=== PATIENT | female | born 1955 | race Caucasian/White ===

== ENCOUNTER 2017-09-21 09:44 | Day surgery (SDC) | payer MEDICAID ==
[~2017-09-21 09:44] MED LIST: KETOROLAC TROMETHAMINE 0.45% 4 DROP/0.4 ML DROPERETTE OD PRN
[2017-09-21] MEDS: CYCLOPENTOLATE 0.2%/PHENYLEPHRINE 1% OPH SOLN 2 ML OD PRN ×3 (10:05→10:38)
[2017-09-21] MEDS: TROPICAMIDE 1% OPH SOLN 3 ML OD PRN ×3 (10:05→10:38)
[2017-09-21] MEDS: BESIFLOXACIN HCL 0.6% OPH SUSP 5 ML BOTTLE OD PRN ×4 (10:06→11:12)
[2017-09-21] MEDS: TETRACAINE HCL 0.5% OPH SOLN 0.6 ML DROPERETTE OD PRN ×4 (10:07→10:53)
[2017-09-21] MEDS ORDERED: CHONDR SU A NA/HYALUR INTRAOC KIT (SURGICARE) ONE (10:09)
[2017-09-21] MEDS ORDERED: EPINEPHRINE INJ/PF 1 MG/1 ML AMPULE ONE (10:09)
[2017-09-21] MEDS ORDERED: LIDOCAINE 1% INJ-PF (10 MG/ML) 30 ML SDV ONE (10:09)
[2017-09-21] MEDS ORDERED: MIDAZOLAM 2 MG/2 ML INJ ONE (10:32)
[2017-09-21] MEDS ORDERED: FENTANYL CITRATE INJ/PF 100 MCG/2 ML AMPUL ONE (10:32)
[2017-09-21] MEDS: TOBRAMYCIN SULFATE/DEXAMETH OPH OINTMENT 3.5 GM ONE ×2 (11:12)
== END 2017-09-21 11:50 | disposition home or self-care (01) ==
LOC: SC 09:44
PROVIDERS: ATTEND Ophthalmology
PROC: 08RJ3JZ Replacement of Right Lens with Synthetic Substitute, Percutaneous Approach (ICD-10-PCS; principal; 2017-09-21 10:30)
DX: H25.11 Age-related nuclear cataract, right eye (principal); F17.200 Nicotine dependence, unspecified, uncomplicated; J45.909 Unspecified asthma, uncomplicated; I10 Essential (primary) hypertension
CPT/HCPCS: 66984; V2630; J2250; J3490 ×5; J0171; J3010; 142

== ENCOUNTER 2017-10-05 10:24 | Day surgery (SDC) | payer MEDICAID ==
[~2017-10-05 10:24] MED LIST changes: -KETOROLAC TROMETHAMINE 0.45% 4 DROP/0.4 ML DROPERETTE OD PRN; +KETOROLAC TROMETHAMINE 0.45% 4 DROP/0.4 ML DROPERETTE OS PRN
[2017-10-05] MEDS: TETRACAINE HCL 0.5% OPH SOLN 0.6 ML DROPERETTE OS PRN ×4 (11:02→11:37)
[2017-10-05] MEDS: CYCLOPENTOLATE 0.2%/PHENYLEPHRINE 1% OPH SOLN 2 ML OS PRN ×3 (11:03→11:25)
[2017-10-05] MEDS: TROPICAMIDE 1% OPH SOLN 3 ML OS PRN ×3 (11:03→11:25)
[2017-10-05] MEDS: BESIFLOXACIN HCL 0.6% OPH SUSP 5 ML BOTTLE OS PRN ×4 (11:04→11:59)
[2017-10-05] MEDS ORDERED: MIDAZOLAM 2 MG/2 ML INJ ONE (11:20)
[2017-10-05] MEDS ORDERED: FENTANYL CITRATE INJ/PF 100 MCG/2 ML AMPUL ONE (11:20)
[2017-10-05] MEDS: EPINEPHRINE INJ/PF 1 MG/1 ML AMPULE ONE ×2 (11:47)
[2017-10-05] MEDS: CHONDR SU A NA/HYALUR INTRAOC KIT (SURGICARE) ONE ×2 (11:47)
[2017-10-05] MEDS: LIDOCAINE 1% INJ-PF (10 MG/ML) 30 ML SDV ONE ×2 (11:47)
[2017-10-05] MEDS: TOBRAMYCIN SULFATE/DEXAMETH OPH OINTMENT 3.5 GM ONE ×2 (11:59)
== END 2017-10-05 12:40 | disposition home or self-care (01) ==
LOC: SC 10:24
PROVIDERS: ATTEND Ophthalmology
DX: H25.12 Age-related nuclear cataract, left eye (principal); J45.909 Unspecified asthma, uncomplicated; I10 Essential (primary) hypertension; K21.9 Gastro-esophageal reflux disease without esophagitis; E78.00 Pure hypercholesterolemia, unspecified; F17.210 Nicotine dependence, cigarettes, uncomplicated; Z88.2 Allergy status to sulfonamides; Z79.899 Other long term (current) drug therapy; Z79.82 Long term (current) use of aspirin
CPT/HCPCS: 66984; V2630; J2250; J3490 ×5; J0171; J3010; 142

== ENCOUNTER 2018-08-28 09:00 | Day surgery (SDC) | payer MEDICAID ==
[~2018-08-28 09:00] MED LIST changes: -KETOROLAC TROMETHAMINE 0.45% 4 DROP/0.4 ML DROPERETTE OS PRN; +PROPOFOL INJ 200 MG/20 ML VIAL IV ONE
[2018-08-28] MEDS ORDERED: ALBUTEROL SULFATE 0.083% NEB 2.5 MG/3 ML AMPUL NEB ONE (10:00)
[2018-08-28] MEDS ORDERED: IPRATROPIUM/ALBUTEROL 0.5-2.5 MG/3 ML AMPUL NEB ONE (10:02)
[2018-08-28] MEDS ORDERED: GLYCOPYRROLATE INJ 0.4 MG/2 ML VIAL ONE (11:24)
[2018-08-28] MEDS ORDERED: PROPOFOL INJ 200 MG/20 ML VIAL IV ONE (11:27)
--- NOTE | 2018-08-28 11:28 | EKG REPORT ---
SEVERITY:- OTHERWISE NORMAL ECG - SINUS RHYTHM LEFT AXIS DEVIATION LOW VOLTAGE IN FRONTAL LEADS : Confirmed by: Ambika Qureshi MD 28-Aug-2018 11:27:31
[2018-08-28 12:16] VITALS: BP 126/74
--- NOTE | 2018-08-28 15:23 | Operative Report ---
Operative Report DATE OF SURGERY: 08/28/18 Operative Report: The risks, benefits and alternatives of the procedure including the risk of bleeding, perforation requiring surgery have been explained to the patient in detail and informed consent has been obtained. The patient is placed in a left, lateral decubital position. Timeout was called. Propofol medication is administered. Rectal examination is done which did not reveal any masses, tears or fissures. An Olympus videoscope was introduced into the patient's rectum. The scope was then carefully advanced all the way to the cecum. The cecum was identified by the usual anatomical landmarks including the ileocecal valve as well as the appendiceal office. Photodocumentation is obtained. The scope was then sequentially pulled back via the various segments of the colon including the ascending colon, hepatic flexure, transverse colon, splenic flexure, acacia cending colon and brought into the rectosigmoid portions of the colon. Retroflexion maneuvers performed. PREOPERATIVE DIAGNOSIS: Rectal bleeding POSTOPERATIVE DIAGNOSIS: Colon mass noted at 15 cm. It is noted just distal to the first valve of Sanchez. Marcia ink was used to tattoo the area. Sigmoid colon polyp removed via snare polypectomy and retrieved. Diverticulosis without any evidence of diverticulitis. Internal hemorrhoids. Hepatic flexure polyp removed via snare polypectomy and retrieved OPERATION: Colonoscopy with snare polypectomy. Colonoscopy with submucosal injection of Marcia ink SURGEON: ROSEY MENDES ANESTHESIA: LMAC TISSUE REMOVED OR ALTERED: As noted above. COMPLICATIONS: None. ESTIMATED BLOOD LOSS: None INTRAOPERATIVE FINDINGS: As noted above. PROCEDURE: Patient tolerated the procedure well. No immediate postprocedure complications are noted. Patient is discharged in good condition. Discharge date 08/28/2018. Discharge diet: Regular. Discharge activity: Regular. Will need surgical referral for segmental resection pending work-up of metastases Wait on the pathology Patient is instructed to call the office or proceed to the emergency room should there be any further problems or questions. Following surgery she needs a six-month to one year surveillance colonoscopy
== END 2018-08-28 12:18 | disposition home or self-care (01) ==
LOC: END 09:00
PROVIDERS: ATTEND Internal Medicine Gastroenterology
DX: D12.5 Benign neoplasm of sigmoid colon (principal); D12.6 Benign neoplasm of colon, unspecified; K64.8 Other hemorrhoids; K62.5 Hemorrhage of anus and rectum; I11.9 Hypertensive heart disease without heart failure; J44.9 Chronic obstructive pulmonary disease, unspecified; E07.9 Disorder of thyroid, unspecified; F17.210 Nicotine dependence, cigarettes, uncomplicated; Z88.2 Allergy status to sulfonamides
CPT/HCPCS: 45385; 45381; 88305 ×2; 93005; 93010; 94640; J3490; J2704; J7620; 811

== ENCOUNTER 2018-11-07 09:11 | Day surgery (SDC) | payer MEDICAID, MEDICARE ==
--- NOTE | 2018-11-07 10:04 | RADIOLOGY REPORT (SQ) ---
EXAM DESCRIPTION: CHEST SINGLE VIEW COMPLETED DATE/TIME: 11/07/2018 9:51 am REASON FOR STUDY: PREOP COMPARISON: 09/22/2018 EXAM PARAMETERS: NUMBER OF VIEWS: One view. TECHNIQUE: Single frontal radiographic view of the chest acquired. RADIATION DOSE: NA LIMITATIONS: None. FINDINGS: LUNGS AND PLEURA: No opacities, masses or pneumothorax. No pleural effusion. MEDIASTINUM AND HILAR STRUCTURES: No masses. Contour normal. HEART AND VASCULAR STRUCTURES: Heart normal in size. Normal vasculature. BONES: No acute findings. HARDWARE: None in the chest. OTHER: No other significant finding. IMPRESSION: No evidence of acute cardiopulmonary process. TECHNICAL DOCUMENTATION: JOB ID: [id number] [employer]- All Rights Reserved Reading location - IP/workstation name: [email or web address]
[2018-11-07 10:08] LABS: HEMATOCRIT 27.5 % (36.0-47.0); HEMOGLOBIN 8.7 g/dL (12.0-15.5); MEAN CORPUSCULAR HEMOGLOBIN 22.8 pg (27.0-33.4); MEAN CORPUSCULAR HGB CONC 31.6 g/dL (32.0-36.0); MEAN CORPUSCULAR VOLUME 72 fl (80-97); PLATELET COUNT 380 10^3/uL (150-450); RED BLOOD COUNT 3.82 10^6/uL (3.72-5.28); RED CELL DISTRIBUTION WIDTH 17.6 % (11.5-14.0); WHITE BLOOD COUNT 6.3 10^3/uL (4.0-10.5)
[2018-11-07] MEDS ORDERED: PROPOFOL INJ 200 MG/20 ML VIAL IV ONE (10:35)
[2018-11-07] MEDS ORDERED: LIDOCAINE 2% INJ-PF (20 MG/ML) 10 ML AMPUL ONE (10:35)
[2018-11-07 10:39] LABS: ANION GAP 5 (5-19); BLOOD UREA NITROGEN 11 mg/dL (7-20); CALCIUM 9.6 mg/dL (8.4-10.2); CARBON DIOXIDE 29 mmol/L (22-30); CHLORIDE 106 mmol/L (98-107); GLUCOSE 97 mg/dL (75-110); POTASSIUM 4.4 mmol/L (3.6-5.0)
[2018-11-07] MEDS ORDERED: ALBUTEROL SULFATE 0.083% NEB 2.5 MG/3 ML AMPUL NEB ONE (10:49)
[2018-11-07 11:09] LABS: CARCINOEMBRYONIC ANTIGEN 5.9 ng/mL (<3.0)
--- NOTE | 2018-11-07 12:13 | Discharge Summary ---
Discharge Summary (SDC) - Discharge Final Diagnosis: rectal cancer Date of Surgery: 11/07/18 Discharge Date: 11/07/18 Condition: Stable Treatment or Instructions: Discharge home. Diet as tolerated. Activity: As tolerated. Follow-up with me in 1 to 2 weeks. My office will schedule a rectal MRI for the patient. They will call her with the date and time. Referrals: KEVIN SYKES FNP-C [Primary Care Provider] - Discharge Diet: As Tolerated Respiratory Treatments at Home: Deep Breathing/Coughing, Incentive Spirometer Discharge Activity: Activity As Tolerated Home Care Assistance: None Needed Report the Following to Your Physician Immediately: Shortness of Breath, Nausea, Vomiting, Increase in Pain
--- NOTE | 2018-11-07 12:18 | Operative Report ---
Nonrecallable Operative Report DATE OF SURGERY: 11/07/18 PREOPERATIVE DIAGNOSIS: rectal mass/rectal cancer POSTOPERATIVE DIAGNOSIS: Same as above OPERATION: Flexible sigmoidoscopy SURGEON: BOY BLOOM ANESTHESIA: LMAC TISSUE REMOVED OR ALTERED: None COMPLICATIONS: None apparent ESTIMATED BLOOD LOSS: None PROCEDURE: Procedure in detail: After informed consent was obtained, the patient was brought into the operating room and laid in the left lateral decubitus position. After adequate anesthesia had been attained, the flexible sigmoidoscope was inserted into the rectum. At approximately 8.5 cm from the dentate line, in the rectum a mass like lesion was identified with a depressed center. This is highly suspicious for rectal cancer. A previous tattoo was identified distal to the lesion. The lesion was located at approximately 8:00 on the lateral left side of the rectal wall. Once this was confirmed, the procedure was concluded. All sponge, instrument, needle counts were correct. Condition: Stable.
[2018-11-07 15:11] VITALS: BP 152/92
--- NOTE | 2018-11-07 18:58 | EKG REPORT ---
SEVERITY:- ABNORMAL ECG - SINUS RHYTHM SUPRAVENTRICULAR BIGEMINY LEFT AXIS DEVIATION LOW VOLTAGE IN FRONTAL LEADS : Confirmed by: Ryan Noguera MD 07-Nov-2018 18:58:25
== END 2018-11-07 13:30 | disposition home or self-care (01) ==
LOC: OROUT 09:11
PROVIDERS: ATTEND Surgery
DX: C20 Malignant neoplasm of rectum (principal); K63.89 Other specified diseases of intestine; J44.9 Chronic obstructive pulmonary disease, unspecified; D64.9 Anemia, unspecified; E78.00 Pure hypercholesterolemia, unspecified; F17.210 Nicotine dependence, cigarettes, uncomplicated; Z79.51 Long term (current) use of inhaled steroids; Z79.899 Other long term (current) drug therapy; Z79.82 Long term (current) use of aspirin
CPT/HCPCS: 36415; 82378; 85027; 80048; 71045; 93005; 93010; 45330; J2704; J3490

== ENCOUNTER → 2018-11-14 | Outpatient (CLI) | payer MEDICAID ==
--- NOTE | 2018-11-14 13:26 | RADIOLOGY REPORT (SQ) ---
EXAM DESCRIPTION: MRI PELVIS COMBO COMPLETED DATE/TIME: 11/14/2018 REASON FOR STUDY: K63.9 DISEASE OF INTESTINE, UNSPECIFIED K63.9 DISEASE OF INTESTINE, UNSPECIFIED COMPARISON: CT abdomen pelvis 09/22/2018 TECHNIQUE: Sagittal, axial oblique, and coronal oblique T2-weighted images of the pelvis without con trast centered on the rectum. Axial images of the pelvis. FINDINGS: BRIEF DESCRIPTION OF MASS: A nearly circumferential apple core lesion of the distal sigmoi d colon is present, 3.5 cm in greatest length LOCATION OF TUMOR: Distal sigmoid colon DISTANCE FROM ANORECTAL JUNCTION TO LOWER POLE OF TUMOR: 5 cm. CIRCUMFERENTIAL LOCATION OF TUMOR: Distal sigmoid colon LENGTH OF TUMOR: 3.5 cm. INVOLVEMENT OF MUSCULARIS PROPIA: Yes EXTENSION BEYOND MUSCULARIS PROPIA: Yes, contrast-enhancement and stranding of pericolic fat worrisom e for tumor extension beyond the muscularis propria on axial image 53 DISTANCE BETWEEN TUMOR AND MESORECTAL FASCIA: At the level of the fascia PATHOLOGIC LYMPH NODES: 9 mm lymph node in the presacral fat axial image 5/32 6 mm left internal iliac lymph node axial image 6/32 7 mm lymph node in the perirectal fat axial image 8/32 5 mm lymph node perirectal fat axial image 10/32 6 mm perirectal fat lymph node axial image 11/32 EXTRAMURAL/VASCULAR INVASION: No DESCRIPTION: Not applicable. INVASION OF PELVIC STRUCTURES: No DESCRIPTION: Not applicable. Remainder of the study demonstrates normal size female pelvic organs with mild artifact post tubal li gation clips. Sigmoid diverticuli are present. No free pelvic fluid. No bony abnormalities. Next IMPRESSION: T STAGE: T3 Tumor invades subserosea through muscularis propria N STAGE: N1 1-3 pathologic lymph nodes TECHNICAL DOCUMENTATION: JOB ID: [id number] [employer]- All Rights Reserved Reading location - IP/workstation name: [email or web address]
== END ==
LOC: RAD 08:53
PROVIDERS: ATTEND Surgery
DX: D49.0 Neoplasm of unspecified behavior of digestive system (principal); K57.30 Diverticulosis of large intestine without perforation or abscess without bleeding
CPT/HCPCS: 72197; A9576

== ENCOUNTER → 2018-11-27 | Outpatient (CLI) | payer MEDICAID ==
[2018-11-27 11:40] LABS: HEMATOCRIT 27.9 % (36.0-47.0); HEMOGLOBIN 8.7 g/dL (12.0-15.5); MEAN CORPUSCULAR HEMOGLOBIN 22.1 pg (27.0-33.4); MEAN CORPUSCULAR HGB CONC 31.2 g/dL (32.0-36.0); MEAN CORPUSCULAR VOLUME 71 fl (80-97); PLATELET COUNT 429 10^3/uL (150-450); RED BLOOD COUNT 3.94 10^6/uL (3.72-5.28); RED CELL DISTRIBUTION WIDTH 18.4 % (11.5-14.0); WHITE BLOOD COUNT 7.8 10^3/uL (4.0-10.5)
--- NOTE | 2018-11-27 11:44 | RADIOLOGY REPORT (SQ) ---
EXAM DESCRIPTION: CHEST PA/LATERAL COMPLETED DATE/TIME: 11/27/2018 11:04 am REASON FOR STUDY: PRE-OP COMPARISON: 11/07/2018. EXAM PARAMETERS: NUMBER OF VIEWS: two views TECHNIQUE: Digital Frontal and Lateral radiographic views of the chest acquired. RADIATION DOSE: NA LIMITATIONS: none FINDINGS: LUNGS AND PLEURA: No opacities, masses or pneumothorax. No pleural effusion. MEDIASTINUM AND HILAR STRUCTURES: No masses or contour abnormalities. HEART AND VASCULAR STRUCTURES: Heart normal size. No evidence for failure. BONES: No acute findings. HARDWARE: None in the chest. OTHER: Hiatal hernia. No other significant finding. IMPRESSION: NO ACUTE RADIOGRAPHIC FINDING IN THE CHEST. TECHNICAL DOCUMENTATION: JOB ID: [id number] [employer]- All Rights Reserved Reading location - IP/workstation name: [email or web address]
[2018-11-27 11:59] LABS: ANION GAP 9 (5-19); BLOOD UREA NITROGEN 17 mg/dL (7-20); CARBON DIOXIDE 27 mmol/L (22-30); CHLORIDE 106 mmol/L (98-107); GLUCOSE 87 mg/dL (75-110); POTASSIUM 4.6 mmol/L (3.6-5.0)
--- NOTE | 2018-11-27 13:32 | EKG REPORT ---
SEVERITY:- BORDERLINE ECG - SINUS RHYTHM ATRIAL PREMATURE COMPLEX BORDERLINE LEFT AXIS DEVIATION LOW VOLTAGE IN FRONTAL LEADS : Confirmed by: Ryan Noguera MD 27-Nov-2018 13:31:25
== END ==
LOC: OD 10:30
PROVIDERS: ATTEND Surgery
DX: Z01.818 Encounter for other preprocedural examination (principal); I11.9 Hypertensive heart disease without heart failure; C20 Malignant neoplasm of rectum; K63.89 Other specified diseases of intestine; E03.9 Hypothyroidism, unspecified; F41.8 Other specified anxiety disorders; E78.00 Pure hypercholesterolemia, unspecified; M19.90 Unspecified osteoarthritis, unspecified site; Z79.82 Long term (current) use of aspirin
CPT/HCPCS: 36415; 71046; 80048; 85027; 93005; 93010

== ENCOUNTER 2018-12-04 11:33 | Day surgery (SDC) | payer MEDICAID ==
[2018-12-01 10:18] LABS: HEMATOCRIT 28.7 % (36.0-47.0); HEMOGLOBIN 8.7 g/dL (12.0-15.5); MEAN CORPUSCULAR HEMOGLOBIN 21.3 pg (27.0-33.4); MEAN CORPUSCULAR HGB CONC 30.3 g/dL (32.0-36.0); MEAN CORPUSCULAR VOLUME 70 fl (80-97); PLATELET COUNT 404 10^3/uL (150-450); RED BLOOD COUNT 4.09 10^6/uL (3.72-5.28); RED CELL DISTRIBUTION WIDTH 18.4 % (11.5-14.0); WHITE BLOOD COUNT 8.9 10^3/uL (4.0-10.5)
[2018-12-01 10:57] LABS: ANION GAP 13 (5-19); BLOOD UREA NITROGEN 25 mg/dL (7-20); CALCIUM 9.8 mg/dL (8.4-10.2); CARBON DIOXIDE 25 mmol/L (22-30); CHLORIDE 103 mmol/L (98-107); GLUCOSE 100 mg/dL (75-110); POTASSIUM 4.5 mmol/L (3.6-5.0)
--- NOTE | 2018-12-01 15:07 | EKG REPORT ---
SEVERITY:- ABNORMAL ECG - SINUS RHYTHM PROBABLE INFERIOR INFARCT, OLD : Confirmed by: Ryan Noguera MD 01-Dec-2018 15:06:45
[~2018-12-04 11:33] MED LIST changes: +CEFAZOLIN 2 GM/D5W RTU 2 GM/50 ML RTUPB IV PRN; +FENTANYL CITRATE INJ/PF 100 MCG/2 ML AMPUL ONE; +IBUPROFEN 800 MG in NORMAL SALINE 250 ML IV PRN; +LACTATED RINGERS 1000 ML IV PRN; +LIDOCAINE 0.5% INJ-PF (5 MG/ML) 50 ML SDV SUBCUT PRN; -PROPOFOL INJ 200 MG/20 ML VIAL IV ONE
[2018-12-04] MEDS ORDERED: CEFAZOLIN SODIUM 2 GM in DEXTROSE 5%-WATER 100 ML IV PRN (11:45)
[2018-12-04] MEDS ORDERED: BUPIVACAINE HCL 0.25 % INJ/PF (2.5 MG/1 ML) 30 ML VIAL ONE (12:19)
[2018-12-04] MEDS ORDERED: LIDOCAINE 1% INJ-PF (10 MG/ML) 30 ML SDV ONE (12:19)
[2018-12-04] MEDS ORDERED: PROPOFOL INJ 200 MG/20 ML VIAL IV ONE (15:54)
[2018-12-04] MEDS ORDERED: ONDANSETRON HCL INJ/PF 4 MG/2 ML SDV ONE (15:54)
[2018-12-04] MEDS ORDERED: MIDAZOLAM 2 MG/2 ML INJ ONE (15:54)
[2018-12-04] MEDS ORDERED: PROMETHAZINE HCL INJ 25 MG/1 ML VIAL IV PRN (16:43)
[2018-12-04] MEDS ORDERED: MEPERIDINE HCL/PF INJ 25 MG/1 ML DISP.SYRIN IV PRN (16:43)
[2018-12-04] MEDS ORDERED: DIPHENHYDRAMINE HCL 50 MG/ML VIAL IV PRN (16:43)
[2018-12-04] MEDS ORDERED: FENTANYL CITRATE INJ/PF 100 MCG/2 ML AMPUL IV PRN ×2 (16:43)
[2018-12-04] MEDS ORDERED: BUPIVACAINE HCL 0.25 % INJ/PF (2.5 MG/1 ML) 30 ML VIAL INJ ONE (17:04)
[2018-12-04] MEDS ORDERED: LIDOCAINE 1% INJ (10 MG/ML) 10 ML MDV INJ ONE (17:04)
[2018-12-04] MEDS ORDERED: FENTANYL CITRATE INJ/PF 100 MCG/2 ML AMPUL ONE (17:27)
--- NOTE | 2018-12-04 17:46 | RADIOLOGY REPORT (SQ) ---
EXAM DESCRIPTION: CHEST SINGLE VIEW COMPLETED DATE/TIME: 12/04/2018 5:32 pm REASON FOR STUDY: post op pacu COMPARISON: 11/27/2018 EXAM PARAMETERS: NUMBER OF VIEWS: One view. TECHNIQUE: Single frontal radiographic view of the chest acquired. RADIATION DOSE: NA LIMITATIONS: None. FINDINGS: LUNGS AND PLEURA: No opacities, masses or pneumothorax. No pleural effusion. MEDIASTINUM AND HILAR STRUCTURES: Large retrocardiac hiatal hernia. HEART AND VASCULAR STRUCTURES: Heart normal in size. Normal vasculature. BONES: No acute findings. HARDWARE: New venous access catheter tip at the cavoatrial junction. OTHER: No other significant finding. IMPRESSION: New venous access catheter tip cavoatrial junction. No pneumothorax. TECHNICAL DOCUMENTATION: JOB ID: [id number] [employer]- All Rights Reserved Reading location - IP/workstation name: [email or web address]
[2018-12-04 18:56] VITALS: BP 119/73
--- NOTE | 2018-12-04 19:32 | RADIOLOGY REPORT (SQ) ---
EXAM DESCRIPTION: CHEST SINGLE VIEW; FLUORO/CV PLACEMENT COMPLETED DATE/TIME: 12/04/2018 5:10 pm REASON FOR STUDY: PORT A CATH RT SIDE C20 MALIGNANT NEOPLASM OF RECTUM K63.89 OTHER SPECIFIED DISE ASES OF INTESTINE COMPARISON: Chest radiograph FLUOROSCOPY TIME: 0.8 minutes 2 images saved to PACS. TECHNIQUE: Intra-operative images acquired during surgical procedure to evaluate progress. NUMBER OF IMAGES: 2 LIMITATIONS: None. FINDINGS: Placement of venous access catheter. Tip at the cavoatrial junction. IMPRESSION: IMAGE(S) OBTAINED DURING PROCEDURE. COMMENT: Quality ID [id number]: Final reports for procedures using fluoroscopy that document radiation exp osure indices, or exposure time and number of fluorographic images (if radiation exposure indices are not available) Please consult full operative report of the attending physician for description of the procedure. TECHNICAL DOCUMENTATION: JOB ID: [id number] [employer]- All Rights Reserved Reading location - IP/workstation name: [email or web address]
--- NOTE | 2018-12-04 19:32 | RADIOLOGY REPORT (SQ) ---
EXAM DESCRIPTION: CHEST SINGLE VIEW; FLUORO/CV PLACEMENT COMPLETED DATE/TIME: 12/04/2018 5:10 pm REASON FOR STUDY: PORT A CATH RT SIDE C20 MALIGNANT NEOPLASM OF RECTUM K63.89 OTHER SPECIFIED DISE ASES OF INTESTINE COMPARISON: Chest radiograph FLUOROSCOPY TIME: 0.8 minutes 2 images saved to PACS. TECHNIQUE: Intra-operative images acquired during surgical procedure to evaluate progress. NUMBER OF IMAGES: 2 LIMITATIONS: None. FINDINGS: Placement of venous access catheter. Tip at the cavoatrial junction. IMPRESSION: IMAGE(S) OBTAINED DURING PROCEDURE. COMMENT: Quality ID 145: Final reports for procedures using fluoroscopy that document radiation exp osure indices, or exposure time and number of fluorographic images (if radiation exposure indices are not available) Please consult full operative report of the attending physician for description of the procedure. TECHNICAL DOCUMENTATION: JOB ID: [id number] [employer]- All Rights Reserved Reading location - IP/workstation name: [email or web address]
--- NOTE | 2018-12-05 16:18 | Discharge Summary ---
Discharge Summary (SDC) - Discharge Final Diagnosis: Rectal cancer Date of Surgery: 12/04/18 Discharge Date: 12/04/18 Condition: Stable Forms: ASU Anesthesia D/C Instruction, Discharge POC-Surgical Service Treatment or Instructions: Discharge home. Diet as tolerated. Activity: Nonstrenuous. Follow-up with me will be arranged by my office. Referrals: DAT JONES FNP-C [Primary Care Provider] - BOY CORBETT MD [ACTIVE STAFF] - (Dr Corbett's office will call to schedule follow up) Discharge Diet: As Tolerated Respiratory Treatments at Home: Deep Breathing/Coughing, Incentive Spirometer Discharge Activity: Balance Activity w/Rest Home Care Assistance: None Needed Report the Following to Your Physician Immediately: Shortness of Breath, Nausea, Increase in Pain, Fever over 101 Degrees, Unusual Bleeding, Redness, Swelling, Warmth, Increased Soreness, Drainage-Yellow, IV Site Infection Signs
--- NOTE | 2018-12-05 16:24 | Operative Report ---
Nonrecallable Operative Report DATE OF SURGERY: 12/04/18 PREOPERATIVE DIAGNOSIS: Rectal cancer POSTOPERATIVE DIAGNOSIS: Same as above OPERATION: 1. Ultrasound-guided central venous puncture. 2. Right internal jugular vein Mediport placement. 3. Flexible sigmoidoscopy with biopsy of rectal cancer SURGEON: BOY BLOOM ANESTHESIA: LMAC TISSUE REMOVED OR ALTERED: Rectal biopsy COMPLICATIONS: None apparent ESTIMATED BLOOD LOSS: Minimal PROCEDURE: Indication for the procedure: This is a 63-year-old female with a known rectal mass. It has previously been imaged and tattooed. Patient has advanced rectal cancer, however no biopsy has to-date been obtained. Oncology is requesting biopsy so they may examine the histology of the tumor, prior to neoadjuvant chemoradiation. Drains/implants: Mediport in the right chest wall. Procedure in detail: After informed consent was obtained, the patient was brought to the operating room and laid in the Trendelenburg position. The area of the neck and chest were prepped and draped in a normal sterile fashion. An ultrasound was used to identify the right internal jugular vein. It was compressible with normal flow. Under direct ultrasonic guidance, the right internal jugular vein was cannulated with the supplied access needle. Dark venous, nonpulsatile blood was returned in the syringe. The wire was inserted easily into the lumen of the vein. The wire was confirmed to be within the vein using both fluoroscopy as well as ultrasonography. Next, the catheter was tunneled from a separate stab incision in the right chest up to the needle insertion site. Next the dilator and breakaway sheath were inserted over the wire. The dilator and wire were removed as one continuous piece. The catheter was inserted into the breakaway sheath. The sheath was cracked and pulled away, leaving the catheter within the superior vena cava. The catheter was pulled back to an appropriate level, trimmed to length, and then the Mediport hub was attached. The hub was buried within the pocket. It was sutured to the chest wall using 3-0 Vicryl suture. The hub was accessed and flushed easily with heparinized saline. The subcutaneous tissues were closed using 3-0 Vicryl suture. The overlying skin was closed using 4-0 Vicryl Rapide suture. A dressing was placed, and this portion of the procedure was concluded. Next, the patient was placed into frog-leg position. The flexible sigmoidoscope was inserted into the rectum. Inside the rectum, at approximately 8 cm, the large rectal tumor was identified. Multiple biopsies were taken circumferentially around the mass. After adequate tissue had been obtained, the scope was removed, and the procedure was concluded. All sponge, instrument, and needle counts were correct x2. Condition: Stable.
== END 2018-12-04 18:45 | disposition home or self-care (01) ==
LOC: OROUT 11:33
PROVIDERS: ATTEND Surgery
DX: C20 Malignant neoplasm of rectum (principal); K63.89 Other specified diseases of intestine; J44.9 Chronic obstructive pulmonary disease, unspecified; I11.9 Hypertensive heart disease without heart failure; E03.9 Hypothyroidism, unspecified; E78.00 Pure hypercholesterolemia, unspecified; F17.210 Nicotine dependence, cigarettes, uncomplicated; Z79.899 Other long term (current) drug therapy; Z79.82 Long term (current) use of aspirin; Z79.51 Long term (current) use of inhaled steroids; D64.9 Anemia, unspecified
CPT/HCPCS: 36561; 45331; 93005; 36415; 85027; 80048; 88305 ×2; 71045; 77001; 93010; 00532; C1788; J2250; J0690; J3010; J3490 ×2; J2405; S0020; J7060; J7050; J2704; J1642; J1741; 532

== ENCOUNTER → 2018-12-05 | Outpatient (CLI) | payer MEDICAID ==
--- NOTE | 2018-12-06 10:02 | RADIOLOGY REPORT (SQ) ---
EXAM DESCRIPTION: PET CT SKULL/THIGH COMPLETED DATE/TIME: 12/05/2018 9:39 pm REASON FOR STUDY: (C21.8)MALIG NEOPLASM OF OVRLP SITES OF RECTUM, ANUS AND ANAL CANAL C21.8 MALIG N EOPLASM OF OVRLP SITES OF RECTUM, ANUS AND ANAL COMPARISON: No prior pets, MR 11/14/2018 RADIONUCLIDE AND DOSE: 11.41 mCi F18 FDG The route of agent administration: Intravenous FASTING BLOOD SUGAR: 96 mg/dl CONTRAST TYPE AND DOSE: No CT contrast given. TECHNIQUE: Blood glucose level was verified. Above dose of FDG was injected intravenously. 2-D seg mented attenuation correction images were obtained from the base of the skull to the midthighs. Nonc ontrast CT images were obtained for attenuation correction and fusion with emission images. CT image s were performed without oral or intravenous contrast and are not sensitive for parenchymal lesions. A series of overlapping emission PET images were obtained. Images reviewed and manipulated at [facility] by the radiologist. Images stored on PACS. LIMITATIONS: None. FINDINGS: HEAD AND NECK: Partially evaluated hypoattenuation along the anterior left frontal lobe w ithout metabolic activity possibly related to prior infarct or arachnoid cyst. Asymmetric activity w ithin the right lateral pterygoid muscle without definite CT correlate (max SUV 14.7). No other area s of focal increased FDG uptake within the head or neck. CHEST: No areas of abnormal metabolic activity in the chest. ABDOMEN AND PELVIS: Background liver activity max SUV 3.3. Known distal sigmoid mass demonstrates av id increased FDG activity (max SUV 29). Presacral node measuring 7 mm in short axis (series 3, image 181) with mild uptake (max SUV 2.2). No other definitive areas of focally abnormal FDG uptake withi n the abdomen or pelvis. Diffuse uptake within the gluteal musculature likely physiologic. Addition al expected physiologic activity within the gastrointestinal and genitourinary system. PROXIMAL LOWER EXTREMITIES: No areas of abnormal metabolic activity in the soft tissues of the lower extremities. BONES: No abnormal metabolic activity in the visualized skeleton. ADDITIONAL CT FINDINGS: Right internal jugular based chest port with catheter tip at cavoatrial junct ion. No evidence of acute intrathoracic process. Unchanged large hiatal hernia. Cholelithiasis. U nchanged large right renal stones and chronic hydronephrosis. Punctate left renal stones. Colonic d iverticulosis. Known distal sigmoid mass better evaluated on prior MRI. No evidence of acute bony a bnormality. IMPRESSION: 1. Avid uptake within the known distal sigmoid mass compatible with neoplasm (max SUV 2 9). 2. Mild uptake within a 7 mm short axis presacral lymph node (max SUV 2.2), nonspecific and moderate ly suspicious for metastatic disease. Additional previous described perirectal lymph nodes without s ignificant uptake 3. Asymmetric uptake within the right lateral pterygoid muscle without definitive CT correlate. Pos sibly physiologic. Recommend correlation with symptoms. Contrasted MR or CT could be considered if clinical concern for underlying lesion. 4. Partially evaluated hypoattenuation along the anterior left frontal lobe without metabolic activi ty possibly related to prior infarct or arachnoid cyst. Correlation with available priors or head CT /MR could be considered for further characterization. 5. No other abnormal foci of increased uptake to suggest additional distant disease. TECHNICAL DOCUMENTATION: JOB ID: [id number] [employer]- All Rights Reserved Reading location - IP/workstation name: [email or web address]
== END ==
LOC: RAD 15:47
PROVIDERS: ATTEND Internal Medicine Hematology & Oncology
DX: C20 Malignant neoplasm of rectum (principal)
CPT/HCPCS: 78815; A9552

== ENCOUNTER 2019-03-23 08:26 | Inpatient (IN) | payer MEDICAID ==
[2019-03-16 09:58] LABS: HEMOGLOBIN 12.3 g/dL (12.0-15.5); MEAN CORPUSCULAR HGB CONC 34.1 g/dL (32.0-36.0); MEAN CORPUSCULAR VOLUME 91 fl (80-97); PLATELET COUNT 329 10^3/uL (150-450); RED BLOOD COUNT 3.96 10^6/uL (3.72-5.28); RED CELL DISTRIBUTION WIDTH 28.8 % (11.5-14.0); WHITE BLOOD COUNT 7.2 10^3/uL (4.0-10.5)
[2019-03-16 10:18] LABS: ANION GAP 13 (5-19); BLOOD UREA NITROGEN 20 mg/dL (7-20); CALCIUM 9.6 mg/dL (8.4-10.2); CARBON DIOXIDE 24 mmol/L (22-30); CHLORIDE 107 mmol/L (98-107); GLUCOSE 68 mg/dL (75-110); POTASSIUM 4.5 mmol/L (3.6-5.0)
--- NOTE | 2019-03-16 10:31 | EKG REPORT ---
SEVERITY:- ABNORMAL ECG - SINUS RHYTHM INFERIOR INFARCT, OLD : Confirmed by: Ryan Noguera MD 16-Mar-2019 10:28:15
--- NOTE | 2019-03-16 11:00 | RADIOLOGY REPORT (SQ) ---
EXAM DESCRIPTION: CHEST PA/LATERAL COMPLETED DATE/TIME: 03/16/2019 10:47 am REASON FOR STUDY: PRE-OP COMPARISON: 12/04/2018 EXAM PARAMETERS: NUMBER OF VIEWS: two views TECHNIQUE: Digital Frontal and Lateral radiographic views of the chest acquired. RADIATION DOSE: NA LIMITATIONS: none FINDINGS: LUNGS AND PLEURA: Patchy left basilar opacity, new from prior. No significant effusion. No pneumothorax. MEDIASTINUM AND HILAR STRUCTURES: No masses or contour abnormalities. HEART AND VASCULAR STRUCTURES: Heart normal size. No evidence for failure. BONES: No acute findings. HARDWARE: Right internal jugular chest port catheter tip overlies SVC. OTHER: Hiatal hernia. IMPRESSION: 1. New patchy left basilar opacities, possibly atelectasis or infection. 2. Hiatal hernia. TECHNICAL DOCUMENTATION: JOB ID: [id number] [employer]- All Rights Reserved Reading location - IP/workstation name: [email or web address]
[~2019-03-23 08:26] MED LIST changes: +ACETAMINOPHEN 325 MG TABLET PO PRN; -CEFAZOLIN 2 GM/D5W RTU 2 GM/50 ML RTUPB IV PRN; +CEFOXITIN SODIUM 2 GM in DEXTROSE 5%-WATER 100 ML IV PRN; -FENTANYL CITRATE INJ/PF 100 MCG/2 ML AMPUL ONE; -LACTATED RINGERS 1000 ML IV PRN; +PREGABALIN 50 MG CAPSULE PO PRN
[2019-03-23] MEDS ORDERED: FENTANYL CITRATE INJ/PF 250 MCG/5 ML AMPULE ONE (08:41)
[2019-03-23] MEDS ORDERED: MIDAZOLAM 2 MG/2 ML INJ ONE ×2 (08:41→10:12)
[2019-03-23] MEDS ORDERED: PROPOFOL INJ 200 MG/20 ML VIAL IV ONE ×2 (08:42)
[2019-03-23] MEDS ORDERED: DIAZEPAM 5 MG TABLET ONE (09:17)
[2019-03-23] MEDS ORDERED: PREGABALIN 50 MG CAPSULE ONE (09:18)
[2019-03-23] MEDS ORDERED: ACETAMINOPHEN 325 MG TABLET ONE (09:18)
[2019-03-23] MEDS ORDERED: RINGERS SOLUTION,LACTATED 500 ML IV ONE (09:30)
[2019-03-23] MEDS ORDERED: FAMOTIDINE INJ/PF 20 MG/2 ML SDV IV ONE (09:57)
[2019-03-23] MEDS ORDERED: ALBUTEROL SULFATE 0.083% NEB 2.5 MG/3 ML AMPUL NEB ONE (09:57)
[2019-03-23] MEDS ORDERED: METOCLOPRAMIDE HCL INJ/PF 10 MG/2 ML SDV ONE (09:57)
[2019-03-23] MEDS ORDERED: DIAZEPAM 5 MG TABLET PO ONE (10:00)
[2019-03-23] MEDS: LACTATED RINGERS 1000 ML IV PRN ×2 (10:00→19:08)
[2019-03-23] MEDS ORDERED: BUPIVACAINE HCL 0.25 % INJ/PF (2.5 MG/1 ML) 30 ML VIAL ONE (10:16)
[2019-03-23] MEDS ORDERED: HYDROMORPHONE HCL INJ/PF 2 MG/ML AMPULE ONE (10:17)
--- NOTE | 2019-03-23 10:48 | RADIOLOGY REPORT (SQ) ---
EXAM DESCRIPTION: CHEST SINGLE VIEW COMPLETED DATE/TIME: 03/23/2019 10:38 am REASON FOR STUDY: RE OP COMPARISON: 03/16/2019 EXAM PARAMETERS: NUMBER OF VIEWS: One view. TECHNIQUE: Single frontal radiographic view of the chest acquired. RADIATION DOSE: NA LIMITATIONS: None. FINDINGS: LUNGS AND PLEURA: No opacities, masses or pneumothorax. No pleural effusion. MEDIASTINUM AND HILAR STRUCTURES: Hiatal hernia. There appear to be chronic interstitial changes in the left base. HEART AND VASCULAR STRUCTURES: Heart normal in size. Normal vasculature. BONES: No acute findings. HARDWARE: None in the chest. OTHER: No other significant finding. IMPRESSION: No acute cardiopulmonary findings. Hiatal hernia. TECHNICAL DOCUMENTATION: JOB ID: [id number] [employer]- All Rights Reserved Reading location - IP/workstation name: [email or web address]
[2019-03-23] MEDS ORDERED: LIDOCAINE 2% INJ-PF (20 MG/ML) 2 ML AMPUL ONE (12:00)
[2019-03-23] MEDS ORDERED: SUCCINYLCHOLINE CHLORIDE INJ 200 MG/10 ML VIAL ONE (12:00)
[2019-03-23] MEDS ORDERED: GLYCOPYRROLATE 1 MG/5 ML VIAL ONE (12:00)
[2019-03-23] MEDS ORDERED: ONDANSETRON HCL INJ/PF 4 MG/2 ML SDV ONE (12:00)
[2019-03-23] MEDS ORDERED: ROCURONIUM BROMIDE INJ 50 MG/5 ML VIAL IV ONE (12:00)
[2019-03-23] MEDS ORDERED: NEOSTIGMINE METHYLSULFATE 10 MG/10 ML VIAL ONE (12:00)
[2019-03-23] MEDS ORDERED: KETAMINE HCL INJ 500 MG/10 ML VIAL ONE (13:12)
[2019-03-23] MEDS ORDERED: FUROSEMIDE INJ/PF 40 MG/4 ML SDV ONE (13:12)
[2019-03-23 13:40] LABS: ARTERIAL BLOOD BASE EXCESS -2.2 mmol/L; ARTERIAL BLOOD FIO2 100%; ARTERIAL BLOOD H2CO3 1.48 mmol/L (1.05-1.35); ARTERIAL BLOOD HCO3 24.3 mmol/L (20-24); ARTERIAL BLOOD O2 SATURATION 87.2 % (94-98); ARTERIAL BLOOD PCO2 49.1 mmHg (35-45); ARTERIAL BLOOD PH 7.31 (7.35-7.45); ARTERIAL BLOOD PO2 57.5 mmHg (80-100); ARTERIAL BLOOD TOTAL CO2 25.8 mmol/L (21-25)
[2019-03-23] MEDS ORDERED: ALBUTEROL SULFATE HFA (90 MCG/PUFF) 200 PUFF/8.5 GM MDI IH ONE (14:17)
[2019-03-23] MEDS ORDERED: FENTANYL CITRATE INJ/PF 100 MCG/2 ML AMPUL ONE ×2 (14:23→16:48)
[2019-03-23] MEDS ORDERED: SUGAMMADEX SODIUM 200 MG/2 ML SDV IV ONE (14:24)
[2019-03-23] MEDS ORDERED: EPHEDRINE SULFATE INJ 50 MG/1 ML AMPULE ONE (14:29)
[2019-03-23] MEDS ORDERED: FENTANYL CITRATE INJ/PF 100 MCG/2 ML AMPUL IV PRN ×2 (15:13)
[2019-03-23] MEDS ORDERED: ONDANSETRON HCL INJ/PF 4 MG/2 ML SDV IV PRN (15:13)
[2019-03-23] MEDS ORDERED: MEPERIDINE HCL/PF INJ 25 MG/1 ML DISP.SYRIN IV PRN (15:13)
[2019-03-23] MEDS ORDERED: DIPHENHYDRAMINE HCL 50 MG/ML VIAL IV PRN (15:13)
[2019-03-23] MEDS ORDERED: MORPHINE SULFATE 10 MG/ML INJ IV PRN (15:13)
[2019-03-23] MEDS ORDERED: PROMETHAZINE HCL INJ 25 MG/1 ML VIAL IV PRN ×2 (15:13)
[2019-03-23] MEDS ORDERED: ALBUTEROL SULFATE 0.042% NEB (1.25 MG/3 ML) AMPUL NEB PRN (16:31)
[2019-03-23] MEDS: FENTANYL CITRATE INJ/PF 100 MCG/2 ML AMPUL IV PRN ×2 (16:48→17:10)
[2019-03-23] MEDS ORDERED: ACETAMINOPHEN 1,000 MG/100 ML RTUPB IV ONE (16:48)
--- NOTE | 2019-03-23 17:03 | RADIOLOGY REPORT (SQ) ---
EXAM DESCRIPTION: CHEST SINGLE VIEW COMPLETED DATE/TIME: 03/23/2019 4:46 pm REASON FOR STUDY: shortness of breath COMPARISON: None. EXAM PARAMETERS: NUMBER OF VIEWS: One view. TECHNIQUE: Single frontal radiographic view of the chest acquired. RADIATION DOSE: NA LIMITATIONS: None. FINDINGS: LUNGS AND PLEURA: No opacities, masses or pneumothorax. No pleural effusion. MEDIASTINUM AND HILAR STRUCTURES: Hiatal hernia. HEART AND VASCULAR STRUCTURES: Heart normal in size. Normal vasculature. BONES: No acute findings. HARDWARE: Injection port on the right. OTHER: No other significant finding. IMPRESSION: Hiatal hernia. No acute cardiopulmonary finding. TECHNICAL DOCUMENTATION: JOB ID: [id number] [employer]- All Rights Reserved Reading location - IP/workstation name: [email or web address]
[2019-03-23] MEDS ORDERED: (PENDING PHARMACY ID) (Sertraline Hcl [Zoloft] 50 MG) PO SCH (18:00)
[2019-03-23] MEDS: MORPHINE SULFATE 10 MG/ML INJ IV PRN ×2 (18:10→22:41)
[2019-03-23] MEDS ORDERED: INFLUENZA QUAD (6MOS+) 2019-20 VAC 0.5 ML SYR IM ONE (18:35)
[2019-03-23] MEDS: CEFOXITIN SODIUM 2 GM in DEXTROSE 5%-WATER 100 ML IV SCH (20:26)
[2019-03-23] MEDS: ACETAMINOPHEN 1,000 MG/100 ML RTUPB IV SCH (21:15)
[2019-03-23] MEDS: KETOROLAC TROMETHAMINE INJ/PF 30 MG/1 ML SDV IV SCH (21:15)
[2019-03-23] MEDS: FAMOTIDINE INJ/PF 20 MG/2 ML SDV IV SCH (21:16)
[2019-03-23] MEDS: ONDANSETRON HCL INJ/PF 4 MG/2 ML SDV IV PRN (21:48)
[2019-03-24] MEDS: DEXTROSE 5%-LACTATED RINGERS 1,000 ML IV PRN ×2 (01:56→13:21)
[2019-03-24] MEDS: MORPHINE SULFATE 10 MG/ML INJ IV PRN ×2 (03:21→09:19)
[2019-03-24] MEDS: CEFOXITIN SODIUM 2 GM in DEXTROSE 5%-WATER 100 ML IV SCH (03:21)
[2019-03-24 04:57] LABS: ANION GAP 9 (5-19); BLOOD UREA NITROGEN 16 mg/dL (7-20); CALCIUM 8.3 mg/dL (8.4-10.2); CARBON DIOXIDE 26 mmol/L (22-30); CHLORIDE 104 mmol/L (98-107); GLUCOSE 153 mg/dL (75-110); POTASSIUM 3.8 mmol/L (3.6-5.0)
[2019-03-24 05:03] LABS: HEMATOCRIT 34.1 % (36.0-47.0); HEMOGLOBIN 11.1 g/dL (12.0-15.5); MEAN CORPUSCULAR HEMOGLOBIN 30.4 pg (27.0-33.4); MEAN CORPUSCULAR HGB CONC 32.7 g/dL (32.0-36.0); MEAN CORPUSCULAR VOLUME 93 fl (80-97); PLATELET COUNT 263 10^3/uL (150-450); RED BLOOD COUNT 3.66 10^6/uL (3.72-5.28); RED CELL DISTRIBUTION WIDTH 25.6 % (11.5-14.0); WHITE BLOOD COUNT 13.6 10^3/uL (4.0-10.5)
[2019-03-24] MEDS: KETOROLAC TROMETHAMINE INJ/PF 30 MG/1 ML SDV IV SCH ×3 (05:05→21:13)
[2019-03-24] MEDS: ACETAMINOPHEN 1,000 MG/100 ML RTUPB IV SCH ×3 (05:05→21:14)
[2019-03-24 05:08] LABS: ABSOLUTE LYMPHOCYTES# (MANUAL) 0.1 10^3/uL (0.5-4.7); ABSOLUTE MONOCYTES # (MANUAL) 0.4 10^3/uL (0.1-1.4); BAND NEUTROPHILS % (MANUAL) 1 % (3-5); BASOPHILS % (MANUAL) 0 % (0-2); EOSINOPHILS % (MANUAL) 0 % (0-6); LYMPHOCYTES % (MANUAL) 1 % (13-45); MONOCYTES % (MANUAL) 3 % (3-13); SEGMENTED NEUTROPHILS % (MAN) 95 % (42-78); TOTAL CELLS COUNTED 100
[2019-03-24 05:10] LABS: ANISOCYTOSIS 3+; OVALOCYTES SLIGHT; PLATELET COMMENT ADEQUATE; POIKILOCYTOSIS SLIGHT; SCHISTOCYTES SLIGHT; TEAR DROP CELLS SLIGHT; TOXIC GRANULATION 1+; TOXIC VACUOLATION PRESENT
--- NOTE | 2019-03-24 08:02 | RADIOLOGY REPORT (SQ) ---
EXAM DESCRIPTION: CHEST SINGLE VIEW COMPLETED DATE/TIME: 03/24/2019 6:13 am REASON FOR STUDY: shortness of breath COMPARISON: 03/23/2019 FINDINGS: Single-view chest AP portable upright Right port remains in place. Compared to yesterday's film, diminished lung volumes with subsegmental atelectasis right mid lung zo ne. Stable cardiomediastinal silhouette, probable hiatal hernia. No pneumothorax. TECHNICAL DOCUMENTATION: JOB ID: [id number] Reading location - IP/workstation name: [email or web address]
[2019-03-24] MEDS: LEVOTHYROXINE SODIUM 0.1 MG TABLET PO SCH (09:19)
[2019-03-24] MEDS: FAMOTIDINE INJ/PF 20 MG/2 ML SDV IV SCH ×2 (09:24→21:13)
[2019-03-24] MEDS: ENOXAPARIN SODIUM INJ 40 MG/0.4 ML DISP.SYRIN SUBCUT SCH (09:27)
[2019-03-24] MEDS ORDERED: (PENDING PHARMACY ID) (Atenolol [Tenormin] 25 MG) PO SCH (10:00)
[2019-03-24] MEDS ORDERED: (PENDING PHARMACY ID) (Alprazolam [Alprazolam] 1 MG) PO PRN (11:11)
--- NOTE | 2019-03-24 11:56 | PDOC PROGRESS REPORT ---
Subjective Progress Note for:: 03/24/19 Reason For Visit: MALIGNANT NEOPLASM OF RECTUM Physical Exam Vital Signs: Temp Pulse Resp BP Pulse Ox 97.9 F 76 16 107/64 96 03/24/19 07:53 03/24/19 07:53 03/24/19 09:00 03/24/19 07:53 03/24/19 09:00 Intake & Output 03/23/19 03/24/19 03/25/19 06:59 06:59 06:59 Intake Total 3250 Output Total 2720 60 Balance 530 -60 Weight 87.092 kg 90.9 kg Results Laboratory Results: 03/24/19 04:23 03/24/19 04:23 03/23/19 03/24/19 03/24/19 13:16 04:23 04:23 WBC 13.6 H RBC 3.66 L Hgb 11.1 L Hct 34.1 L MCV 93 MCH 30.4 MCHC 32.7 RDW 25.6 H Plt Count 263 Seg Neutrophils % Not Reportable Carbonic Acid 1.48 H HCO3/H2CO3 Ratio 16:1 ABG pH 7.31 L ABG pCO2 49.1 H ABG pO2 57.5 L ABG HCO3 24.3 H ABG O2 Saturation 87.2 L ABG Base Excess -2.2 FiO2 100% Sodium 138.8 Potassium 3.8 Chloride 104 Carbon Dioxide 26 Anion Gap 9 BUN 16 Creatinine 0.85 Est GFR ( Amer) > 60 Glucose 153 H Calcium 8.3 L Assessment & Plan - Diagnosis (1) Rectal cancer Is this a current diagnosis for this admission?: Yes (2) Obesity (BMI 30-39.9) Is this a current diagnosis for this admission?: Yes (3) COPD (chronic obstructive pulmonary disease) Qualifiers: COPD type: unspecified COPD Qualified Code(s): J44.9 - Chronic obstructive pulmonary disease, unspecified Is this a current diagnosis for this admission?: Yes - Time Time Spent with patient: Less than 15 minutes - Plan Summary Plan Summary: This is a 63-year-old female status post robot-assisted laparoscopic low anterior resection for rectal cancer. The patient is doing well. She is satting well on a nasal cannula. She complains of pain, however her pain medication regimen is effective. She has had serosanguineous output from her LAYNE drain. Her right lower quadrant ileostomy is dusky, but appears viable. Out of bed today. Maintain Mejia due to low pelvic surgery and high risk for urinary retention. Transfer to the floor today. Physical therapy consult. Maintain full liquid diet and IV fluids today. Repeat labs tomorrow.
[2019-03-24] MEDS: ONDANSETRON HCL INJ/PF 4 MG/2 ML SDV IV PRN (13:10)
[2019-03-24] MEDS: BUSPIRONE HCL 10 MG TABLET PO SCH ×2 (13:10→21:14)
[2019-03-24] MEDS: OXYCODONE HCL IR 5 MG TABLET PO PRN (13:10)
[2019-03-24] MEDS: ATENOLOL 50 MG TABLET PO SCH (13:21)
[2019-03-24] MEDS: PANTOPRAZOLE SODIUM 20 MG TABLET.DR PO SCH (13:22)
[2019-03-24] MEDS: SERTRALINE HCL 50 MG TABLET PO SCH (13:25)
[2019-03-24] MEDS ORDERED: (PENDING PHARMACY ID) (Buspirone Hcl [Buspar 15 Mg Tablet] 1 TAB) PO SCH (14:00)
[2019-03-24] MEDS: (PENDING PHARMACY ID) (Alprazolam [Xanax Xr 1 Mg Tablet Extended Release] 1 TAB) PO SCH (15:08)
[2019-03-25] MEDS: OXYCODONE HCL IR 5 MG TABLET PO PRN ×4 (02:46→19:33)
[2019-03-25] MEDS: ACETAMINOPHEN 1,000 MG/100 ML RTUPB IV SCH ×3 (05:49→21:45)
[2019-03-25 05:50] LABS: ABSOLUTE EOSINOPHILS # (AUTO) 0.1 10^3/uL (0.0-0.6); ABSOLUTE LYMPHOCYTES (AUTO) 0.5 10^3/uL (0.5-4.7); ABSOLUTE MONOCYTES (AUTO) 0.8 10^3/uL (0.1-1.4); BASOPHILS % (AUTO) 0.3 % (0-2); EOSINOPHILS % (AUTO) 0.7 % (0-6); HEMATOCRIT 29.9 % (36.0-47.0); LYMPHOCYTES % (AUTO) 5.4 % (13-45); MEAN CORPUSCULAR HEMOGLOBIN 31.3 pg (27.0-33.4); MEAN CORPUSCULAR HGB CONC 33.4 g/dL (32.0-36.0); MEAN CORPUSCULAR VOLUME 94 fl (80-97); MONOCYTES % (AUTO) 8.3 % (3-13); PLATELET COUNT 215 10^3/uL (150-450); RED BLOOD COUNT 3.19 10^6/uL (3.72-5.28); RED CELL DISTRIBUTION WIDTH 24.9 % (11.5-14.0); SEGMENTED NEUTROPHILS % (AUTO) 85.3 % (42-78); TOTAL CELLS COUNTED % (AUTO) 100 %; WHITE BLOOD COUNT 9.4 10^3/uL (4.0-10.5)
[2019-03-25] MEDS: BUSPIRONE HCL 10 MG TABLET PO SCH ×3 (05:50→21:46)
[2019-03-25] MEDS: KETOROLAC TROMETHAMINE INJ/PF 30 MG/1 ML SDV IV SCH ×3 (05:50→21:45)
[2019-03-25 06:11] LABS: ANION GAP 11 (5-19); BLOOD UREA NITROGEN 15 mg/dL (7-20); CALCIUM 8.6 mg/dL (8.4-10.2); CARBON DIOXIDE 25 mmol/L (22-30); CHLORIDE 102 mmol/L (98-107); GLUCOSE 124 mg/dL (75-110); POTASSIUM 3.6 mmol/L (3.6-5.0)
[2019-03-25 06:17] LABS: ANISOCYTOSIS 3+; POIKILOCYTOSIS SLIGHT
[2019-03-25 06:18] LABS: OVALOCYTES SLIGHT; PLATELET COMMENT ADEQUATE; SCHISTOCYTES SLIGHT; TEAR DROP CELLS SLIGHT
[2019-03-25] MEDS: LEVOTHYROXINE SODIUM 0.1 MG TABLET PO SCH (08:10)
[2019-03-25] MEDS: SERTRALINE HCL 50 MG TABLET PO SCH (09:31)
[2019-03-25] MEDS: ATENOLOL 50 MG TABLET PO SCH (09:32)
[2019-03-25] MEDS: PANTOPRAZOLE SODIUM 20 MG TABLET.DR PO SCH (09:32)
[2019-03-25] MEDS: FAMOTIDINE INJ/PF 20 MG/2 ML SDV IV SCH ×2 (09:35→21:46)
[2019-03-25] MEDS: ENOXAPARIN SODIUM INJ 40 MG/0.4 ML DISP.SYRIN SUBCUT SCH (09:35)
--- NOTE | 2019-03-25 11:35 | PDOC PROGRESS REPORT ---
Subjective Reason For Visit: MALIGNANT NEOPLASM OF RECTUM Physical Exam Vital Signs: Temp Pulse Resp BP Pulse Ox 98.1 F 74 20 105/87 H 95 03/25/19 07:28 03/25/19 07:28 03/25/19 07:28 03/25/19 07:28 03/25/19 07:28 Intake & Output 03/24/19 03/25/19 03/26/19 06:59 06:59 06:59 Intake Total 3250 2166 Output Total 2720 1075 10 Balance 530 1091 -10 Weight 90.9 kg 88.6 kg Results Laboratory Results: 03/25/19 05:02 03/25/19 05:02 03/25/19 03/25/19 05:02 05:02 WBC 9.4 RBC 3.19 L Hgb 10.0 L Hct 29.9 L MCV 94 MCH 31.3 MCHC 33.4 RDW 24.9 H Plt Count 215 Seg Neutrophils % 85.3 H Sodium 137.5 Potassium 3.6 Chloride 102 Carbon Dioxide 25 Anion Gap 11 BUN 15 Creatinine 0.85 Est GFR ( Amer) > 60 Glucose 124 H Calcium 8.6 Assessment & Plan - Diagnosis (1) Rectal cancer Is this a current diagnosis for this admission?: Yes (2) Obesity (BMI 30-39.9) Is this a current diagnosis for this admission?: Yes (3) COPD (chronic obstructive pulmonary disease) Qualifiers: COPD type: unspecified COPD Qualified Code(s): J44.9 - Chronic obstructive pulmonary disease, unspecified Is this a current diagnosis for this admission?: Yes - Time Time Spent with patient: Less than 15 minutes - Plan Summary Plan Summary: This is a 63-year-old female status post robot-assisted laparoscopic low anterior resection for rectal cancer. The patient is doing well. She is satting well on a nasal cannula. She complains of pain, however her pain medication regimen is effective. She has had serosanguineous output from her LAYNE drain. Her right lower quadrant ileostomy is pink today and productive. She is refusing to get out of bed. It is essential that she get out of bed today, and ambulate in the hallways. The patient's Mejia catheter was removed yesterday, without an order from a physician. Patients with low pelvic surgery are high risk for urinary retention. I will have the nursing staff perform bladder scans every 6 hours to ensure that the patient is not experiencing urinary retention. Continue with physical therapy. Advance diet as patient tolerates.
[2019-03-25] MEDS: ONDANSETRON HCL INJ/PF 4 MG/2 ML SDV IV PRN (18:50)
[2019-03-25] MEDS: DEXTROSE 5%-LACTATED RINGERS 1,000 ML IV PRN (19:35)
[2019-03-26] MEDS: ACETAMINOPHEN 1,000 MG/100 ML RTUPB IV SCH ×2 (06:23→13:29)
[2019-03-26] MEDS: BUSPIRONE HCL 10 MG TABLET PO SCH ×3 (06:23→21:40)
[2019-03-26] MEDS: KETOROLAC TROMETHAMINE INJ/PF 30 MG/1 ML SDV IV SCH ×3 (06:23→21:39)
[2019-03-26] MEDS: FAMOTIDINE INJ/PF 20 MG/2 ML SDV IV SCH ×2 (09:46→21:38)
[2019-03-26] MEDS: SERTRALINE HCL 50 MG TABLET PO SCH (09:46)
[2019-03-26] MEDS: LEVOTHYROXINE SODIUM 0.1 MG TABLET PO SCH (09:47)
[2019-03-26] MEDS: ATENOLOL 50 MG TABLET PO SCH (09:47)
[2019-03-26] MEDS: ASPIRIN 81 MG TABLET, ENT COATED PO SCH (09:47)
[2019-03-26] MEDS: PANTOPRAZOLE SODIUM 20 MG TABLET.DR PO SCH (09:47)
[2019-03-26] MEDS: ENOXAPARIN SODIUM INJ 40 MG/0.4 ML DISP.SYRIN SUBCUT SCH (09:48)
[2019-03-26] MEDS: OXYCODONE HCL IR 5 MG TABLET PO PRN ×2 (12:37→21:40)
[2019-03-26] MEDS: DEXTROSE 5%-LACTATED RINGERS 1,000 ML IV PRN (12:38)
--- NOTE | 2019-03-26 17:07 | PDOC PROGRESS REPORT ---
Subjective Progress Note for:: 03/26/19 Reason For Visit: MALIGNANT NEOPLASM OF RECTUM Physical Exam Vital Signs: Temp Pulse Resp BP Pulse Ox 97.8 F 61 19 129/73 H 92 03/26/19 14:59 03/26/19 14:59 03/26/19 14:59 03/26/19 14:59 03/26/19 14:59 Intake & Output 03/25/19 03/26/19 03/27/19 06:59 06:59 06:59 Intake Total 3266 2280 318 Output Total 1075 2205 300 Balance 2191 75 18 Weight 88.6 kg 91.4 kg Results Laboratory Results: 03/25/19 05:02 03/25/19 05:02 Assessment & Plan - Diagnosis (1) Rectal cancer Is this a current diagnosis for this admission?: Yes (2) Obesity (BMI 30-39.9) Is this a current diagnosis for this admission?: Yes (3) COPD (chronic obstructive pulmonary disease) Qualifiers: COPD type: unspecified COPD Qualified Code(s): J44.9 - Chronic obstructive pulmonary disease, unspecified Is this a current diagnosis for this admission?: Yes - Time Time Spent with patient: Less than 15 minutes - Plan Summary Plan Summary: This is a 63-year-old female status post robot-assisted laparoscopic low anterior resection for rectal cancer. The patient is doing well. She is satting well on a nasal cannula. She complains of pain, however her pain medication regimen is effective. She has had serosanguineous output from her LAYNE drain. Her right lower quadrant ileostomy is pink centrally and productive. It is still difficult to get her out of bed. It is essential that she get out of bed and ambulate in the hallways. Aggressive pulmonary toilet. The patient is voiding without difficulty. Continue with physical therapy. Advance diet as patient tolerates.
[2019-03-26] MEDS: ATORVASTATIN CALCIUM 10 MG TABLET PO SCH (21:39)
[2019-03-27] MEDS: OXYCODONE HCL IR 5 MG TABLET PO PRN ×2 (04:30→09:46)
[2019-03-27] MEDS: MORPHINE SULFATE 10 MG/ML INJ IV PRN (05:04)
[2019-03-27] MEDS: BUSPIRONE HCL 10 MG TABLET PO SCH ×3 (06:02→21:37)
[2019-03-27] MEDS: KETOROLAC TROMETHAMINE INJ/PF 30 MG/1 ML SDV IV SCH ×3 (06:02→21:38)
[2019-03-27] MEDS: LEVOTHYROXINE SODIUM 0.1 MG TABLET PO SCH (07:55)
[2019-03-27] MEDS: ASPIRIN 81 MG TABLET, ENT COATED PO SCH (09:45)
[2019-03-27] MEDS: ATENOLOL 50 MG TABLET PO SCH (09:46)
[2019-03-27] MEDS: PANTOPRAZOLE SODIUM 20 MG TABLET.DR PO SCH (09:46)
[2019-03-27] MEDS: SERTRALINE HCL 50 MG TABLET PO SCH (09:46)
[2019-03-27] MEDS: ENOXAPARIN SODIUM INJ 40 MG/0.4 ML DISP.SYRIN SUBCUT SCH (09:49)
[2019-03-27] MEDS ORDERED: FAMOTIDINE 20 MG TABLET PO SCH (10:00)
[2019-03-27] MEDS: ALPRAZOLAM 0.5 MG TABLET PO PRN ×2 (11:08→21:38)
--- NOTE | 2019-03-27 12:26 | PDOC PROGRESS REPORT ---
Subjective Progress Note for:: 03/27/19 Reason For Visit: MALIGNANT NEOPLASM OF RECTUM Physical Exam Vital Signs: Temp Pulse Resp BP Pulse Ox 98.0 F 60 18 143/81 H 93 03/27/19 11:02 03/27/19 11:02 03/27/19 11:02 03/27/19 11:02 03/27/19 11:02 Intake & Output 03/26/19 03/27/19 03/28/19 06:59 06:59 06:59 Intake Total 2280 1238 Output Total 2205 1790 Balance 75 -552 Weight 91.4 kg 92.5 kg Results Laboratory Results: 03/25/19 05:02 03/25/19 05:02 Assessment & Plan - Diagnosis (1) Rectal cancer Is this a current diagnosis for this admission?: Yes (2) Obesity (BMI 30-39.9) Is this a current diagnosis for this admission?: Yes (3) COPD (chronic obstructive pulmonary disease) Qualifiers: COPD type: unspecified COPD Qualified Code(s): J44.9 - Chronic obstructive pulmonary disease, unspecified Is this a current diagnosis for this admission?: Yes - Time Time Spent with patient: Less than 15 minutes - Plan Summary Plan Summary: This is a 63-year-old female status post robot-assisted laparoscopic low anterior resection for rectal cancer. The patient is doing well. She denies shortness of breath. She complains of pain, however her pain medication regimen is effective. She has had serosanguineous output from her LAYNE drain. Her right lower quadrant ileostomy is pink centrally and productive. It is still difficult to get her out of bed. She is resisting the nurses attempts to make her ambulate. Aggressive pulmonary toilet. The patient is voiding without difficulty. Continue with physical therapy. Advance diet as patient tolerates. Her resting and ambulatory O2 sat was checked by the nursing staff, and she does not qualify for home O2 at this time.
[2019-03-27] MEDS: ATORVASTATIN CALCIUM 10 MG TABLET PO SCH (21:37)
[2019-03-28] MEDS: KETOROLAC TROMETHAMINE INJ/PF 30 MG/1 ML SDV IV SCH ×2 (05:09→13:25)
[2019-03-28] MEDS: OXYCODONE HCL IR 5 MG TABLET PO PRN ×2 (05:10→18:56)
[2019-03-28] MEDS: BUSPIRONE HCL 10 MG TABLET PO SCH ×3 (05:10→21:34)
[2019-03-28 05:14] LABS: ABSOLUTE EOSINOPHILS # (AUTO) 0.1 10^3/uL (0.0-0.6); ABSOLUTE LYMPHOCYTES (AUTO) 0.5 10^3/uL (0.5-4.7); ABSOLUTE MONOCYTES (AUTO) 0.9 10^3/uL (0.1-1.4); ABSOLUTE NEUT (AUTO) 4.9 10^3/uL (1.7-8.2); BASOPHILS % (AUTO) 0.3 % (0-2); EOSINOPHILS % (AUTO) 1.6 % (0-6); HEMATOCRIT 30.1 % (36.0-47.0); HEMOGLOBIN 10.2 g/dL (12.0-15.5); LYMPHOCYTES % (AUTO) 8.3 % (13-45); MEAN CORPUSCULAR HEMOGLOBIN 31.6 pg (27.0-33.4); MEAN CORPUSCULAR HGB CONC 33.9 g/dL (32.0-36.0); MEAN CORPUSCULAR VOLUME 93 fl (80-97); MONOCYTES % (AUTO) 13.6 % (3-13); PLATELET COUNT 237 10^3/uL (150-450); RED BLOOD COUNT 3.22 10^6/uL (3.72-5.28); RED CELL DISTRIBUTION WIDTH 22.4 % (11.5-14.0); SEGMENTED NEUTROPHILS % (AUTO) 76.2 % (42-78); TOTAL CELLS COUNTED % (AUTO) 100 %; WHITE BLOOD COUNT 6.4 10^3/uL (4.0-10.5)
[2019-03-28 05:23] LABS: ANION GAP 7 (5-19); BLOOD UREA NITROGEN 11 mg/dL (7-20); CALCIUM 9.5 mg/dL (8.4-10.2); CARBON DIOXIDE 29 mmol/L (22-30); CHLORIDE 104 mmol/L (98-107); GLUCOSE 106 mg/dL (75-110)
[2019-03-28 05:44] LABS: ANISOCYTOSIS 3+; OVALOCYTES SLIGHT; POIKILOCYTOSIS SLIGHT; TEAR DROP CELLS SLIGHT; TOXIC GRANULATION SLIGHT
[2019-03-28 05:45] LABS: PLATELET COMMENT ADEQUATE; POLYCHROMASIA SLIGHT
[2019-03-28] MEDS: ALPRAZOLAM 0.5 MG TABLET PO PRN ×3 (06:38→21:34)
[2019-03-28] MEDS: ENOXAPARIN SODIUM INJ 40 MG/0.4 ML DISP.SYRIN SUBCUT SCH (10:31)
[2019-03-28] MEDS: ASPIRIN 81 MG TABLET, ENT COATED PO SCH (10:35)
[2019-03-28] MEDS: LEVOTHYROXINE SODIUM 0.1 MG TABLET PO SCH (10:37)
[2019-03-28] MEDS: ATENOLOL 50 MG TABLET PO SCH (10:39)
[2019-03-28] MEDS: SERTRALINE HCL 50 MG TABLET PO SCH (10:41)
[2019-03-28] MEDS: PANTOPRAZOLE SODIUM 20 MG TABLET.DR PO SCH (10:41)
--- NOTE | 2019-03-28 12:31 | PDOC PROGRESS REPORT ---
Subjective Progress Note for:: 03/28/19 Reason For Visit: MALIGNANT NEOPLASM OF RECTUM Physical Exam Vital Signs: Temp Pulse Resp BP Pulse Ox 98.1 F 82 18 105/69 92 03/28/19 11:37 03/28/19 11:37 03/28/19 11:37 03/28/19 11:37 03/28/19 11:37 Intake & Output 03/27/19 03/28/19 03/29/19 06:59 06:59 06:59 Intake Total 1238 1102 Output Total 1792019 Balance -552 -918 Weight 92.5 kg 92.6 kg Results Laboratory Results: 03/28/19 04:46 03/28/19 04:46 03/28/19 03/28/19 04:46 04:46 WBC 6.4 RBC 3.22 L Hgb 10.2 L Hct 30.1 L MCV 93 MCH 31.6 MCHC 33.9 RDW 22.4 H Plt Count 237 Seg Neutrophils % 76.2 Sodium 140.4 Potassium 4.0 Chloride 104 Carbon Dioxide 29 Anion Gap 7 BUN 11 Creatinine 0.79 Est GFR ( Amer) > 60 Glucose 106 Calcium 9.5 Assessment & Plan - Diagnosis (1) Rectal cancer Is this a current diagnosis for this admission?: Yes (2) Obesity (BMI 30-39.9) Is this a current diagnosis for this admission?: Yes (3) COPD (chronic obstructive pulmonary disease) Qualifiers: COPD type: unspecified COPD Qualified Code(s): J44.9 - Chronic obstructive pulmonary disease, unspecified Is this a current diagnosis for this admission?: Yes - Time Time Spent with patient: Less than 15 minutes - Plan Summary Plan Summary: This is a 63-year-old female status post robot-assisted laparoscopic low anterior resection for rectal cancer. The patient is doing well, she is resting comfortably. She denies shortness of breath. She complains of pain, however her pain medication regimen is effective. She has had serosanguineous output from her LAYNE drain. Her right lower quadrant ileostomy is pink centrally and productive. It is still difficult to get her out of bed. She is more amenable to working with the nurses to ambulate. Aggressive pulmonary toilet. The patient is voiding without difficulty. Continue with ambulation. Her resting and ambulatory O2 sat was checked by the nursing staff, and she does not qualify for home O2 at this time.
[2019-03-28] MEDS: ATORVASTATIN CALCIUM 10 MG TABLET PO SCH (21:35)
[2019-03-29] MEDS: OXYCODONE HCL IR 5 MG TABLET PO PRN ×3 (02:01→23:58)
[2019-03-29] MEDS: BUSPIRONE HCL 10 MG TABLET PO SCH ×3 (05:49→21:08)
[2019-03-29] MEDS: ALPRAZOLAM 0.5 MG TABLET PO PRN ×2 (05:50→19:02)
[2019-03-29] MEDS: LEVOTHYROXINE SODIUM 0.1 MG TABLET PO SCH (09:26)
[2019-03-29] MEDS: PANTOPRAZOLE SODIUM 20 MG TABLET.DR PO SCH (09:31)
[2019-03-29] MEDS: ASPIRIN 81 MG TABLET, ENT COATED PO SCH (09:31)
[2019-03-29] MEDS: SERTRALINE HCL 50 MG TABLET PO SCH (09:31)
[2019-03-29] MEDS: ATENOLOL 50 MG TABLET PO SCH (09:32)
[2019-03-29] MEDS: ONDANSETRON HCL INJ/PF 4 MG/2 ML SDV IV PRN ×2 (09:35→18:56)
[2019-03-29] MEDS: ENOXAPARIN SODIUM INJ 40 MG/0.4 ML DISP.SYRIN SUBCUT SCH (09:35)
--- NOTE | 2019-03-29 11:12 | PDOC PROGRESS REPORT ---
Subjective Progress Note for:: 03/29/19 Reason For Visit: MALIGNANT NEOPLASM OF RECTUM Physical Exam Vital Signs: Temp Pulse Resp BP Pulse Ox 98.1 F 74 17 144/89 H 97 03/29/19 10:56 03/29/19 10:56 03/29/19 10:56 03/29/19 10:56 03/29/19 10:56 Intake & Output 03/28/19 03/29/19 03/30/19 06:59 06:59 06:59 Intake Total 1102 1100 Output Total 2019 1300 Balance -918 -200 Weight 92.6 kg 92.5 kg Results Laboratory Results: 03/28/19 04:46 03/28/19 04:46 Assessment & Plan - Diagnosis (1) Rectal cancer Is this a current diagnosis for this admission?: Yes (2) Obesity (BMI 30-39.9) Is this a current diagnosis for this admission?: Yes (3) COPD (chronic obstructive pulmonary disease) Qualifiers: COPD type: unspecified COPD Qualified Code(s): J44.9 - Chronic obstructive pulmonary disease, unspecified Is this a current diagnosis for this admission?: Yes - Time Time Spent with patient: Less than 15 minutes - Plan Summary Plan Summary: This is a 63-year-old female status post robot-assisted laparoscopic low anterior resection for rectal cancer. The patient is doing well, she is resting comfortably. She denies shortness of breath. She complains of pain, however her pain medication regimen is effective. She has had serosanguineous output from her LAYNE drain. Her right lower quadrant ileostomy is pink centrally and productive. She is more amenable to working with the nurses to ambulate. Aggr essive pulmonary toilet. The patient is voiding without difficulty. Continue with ambulation. Her resting and ambulatory O2 sat was checked by the nursing staff, and she does not qualify for home O2 at this time. The nursing staff has expressed concerns about the patient's ability to care for herself at home. I will ask clinical social work aide to perform an evaluation regarding SNF placement. Okay for discharge once discharge planning has been completed.
[2019-03-29] MEDS: ATORVASTATIN CALCIUM 10 MG TABLET PO SCH (21:08)
[2019-03-29] MEDS ORDERED: ONDANSETRON HCL INJ/PF 4 MG/2 ML SDV IV ONE (21:15)
[2019-03-30] MEDS: ALPRAZOLAM 0.5 MG TABLET PO PRN ×2 (06:43→19:31)
[2019-03-30] MEDS: BUSPIRONE HCL 10 MG TABLET PO SCH ×3 (06:43→21:46)
[2019-03-30] MEDS: LEVOTHYROXINE SODIUM 0.1 MG TABLET PO SCH (08:34)
[2019-03-30 08:47] LABS: ALBUMIN 3.5 g/dL (3.5-5.0); ALKALINE PHOSPHATASE 179 U/L (38-126); ANION GAP 12 (5-19); ASPARTATE AMINO TRANSFERASE 46 U/L (14-36); BILIRUBIN,DIRECT 0.4 mg/dL (0.0-0.4); BILIRUBIN,TOTAL 0.4 mg/dL (0.2-1.3); BLOOD UREA NITROGEN 14 mg/dL (7-20); CALCIUM 9.9 mg/dL (8.4-10.2); CARBON DIOXIDE 28 mmol/L (22-30); CHLORIDE 100 mmol/L (98-107); GLUCOSE 112 mg/dL (75-110); POTASSIUM 4.2 mmol/L (3.6-5.0); TOTAL PROTEIN 6.7 g/dL (6.3-8.2)
[2019-03-30] MEDS: ASPIRIN 81 MG TABLET, ENT COATED PO SCH (09:24)
[2019-03-30] MEDS: ONDANSETRON HCL INJ/PF 4 MG/2 ML SDV IV PRN (09:24)
[2019-03-30] MEDS: SERTRALINE HCL 50 MG TABLET PO SCH (09:25)
[2019-03-30] MEDS: PANTOPRAZOLE SODIUM 20 MG TABLET.DR PO SCH (09:25)
[2019-03-30] MEDS: ATENOLOL 50 MG TABLET PO SCH (09:26)
[2019-03-30] MEDS: ENOXAPARIN SODIUM INJ 40 MG/0.4 ML DISP.SYRIN SUBCUT SCH (09:31)
[2019-03-30] MEDS: OXYCODONE HCL IR 5 MG TABLET PO PRN ×2 (09:34→16:07)
--- NOTE | 2019-03-30 10:01 | RADIOLOGY REPORT (SQ) ---
EXAM DESCRIPTION: KUB/ABDOMEN (SINGLE VIEW) COMPLETED DATE/TIME: 03/30/2019 8:57 am REASON FOR STUDY: abdominal pain, nausea, vomiting C20 MALIGNANT NEOPLASM OF RECTUM COMPARISON: None. NUMBER OF VIEWS: One view. TECHNIQUE: Supine radiographic image of the abdomen acquired. LIMITATIONS: None. FINDINGS: BOWEL GAS PATTERN: There is an air-filled dilated loop of small bowel in the left hemiabdo men that measures 4.9 cm in transverse diameter. Evaluation for differential air-fluid levels is arnold ited due to the absence of intravenous contrast. CALCIFICATIONS: Staghorn calculus projecting within the right renal fossa. SOFT TISSUES: There is no pneumatosis. HARDWARE: Percutaneous drain in the pelvis and surgical brody that project over the L5 vertebral debbie dy, over the mid pelvis, and over the pubic symphysis. BONES: No acute fracture. OTHER: No other finding. IMPRESSION: 1. Air-filled dilated loop of small bowel in the left hemiabdomen that measures 4.9 cm i n transverse diameter. Evaluation for differential air-fluid levels is limited due to the absence of intravenous contrast. 2. Staghorn calculus in the right kidney. 3. Postoperative findings as detailed above. TECHNICAL DOCUMENTATION: JOB ID: [id number] [employer]- All Rights Reserved Reading location - IP/workstation name: [email or web address]
--- NOTE | 2019-03-30 11:00 | PDOC PROGRESS REPORT ---
Subjective Progress Note for:: 03/30/19 Reason For Visit: MALIGNANT NEOPLASM OF RECTUM Physical Exam Vital Signs: Temp Pulse Resp BP Pulse Ox 98.1 F 77 19 119/89 H 92 03/30/19 07:35 03/30/19 07:35 03/30/19 07:35 03/30/19 07:35 03/30/19 07:35 Intake & Output 03/29/19 03/30/19 03/31/19 06:59 06:59 06:59 Intake Total 1100 576 Output Total 1300 1105 40 Balance -200 -529 -40 Weight 92.5 kg 92.4 kg Results Laboratory Results: 03/28/19 04:46 03/30/19 07:55 03/30/19 07:55 Sodium 139.5 Potassium 4.2 Chloride 100 Carbon Dioxide 28 Anion Gap 12 BUN 14 Creatinine 0.69 Est GFR ( Amer) > 60 Glucose 112 H Calcium 9.9 Total Bilirubin 0.4 AST 46 H Alkaline Phosphatase 179 H Total Protein 6.7 Albumin 3.5 Impressions: KUB X-Ray 03/30/19 07:00 IMPRESSION: 1. Air-filled dilated loop of small bowel in the left hemiabdomen that measures 4.9 cm in transverse diameter. Evaluation for differential air- fluid levels is limited due to the absence of intravenous contrast. 2. Staghorn calculus in the right kidney. 3. Postoperative findings as detailed above. Assessment & Plan - Diagnosis (1) Rectal cancer Is this a current diagnosis for this admission?: Yes (2) Obesity (BMI 30-39.9) Is this a current diagnosis for this admission?: Yes (3) COPD (chronic obstructive pulmonary disease) Qualifiers: COPD type: unspecified COPD Qualified Code(s): J44.9 - Chronic obstructive pulmonary disease, unspecified Is this a current diagnosis for this admission?: Yes - Time Time Spent with patient: Less than 15 minutes - Plan Summary Plan Summary: This is a 63-year-old female status post robot-assisted laparoscopic low anterior resection for rectal cancer. The patient is doing well, she is resting comfortably. She denies shortness of breath. She complains of pain, however her pain medication regimen is effective. She has had serosanguineous output from her LAYNE drain. Her right lower quadrant ileostomy is pink centrally and productive. She is sitting up in a chair today, and appears more comfortable. The patient is voiding without difficulty. Continue with ambulation. The patient complained of nausea and vomiting last night, however she has had no nausea or vomiting today. Her ileostomy continues to be productive. In discussion with the nursing staff, they believe her nausea and vomiting was associated with an anxiety attack. I will continue to monitor this closely. Aggressive pulmonary toilet. Her resting and ambulatory O2 sat was checked by the nursing staff, and she does not qualify for home O2 at this time. The nursing staff has expressed concerns about the patient's ability to care for herself at home. I will ask social work coordinator to perform an evaluation regarding SNF placement. Currently, the patient is refusing to go to rehab or SNF. I will continue to encourage her to reconsider. If she continues to refuse rehab/SNF, will send her home with home health.
[2019-03-30] MEDS: ATORVASTATIN CALCIUM 10 MG TABLET PO SCH (21:46)
[2019-03-31] MEDS: BUSPIRONE HCL 10 MG TABLET PO SCH ×3 (05:08→21:16)
[2019-03-31] MEDS: ALPRAZOLAM 0.5 MG TABLET PO PRN ×2 (05:08→21:16)
[2019-03-31] MEDS: LEVOTHYROXINE SODIUM 0.1 MG TABLET PO SCH (07:28)
[2019-03-31] MEDS: ONDANSETRON HCL INJ/PF 4 MG/2 ML SDV IV PRN (07:53)
--- NOTE | 2019-03-31 08:12 | PDOC PROGRESS REPORT ---
Subjective Progress Note for:: 03/31/19 Subjective:: feels well jakob diet sitting up in chair Reason For Visit: MALIGNANT NEOPLASM OF RECTUM Physical Exam Vital Signs: Temp Pulse Resp BP Pulse Ox 98.2 F 70 16 117/70 91 L 03/30/19 23:17 03/30/19 23:17 03/30/19 23:17 03/30/19 23:17 03/30/19 23:17 Intake & Output 03/30/19 03/31/19 04/01/19 06:59 06:59 06:59 Intake Total 576 610 Output Total 1105 1355 20 Balance -529 -745 -20 Weight 92.4 kg 92.4 kg General appearance: PRESENT: no acute distress Head exam: PRESENT: normocephalic Eye exam: PRESENT: EOMI Ear exam: PRESENT: normal external ear exam Mouth exam: PRESENT: moist Respiratory exam: PRESENT: clear to auscultation vickie Cardiovascular exam: PRESENT: RRR Pulses: PRESENT: normal radial pulses, normal femoral pulses Vascular exam: PRESENT: normal capillary refill GI/Abdominal exam: PRESENT: soft - LAYNE left side draining serous fluid approximately 20 cc overnight the ileostomy is functioning well on the bag Rectal exam: PRESENT: deferred Extremities exam: PRESENT: full ROM Musculoskeletal exam: PRESENT: ambulatory Neurological exam: PRESENT: alert, awake, oriented to person, oriented to place Psychiatric exam: PRESENT: appropriate affect Skin exam: PRESENT: dry Results Laboratory Results: 03/28/19 04:46 03/30/19 07:55 03/30/19 07:55 Sodium 139.5 Potassium 4.2 Chloride 100 Carbon Dioxide 28 Anion Gap 12 BUN 14 Creatinine 0.69 Est GFR ( Amer) > 60 Glucose 112 H Calcium 9.9 Total Bilirubin 0.4 AST 46 H Alkaline Phosphatase 179 H Total Protein 6.7 Albumin 3.5 Impressions: KUB X-Ray 03/30/19 07:00 IMPRESSION: 1. Air-filled dilated loop of small bowel in the left hemiabdomen that measures 4.9 cm in transverse diameter. Evaluation for differential air- fluid levels is limited due to the absence of intravenous contrast. 2. Staghorn calculus in the right kidney. 3. Postoperative findings as detailed above. Assessment & Plan - Time Time Spent with patient: 25-34 minutes - Plan Summary Plan Summary: Patient is status post a low anterior resection for rectal cancer patient doing well postop Tolerating a regular diet now and having normal bowel function. Patient does have some difficulty caring for her ileostomy in we will be arranging home health upon discharge in the next day or 2.
[2019-03-31] MEDS ORDERED: ONDANSETRON 4 MG TAB.RAPDIS PO PRN (08:17)
[2019-03-31] MEDS: PANTOPRAZOLE SODIUM 20 MG TABLET.DR PO SCH (10:19)
[2019-03-31] MEDS: ASPIRIN 81 MG TABLET, ENT COATED PO SCH (10:21)
[2019-03-31] MEDS: SERTRALINE HCL 50 MG TABLET PO SCH (10:21)
[2019-03-31] MEDS: OXYCODONE HCL IR 5 MG TABLET PO PRN ×3 (10:21→21:15)
[2019-03-31] MEDS: ATENOLOL 50 MG TABLET PO SCH (10:21)
[2019-03-31] MEDS: ENOXAPARIN SODIUM INJ 40 MG/0.4 ML DISP.SYRIN SUBCUT SCH (10:22)
--- NOTE | 2019-03-31 10:59 | PDOC PROGRESS REPORT ---
Subjective Progress Note for:: 03/31/19 Subjective:: Patient comfortable, reports poor appetite Reason For Visit: MALIGNANT NEOPLASM OF RECTUM Physical Exam Vital Signs: Temp Pulse Resp BP Pulse Ox 97.9 F 71 20 109/70 91 L 03/31/19 07:50 03/31/19 07:50 03/31/19 07:50 03/31/19 07:50 03/31/19 07:50 Intake & Output 03/30/19 03/31/19 04/01/19 06:59 06:59 06:59 Intake Total 576 610 Output Total 1105 1355 20 Balance -529 -745 -20 Weight 92.4 kg 92.4 kg General appearance: PRESENT: no acute distress Respiratory exam: PRESENT: clear to auscultation vickie Cardiovascular exam: PRESENT: RRR GI/Abdominal exam: PRESENT: normal bowel sounds, soft, other - Ileostomy = viable, covered with fibrinous material, bag filled with gas and semi-liquid stools Incisions = midline incision healing, partially open with brody granulating, fascia intact, all other incisions are clean, dry, and intact Intra-abdominal Hans drain placed through left lower quadrant, filled with serosanguineous fluid Results Laboratory Results: 03/28/19 04:46 03/30/19 07:55 Impressions: KUB X-Ray 03/30/19 07:00 IMPRESSION: 1. Air-filled dilated loop of small bowel in the left hemiabdomen that measures 4.9 cm in transverse diameter. Evaluation for differential air- fluid levels is limited due to the absence of intravenous contrast. 2. Staghorn calculus in the right kidney. 3. Postoperative findings as detailed above. Assessment & Plan - Time Time Spent with patient: 25-34 minutes - Plan Summary Plan Summary: Assessment: 30-day #8 following robotic low anterior resection for rectal cancer Pathology significant for rectal cancer T3 N1 M0 Patient doing overall well, despite poor appetite Physical exam unremarkable Ileostomy viable, covered with fibrinous material, with good stool output Good urine output Hans drain output about 20 mL overnight, serosanguineous Plan: Encourage p.o. intake Waiting for discharge to SNF next week No acute general surgery issues identified Removal of the LAYNE drain will be as per Dr. Corbett
[2019-03-31] MEDS: ATORVASTATIN CALCIUM 10 MG TABLET PO SCH (21:16)
[2019-04-01] MEDS: ALPRAZOLAM 0.5 MG TABLET PO PRN ×2 (05:24→22:28)
[2019-04-01] MEDS: BUSPIRONE HCL 10 MG TABLET PO SCH ×3 (05:24→22:26)
--- NOTE | 2019-04-01 08:23 | PDOC PROGRESS REPORT ---
Subjective Progress Note for:: 04/01/19 Subjective:: The patient appears to be comfortable, she is eating her meal, she wants to go home Reason For Visit: MALIGNANT NEOPLASM OF RECTUM Physical Exam Vital Signs: Temp Pulse Resp BP Pulse Ox 98.0 F 73 16 124/76 94 03/31/19 23:20 03/31/19 23:20 03/31/19 23:20 03/31/19 23:20 03/31/19 23:20 Intake & Output 03/31/19 04/01/19 04/02/19 06:59 06:59 06:59 Intake Total 610 240 Output Total 1355 970 Balance -745 -730 Weight 92.4 kg General appearance: PRESENT: no acute distress, obese Respiratory exam: PRESENT: clear to auscultation vickie Cardiovascular exam: PRESENT: RRR GI/Abdominal exam: PRESENT: soft, other - Midline incision granulating; Ileostomy viable with stools and gas in the ileostomy bag;left side intra- abdominal drain with serousanguinous fluid Results Laboratory Results: 03/28/19 04:46 03/30/19 07:55 Impressions: KUB X-Ray 03/30/19 07:00 IMPRESSION: 1. Air-filled dilated loop of small bowel in the left hemiabdomen that measures 4.9 cm in transverse diameter. Evaluation for differential air- fluid levels is limited due to the absence of intravenous contrast. 2. Staghorn calculus in the right kidney. 3. Postoperative findings as detailed above. Assessment & Plan - Diagnosis (1) Rectal cancer Is this a current diagnosis for this admission?: Yes - Time Time Spent with patient: 15-24 minutes - Plan Summary Plan Summary: Assessment Postop-day #9 following robotic low anterior resection for rectal cancer with loop ileostomy Pathology significant for rectal cancer T3 N1 M0 Patient doing overall well, improved appetite Physical exam unremarkable Ileostomy viable, covered with fibrinous material, with good stool output Good urine output Hans drain output about 20 mL overnight, serosanguineous Plan: Encourage p.o. intake Discharge next week as per Dr. Corbett No acute general surgery issues identified Removal of the LAYNE drain as per Dr. Corbett
[2019-04-01] MEDS: ATENOLOL 50 MG TABLET PO SCH (09:29)
[2019-04-01] MEDS: LEVOTHYROXINE SODIUM 0.1 MG TABLET PO SCH (09:30)
[2019-04-01] MEDS: PANTOPRAZOLE SODIUM 20 MG TABLET.DR PO SCH (09:30)
[2019-04-01] MEDS: SERTRALINE HCL 50 MG TABLET PO SCH (09:30)
[2019-04-01] MEDS: ASPIRIN 81 MG TABLET, ENT COATED PO SCH (09:30)
[2019-04-01] MEDS: ENOXAPARIN SODIUM INJ 40 MG/0.4 ML DISP.SYRIN SUBCUT SCH (09:31)
[2019-04-01] MEDS: OXYCODONE HCL IR 5 MG TABLET PO PRN ×3 (10:22→22:28)
[2019-04-01] MEDS: ATORVASTATIN CALCIUM 10 MG TABLET PO SCH (22:27)
[2019-04-02] MEDS: BUSPIRONE HCL 10 MG TABLET PO SCH ×2 (05:26→13:40)
[2019-04-02] MEDS: OXYCODONE HCL IR 5 MG TABLET PO PRN ×2 (05:26→13:53)
[2019-04-02] MEDS: SERTRALINE HCL 50 MG TABLET PO SCH (10:08)
[2019-04-02] MEDS: LEVOTHYROXINE SODIUM 0.1 MG TABLET PO SCH (10:10)
[2019-04-02] MEDS: ATENOLOL 50 MG TABLET PO SCH (10:11)
[2019-04-02] MEDS: PANTOPRAZOLE SODIUM 20 MG TABLET.DR PO SCH (10:11)
[2019-04-02] MEDS: ASPIRIN 81 MG TABLET, ENT COATED PO SCH (10:11)
[2019-04-02] MEDS: ENOXAPARIN SODIUM INJ 40 MG/0.4 ML DISP.SYRIN SUBCUT SCH (10:12)
--- NOTE | 2019-04-02 16:01 | Operative Report ---
Nonrecallable Operative Report DATE OF SURGERY: 03/23/19 PREOPERATIVE DIAGNOSIS: Rectal cancer POSTOPERATIVE DIAGNOSIS: Rectal cancer OPERATION: 1. Robot-assisted low anterior resection with diverting ileostomy. 2. Flexible sigmoidoscopy. SURGEON: BOY BLOOM ANESTHESIA: GA TISSUE REMOVED OR ALTERED: Low anterior resection, total mesorectal excision. COMPLICATIONS: None apparent ESTIMATED BLOOD LOSS: 100 cc PROCEDURE: Drains/implants: 15 Turkish round Hans drain in the pelvis. Procedure in detail: After informed consent was obtained, the patient was brought to the operating room and laid in the supine position. The area of the abdomen was prepped and draped in a normal sterile fashion. A supraumbilical incision was created with a 15 blade scalpel. Dissection was carried down through the subcutaneous tissue using sharp and blunt dissection. The cicatrix was identified, grasped with a Mel clamp, and retracted upwards. The linea alba fascia was incised sharply, the abdomen was entered sharply. The balloon trocar was inserted, and pneumoperitoneum was achieved. A right lower quadrant 10 mm robotic trocar was placed, as well as to the left lower quadrant 8 mm robotic trochars. The robot was then brought over the patient and docked appropriately. I then assumed my position at the surgeon's console. Attention was turned to the retraction of the small bowel. A fan retractor was required, therefore a right upper quadrant 5 mm trocar was placed to facilitate the retraction of the small bowel. Once the small bowel was retracted above the pelvis, dissection was begun at the sacral promontory. The mesentery was scored, and the mesorectum was retracted anteriorly. Dissection was carried through the mesentery, to find the presacral fascia. A total mesorectal excision was undertaken using sharp dissection and electrocautery. Dissection was carried posteriorly first, paying attention to the location of bilateral ureters. The ureters were identified and spared along their course. No injury was identified to the ureters. The dissection was carried posteriorly down to the level of the levators. Next, the anterior dissection was performed. The peritoneal reflection was divided anteriorly using electrocautery. The uterus and vagina were retracted anteriorly, and from the rectum. Next, the lateral stalks were cauterized and divided using bipolar electrocautery. Once this was performed, the total mesorectal excision was completed. Attempt was made to divide the lower rectum with the robotic stapler, however the tissue was too thick for the stapler. A contour stapler would be required. The robot was then undocked from the patient, and moved away. I scrubbed back into the case. A lower midline incision was created with a 15 blade scalpel. Dissection was carried through the subcutaneous tissues using sharp dissection and electrocautery. The midline fascia was divided, the abdomen was entered sharply. Next the Gael wound retractor was placed into the wound and tightened. The rectum was then identified. It was retracted into the wound. The contour stapler was then placed into the pelvis and used to divide the distal rectum. The contour stapler was again used to divide the proximal rectum at the rectosigmoid junction. The specimen was then examined on the back table. The distal rectum was opened, to ensure at least a 2.5 cm margin. The tumor was easily identified, with the distal tattoo. There was approximately 1 cm of distal margin, grossly. I was concerned that this would be inadequate to treat her malignancy. Secondary to this an additional margin was taken. The distal rectum was grasped with a large Diego clamp and retracted proximally. The contour stapler was used to divide and staple the distal rectum again. An additional 2 cm of distal rectum was removed. The distal aspect of the resection was marked with a Prolene suture. Next, attention was turned to creation of the colorectal anastomosis. A 29 EEA sizer was used to adequately size the rectum. The EEA sizer fit very easily into the rectum. The 29 EEA stapler was then opened. The anvil was placed into the distal descending colon, after the descending colon was opened. Next, the anvil was sewn into place using a 2-0 Vicryl pursestring suture. Once this was completed, the EEA stapler was inserted into the rectum, the stapler was opened, and the anvil was to the stapler. The stapler was closed and fired according to bioinformatics associate recommendation. The stapler was removed from the rectum. It was opened on the back table, and 2 complete donuts of tissue were removed. These were sent to pathology as well. Next the anastomosis was tested, and found to be free of any leakage of air. This was done with a flexible sigmoidoscope. Once this was completed, attention was turned to creation of the diverting ileostomy. A loop of terminal ileum was brought up into the area where the 10 mm right lower quadrant trocar was situated. The fascia was opened in a cruciate fashion, and the loop of terminal ileum was easily brought through the fascia. Next, the abdomen was copiously irrigated. A 15 Turkish round Hans drain was placed into the pelvis. Next, the midline abdominal fascia was reapproximated using #1 PDS suture in simple running fashion. The overlying skin was closed using skin brody. Once the abdomen was closed, and the dressing was placed, attention was turned to Brooking of the ileostomy. An incision was remade in the small bowel. The wall of the small bowel was reflected over, sutured to itself, and sutured to the skin. This matured the ileostomy in Regina fashion. A red rubber catheter was sutured to the skin, and used as a bolster. Once this was completed, an ileostomy appliance was fashioned, and the procedure was concluded. All sponge, instrument, and needle counts were correct x2. Condition: Stable.
--- NOTE | 2019-04-02 16:03 | PDOC DISCHARGE SUMMARY ---
General - Admit/Disc Date/PCP Admission Date/Primary Care Provider: 03/23/19 08:26 BESSIE JAMES-Butch Discharge Date: 04/02/19 - Discharge Diagnosis Final Diagnosis: rectal cancer - Assessment Summary: This is a 63-year-old female with locally advanced rectal cancer. The patient underwent preoperative (neoadjuvant) chemoradiation. The patient finished her treatment cycle, and was referred for surgery. Patient underwent an operation (robot-assisted laparoscopic low anterior resection) last week. After surgery, the patient was taken to the floor in stable condition. The patient began tolerating a diet, and remained very stable throughout her course. The patient was difficult to mobilize, as her exercise tolerance is very poor. The patient also was not terribly motivated to care for her ileostomy. With much coaxing, the patient has begun to care for herself. She is changing her ileostomy. A recommendation was made for SNF placement, however the patient refused. In light of this, home health has been arranged. The patient has a support structure at home through family and friends. At this time, it is felt that the patient has reached maximal hospital benefit and is fit for discharge. - Additional Information Resuscitation Status: Full Code Discharge Diet: As Tolerated Discharge Activity: No Lifting Over 10 Pounds, No Lifting/Push/Pulling Referrals: [facility] [Provider Group] - 04/10/19 2:15 pm Prescriptions: Hydrocodone Bit/Acetaminophen [Hydrocodon-Acetaminophn 10-325] 1 each PO Q6HP PRN 7 Days #28 tablet PRN Reason: For Pain Home Medications: Amlodipine Besylate [Norvasc 5 mg Tablet] 25 mg PO QPM #0 05/21/11 Aspirin [Adult Low Dose Aspirin EC] 81 mg PO DAILY #0 05/21/11 Levothyroxine Sodium 125 mcg PO QAM 05/21/11 Oxybutynin Chloride [Ditropan 5 mg Tablet] 5 mg PO TID #0 05/21/11 Ramipril [Altace 5 mg Capsule] 5 mg PO DAILY #0 05/21/11 Atenolol [Tenormin] 25 mg PO DAILY 03/10/16 Pravastatin Sodium [Pravachol] 20 mg PO QHS 03/10/16 Albuterol Sulfate [Ventolin 0.042% Neb 1.25 mg/3 mL Ampul] 1 vial NEB QIDP PRN 09/19/17 Buspirone HCl [Buspar 15 mg Tablet] 1 tab PO TID 09/19/17 Omeprazole 20 mg PO DAILY 09/19/17 Albuterol Sulfate [Proair HFA Inhalation Aerosol 8.5 gm MDI] 2 puff IH Q4 PRN 09/21/17 Diphenhydramine HCl [Benadryl] 25 mg PO TID 12/01/18 Sertraline HCl [Zoloft] 150 mg PO DAILY 12/01/18 Alprazolam 1 mg PO TIDP PRN 03/24/19 Hydroxyzine HCl [Atarax 25 mg Tablet] 1 tab PO Q8HP PRN 03/24/19 Hydrocodone Bit/Acetaminophen [Hydrocodon-Acetaminophn 10-325] 1 each PO Q6HP PRN 7 Days #28 tablet 04/02/19 Additional Information: Discharge home with home health. Diet as tolerated. Activity: No lifting greater than 10 pounds x 6 weeks. Follow-up with me in 7 to 10 days at [facility]. [place] 10/325 mg p.o. every 6 hours PRN for pain. Okay to shower. No tub baths or swimming pools x2 weeks. Dry dressing to lower midline incision daily. History of Present Illiness History of Present Illness: KYRA REYNOLDS is a 63 year old female Physical Exam Vital Signs: Temp Pulse Resp BP Pulse Ox 98.1 F 72 18 145/86 H 91 L 04/02/19 13:10 04/02/19 13:10 04/02/19 13:10 04/02/19 13:10 04/02/19 13:10 Intake & Output 04/01/19 04/02/19 04/03/19 06:59 06:59 06:59 Intake Total 240 210 60 Output Total 970 345 340 Balance -730 -135 -280 Weight 92.4 kg Results Laboratory Results: WBC 6.4 10^3/uL (4.0-10.5) 03/28/19 04:46 RBC 3.22 10^6/uL (3.72-5.28) L 03/28/19 04:46 Hgb 10.2 g/dL (12.0-15.5) L 03/28/19 04:46 Hct 30.1 % (36.0-47.0) L 03/28/19 04:46 MCV 93 fl (80-97) 03/28/19 04:46 MCH 31.6 pg (27.0-33.4) 03/28/19 04:46 MCHC 33.9 g/dL (32.0-36.0) 03/28/19 04:46 RDW 22.4 % (11.5-14.0) H 03/28/19 04:46 Plt Count 237 10^3/uL (150-450) 03/28/19 04:46 Lymph % (Auto) 8.3 % (13-45) L 03/28/19 04:46 [place] % (Auto) 13.6 % (3-13) H 03/28/19 04:46 Eos % (Auto) 1.6 % (0-6) 03/28/19 04:46 Baso % (Auto) 0.3 % (0-2) 03/28/19 04:46 Absolute Neuts (auto) 4.9 10^3/uL (1.7-8.2) 03/28/19 04:46 Absolute Lymphs (auto) 0.5 10^3/uL (0.5-4.7) 03/28/19 04:46 Absolute Monos (auto) 0.9 10^3/uL (0.1-1.4) 03/28/19 04:46 Absolute Eos (auto) 0.1 10^3/uL (0.0-0.6) 03/28/19 04:46 Absolute Basos (auto) 0.0 10^3/uL (0.0-0.2) 03/28/19 04:46 Total Counted 100 03/24/19 04:23 Seg Neutrophils % 76.2 % (42-78) 03/28/19 04:46 Seg Neuts % (Manual) 95 % (42-78) H 03/24/19 04:23 Band Neutrophils % 1 % (3-5) L 03/24/19 04:23 Lymphocytes % (Manual) 1 % (13-45) L 03/24/19 04:23 Monocytes % (Manual) 3 % (3-13) 03/24/19 04:23 Eosinophils % (Manual) 0 % (0-6) 03/24/19 04:23 Basophils % (Manual) 0 % (0-2) 03/24/19 04:23 Abs Neuts (Manual) 13.1 10^3/uL (1.7-8.2) H 03/24/19 04:23 Abs Lymphs (Manual) 0.1 10^3/uL (0.5-4.7) L 03/24/19 04:23 Abs Monocytes (Manual) 0.4 10^3/uL (0.1-1.4) 03/24/19 04:23 Absolute Eos (Manual) 0.0 10^3/uL (0.0-0.6) 03/24/19 04:23 Abs Basophils (Manual) 0.0 10^3/uL (0.0-0.2) 03/24/19 04:23 Toxic Granulation SLIGHT 03/28/19 04:46 Toxic Vacuolation PRESENT 03/24/19 04:23 Platelet Comment ADEQUATE 03/28/19 04:46 Polychromasia SLIGHT 03/28/19 04:46 Poikilocytosis SLIGHT 03/28/19 04:46 Anisocytosis 3+ 03/28/19 04:46 Tear Drop Cells SLIGHT 03/28/19 04:46 Ovalocytes SLIGHT 03/28/19 04:46 Schistocytes SLIGHT 03/25/19 05:02 Carbonic Acid 1.48 mmol/L (1.05-1.35) H 03/23/19 13:16 HCO3/H2CO3 Ratio 16:1 03/23/19 13:16 ABG pH 7.31 (7.35-7.45) L 03/23/19 13:16 ABG pCO2 49.1 mmHg (35-45) H 03/23/19 13:16 ABG pO2 57.5 mmHg (80-100) L 03/23/19 13:16 ABG HCO3 24.3 mmol/L (20-24) H 03/23/19 13:16 ABG Total CO2 25.8 mmol/L (21-25) H 03/23/19 13:16 ABG O2 Saturation 87.2 % (94-98) L 03/23/19 13:16 ABG Base Excess -2.2 mmol/L 03/23/19 13:16 FiO2 100% 03/23/19 13:16 Sodium 139.5 mmol/L (137-145) 03/30/19 07:55 Potassium 4.2 mmol/L (3.6-5.0) 03/30/19 07:55 Chloride 100 mmol/L (98-107) 03/30/19 07:55 Carbon Dioxide 28 mmol/L (22-30) 03/30/19 07:55 Anion Gap 12 (5-19) 03/30/19 07:55 BUN 14 mg/dL (7-20) 03/30/19 07:55 Creatinine 0.69 mg/dL (0.52-1.25) 03/30/19 07:55 Est GFR ( Amer) > 60 (>60) 03/30/19 07:55 Est GFR (MDRD) Non-Af > 60 (>60) 03/30/19 07:55 Glucose 112 mg/dL (75-110) H 03/30/19 07:55 POC Glucose 106 mg/dL (70-110) 03/23/19 10:08 Hemoglobin A1c % 5.7 % (4.7-6.0) 03/23/19 08:59 Calcium 9.9 mg/dL (8.4-10.2) 03/30/19 07:55 Total Bilirubin 0.4 mg/dL (0.2-1.3) 03/30/19 07:55 Direct Bilirubin 0.4 mg/dL (0.0-0.4) 03/30/19 07:55 Neonat Total Bilirubin Not Reportable 03/30/19 07:55 Neonat Direct Bilirubin Not Reportable 03/30/19 07:55 Neonat Indirect Bili Not Reportable 03/30/19 07:55 AST 46 U/L (14-36) H 03/30/19 07:55 ALT 40 U/L (<35) 03/30/19 07:55 Alkaline Phosphatase 179 U/L (38-126) H 03/30/19 07:55 Total Protein 6.7 g/dL (6.3-8.2) 03/30/19 07:55 Albumin 3.5 g/dL (3.5-5.0) 03/30/19 07:55 Blood Type B POSITIVE 03/23/19 08:59 Antibody Screen NEGATIVE 03/23/19 08:59 Impressions: Chest X-Ray 03/16/19 10:41 IMPRESSION: 1. New patchy left basilar opacities, possibly atelectasis or infection. 2. Hiatal hernia. Chest X-Ray 03/23/19 00:00 IMPRESSION: No acute cardiopulmonary findings. Hiatal hernia. Chest X-Ray 03/23/19 16:18 IMPRESSION: Hiatal hernia. No acute cardiopulmonary finding. KUB X-Ray 03/30/19 07:00 IMPRESSION: 1. Air-filled dilated loop of small bowel in the left hemiabdomen that measures 4.9 cm in transverse diameter. Evaluation for differential air- fluid levels is limited due to the absence of intravenous contrast. 2. Staghorn calculus in the right kidney. 3. Postoperative findings as detailed above.
[2019-04-02 16:08] VITALS: BP 154/107
[2019-04-03] MEDS ORDERED: PANTOPRAZOLE SODIUM 20 MG TABLET.DR PO SCH (06:00)
== END 2019-04-02 16:47 | disposition home health service (06) | DRG 331 ==
LOC: INOR 08:26 → ICU 17:45 → 4W 03-24 13:47 → 5 03-31 19:09 → UNDODISIN 04-02 09:54
PROVIDERS: ADMIT Surgery; ATTEND Surgery
PROC: 0DBP0ZZ Excision of Rectum, Open Approach (ICD-10-PCS; 2019-03-23)
PROC: 8E0W4CZ Robotic Assisted Procedure of Trunk Region, Percutaneous Endoscopic Approach (ICD-10-PCS; 2019-03-23)
PROC: 0D1B0Z4 Bypass Ileum to Cutaneous, Open Approach (ICD-10-PCS; principal; 2019-03-23 10:00)
DX: C20 Malignant neoplasm of rectum (principal); E03.9 Hypothyroidism, unspecified; J44.9 Chronic obstructive pulmonary disease, unspecified; M19.90 Unspecified osteoarthritis, unspecified site; I51.9 Heart disease, unspecified; I10 Essential (primary) hypertension; F41.8 Other specified anxiety disorders; E78.00 Pure hypercholesterolemia, unspecified; F17.210 Nicotine dependence, cigarettes, uncomplicated; E66.9 Obesity, unspecified; Z79.82 Long term (current) use of aspirin; Z79.899 Other long term (current) drug therapy; Z88.2 Allergy status to sulfonamides; Z91.041 Radiographic dye allergy status; Z68.39 Body mass index [BMI] 39.0-39.9, adult
CPT/HCPCS: 00840; 36415; 71045; 71046; 74018; 80048; 80053; 82803; 82962; 83036; 85025; 85027; 86850; 86900; 86901; 88304; 88305; 88309; 88342; 93005; 93010; 94799; C1758; J0131; J0330; J0694; J1170; J1650; J1741; J1885; J1940; J2250; J2270; J2405; J2704; J2710; J2765; J3010; J3490; J7050; J7060; J7120; J7121; S0028

== ENCOUNTER 2019-04-04 02:01 | Emergency (ER) | payer MEDICAID ==
[2019-04-04] MEDS ORDERED: NORMAL SALINE 1000 ML 1,000 ML IV ONE (02:48)
[2019-04-04] MEDS ORDERED: ONDANSETRON HCL INJ/PF 4 MG/2 ML SDV IV ONE ×2 (02:51→07:30)
--- NOTE | 2019-04-04 02:51 | ER Document Report ---
ED GI/ - General Chief Complaint: Abdominal Pain Stated Complaint: COLONASTOMY PROBLEMS Time Seen by Provider: 04/04/19 02:36 Primary Care Provider: DAT JONES FNP-C [Primary Care Provider] - Follow up tomorrow Notes: Patient is a 63-year-old female that comes emergency department for chief complaint of concerns about her colostomy bag. She states that she was discharged 2 days ago after having colon resection for rectal cancer, she also completed preoperative chemotherapy before this. She states she was discharged home and she is supposed to have home health coming later today. She states that she stumbled, landed against her bed, accidentally ripped off her colostomy bag at that time. She states she tried to use her replacement but after she put it on it was leaking and she became concerned and came in for evaluation. She also states that she is having low appetite and has vomited after eating. She states that she is scared she cannot care for herself properly at home. She denies fever, abdominal pain, change in the wounds, or any other complaints at this time. Past medical history includes hypertension, hypothyroidism, hyperlipidemia, GERD, anxiety. TRAVEL OUTSIDE OF THE [place] IN LAST 30 DAYS: No - Related Data Allergies/Adverse Reactions: shellfish derived Allergy (Severe, Verified 04/04/19 02:17) Hives iodine [Iodine] Allergy (Intermediate, Verified 04/04/19 02:17) Rash Sulfa (Sulfonamide Antibiotics) Allergy (Intermediate, Verified 04/04/19 02:17) Hives Iodinated Contrast Media Adverse Reaction (Intermediate, Verified 04/04/19 02:17) Nausea Past Medical History - General Information source: Patient - Social History Smoking Status: Former Smoker Frequency of alcohol use: None Drug Abuse: None Lives with: Friend Family History: CAD, DM, Hyperlipidemia, Hypertension Patient has suicidal ideation: No Patient has homicidal ideation: No - Past Medical History Cardiac Medical History: Reports: Hx Heart Attack - unsure-saw pigment weigher 2009 in [place], Hypertension Denies: Hx Atrial Fibrillation, Hx Congestive Heart Failure, Hx Coronary Artery Disease, Hx Hypercholesterolemia, Hx Peripheral Vascular Disease, Hx Pulmonary Embolism, Hx Heart Murmur Pulmonary Medical History: Reports: Hx Asthma, Hx Bronchitis, Hx COPD, Hx Pneumonia - 2014 Denies: Hx Respiratory Failure, Hx Sleep Apnea, Hx Tuberculosis Neurological Medical History: Denies: Hx Cerebrovascular Accident, Hx Seizures, Hx Parkinson's Disease Endocrine Medical History: Reports: Hx Hyperthyroidism - liquid radiation. Denies: Hx Hypothyroidism Malignancy Medical History: Denies: Hx Leukemia, Hx Lung Cancer GI Medical History: Reports: Hx Gastroesophageal Reflux Disease. Denies: Hx Crohn's Disease, Hx Hepatitis, Hx Hiatal Hernia, Hx Irritable Bowel, Hx Liver Failure, Hx Pancreatitis, Hx Ulcer Musculoskeletal Medical History: Reports Hx Arthritis, Denies Hx Fibromyalgia, D enies Hx Multiple Sclerosis, Denies Hx Muscular Dystrophy, Denies Hx Systemic Lupus Erythematosus Psychiatric Medical History: Reports: Hx Depression Denies: Hx Bipolar Disorder, Hx Dementia, Hx Post Traumatic Stress Disorder, Hx Schizophrenia Traumatic Medical History: Denies: Hx Fractures Infectious Medical History: Denies: Hx Hepatitis, Hx HIV Past Surgical History: Reports: Hx Tubal Ligation, Other - 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 Denies: Hx Appendectomy, Hx Bowel Surgery, Hx Section, Hx Cholecystectomy, Hx Colostomy, Hx Coronary Artery Bypass Graft, Hx Gastric Bypass Surgery, Hx Herniorrhaphy, Hx Hysterectomy, Hx Mastectomy, Hx Open Heart Surgery, Hx Pacemaker, Hx Tonsillectomy - Immunizations Hx Diphtheria, Pertussis, Tetanus Vaccination: Yes - not sure Review of Systems - Review of Systems Constitutional: See HPI EENT: No symptoms reported Cardiovascular: No symptoms reported Respiratory: No symptoms reported Gastrointestinal: See HPI Genitourinary: No symptoms reported Female Genitourinary: No symptoms reported Musculoskeletal: No symptoms reported Skin: See HPI Hematologic/Lymphatic: No symptoms reported Neurological/Psychological: No symptoms reported Physical Exam - Vital signs Vitals: Temp Pulse Resp BP Pulse Ox 98.2 F 85 16 138/99 H 96 04/04/19 02:02 04/04/19 02:02 04/04/19 02:02 04/04/19 02:02 04/04/19 02:02 - Notes Notes: GENERAL: Alert, interacts well. No acute distress. HEAD: Normocephalic, atraumatic. EYES: Pupils equal, round, and reactive to light. Extraocular movements intact. ENT: Oral mucosa moist, tongue midline. Oropharynx unremarkable. Airway patent. NECK: Full range of motion. Supple. Trachea midline. LUNGS: Clear to auscultation bilaterally, no wheezes, rales, or rhonchi. No respiratory distress. HEART: Regular rate and rhythm. No murmur ABDOMEN: There is a colostomy bag in place over the right mid to lower abdomen without surrounding erythema or tenderness. There is a midline vertical wound with 3 brody in the middle of 2 open areas that appear to be healing. Areas not erythematous or tender, there is no bleeding or discharge, this does not extend into the abdomen beyond the skin. No notable tenderness of the abdomen, no guarding. GENITOURINARY: Deferred EXTREMITIES: Moves all 4 extremities spontaneously. No edema, normal radial and dorsalis pedis pulses bilaterally. No cyanosis. BACK: no cervical, thoracic, lumbar midline tenderness. No saddle anesthesia, normal distal neurovascular exam. Moves all extremities in full range of motion. NEUROLOGICAL: Alert and oriented x3. Normal speech. Cranial nerves II through XII grossly intact. PSYCH: Normal affect, normal mood. SKIN: Warm, dry, normal turgor. No rashes or lesions noted. Course - Re-evaluation Re-evalutation: Patient is smiling, talkative, well-appearing. Her abdomen is actually generally nontender, she states the wounds are the same as prior, these were cleaned and dressed. There is no sign of infection. Patient has had a replaced colostomy bag placed before I saw the patient and this is secure without bleeding or any discomfort. Vital signs unremarkable without fever, tachycardia, hypotension. CBC does show leukocytosis of 15,000, nonspecific given patient's reported vomiting. Chemistry nonspecific. Urinalysis does indicate infection. Patient does reportedly have a history of kidney stones, along with her vomiting and leukocytosis decision was made to proceed with CAT scan to rule out obstructive ureterolithiasis or concerning findings postoperatively. CT showing nephrolithiasis, probably chronic hydronephrosis, no retained ureterolithiasis or infected passing stone. Possible ileus based on the small bowel but patient has been eating and drinking at the bedside when I reevaluated her and has tolerated this without any difficulty. Patient states he feels much better now. I discussed admission to the hospital because of all of her factors versus going home, she states she would like to go home with her friend. Because her vital signs are unremarkable, she has no infected obstructing stone obviously, she has no obvious complication from recent surgery, and she is asymptomatic at this time patient will be discharged home with very strict re turn precautions. Patient states that she has home health coming today to check on her. She states she will come back if she worsens in any way. - Vital Signs Vital signs: Temp Pulse Resp BP Pulse Ox 98.4 F 82 16 140/80 H 98 04/04/19 06:35 04/04/19 06:35 04/04/19 06:35 04/04/19 06:35 04/04/19 06:35 - Laboratory Result Diagrams: 04/04/19 03:39 04/04/19 03:39 Laboratory results interpreted by me: 04/04/19 04/04/19 04/04/19 03:39 03:39 06:29 WBC 15.5 H Hgb 11.4 L Hct 34.9 L RDW 19.8 H Plt Count 462 H Seg Neuts % (Manual) 92 H Lymphocytes % (Manual) 5 L Abs Neuts (Manual) 14.3 H Est GFR (MDRD) Non-Af 56 L Alkaline Phosphatase 142 H Urine Protein 100 H Urine Ketones TRACE H Urine Blood SMALL H Urine Nitrite POSITIVE H Ur Leukocyte Esterase MODERATE H Discharge - Discharge Clinical Impression: Colostomy care Vomiting Qualifiers: Vomiting type: unspecified Vomiting Intractability: non-intractable Nausea presence: with nausea Qualified Code(s): R11.2 - Nausea with vomiting, unspecified Abdominal pain Qualifiers: Abdominal location: generalized Qualified Code(s): R10.84 - Generalized abdominal pain Urinary tract infection Qualifiers: Urinary tract infection type: site unspecified Hematuria presence: without hematuria Qualified Code(s): N39.0 - Urinary tract infection, site not specified Condition: Stable Disposition: HOME, SELF-CARE Additional Instructions: Take the antibiotics as prescribed for the urinary tract infection as we discussed. Take Zofran if needed for nausea. Please follow close with primary care as already scheduled. Return if you worsen including uncontrolled vomiting, severe worsening pain, fevers, redness or discolored drainage from the wounds, or any other concerning or worsening symptoms. Prescriptions: Cephalexin Monohydrate [Keflex 500 mg Capsule] 500 mg PO BID 7 Days #14 capsule Ondansetron [Zofran Odt 4 mg Tablet] 1 - 2 tab PO Q4H PRN #15 tab.rapdis PRN Reason: For Nausea/Vomiting Referrals: DAT JONES, [employer] SUPERVISOR-C [Primary Care Provider] - Follow up tomorrow
[2019-04-04 03:49] LABS: HEMATOCRIT 34.9 % (36.0-47.0); HEMOGLOBIN 11.4 g/dL (12.0-15.5); MEAN CORPUSCULAR HEMOGLOBIN 30.3 pg (27.0-33.4); MEAN CORPUSCULAR HGB CONC 32.6 g/dL (32.0-36.0); MEAN CORPUSCULAR VOLUME 93 fl (80-97); PLATELET COUNT 462 10^3/uL (150-450); RED BLOOD COUNT 3.75 10^6/uL (3.72-5.28); RED CELL DISTRIBUTION WIDTH 19.8 % (11.5-14.0); WHITE BLOOD COUNT 15.5 10^3/uL (4.0-10.5)
[2019-04-04 04:00] LABS: ALBUMIN 3.9 g/dL (3.5-5.0); ALKALINE PHOSPHATASE 142 U/L (38-126); ANION GAP 11 (5-19); ASPARTATE AMINO TRANSFERASE 20 U/L (14-36); BILIRUBIN,DIRECT 0.1 mg/dL (0.0-0.4); BILIRUBIN,TOTAL 0.4 mg/dL (0.2-1.3); BLOOD UREA NITROGEN 18 mg/dL (7-20); CALCIUM 9.4 mg/dL (8.4-10.2); CARBON DIOXIDE 28 mmol/L (22-30); CHLORIDE 99 mmol/L (98-107); GLUCOSE 108 mg/dL (75-110); POTASSIUM 3.6 mmol/L (3.6-5.0); TOTAL PROTEIN 7.1 g/dL (6.3-8.2)
[2019-04-04 04:13] LABS: ABSOLUTE LYMPHOCYTES# (MANUAL) 0.8 10^3/uL (0.5-4.7); ABSOLUTE MONOCYTES # (MANUAL) 0.5 10^3/uL (0.1-1.4); BASOPHILS % (MANUAL) 0 % (0-2); EOSINOPHILS % (MANUAL) 0 % (0-6); LYMPHOCYTES % (MANUAL) 5 % (13-45); MONOCYTES % (MANUAL) 3 % (3-13); SEGMENTED NEUTROPHILS % (MAN) 92 % (42-78); TOTAL CELLS COUNTED 100
[2019-04-04 04:16] LABS: ANISOCYTOSIS 2+; OVALOCYTES SLIGHT; PLATELET COMMENT INCREASED; TEAR DROP CELLS SLIGHT
[2019-04-04 07:03] LABS: APPEARANCE,URINE CLOUDY; BILIRUBIN,URINE NEGATIVE (NEGATIVE); COLOR,URINE AMBER; GLUCOSE, URINE NEGATIVE (NEGATIVE); KETONES,URINE TRACE mg/dL (NEGATIVE); LEUKOCYTE ESTERASE,URINE MODERATE (NEGATIVE); NITRITE,URINE POSITIVE (NEGATIVE); PROTEIN,URINE 100 mg/dL (NEGATIVE); URINE SPECIFIC GRAVITY 1.021; UROBILINOGEN,URINE NEGATIVE mg/dL (<2.0)
[2019-04-04] MEDS ORDERED: CEFTRIAXONE 1 GM/D5W RTU 1 GM/50 ML RTUPB IV ONE ×2 (07:14→21:13)
--- NOTE | 2019-04-04 07:20 | RADIOLOGY REPORT (SQ) ---
CT ABDOMEN AND PELVIS WITHOUT INTRAVENOUS CONTRAST: 04/04/2019 6:13 AM PROGRAM DIR HISTORY: 63-year old with postoperative abdominal pain. COMPARISON: PET/CT from 12/05/2018 TECHNIQUE: Axial contiguous images were obtained from the lung bases to the proximal femurs without oral or intravenous contrast administered. Sagittal and coronal reconstructions were also obtained and reviewed. This exam was performed according to our departmental dose-optimization program, which includes automated exposure control, adjustment of the mA and/or KV according to the patient's size and/or use of iterative reconstruction technique. FINDINGS: There are airspace opacities at the right lung base, most likely representing atelectasis or infection. There is a moderate-sized hiatal hernia present. There is a central line catheter tip projecting at the proximal right atrium. Evaluation of the solid organs is limited by the lack of intravenous contrast. The visualized hepatic parenchyma is unremarkable. Cholelithiasis is seen.. The spleen, pancreas, and adrenals are normal in size and contour. There are multiple punctate calcifications at the left kidney. There is severe right hydronephrosis with cortical thinning. There are calculi seen at the right renal pelvis extending into the proximal right ureter measuring at least 3.3 cm. Calcifications are also seen at the dependent portion of the right renal pelvis. There are postsurgical changes seen at the lower rectosigmoid colon region. Bladder is minimally distended, but grossly appears unremarkable. The uterus is present. There is evidence of prior bilateral tubal ligation. The stomach is not well distended. There is moderate fluid distention of the visualized bowel without evidence for gross transition point. There is a right-sided loop ostomy noted. There is no evidence of pneumoperitoneum. There is some fluid or increased density seen anterior to the sacrum. This could be due to posttreatment changes or infection. A mass is not fully excluded. Surgical clips are seen along the midline abdomen. The appendix appears unremarkable. The aorta and IVC appear normal in size. No significantly enlarged lymph nodes are seen in the abdomen or pelvis. Review of the bone show no evidence of any suspicious lytic or blastic lesions. There is mild anterolisthesis of L5 over S1 by 3 to 4 mm. IMPRESSION: There is moderate fluid distention of the small bowel which may reflect evidence of an ileus. There is severe hydronephrosis on the right side which is likely chronic with a large calculus noted at the right renal pelvis and ureteropelvic junction. Calculi are also seen at the calyces. There are punctate left renal calculi present. There is increased density at the presacral region which could be secondary to posttreatment changes, infection, or mass. This is posterior to the anastomosis site. Interval follow-up is recommended.
[2019-04-04] MEDS ORDERED: MORPHINE SULFATE 10 MG/ML INJ IV ONE (07:30)
[2019-04-04] MEDS ORDERED: ONDANSETRON ODT 4 MG TAB (6 TAB/ER DISP) PO PRN (08:14)
[2019-04-04] MEDS ORDERED: IPRATROPIUM/ALBUTEROL 0.5-2.5 MG/3 ML AMPUL NEB ONE (13:20)
[2019-04-04] MEDS ORDERED: ACETAMINOPHEN 325 MG TABLET PO ONE (20:55)
--- NOTE | 2019-04-05 07:52 | EKG REPORT ---
SEVERITY:- ABNORMAL ECG - SINUS RHYTHM ATRIAL PREMATURE COMPLEX PROBABLE INFERIOR INFARCT, AGE INDETERMINATE : Confirmed by: Ryan Noguera MD 05-Apr-2019 07:51:57
[2019-04-05 09:53] VITALS: BP 105/63
[2019-04-05] MEDS ORDERED: CEPHALEXIN 500 MG CAPSULE PO SCH (10:30)
== END 2019-04-05 11:30 | disposition home health service (06) ==
LOC: ER 02:01
DX: Z43.3 Encounter for attention to colostomy (principal); N39.0 Urinary tract infection, site not specified; N20.0 Calculus of kidney; R11.2 Nausea with vomiting, unspecified; R10.84 Generalized abdominal pain; Z90.49 Acquired absence of other specified parts of digestive tract; J44.9 Chronic obstructive pulmonary disease, unspecified; Z75.1 Person awaiting admission to adequate facility elsewhere; R63.0 Anorexia; I10 Essential (primary) hypertension; Z91.013 Allergy to seafood; Z88.2 Allergy status to sulfonamides; Z91.040 Latex allergy status
CPT/HCPCS: 93005; 96376; 94640; 99284; 96361; 96375; 96365; 36415; 87086; 83690; 85025; 87088; 80053; 81001; 87186; 74176; 93010; J3490; J2270; J2405; J7030; J0696; J7620; J1642

== ENCOUNTER 2019-05-10 17:04 | Inpatient (IN) | payer MEDICAID ==
[2019-05-10 17:58] LABS: HEMATOCRIT 34.2 % (36.0-47.0); HEMOGLOBIN 11.7 g/dL (12.0-15.5); MEAN CORPUSCULAR HEMOGLOBIN 30.9 pg (27.0-33.4); MEAN CORPUSCULAR HGB CONC 34.1 g/dL (32.0-36.0); MEAN CORPUSCULAR VOLUME 91 fl (80-97); PLATELET COUNT 412 10^3/uL (150-450); RED BLOOD COUNT 3.77 10^6/uL (3.72-5.28); RED CELL DISTRIBUTION WIDTH 16.1 % (11.5-14.0); WHITE BLOOD COUNT 13.6 10^3/uL (4.0-10.5)
[2019-05-10 18:05] LABS: ALBUMIN 4.1 g/dL (3.5-5.0); ALKALINE PHOSPHATASE 285 U/L (38-126); ASPARTATE AMINO TRANSFERASE 28 U/L (14-36); BILIRUBIN,DIRECT 0.4 mg/dL (0.0-0.4); BILIRUBIN,TOTAL 0.4 mg/dL (0.2-1.3); BLOOD UREA NITROGEN 69 mg/dL (7-20); CALCIUM 9.2 mg/dL (8.4-10.2); CARBON DIOXIDE 14 mmol/L (22-30); CHLORIDE 97 mmol/L (98-107); GLUCOSE 112 mg/dL (75-110); POTASSIUM 4.6 mmol/L (3.6-5.0)
[2019-05-10 18:14] LABS: ANION GAP 25 (5-19)
[2019-05-10 18:22] LABS: ABSOLUTE LYMPHOCYTES# (MANUAL) 0.4 10^3/uL (0.5-4.7); ABSOLUTE MONOCYTES # (MANUAL) 1.1 10^3/uL (0.1-1.4); BAND NEUTROPHILS % (MANUAL) 3 % (3-5); BASOPHILS % (MANUAL) 0 % (0-2); EOSINOPHILS % (MANUAL) 0 % (0-6); LYMPHOCYTES % (MANUAL) 3 % (13-45); METAMYELOCYTES % (MANUAL) 1 % (0-1); MONOCYTES % (MANUAL) 8 % (3-13); SEGMENTED NEUTROPHILS % (MAN) 85 % (42-78); TOTAL CELLS COUNTED 100
[2019-05-10 18:23] LABS: ANISOCYTOSIS 1+; PLATELET CLUMPS PRESENT; PLATELET COMMENT ADEQUATE
[2019-05-10] MEDS ORDERED: NORMAL SALINE 1000 ML 1,000 ML IV ONE ×3 (19:05→21:58)
--- NOTE | 2019-05-10 19:22 | ER Document Report ---
ED General - General Chief Complaint: General Weakness Stated Complaint: GENERALIZED WEAKNESS Time Seen by Provider: 05/10/19 18:39 Primary Care Provider: LOBO STERN MD [Primary Care Provider] - Follow up as needed TRAVEL OUTSIDE OF THE [place] IN LAST 30 DAYS: No - HPI Notes: Patient is a 63-year-old female presents the emergency department for evaluation of generalized weakness. The patient has a diagnosis of colon cancer. She underwent resection with ostomy placement, chemotherapy and radiation. She states that she has been getting progressively weaker, but it became very bad today. She has had some severe nausea. She is really not eating. She states the only liquid she is taking in at all is Pepsi. She states she is still urinating. She denies any pain at this point. She does states she has significant pain and skin irritation when changing her ostomy bags. She states her ostomy output has been good. Otherwise, she states she has been taking her medications as prescribed, except for today, because she "just did not feel like it." - Related Data Allergies/Adverse Reactions: shellfish derived Allergy (Severe, Verified 04/04/19 02:17) Hives iodine [Iodine] Allergy (Intermediate, Verified 04/04/19 02:17) Rash Sulfa (Sulfonamide Antibiotics) Allergy (Intermediate, Verified 04/04/19 02:17) Hives Iodinated Contrast Media Adverse Reaction (Intermediate, Verified 04/04/19 02:17) Nausea Home Medications: List reviewed with patient Past Medical History - General Information source: Patient - Social History Smoking Status: Former Smoker Frequency of alcohol use: None Drug Abuse: None Family History: CAD, DM, Hyperlipidemia, Hypertension Patient has suicidal ideation: No Patient has homicidal ideation: No - Past Medical History Cardiac Medical History: Reports: Hx Heart Attack - unsure-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 Denies: Hx Hypothyroidism Malignancy Medical History: Reports: Hx Colorectal Cancer. Denies: Hx Leukemia, Hx Lung Cancer GI Medical History: Reports: Hx Gastroesophageal Reflux Disease. Denies: Hx Crohn's Disease, Hx Hepatitis, Hx Hiatal Hernia, Hx Irritable Bowel, Hx Liver Failure, Hx Pancreatitis, Hx Ulcer Musculoskeletal Medical History: Reports Hx Arthritis, Denies Hx Fibromyalgia, Denies Hx Multiple Sclerosis, Denies Hx Muscular Dystrophy, Denies Hx Systemic Lupus Erythematosus Psychiatric Medical History: Reports: Hx Depression Denies: Hx Bipolar Disorder, Hx Dementia, Hx Post Traumatic Stress Disorder, Hx Schizophrenia Traumatic Medical History: Denies: Hx Fractures Infectious Medical History: Denies: Hx Hepatitis, Hx HIV Past Surgical History: Reports: Hx Abdominal Surgery - COLOSTOMY, Hx Tubal Ligation, Other - 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 Denies: Hx Appendectomy, Hx Bowel Surgery, Hx Section, Hx Cholecystectomy, Hx Colostomy, Hx Coronary Artery Bypass Graft, Hx Gastric Bypass Surgery, Hx Herniorrhaphy, Hx Hysterectomy, Hx Mastectomy, Hx Open Heart Surgery, Hx Pacemaker, Hx Tonsillectomy - Immunizations Hx Diphtheria, Pertussis, Tetanus Vaccination: Yes - not sure Review of Systems - Review of Systems Constitutional: See HPI Gastrointestinal: See HPI Skin: See HPI -: Yes All other systems reviewed and negative Physical Exam - Vital signs Vitals: Resp 21 H 05/10/19 17:22 - Notes Notes: This is a pleasant 63-year-old female who appears her stated age in no acute distress. Vital signs reviewed, please refer to chart. Head is normocephalic, atraumatic. Pupils equal round, reactive to light. Neck is supple without meningismus. Heart is regular rate and rhythm. Lungs are clear to auscultation bilaterally. Abdomen is soft, nontender, normoactive bowel sounds throughout. She has a colostomy noted in the right lower abdomen. The skin around it is irritated, excoriated, and erythematous, consistent with irritation from the ostomy bag and adhesive. Extremities without cyanosis, clubbing. Posterior calves are nontender. Peripheral pulses are equal. Patient is awake, alert, neurological exam is nonfocal. Course - Re-evaluation Re-evalutation: 05/10/19 19:20 Patient presents the emergency department for evaluation. She complains of generalized weakness and decreased p.o. intake after instituting chemotherapy. CBC and CMP are returned, showed acute renal failure. Patient is given IV fluids. Still awaiting urinalysis. At this point she will need admitted for IV hydration and improvement of kidney function. Awaiting urinalysis, we will continue to monitor. 05/10/19 22:[address] Boss in regards to these results. The patient has an elevated white count, UTI, acute kidney injury. She has a metabolic acidosis with an anion gap. She is given IV fluids, IV antibiotics. I did not have a lactic acid, he is requested that that be completed before admission. It is pending at this time, patient is stable. 05/10/19 23:50 Lactic acid is normal on this patient, will admit to Dr. Boss. - Vital Signs Vital signs: Temp Pulse Resp BP Pulse Ox 98.1 F 21 H 105/76 97 05/10/19 21:08 05/10/19 17:22 05/10/19 17:24 05/10/19 17:33 - Laboratory Result Diagrams: 05/10/19 16:24 05/10/19 16:24 Laboratory results interpreted by me: 05/10/19 05/10/19 05/10/19 16:24 16:24 20:53 WBC 13.6 H Hgb 11.7 L Hct 34.2 L RDW 16.1 H Seg Neuts % (Manual) 85 H Lymphocytes % (Manual) 3 L Abs Neuts (Manual) 12.1 H Abs Lymphs (Manual) 0.4 L Sodium 136.2 L Chloride 97 L Carbon Dioxide 14 L Anion Gap 25 H BUN 69 H Creatinine 4.04 H Est GFR ( Amer) 13 L Est GFR (MDRD) Non-Af 11 L Glucose 112 H Alkaline Phosphatase 285 H Urine Protein 100 H Urine Blood MODERATE H Ur Leukocyte Esterase LARGE H - EKG Interpretation by Me Additional EKG results interpreted by me: 05/10/19 23:50 Normal sinus mechanism. Left axis deviation. Nonspecific ST changes, but no acute changes concerning for ischemia or infarction. Discharge - Discharge Clinical Impression: Acute kidney injury, Increased anion gap metabolic acidosis Sepsis Qualifiers: Sepsis type: sepsis due to unspecified organism Sepsis acute organ dysfunction status: with acute organ dysfunction Severe sepsis acute organ dysfunction type: acute renal failure Acute renal failure type: unspecified Severe sepsis shock status: without septic shock Qualified Code(s): A41.9 - Sepsis, unspecified organism Urinary tract infection Qualifiers: Urinary tract infection type: site unspecified Hematuria presence: without hematuria Qualified Code(s): N39.0 - Urinary tract infection, site not specified Condition: Stable Disposition: ADMITTED INPATIENT Admitting Provider: Gera (Hospitalist) Unit Admitted: Telemetry Referrals: LOBO STERN MD [Primary Care Provider] - Follow up as needed
--- NOTE | 2019-05-10 19:41 | EKG REPORT ---
SEVERITY:- ABNORMAL ECG - SINUS RHYTHM INFERIOR INFARCT, OLD CONSIDER ANTERIOR INFARCT : Confirmed by: Ambika Qureshi MD 10-May-2019 19:40:47
[2019-05-10 21:10] LABS: APPEARANCE,URINE TURBID; BILIRUBIN,URINE NEGATIVE (NEGATIVE); COLOR,URINE YELLOW; GLUCOSE, URINE NEGATIVE (NEGATIVE); KETONES,URINE NEGATIVE (NEGATIVE); LEUKOCYTE ESTERASE,URINE LARGE (NEGATIVE); NITRITE,URINE NEGATIVE (NEGATIVE); PROTEIN,URINE 100 mg/dL (NEGATIVE); URINE SPECIFIC GRAVITY 1.013; UROBILINOGEN,URINE NEGATIVE mg/dL (<2.0)
[2019-05-10] MEDS ORDERED: CEFTRIAXONE 1 GM/D5W RTU 1 GM/50 ML RTUPB IV ONE (21:30)
[2019-05-10] MEDS ORDERED: MORPHINE SULFATE 10 MG/ML INJ IV ONE (23:28)
[2019-05-11] MEDS ORDERED: IMIPENEM/CILASTATIN SODIUM 1,000 MG in NORMAL SALINE 250 ML IV SCH ×2
[2019-05-11 00:07] LABS: PHOSPHORUS 5.5 mg/dL (2.5-4.5)
[2019-05-11] MEDS ORDERED: IMIPENEM/CILASTATIN SODIUM INJ 500 MG VIAL IV PRN (00:10)
[2019-05-11] MEDS ORDERED: IMIPENEM/CILASTATIN SODIUM 1,000 MG in NORMAL SALINE 250 ML IV ONE (00:15)
[2019-05-11] MEDS ORDERED: FAMOTIDINE INJ/PF 20 MG/2 ML SDV IV ONE (01:58)
[2019-05-11] MEDS ORDERED: DEXTROSE 40% GEL 15 GM TUBE PO PRN ×2 (04:52)
[2019-05-11] MEDS ORDERED: DEXTROSE 50%-WATER 25 GM/50 ML DISP.SYRIN IV PRN ×2 (04:52)
[2019-05-11] MEDS ORDERED: GLUCAGON,HUMAN RECOMB 1 MG INJ IM PRN (04:52)
--- NOTE | 2019-05-11 04:59 | PDOC H&P ---
History of Present Illness Admission Date/PCP: 05/11/19 00:10 LOBO STERN MD Patient complains of: Generalized weakness History of Present Illness: KYRA REYNOLDS is a 63 year old female with a past medical history of diabetes, severe GERD and colorectal cancer status post hemicolectomy with ostomy March 2019 on chemo radiation under the care of Dr. Amezcua. She complains of uncontrolled uncontrolled acid reflux, poor appetite and severe skin irritation about the site of her ostomy. In the emergency department she is found to have acute renal failure, metabolic acidosis, hypomagnesemia and urinary tract infection. She is placed on empiric antibiotics and referred to the hospitalist for admission. 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 [facility], [place] Denies: Atrial Fibrillation, Congestive Heart Failure, Coronary Artery Disease, Hyperlipidema, Peripheral Vascular Disease, Pulmonary Embolism, Heart Murmur Pulmonary Medical History: Reports: Asthma, Bronchitis, Chronic Obstructive Pulmonary Disease (COPD), Pneumonia - 2014 Denies: Respiratory Failure, Sleep Apnea, Tuberculosis Neurological Medical History: Denies: Seizures Endocrine Medical History: Reports: Hyperthyroidism - liquid radiation Denies: Hypothyroidism Malignancy Medical History: Reports: Colorectal Cancer Denies: Leukemia, Lung Cancer GI Medical History: Reports: Gastroesophageal Reflux Disease Denies: Crohn's Disease, Hepatitis, Hiatal Hernia Musculoskeltal Medical History: Reports: Arthritis Denies: Fibromyalgia Psychiatric Medical History: Reports: Depression Denies: Bipolar Disorder, Dementia, Post Traumatic Stress Disorder Hematology: Reports: Anemia Denies: Hemophilia, Sickle Cell Disease Infectious Medical History: Denies: HIV Past Surgical History Past Surgical History: Reports: Tubal Ligation, Other - 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 Denies: Amputation, Appendectomy, Section, Cholecystectomy, Colostomy, Coronary Artery Bypass Graft, Gastric Bypass Surgery, Herniorrhaphy, Hysterectomy, Mastectomy, Pacemaker, Tonsillectomy Social History Information Source: Patient, [facility] Records Smoking Status: Former Smoker Frequency of Alcohol Use: None Hx Recreational Drug Use: No Drugs: None Hx Prescription Drug Abuse: No - Advance Directive Resuscitation Status: Full Code Family History Family History: CAD, DM, Hyperlipidemia, Hypertension Parental Family History Reviewed: Yes Children Family History Reviewed: Yes Sibling(s) Family History Reviewed.: Yes Medication/Allergy Home Medications: Aspirin [Adult Low Dose Aspirin EC] 81 mg PO DAILY #0 05/21/11 Levothyroxine Sodium 125 mcg PO QAM 05/21/11 Oxybutynin Chloride [Ditropan 5 mg Tablet] 5 mg PO TID #0 05/21/11 Ramipril [Altace 5 mg Capsule] 5 mg PO DAILY #0 05/21/11 Pravastatin Sodium [Pravachol] 20 mg PO QHS 03/10/16 Albuterol Sulfate [Ventolin 0.042% Neb 1.25 mg/3 mL Ampul] 1 vial NEB QIDP PRN 09/19/17 Buspirone HCl [Buspar 15 mg Tablet] 1 tab PO TID 09/19/17 Omeprazole 20 mg PO DAILY 09/19/17 Albuterol Sulfate [Proair HFA Inhalation Aerosol 8.5 gm MDI] 2 puff IH Q4 PRN 09/21/17 Sertraline HCl [Zoloft] 150 mg PO DAILY 12/01/18 Hydroxyzine HCl [Atarax 25 mg Tablet] 1 tab PO Q8HP PRN 03/24/19 Hydrocodone Bit/Acetaminophen [Hydrocodon-Acetaminophn 10-325] 1 each PO Q6HP PRN 7 Days #28 tablet 04/02/19 Cephalexin Monohydrate [Keflex 500 mg Capsule] 500 mg PO BID 7 Days #14 capsule 04/04/19 Ondansetron [Zofran Odt 4 mg Tablet] 1 - 2 tab PO Q4H PRN #15 tab.rapdis 04/04/19 Amlodipine Besylate [Norvasc 5 mg Tablet] 5 mg PO QPM 04/05/19 Atenolol [Tenormin] 25 mg PO QAM 04/05/19 Buspirone HCl 15 mg PO BID 04/05/19 Allergies/Adverse Reactions: shellfish derived Allergy (Severe, Verified 04/04/19 02:17) Hives iodine [Iodine] Allergy (Intermediate, Verified 04/04/19 02:17) Rash Sulfa (Sulfonamide Antibiotics) Allergy (Intermediate, Verified 04/04/19 02:17) Hives Iodinated Contrast Media Adverse Reaction (Intermediate, Verified 04/04/19 02:17) Nausea Review of Systems Constitutional: PRESENT: as per HPI, anorexia, fatigue, weakness. ABSENT: chills, fever(s), headache(s), weight gain, weight loss Eyes: ABSENT: visual disturbances Ears: ABSENT: hearing changes Cardiovascular: ABSENT: chest pain, dyspnea on exertion, edema, orthropnea, palpitations Respiratory: ABSENT: cough, hemoptysis Gastrointestinal: ABSENT: abdominal pain, constipation, diarrhea, hematemesis, hematochezia, nausea, vomiting Genitourinary: ABSENT: dysuria, hematuria Musculoskeletal: ABSENT: joint swelling Integumentary: ABSENT: rash, wounds Neurological: ABSENT: abnormal gait, abnormal speech, confusion, dizziness, focal weakness, syncope Psychiatric: ABSENT: anxiety, depression, homidical ideation, suicidal ideation Endocrine: ABSENT: cold intolerance, heat intolerance, polydipsia, polyuria Hematologic/Lymphatic: ABSENT: easy bleeding, easy bruising Physical Exam Vital Signs: Temp Pulse Resp BP Pulse Ox 98.1 F 19 127/108 H 99 05/10/19 21:08 05/11/19 00:01 05/11/19 00:01 05/11/19 00:01 Intake & Output 05/09/19 05/10/19 05/11/19 11:59 11:59 11:59 Intake Total 2300 Balance 2300 Weight 81 kg General appearance: PRESENT: cooperative, mild distress, well-developed, well-nourished Head exam: PRESENT: atraumatic, normocephalic Eye exam: PRESENT: conjunctiva pink, EOMI, PERRLA. ABSENT: scleral icterus Ear exam: PRESENT: normal external ear exam Mouth exam: PRESENT: dry mucosa, tongue midline Neck exam: ABSENT: carotid bruit, JVD, lymphadenopathy, thyromegaly Respiratory exam: PRESENT: clear to auscultation vickie. ABSENT: rales, rhonchi, wheezes Cardiovascular exam: PRESENT: RRR. ABSENT: diastolic murmur, rubs, systolic murmur Pulses: PRESENT: normal dorsalis pedis pul Vascular exam: PRESENT: normal capillary refill GI/Abdominal exam: PRESENT: normal bowel sounds, soft. ABSENT: distended, guarding, mass, organolmegaly, rebound, tenderness Rectal exam: PRESENT: deferred Extremities exam: PRESENT: full ROM. ABSENT: calf tenderness, clubbing, pedal edema Neurological exam: PRESENT: alert, awake, oriented to person, oriented to place, oriented to time, oriented to situation, CN II-XII grossly intact. ABSENT: motor sensory deficit Psychiatric exam: PRESENT: appropriate affect, normal mood. ABSENT: homicidal ideation, suicidal ideation Skin exam: PRESENT: dry, erythema, intact, warm, other - Large area of right lower quadrant and right thigh erythema.. ABSENT: cyanosis, rash, urticaria, vesicles Results Laboratory Results: 05/10/19 16:24 05/10/19 16:24 05/10/19 05/10/19 05/10/19 16:24 16:24 16:24 WBC 13.6 H RBC 3.77 Hgb 11.7 L Hct 34.2 L MCV 91 MCH 30.9 MCHC 34.1 RDW 16.1 H Plt Count 412 Seg Neutrophils % Not Reportable Sodium 136.2 L Potassium 4.6 Chloride 97 L Carbon Dioxide 14 L Anion Gap 25 H BUN 69 H Creatinine 4.04 H Est GFR ( Amer) 13 L Glucose 112 H Lactic Acid Calcium 9.2 Phosphorus 5.5 H Magnesium 0.8 L* Total Bilirubin 0.4 AST 28 Alkaline Phosphatase 285 H Total Protein 8.0 Albumin 4.1 Urine Color Urine Appearance Urine pH Ur Specific Byron Urine Protein Urine Glucose (UA) Urine Ketones Urine Blood Urine Nitrite Ur Leukocyte Esterase Urine WBC (Auto) Urine RBC (Auto) 05/10/19 05/10/19 20:53 22:30 WBC RBC Hgb Hct MCV MCH MCHC RDW Plt Count Seg Neutrophils % Sodium Potassium Chloride Carbon Dioxide Anion Gap BUN Creatinine Est GFR ( Amer) Glucose Lactic Acid 1.1 Calcium Phosphorus Magnesium Total Bilirubin AST Alkaline Phosphatase Total Protein Albumin Urine Color YELLOW Urine Appearance TURBID Urine pH 5.0 Ur Specific Byron 1.013 Urine Protein 100 H Urine Glucose (UA) NEGATIVE Urine Ketones NEGATIVE Urine Blood MODERATE H Urine Nitrite NEGATIVE Ur Leukocyte Esterase LARGE H Urine WBC (Auto) >182 Urine RBC (Auto) 45 Assessment and Plan - Diagnosis (1) Sepsis Qualifiers: Sepsis type: sepsis due to unspecified organism Sepsis acute organ dysfunction status: with acute organ dysfunction Severe sepsis acute organ dysfunction type: acute renal failure Acute renal failure type: unspecified Severe sepsis shock status: without septic shock Qualified Code(s): A41.9 - Sepsis, unspecified organism; R65.20 - Severe sepsis without septic shock; N17.9 - Acute kidney failure, unspecified Is this a current diagnosis for this admission?: Yes Plan: IV fluid challenge, imipenem as Rocephin is poorly sensitive to E. coli in culture. (2) Acute kidney injury Is this a current diagnosis for this admission?: Yes Plan: Likely prerenal azotemia, IV fluid challenge, avoid nephrotoxic meds and doses follow-up chemistry (3) Increased anion gap metabolic acidosis Is this a current diagnosis for this admission?: Yes Plan: Multifactorial, acute renal failure, starvation, diabetes. D5 half-normal saline with 20 of potassium with Humalog sliding scale. (4) Cellulitis of colostomy Is this a current diagnosis for this admission?: Yes Plan: Cellulitis versus radiation versus dysfunction with leakage chemical burn follow-up surgical evaluation. (5) Urinary tract infection Qualifiers: Urinary tract infection type: site unspecified Hematuria presence: without hematuria Qualified Code(s): N39.0 - Urinary tract infection, site not specified Is this a current diagnosis for this admission?: Yes Plan: Imipenem ordered. Follow-up blood and urine culture. - Time Time Spent with patient: 25-34 minutes - Inpatient Certification Medical Necessity: Need Close Monitoring Due to Risk of Patient Decompensation
[2019-05-11 06:08] LABS: HEMATOCRIT 31.5 % (36.0-47.0); HEMOGLOBIN 10.8 g/dL (12.0-15.5); MEAN CORPUSCULAR HEMOGLOBIN 30.9 pg (27.0-33.4); MEAN CORPUSCULAR HGB CONC 34.3 g/dL (32.0-36.0); MEAN CORPUSCULAR VOLUME 90 fl (80-97); PLATELET COUNT 345 10^3/uL (150-450); RED BLOOD COUNT 3.49 10^6/uL (3.72-5.28); RED CELL DISTRIBUTION WIDTH 15.9 % (11.5-14.0); WHITE BLOOD COUNT 9.6 10^3/uL (4.0-10.5)
[2019-05-11] MEDS: POTASSI CL 20 MEQ/D5-1/2NS 1L 1,000 ML IV PRN ×2 (06:12→14:37)
[2019-05-11] MEDS: MAGNESIUM SULFATE/D5W 1 GM/100 ML RTUPB IV SCH ×2 (06:12→07:16)
[2019-05-11] MEDS: HEPARIN SOD (PORCINE) 5,000 UNIT/ML 1 ML VIAL SUBCUT SCH ×3 (06:13→21:38)
[2019-05-11 06:26] LABS: ANION GAP 19 (5-19); BLOOD UREA NITROGEN 61 mg/dL (7-20); CALCIUM 7.9 mg/dL (8.4-10.2); CARBON DIOXIDE 12 mmol/L (22-30); CHLORIDE 106 mmol/L (98-107); GLUCOSE 91 mg/dL (75-110); POTASSIUM 4.7 mmol/L (3.6-5.0)
[2019-05-11 07:12] LABS: ABSOLUTE LYMPHOCYTES# (MANUAL) 0.9 10^3/uL (0.5-4.7); ABSOLUTE MONOCYTES # (MANUAL) 0.5 10^3/uL (0.1-1.4); BASOPHILS % (MANUAL) 0 % (0-2); EOSINOPHILS % (MANUAL) 0 % (0-6); LYMPHOCYTES % (MANUAL) 9 % (13-45); MONOCYTES % (MANUAL) 5 % (3-13); SEGMENTED NEUTROPHILS % (MAN) 86 % (42-78); TOTAL CELLS COUNTED 100
[2019-05-11 07:13] LABS: TOXIC GRANULATION SLIGHT
[2019-05-11 07:14] LABS: ANISOCYTOSIS SLIGHT; OVALOCYTES SLIGHT; PLATELET COMMENT ADEQUATE; POIKILOCYTOSIS SLIGHT; TEAR DROP CELLS SLIGHT
--- NOTE | 2019-05-11 08:09 | PDOC CONSULTATION ---
Consultation Consult Date: 05/11/19 Provider Consulted: MIHAELA JAQUEZ Consult reason:: Burning sensation around ileostomy site History of Present Illness Admission Date/PCP: 05/11/19 00:10 LOBO STERN MD History of Present Illness: KYRA REYNOLDS is a 63 year old female history of diabetes mellitus, GERD, and low anterior resection for colon carcinoma with diverting ileostomy 020 by . Patient admitted for generalized weakness and noted to have sepsis, acute renal failure, and complaining of burning sensation along the ileostomy site. Patient had chemotherapy by Dr. Mckeon. Her ileostomy care is being handled by her roommate. Past Medical History Cardiac Medical History: Reports: Myocardial Infarction - unsure-saw card iologist 2009 in [facility] Denies: Atrial Fibrillation, Congestive Heart Failure, Coronary Artery Disease, Hyperlipidema, Peripheral Vascular Disease, Pulmonary Embolism, Heart Murmur Pulmonary Medical History: Reports: Asthma, Bronchitis, Chronic Obstructive Pulmonary Disease (COPD), Pneumonia - 2014 Denies: Respiratory Failure, Sleep Apnea, Tuberculosis Neurological Medical History: Denies: Seizures Endocrine Medical History: Reports: Hyperthyroidism - liquid radiation Denies: Hypothyroidism Malignancy Medical History: Reports: Colorectal Cancer Denies: Leukemia, Lung Cancer GI Medical History: Reports: Gastroesophageal Reflux Disease Denies: Crohn's Disease, Hepatitis, Hiatal Hernia Musculoskeltal Medical History: Reports: Arthritis Denies: Fibromyalgia Psychiatric Medical History: Reports: Depression Denies: Bipolar Disorder, Dementia, Post Traumatic Stress Disorder Hematology: Reports: Anemia Denies: Hemophilia, Sickle Cell Disease Infectious Medical History: Denies: HIV Past Surgical History Past Surgical History: Reports: Tubal Ligation, Other - 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 Denies: Amputation, Appendectomy, Section, Cholecystectomy, Colostomy, Coronary Artery Bypass Graft, Gastric Bypass Surgery, Herniorrhaphy, Hysterectomy, Mastectomy, Pacemaker, Tonsillectomy Social History Smoking Status: Former Smoker Frequency of Alcohol Use: None Hx Recreational Drug Use: No Drugs: None Hx Prescription Drug Abuse: No - Advance Directive Resuscitation Status: Full Code Family History Family History: CAD, DM, Hyperlipidemia, Hypertension Parental Family History Reviewed: No Children Family History Reviewed: No Sibling(s) Family History Reviewed.: No Medication/Allergy Home Medications: Aspirin [Adult Low Dose Aspirin EC] 81 mg PO DAILY #0 05/21/11 Levothyroxine Sodium 125 mcg PO QAM 05/21/11 Oxybutynin Chloride [Ditropan 5 mg Tablet] 5 mg PO TID #0 05/21/11 Ramipril [Altace 5 mg Capsule] 5 mg PO DAILY #0 05/21/11 Pravastatin Sodium [Pravachol] 20 mg PO QHS 03/10/16 Albuterol Sulfate [Ventolin 0.042% Neb 1.25 mg/3 mL Ampul] 1 vial NEB QIDP PRN 09/19/17 Buspirone HCl [Buspar 15 mg Tablet] 1 tab PO TID 09/19/17 Omeprazole 20 mg PO DAILY 09/19/17 Albuterol Sulfate [Proair HFA Inhalation Aerosol 8.5 gm MDI] 2 puff IH Q4 PRN 09/21/17 Sertraline HCl [Zoloft] 150 mg PO DAILY 12/01/18 Hydroxyzine HCl [Atarax 25 mg Tablet] 1 tab PO Q8HP PRN 03/24/19 Hydrocodone Bit/Acetaminophen [Hydrocodon-Acetaminophn 10-325] 1 each PO Q6HP PRN 7 Days #28 tablet 04/02/19 Cephalexin Monohydrate [Keflex 500 mg Capsule] 500 mg PO BID 7 Days #14 capsule 04/04/19 Ondansetron [Zofran Odt 4 mg Tablet] 1 - 2 tab PO Q4H PRN #15 tab.rapdis 04/04/19 Amlodipine Besylate [Norvasc 5 mg Tablet] 5 mg PO QPM 04/05/19 Atenolol [Tenormin] 25 mg PO QAM 04/05/19 Buspirone HCl 15 mg PO BID 04/05/19 Allergies/Adverse Reactions: shellfish derived Allergy (Severe, Verified 04/04/19 02:17) Hives iodine [Iodine] Allergy (Intermediate, Verified 04/04/19 02:17) Rash Sulfa (Sulfonamide Antibiotics) Allergy (Intermediate, Verified 04/04/19 02:17) Hives Iodinated Contrast Media Adverse Reaction (Intermediate, Verified 04/04/19 02:17) Nausea Review of Systems Constitutional: PRESENT: as per HPI Gastrointestinal: ABSENT: other - Burning sensation around the ileostomy site Physical Exam Vital Signs: Temp Pulse Resp BP Pulse Ox 98.2 F 15 94/69 L 100 05/11/19 06:16 05/11/19 06:16 05/11/19 06:16 05/11/19 06:16 Intake & Output 05/10/19 05/11/19 05/12/19 06:59 06:59 06:59 Intake Total 3400 100 Balance 3400 100 Weight 81 kg Exam: Ileostomy appliance is intact at this time. However patient complains of burning sensation just around the ileostomy. Ileostomy is draining light solid material. Results Laboratory Results: 05/11/19 05:11 05/11/19 05:11 05/10/19 05/10/19 05/10/19 16:24 16:24 16:24 WBC 13.6 H RBC 3.77 Hgb 11.7 L Hct 34.2 L MCV 91 MCH 30.9 MCHC 34.1 RDW 16.1 H Plt Count 412 Seg Neutrophils % Not Reportable Sodium 136.2 L Potassium 4.6 Chloride 97 L Carbon Dioxide 14 L Anion Gap 25 H BUN 69 H Creatinine 4.04 H Est GFR ( Amer) 13 L Glucose 112 H Lactic Acid Calcium 9.2 Phosphorus 5.5 H Magnesium 0.8 L* Total Bilirubin 0.4 AST 28 Alkaline Phosphatase 285 H Total Protein 8.0 Albumin 4.1 Urine Color Urine Appearance Urine pH Ur Specific [employer] Urine Protein Urine Glucose (UA) Urine Ketones Urine Blood Urine Nitrite Ur Leukocyte Esterase Urine WBC (Auto) Urine RBC (Auto) 05/10/19 05/10/19 05/11/19 20:53 22:30 05:11 WBC 9.6 RBC 3.49 L Hgb 10.8 L Hct 31.5 L MCV 90 MCH 30.9 MCHC 34.3 RDW 15.9 H Plt Count 345 Seg Neutrophils % Not Reportable Sodium Potassium Chloride Carbon Dioxide Anion Gap BUN Creatinine Est GFR ( Amer) Glucose Lactic Acid 1.1 Calcium Phosphorus Magnesium Total Bilirubin AST Alkaline Phosphatase Total Protein Albumin Urine Color YELLOW Urine Appearance TURBID Urine pH 5.0 Ur Specific [employer] 1.013 Urine Protein 100 H Urine Glucose (UA) NEGATIVE Urine Ketones NEGATIVE Urine Blood MODERATE H Urine Nitrite NEGATIVE Ur Leukocyte Esterase LARGE H Urine WBC (Auto) >182 Urine RBC (Auto) 45 05/11/19 05:11 WBC RBC Hgb Hct MCV MCH MCHC RDW Plt Count Seg Neutrophils % Sodium 136.5 L Potassium 4.7 Chloride 106 Carbon Dioxide 12 L Anion Gap 19 BUN 61 H Creatinine 2.68 H Est GFR ( Amer) 22 L Glucose 91 Lactic Acid Calcium 7.9 L Phosphorus Magnesium Total Bilirubin AST Alkaline Phosphatase Total Protein Albumin Urine Color Urine Appearance Urine pH Ur Specific [employer] Urine Protein Urine Glucose (UA) Urine Ketones Urine Blood Urine Nitrite Ur Leukocyte Esterase Urine WBC (Auto) Urine RBC (Auto) Assessment & Plan - Diagnosis (1) Irritation of the skin around ileostomy Is this a current diagnosis for this admission?: Yes - Time Time Spent: 30 to 50 Minutes - Plan Summary Plan Summary: Placement of ostomy paste around ileostomy prior to placement of appliance. We will sign off call for any questions.
--- NOTE | 2019-05-11 09:51 | PDOC PROGRESS REPORT ---
Subjective Progress Note for:: 05/11/19 Subjective:: 63 year old female with a past medical history of diabetes, severe GERD and colorectal cancer status post hemicolectomy with ostomy March 2019 on chemo radiation under the care of Dr. Amezcua. She complains of uncontrolled uncontrolled acid reflux, poor appetite and severe skin irritation about the site of her ostomy. In the emergency department she is found to have acute renal failure, metabolic acidosis, hypomagnesemia and urinary tract infection. She is placed on empiric antibiotics and referred to the hospitalist for admission. 05/11/[id number]-upuh-old female with history of type 2 diabetes mellitus, rectal cancer status post hemicolectomy with colostomy this year and chemoradiation therapy admitted with poor appetite, skin irritation around the ostomy site. Work-up in the emergency room indicates acute renal failure associated with metabolic acidosis, hypomagnesemia and UTI. Patient is receiving potassium supplementations IV fluids and empiric antibiotic therapy. For the blood in the bed communicating well. Patient is evaluated by Dr. David he recommended paste around the ostomy site. Reason For Visit: UTI,SEPSIS ARF Physical Exam Vital Signs: Temp Pulse Resp BP Pulse Ox 98.2 F 15 94/69 L 100 05/11/19 06:16 05/11/19 06:16 05/11/19 06:16 05/11/19 06:16 Intake & Output 05/10/19 05/11/19 05/12/19 06:59 06:59 06:59 Intake Total 3400 200 Balance 3400 200 Weight 81 kg General appearance: PRESENT: no acute distress, well-developed Head exam: PRESENT: atraumatic Eye exam: PRESENT: PERRLA Mouth exam: PRESENT: moist, tongue midline Teeth exam: PRESENT: poor dentation Neck exam: ABSENT: carotid bruit, JVD, lymphadenopathy, thyromegaly Respiratory exam: PRESENT: clear to auscultation vickie. ABSENT: rales, rhonchi, wheezes Cardiovascular exam: PRESENT: RRR. ABSENT: diastolic murmur, rubs, systolic murmur GI/Abdominal exam: PRESENT: other - Ostomy bag in place. Bowel sounds are present. Nontender. Rectal exam: PRESENT: deferred Extremities exam: PRESENT: full ROM. ABSENT: calf tenderness, clubbing, pedal edema Neurological exam: PRESENT: alert, awake, oriented to person, oriented to place, oriented to time, oriented to situation, CN II-XII grossly intact. ABSENT: motor sensory deficit Psychiatric exam: PRESENT: appropriate affect, normal mood. ABSENT: homicidal ideation, suicidal ideation Results Laboratory Results: 05/11/19 05:11 05/11/19 05:11 05/10/19 05/10/19 05/10/19 16:24 16:24 16:24 WBC 13.6 H RBC 3.77 Hgb 11.7 L Hct 34.2 L MCV 91 MCH 30.9 MCHC 34.1 RDW 16.1 H Plt Count 412 Seg Neutrophils % Not Reportable Sodium 136.2 L Potassium 4.6 Chloride 97 L Carbon Dioxide 14 L Anion Gap 25 H BUN 69 H Creatinine 4.04 H Est GFR ( Amer) 13 L Glucose 112 H Lactic Acid Calcium 9.2 Phosphorus 5.5 H Magnesium 0.8 L* Total Bilirubin 0.4 AST 28 Alkaline Phosphatase 285 H Total Protein 8.0 Albumin 4.1 Urine Color Urine Appearance Urine pH Ur Specific [place] Urine Protein Urine Glucose (UA) Urine Ketones Urine Blood Urine Nitrite Ur Leukocyte Esterase Urine WBC (Auto) Urine RBC (Auto) 05/10/19 05/10/19 05/11/19 20:53 22:30 05:11 WBC 9.6 RBC 3.49 L Hgb 10.8 L Hct 31.5 L MCV 90 MCH 30.9 MCHC 34.3 RDW 15.9 H Plt Count 345 Seg Neutrophils % Not Reportable Sodium Potassium Chloride Carbon Dioxide Anion Gap BUN Creatinine Est GFR ( Amer) Glucose Lactic Acid 1.1 Calcium Phosphorus Magnesium Total Bilirubin AST Alkaline Phosphatase Total Protein Albumin Urine Color YELLOW Urine Appearance TURBID Urine pH 5.0 Ur Specific [place] 1.013 Urine Protein 100 H Urine Glucose (UA) NEGATIVE Urine Ketones NEGATIVE Urine Blood MODERATE H Urine Nitrite NEGATIVE Ur Leukocyte Esterase LARGE H Urine WBC (Auto) >182 Urine RBC (Auto) 45 05/11/19 05:11 WBC RBC Hgb Hct MCV MCH MCHC RDW Plt Count Seg Neutrophils % Sodium 136.5 L Potassium 4.7 Chloride 106 Carbon Dioxide 12 L Anion Gap 19 BUN 61 H Creatinine 2.68 H Est GFR ( Amer) 22 L Glucose 91 Lactic Acid Calcium 7.9 L Phosphorus Magnesium Total Bilirubin AST Alkaline Phosphatase Total Protein Albumin Urine Color Urine Appearance Urine pH Ur Specific [place] Urine Protein Urine Glucose (UA) Urine Ketones Urine Blood Urine Nitrite Ur Leukocyte Esterase Urine WBC (Auto) Urine RBC (Auto) Assessment and Plan - Diagnosis (1) Sepsis Qualifiers: Sepsis type: sepsis due to unspecified organism Sepsis acute organ d ysfunction status: with acute organ dysfunction Severe sepsis acute organ dysfunction type: acute renal failure Acute renal failure type: unspecified Severe sepsis shock status: without septic shock Qualified Code(s): A41.9 - Sepsis, unspecified organism; R65.20 - Severe sepsis without septic shock; N17.9 - Acute kidney failure, unspecified Is this a current diagnosis for this admission?: Yes Plan: IV fluid challenge, imipenem as Rocephin is poorly sensitive to E. coli in culture. 2019-patient admitted for sepsis possible secondary to UTI. Patient is presently on imipenem. Cultures are pending. And is afebrile. Pressure is running low with systolic around 90s. Patient is receiving IV fluids normal saline at 250 cc/h. (2) Acute kidney injury Is this a current diagnosis for this admission?: Yes Plan: Likely prerenal azotemia, IV fluid challenge, avoid nephrotoxic meds and doses follow-up chemistry 282-patient admitted with acute kidney injury receiving IV fluids normal saline at 250 cc/h. Creatinine is 2.68 improved from 4.04.. Most likely prerenal causes. Plan is to continue the IV fluids. To recheck the labs tomorrow. Nonoliguric. (3) Increased anion gap metabolic acidosis Is this a current diagnosis for this admission?: Yes Plan: Multifactorial, acute renal failure, starvation, diabetes. D5 half-normal saline with 20 of potassium with Humalog sliding scale. 05/03/2019-patient admitted with increased non-anion gap metabolic acidosis. On D5 half-normal saline with 20 mg of potassium with Humalog sliding scale. It can be secondary to sepsis. (4) Cellulitis of colostomy Is this a current diagnosis for this admission?: Yes Plan: Cellulitis versus radiation versus dysfunction with leakage chemical burn follow-up surgical evaluation. 05/11/19-surgical evaluation was done. Recommendation is put the paste around the colostomy site. (5) Urinary tract infection Qualifiers: Urinary tract infection type: site unspecified Hematuria presence: without hematuria Qualified Code(s): N39.0 - Urinary tract infection, site not specified Is this a current diagnosis for this admission?: Yes Plan: Imipenem ordered. Follow-up blood and urine culture. (7) Hypomagnesemia Is this a current diagnosis for this admission?: Yes Plan: 05/11/2019-admission serum magnesium is 0.8. Provide magnesium supplementations.
[2019-05-11] MEDS: INSULIN LISPRO 100 UNIT/ML 3 ML VIAL SUBCUT SCH ×3 (09:58→18:25)
[2019-05-11] MEDS ORDERED: CEFTRIAXONE 1 GM/D5W RTU 1 GM/50 ML RTUPB IV SCH (10:00)
[2019-05-11] MEDS: IMIPENEM/CILASTATIN SODIUM 500 MG in NORMAL SALINE 100 ML IV SCH ×2 (10:05→21:38)
[2019-05-11] MEDS: MAG HYDROX/AL HYDROX/SIMETH SUSP 30 ML UDCUP PO PRN (14:37)
[2019-05-11] MEDS: ACETAMINOPHEN 325 MG TABLET PO PRN (14:37)
[2019-05-11] MEDS: NORMAL SALINE 1000 ML 1,000 ML IV PRN (14:43)
[2019-05-12] MEDS: ACETAMINOPHEN 325 MG TABLET PO PRN ×2 (00:04→07:38)
[2019-05-12] MEDS: NORMAL SALINE 1000 ML 1,000 ML IV PRN ×3 (00:09→12:16)
[2019-05-12 05:43] LABS: HEMATOCRIT 30.6 % (36.0-47.0); MEAN CORPUSCULAR HGB CONC 32.7 g/dL (32.0-36.0); MEAN CORPUSCULAR VOLUME 92 fl (80-97); PLATELET COUNT 319 10^3/uL (150-450); RED BLOOD COUNT 3.33 10^6/uL (3.72-5.28); RED CELL DISTRIBUTION WIDTH 16.3 % (11.5-14.0); WHITE BLOOD COUNT 8.5 10^3/uL (4.0-10.5)
[2019-05-12] MEDS: HEPARIN SOD (PORCINE) 5,000 UNIT/ML 1 ML VIAL SUBCUT SCH ×3 (05:51→22:34)
[2019-05-12 05:58] LABS: ALBUMIN 2.7 g/dL (3.5-5.0); ALKALINE PHOSPHATASE 268 U/L (38-126); ANION GAP 12 (5-19); ASPARTATE AMINO TRANSFERASE 33 U/L (14-36); BILIRUBIN,TOTAL 0.2 mg/dL (0.2-1.3); CALCIUM 7.7 mg/dL (8.4-10.2); CARBON DIOXIDE 14 mmol/L (22-30); CHLORIDE 113 mmol/L (98-107); GLUCOSE 91 mg/dL (75-110); POTASSIUM 4.9 mmol/L (3.6-5.0); TOTAL PROTEIN 5.7 g/dL (6.3-8.2)
[2019-05-12 06:08] LABS: ABSOLUTE LYMPHOCYTES# (MANUAL) 0.5 10^3/uL (0.5-4.7); ABSOLUTE MONOCYTES # (MANUAL) 0.3 10^3/uL (0.1-1.4); BAND NEUTROPHILS % (MANUAL) 3 % (3-5); BASOPHILS % (MANUAL) 0 % (0-2); EOSINOPHILS % (MANUAL) 1 % (0-6); LYMPHOCYTES % (MANUAL) 6 % (13-45); MONOCYTES % (MANUAL) 4 % (3-13); SEGMENTED NEUTROPHILS % (MAN) 86 % (42-78); TOTAL CELLS COUNTED 100
[2019-05-12 06:09] LABS: ANISOCYTOSIS 2+; PLATELET COMMENT ADEQUATE
[2019-05-12 06:14] LABS: BLOOD UREA NITROGEN 36 mg/dL (7-20)
[2019-05-12] MEDS: INSULIN LISPRO 100 UNIT/ML 3 ML VIAL SUBCUT SCH (07:23)
[2019-05-12] MEDS: IMIPENEM/CILASTATIN SODIUM 500 MG in NORMAL SALINE 100 ML IV SCH ×2 (10:30→23:02)
--- NOTE | 2019-05-12 16:04 | PDOC PROGRESS REPORT ---
Subjective Progress Note for:: 05/12/19 Subjective:: KYRA REYNOLDS is a 63 year old female with a past medical history of diabetes, severe GERD and colorectal cancer status post hemicolectomy with ostomy March 2019 on chemo radiation under the care of Dr. Amezcua. She complains of uncontrolled uncontrolled acid reflux, poor appetite and severe skin irritation about the site of her ostomy. In the emergency department she is found to have acute renal failure, metabolic acidosis, hypomagnesemia and urinary tract infection. She is placed on empiric antibiotics and referred to the hospitalist for admission. 05/12/2019. No acute events overnight. Patient currently resting in bed no apparent distress. Patient still having problem with leakage around the ostomy site otherwise no complaints. Patient was able to walk with assistance of walker and primary nurse with no problems, patient alert oriented x3 no apparent distress. P.o. tolerant. Reason For Visit: UTI,SEPSIS ARF Physical Exam Vital Signs: Temp Pulse Resp BP Pulse Ox 97.8 F 98 18 90/67 L 100 05/12/19 11:15 05/12/19 14:00 05/12/19 11:15 05/12/19 11:15 05/12/19 11:15 Intake & Output 05/11/19 05/12/19 05/13/19 06:59 06:59 06:59 Intake Total 3400 4400 240 Output Total 200 Balance 3400 4200 240 Weight 81 kg 81.5 kg General appearance: PRESENT: no acute distress, well-developed, well-nourished Head exam: PRESENT: atraumatic, normocephalic Respiratory exam: PRESENT: clear to auscultation vickie. ABSENT: rales, rhonchi, wheezes Cardiovascular exam: PRESENT: RRR. ABSENT: diastolic murmur, rubs, systolic mu rmur GI/Abdominal exam: PRESENT: normal bowel sounds, soft, other - Ostomy is patent, there is no apparent leakage with observation however patient states that whenever he she moves starts leaking, diffuse erythema over abdomen and gluteal region with no apparent sign of infection.. ABSENT: distended, guarding, mass, organolmegaly, rebound, tenderness Results Laboratory Results: 05/12/19 04:55 05/12/19 04:55 05/12/19 05/12/19 04:55 04:55 WBC 8.5 RBC 3.33 L Hgb 10.0 L Hct 30.6 L MCV 92 MCH 30.0 MCHC 32.7 RDW 16.3 H Plt Count 319 Seg Neutrophils % Not Reportable Sodium 138.7 Potassium 4.9 Chloride 113 H Carbon Dioxide 14 L Anion Gap 12 BUN 36 H D Creatinine 1.38 H Est GFR ( Amer) 46 L Glucose 91 Calcium 7.7 L Magnesium 1.4 L Total Bilirubin 0.2 AST 33 Alkaline Phosphatase 268 H Total Protein 5.7 L Albumin 2.7 L Assessment and Plan - Diagnosis (1) Sepsis Qualifiers: Sepsis type: sepsis due to unspecified organism Sepsis acute organ dysfunction status: with acute organ dysfunction Severe sepsis acute organ dysfunction type: acute renal failure Acute renal failure type: unspecified Severe sepsis shock status: without septic shock Qualified Code(s): A41.9 - Sepsis, unspecified organism; R65.20 - Severe sepsis without septic shock; N17.9 - Acute kidney failure, unspecified Is this a current diagnosis for this admission?: Yes Plan: Resolved. Vitals WNL. Likely due to underlying UTI. Urine culture growing gram-negative rods pending sensitivity. Blood cultures negative so far. Day 3 IV antibiotic. Day 3 IV imipenem. Monitor vitals. Continue volume resuscitation guided by volume status and vitals. (2) Cellulitis of colostomy Is this a current diagnosis for this admission?: Yes Plan: Improving. No apparent sign of infection. Diffuse erythema. Patient has diffuse erythema over lower abdomen and inguinal region, no apparent leakage or collection, this is likely cellulitis/patient induced or skin irritation from ostomy leakage of GI contents. Continue empiric IV antibiotics. Continue ostomy care. Surgery consulted. Recommendations noted. (3) Acute kidney injury Is this a current diagnosis for this admission?: Yes Plan: Moderate improvement. Euvolemic. Electrolytes WNL. Likely prerenal azotemia due to underlying sepsis. Continue cautious IV hydration guided by volume status and vitals. Avoid nephrotoxic meds. BMP tomorrow. (4) Urinary tract infection Qualifiers: Urinary tract infection type: site unspecified Hematuria presence: without hematuria Qualified Code(s): N39.0 - Urinary tract infection, site not specified Is this a current diagnosis for this admission?: Yes Plan: Due to gram-negative rods. Urine culture positive for gram-negative rods pending sensitivity. Continue empiric IV antibiotics. Follow-up urine culture. Switch to p.o. once culture and sensitivity are available. (5) Increased anion gap metabolic acidosis Is this a current diagnosis for this admission?: Yes Plan: Resolved. Anion gap WNL. Lactic acid WNL. Multifactorial, acute renal failure, starvation, diabetes. (6) Hypothyroidism Qualifiers: Hypothyroidism type: unspecified Qualified Code(s): E03.9 - Hypothyroidism, unspecified Is this a current diagnosis for this admission?: Yes Plan: Restart home meds. Outpatient PCP follow-up. (7) Hypomagnesemia Is this a current diagnosis for this admission?: Yes Plan: Likely due to GI losses and low p.o. intake. Continue daily supplementation. Magnesium level tomorrow. Replace as needed. (8) Hyperlipidemia Qualifiers: Hyperlipidemia type: unspecified Qualified Code(s): E78.5 - Hyperlipidemia, unspecified Is this a current diagnosis for this admission?: Yes Plan: Restart home meds. Outpatient PCP follow-up. (9) Generalized anxiety disorder Is this a current diagnosis for this admission?: Yes Plan: Takes BuSpar at home. Restart home meds. (10) Gastroesophageal reflux disease Qualifiers: Esophagitis presence: without esophagitis Qualified Code(s): K21.9 - Gastro-esophageal reflux disease without esophagitis Is this a current diagnosis for this admission?: Yes Plan: Chronic severe GERD. Will start on PPIs and sucralfate. Outpatient PCP and gastroenterology follow-up. (11) Depression Qualifiers: Depression Type: major depressive disorder Major depression recurrence: single episode Active/Remission status: remission status unspecified Qualified Code(s): F32.9 - Major depressive disorder, single episode, unspecified Is this a current diagnosis for this admission?: Yes Plan: Denies any suicidal or homicidal ideation. Takes SSRI at home. Resume home meds. Outpatient PCP follow-up.
[2019-05-12] MEDS ORDERED: SUCRALFATE 1 GM TABLET PO ONE (17:15)
[2019-05-12] MEDS: PANTOPRAZOLE SODIUM 40 MG TABLET.DR PO SCH (17:37)
[2019-05-12] MEDS ORDERED: AMLODIPINE BESYLATE 5 MG TABLET PO SCH (18:00)
[2019-05-12] MEDS: BUSPIRONE HCL 10 MG TABLET PO SCH (19:12)
[2019-05-12] MEDS: OXYBUTYNIN CHLORIDE 5 MG TABLET PO SCH (19:12)
[2019-05-12] MEDS: SUCRALFATE 1 GM TABLET PO SCH (22:33)
[2019-05-12] MEDS ORDERED: IMIPENEM/CILASTATIN SODIUM INJ 500 MG VIAL IV ONE (22:40)
[2019-05-13] MEDS: HEPARIN SOD (PORCINE) 5,000 UNIT/ML 1 ML VIAL SUBCUT SCH ×3 (05:29→21:16)
[2019-05-13] MEDS: PANTOPRAZOLE SODIUM 40 MG TABLET.DR PO SCH ×2 (05:30→17:32)
[2019-05-13] MEDS: ACETAMINOPHEN 325 MG TABLET PO PRN (05:31)
[2019-05-13 06:07] LABS: HEMATOCRIT 31.8 % (36.0-47.0); HEMOGLOBIN 10.5 g/dL (12.0-15.5); MEAN CORPUSCULAR VOLUME 91 fl (80-97); PLATELET COUNT 399 10^3/uL (150-450); RED CELL DISTRIBUTION WIDTH 16.2 % (11.5-14.0)
[2019-05-13 06:32] LABS: ANION GAP 10 (5-19); BLOOD UREA NITROGEN 20 mg/dL (7-20); CALCIUM 8.4 mg/dL (8.4-10.2); CARBON DIOXIDE 17 mmol/L (22-30); CHLORIDE 115 mmol/L (98-107); GLUCOSE 105 mg/dL (75-110); POTASSIUM 4.6 mmol/L (3.6-5.0)
[2019-05-13] MEDS: SUCRALFATE 1 GM TABLET PO SCH ×4 (07:51→21:17)
[2019-05-13] MEDS: ATENOLOL 50 MG TABLET PO SCH (07:51)
[2019-05-13] MEDS ORDERED: LEVOTHYROXINE SODIUM 0.1 MG TABLET PO SCH (08:00)
[2019-05-13] MEDS ORDERED: (PENDING PHARMACY ID) (Atenolol [Tenormin] 25 MG) PO SCH (08:00)
[2019-05-13] MEDS: ASPIRIN 81 MG TABLET, ENT COATED PO SCH (09:50)
[2019-05-13] MEDS: RAMIPRIL 5 MG CAPSULE PO SCH (09:50)
[2019-05-13] MEDS: OXYBUTYNIN CHLORIDE 5 MG TABLET PO SCH ×3 (09:50→17:32)
[2019-05-13] MEDS: BUSPIRONE HCL 10 MG TABLET PO SCH ×3 (09:50→17:31)
[2019-05-13] MEDS: SERTRALINE HCL 50 MG TABLET PO SCH (09:51)
[2019-05-13] MEDS: IMIPENEM/CILASTATIN SODIUM 500 MG in NORMAL SALINE 100 ML IV SCH ×2 (09:51→21:16)
--- NOTE | 2019-05-13 13:17 | PDOC PROGRESS REPORT ---
Subjective Progress Note for:: 05/13/19 Subjective:: KYRA REYNOLDS is a 63 year old female with a past medical history of diabetes, severe GERD and colorectal cancer status post hemicolectomy with ostomy March 2019 on chemo radiation under the care of Dr. Amezcua. She complains of uncontrolled uncontrolled acid reflux, poor appetite and severe skin irritation about the site of her ostomy. In the emergency department she is found to have acute renal failure, metabolic acidosis, hypomagnesemia and urinary tract infection. She is placed on empiric antibiotics and referred to the hospitalist for admission. 05/12/2019. No acute events overnight. Patient currently resting in bed no apparent distress. Patient still having problem with leakage around the ostomy site otherwise no complaints. Patient was able to walk with assistance of walker and primary nurse with no problems, patient alert oriented x3 no apparent distress. P.o. tolerant. 05/13/2019. No acute events overnight. Patient currently resting in bed no apparent distress. Patient still having problem with leakage around the ostomy site otherwise no complaints. Reason For Visit: UTI,SEPSIS ARF Physical Exam Vital Signs: Temp Pulse Resp BP Pulse Ox 98.2 F 77 18 134/86 H 100 05/13/19 08:15 05/13/19 08:15 05/13/19 08:15 05/13/19 08:15 05/13/19 08:15 Intake & Output 05/12/19 05/13/19 05/14/19 06:59 06:59 06:59 Intake Total 4400 240 Output Total 200 400 Balance 4200 -160 Weight 81.5 kg 71.2 kg General appearance: PRESENT: no acute distress, well-developed, well-nourished Head exam: PRESENT: atraumatic, normocephalic Respiratory exam: PRESENT: clear to auscultation vickie. ABSENT: rales, rhonchi, wheezes Cardiovascular exam: PRESENT: RRR. ABSENT: diastolic murmur, rubs, systolic murmur GI/Abdominal exam: PRESENT: normal bowel sounds, soft, other - Ostomy leakage is minimal, significant improvement of abdominal wall erythema.. ABSENT: distended, guarding, mass, organolmegaly, rebound, tenderness Neurological exam: PRESENT: alert, awake, oriented to person, oriented to place, oriented to time, oriented to situation, CN II-XII grossly intact. ABSENT: motor sensory deficit Results Laboratory Results: 05/13/19 05:59 05/13/19 05:59 05/13/19 05/13/19 05:59 05:59 WBC 7.0 RBC 3.50 L Hgb 10.5 L Hct 31.8 L MCV 91 MCH 30.0 MCHC 33.0 RDW 16.2 H Plt Count 399 Sodium 141.6 Potassium 4.6 Chloride 115 H Carbon Dioxide 17 L Anion Gap 10 BUN 20 Creatinine 0.93 Est GFR ( Amer) > 60 Glucose 105 Calcium 8.4 Magnesium 1.4 L Assessment and Plan - Diagnosis (1) Sepsis Qualifiers: Sepsis type: sepsis due to unspecified organism Sepsis acute organ dysfunction status: with acute organ dysfunction Severe sepsis acute organ dysfunction type: acute renal failure Acute renal failure type: unspecified Severe sepsis shock status: without septic shock Qualified Code(s): A41.9 - Sepsis, unspecified organism; R65.20 - Severe sepsis without septic shock; N17.9 - Acute kidney failure, unspecified Is this a current diagnosis for this admission?: Yes Plan: Resolved. Vitals WNL. Likely due to underlying UTI. Urine culture growing gram-negative rods pending sensitivity. Blood cultures negative so far. Day 4 IV antibiotic. Day 4 IV imipenem. Monitor vitals. Continue volume resuscitation guided by volume status and vitals. (2) Cellulitis of colostomy Is this a current diagnosis for this admission?: Yes Plan: Moderate improvement. Significant improvement of abdominal wall erythema, mild erythema around the ostomy site. Patient presented with diffuse erythema over lower abdomen and inguinal region, no apparent leakage or collection, this is likely cellulitis/patient induced or skin irritation from ostomy leakage of GI contents. Continue empiric IV antibiotics. Continue ostomy care. Surgery consulted. Recommendations noted. (3) Acute kidney injury Is this a current diagnosis for this admission?: Yes Plan: Resolved. Euvolemic. Electrolytes WNL. Likely prerenal azotemia due to underlying sepsis. Continue cautious IV hydration guided by volume status and vitals. Avoid nephrotoxic meds. BMP tomorrow. (4) Urinary tract infection Qualifiers: Urinary tract infection type: site unspecified Hematuria presence: without hematuria Qualified Code(s): N39.0 - Urinary tract infection, site not specified Is this a current diagnosis for this admission?: Yes Plan: Due to gram-negative rods. Urine culture positive for gram-negative rods pending sensitivity. Continue empiric IV antibiotics. Follow-up urine culture. Switch to p.o. once culture and sensitivity are available. (5) Increased anion gap metabolic acidosis Is this a current diagnosis for this admission?: Yes Plan: Resolved. Anion gap WNL. Lactic acid WNL. Multifactorial, acute renal failure, starvation, diabetes. (6) Hypothyroidism Qualifiers: Hypothyroidism type: unspecified Qualified Code(s): E03.9 - Hypothyroidism, unspecified Is this a current diagnosis for this admission?: Yes Plan: Restart home meds. Outpatient PCP follow-up. (7) Hypomagnesemia Is this a current diagnosis for this admission?: Yes Plan: Likely due to GI losses and low p.o. intake. Continue daily supplementation. Magnesium level tomorrow. Replace as needed. (8) Hyperlipidemia Qualifiers: Hyperlipidemia type: unspecified Qualified Code(s): E78.5 - Hyperlipidemia, unspecified Is this a current diagnosis for this admission?: Yes Plan: Restart home meds. Outpatient PCP follow-up. (9) Generalized anxiety disorder Is this a current diagnosis for this admission?: Yes Plan: Takes BuSpar at home. Restart home meds. (10) Gastroesophageal reflux disease Qualifiers: Esophagitis presence: without esophagitis Qualified Code(s): K21.9 - Gastro-esophageal reflux disease without esophagitis Is this a current diagnosis for this admission?: Yes Plan: Chronic severe GERD. Will start on PPIs and sucralfate. Outpatient PCP and gastroenterology follow-up. (11) Depression Qualifiers: Depression Type: major depressive disorder Major depression recurrence: single episode Active/Remission status: remission status unspecified Qualified Code(s): F32.9 - Major depressive disorder, single episode, unspecified Is this a current diagnosis for this admission?: Yes Plan: Denies any suicidal or homicidal ideation. Takes SSRI at home. Resume home meds. Outpatient PCP follow-up.
[2019-05-13] MEDS: MAGNESIUM OXIDE 400 MG TABLET PO SCH ×2 (14:27→17:32)
[2019-05-13] MEDS: AMLODIPINE BESYLATE 5 MG TABLET PO SCH (17:31)
[2019-05-14] MEDS: HYDROXYZINE PAMOATE 25 MG CAPSULE PO PRN (01:18)
[2019-05-14] MEDS: PANTOPRAZOLE SODIUM 40 MG TABLET.DR PO SCH ×2 (05:16→16:11)
[2019-05-14] MEDS: HEPARIN SOD (PORCINE) 5,000 UNIT/ML 1 ML VIAL SUBCUT SCH ×3 (05:16→21:23)
[2019-05-14] MEDS: LEVOTHYROXINE SODIUM 0.1 MG TABLET PO SCH (05:16)
[2019-05-14] MEDS: LEVOTHYROXINE SODIUM 0.025 MG TABLET PO SCH (05:16)
[2019-05-14] MEDS: ATENOLOL 50 MG TABLET PO SCH (07:53)
[2019-05-14] MEDS: SUCRALFATE 1 GM TABLET PO SCH ×4 (07:53→21:23)
[2019-05-14] MEDS: MAG HYDROX/AL HYDROX/SIMETH SUSP 30 ML UDCUP PO PRN (07:56)
--- NOTE | 2019-05-14 10:20 | PDOC PROGRESS REPORT ---
Subjective Progress Note for:: 05/14/19 Subjective:: KYRA REYNOLDS is a 63 year old female with a past medical history of diabetes, severe GERD and colorectal cancer status post hemicolectomy with ostomy March 2019 on chemo radiation under the care of Dr. Amezcua. She complains of uncontrolled uncontrolled acid reflux, poor appetite and severe skin irritation about the site of her ostomy. In the emergency department she is found to have acute renal failure, metabolic acidosis, hypomagnesemia and urinary tract infection. She is placed on empiric antibiotics and referred to the hospitalist for admission. 05/12/2019. No acute events overnight. Patient currently resting in bed no apparent distress. Patient still having problem with leakage around the ostomy site otherwise no complaints. Patient was able to walk with assistance of walker and primary nurse with no problems, patient alert oriented x3 no apparent distress. P.o. tolerant. 05/13/2019. No acute events overnight. Patient currently resting in bed no apparent distress. Patient still having problem with leakage around the ostomy site otherwise no complaints. 05/14/2019. No acute events overnight. Ostomy leak improving, abdominal erythema has resolved, denies any fever, chills, nausea, vomiting, diarrhea, constipation or any urinary symptoms. Patient stated that she is supposed to have her reanastomosis tomorrow and has scheduled appointment with Dr. Corbett, I contacted Dr. Hendrix from surgery who is stating that patient has history of noncompliance and she is not ready to be reanastomosed yet , he recommends for patient to be transferred to rehab where she gets proper ostomy care and hopefully in the future for reanastomosis of her colectomy. Reason For Visit: UTI,SEPSIS ARF Physical Exam Vital Signs: Temp Pulse Resp BP Pulse Ox 98.5 F 72 18 126/87 H 99 05/14/19 08:06 05/14/19 08:06 05/14/19 08:06 05/14/19 08:06 05/14/19 08:06 Intake & Output 05/13/19 05/14/19 05/15/19 06:59 06:59 06:59 Intake Total 240 1525 Output Total 400 130 Balance -160 1395 Weight 71.2 kg 71.2 kg General appearance: PRESENT: no acute distress, well-developed, well-nourished Head exam: PRESENT: atraumatic, normocephalic Respiratory exam: PRESENT: clear to auscultation vickie. ABSENT: rales, rhonchi, wheezes Cardiovascular exam: PRESENT: RRR. ABSENT: diastolic murmur, rubs, systolic murmur GI/Abdominal exam: PRESENT: normal bowel sounds, soft, other - Resolution of abdominal erythema/cellulitis, mild erythema in the right inguinal fold and under the OsteoMed patch on the right side.. ABSENT: distended, guarding, mass, organolmegaly, rebound, tenderness Neurological exam: PRESENT: alert, awake, oriented to person, oriented to place, oriented to time, oriented to situation, CN II-XII grossly intact. ABSENT: motor sensory deficit Results Laboratory Results: 05/13/19 05:59 05/13/19 05:59 05/14/19 05/14/19 05:01 07:06 Magnesium Cancelled 1.3 L Assessment and Plan - Diagnosis (1) Sepsis Qualifiers: Sepsis type: sepsis due to unspecified organism Sepsis acute organ dysfunction status: with acute organ dysfunction Severe sepsis acute organ dysfunction type: acute renal failure Acute renal failure type: unspecified Severe sepsis shock status: without septic shock Qualified Code(s): A41.9 - Sepsis, unspecified organism; R65.20 - Severe sepsis without septic shock; N17.9 - Acute kidney failure, unspecified Is this a current diagnosis for this admission?: Yes Plan: Likely due to underlying UTI. Urine culture growing gram-negative rods pending sensitivity. Blood cultures negative so far. Day 5 IV antibiotic. Day 5 IV imipenem. Monitor vitals. Continue volume resuscitation guided by volume status and vitals. (2) Cellulitis of colostomy Is this a current diagnosis for this admission?: Yes Plan: Moderate improvement. Significant improvement of abdominal wall erythema, mild erythema around the ostomy site. Patient presented with diffuse erythema over lower abdomen and inguinal region, no apparent leakage or collection, this is likely cellulitis/patient induced or skin irritation from ostomy leakage of GI contents. Continue empiric IV antibiotics. Continue ostomy care. Surgery consulted. Recommendations noted. (3) Acute kidney injury Is this a current diagnosis for this admission?: Yes Plan: Resolved. Euvolemic. Electrolytes WNL. Likely prerenal azotemia due to underlying sepsis. Continue cautious IV hydration guided by volume status and vitals. Avoid nephrotoxic meds. BMP tomorrow. (4) Urinary tract infection Qualifiers: Urinary tract infection type: site unspecified Hematuria presence: without hematuria Qualified Code(s): N39.0 - Urinary tract infection, site not specified Is this a current diagnosis for this admission?: Yes Plan: Due to gram-negative rods. Urine culture positive for gram-negative rods pending sensitivity. Continue empiric IV antibiotics. Follow-up urine culture. Switch to p.o. once culture and sensitivity are available. (5) Increased anion gap metabolic acidosis Is this a current diagnosis for this admission?: Yes Plan: Resolved. Anion gap WNL. Lactic acid WNL. Multifactorial, acute renal failure, starvation, diabetes. (6) Hypothyroidism Qualifiers: Hypothyroidism type: unspecified Qualified Code(s): E03.9 - Hypothyroidism, unspecified Is this a current diagnosis for this admission?: Yes Plan: Restart home meds. Outpatient PCP follow-up. (7) Hypomagnesemia Is this a current diagnosis for this admission?: Yes Plan: Likely due to GI losses and low p.o. intake. Continue daily supplementation. Magnesium level tomorrow. Replace as needed. (8) Hyperlipidemia Qualifiers: Hyperlipidemia type: unspecified Qualified Code(s): E78.5 - Hyperlipidemia, unspecified Is this a current diagnosis for this admission?: Yes Plan: Restart home meds. Outpatient PCP follow-up. (9) Generalized anxiety disorder Is this a current diagnosis for this admission?: Yes Plan: Takes BuSpar at home. Restart home meds. (10) Gastroesophageal reflux disease Qualifiers: Esophagitis presence: without esophagitis Qualified Code(s): K21.9 - Gastro-esophageal reflux disease without esophagitis Is this a current diagnosis for this admission?: Yes Plan: Chronic severe GERD. Will start on PPIs and sucralfate. Outpatient PCP and gastroenterology follow-up. (11) Depression Qualifiers: Depression Type: major depressive disorder Major depression recurrence: single episode Active/Remission status: remission status unspecified Qualified Code(s): F32.9 - Major depressive disorder, single episode, unspecified Is this a current diagnosis for this admission?: Yes Plan: Denies any suicidal or homicidal ideation. Takes SSRI at home. Resume home meds. Outpatient PCP follow-up.
[2019-05-14] MEDS: ASPIRIN 81 MG TABLET, ENT COATED PO SCH (12:52)
[2019-05-14] MEDS: RAMIPRIL 5 MG CAPSULE PO SCH (12:52)
[2019-05-14] MEDS: OXYBUTYNIN CHLORIDE 5 MG TABLET PO SCH ×3 (12:52→17:51)
[2019-05-14] MEDS: MAGNESIUM OXIDE 400 MG TABLET PO SCH ×2 (12:53→17:51)
[2019-05-14] MEDS: BUSPIRONE HCL 10 MG TABLET PO SCH ×3 (12:53→17:52)
[2019-05-14] MEDS: SERTRALINE HCL 50 MG TABLET PO SCH (12:53)
[2019-05-14] MEDS: IMIPENEM/CILASTATIN SODIUM 500 MG in NORMAL SALINE 100 ML IV SCH ×3 (13:27→23:09)
[2019-05-14] MEDS: AMLODIPINE BESYLATE 5 MG TABLET PO SCH (17:52)
[2019-05-14] MEDS: ACETAMINOPHEN 325 MG TABLET PO PRN (19:51)
[2019-05-14] MEDS: NORMAL SALINE 1000 ML 1,000 ML IV PRN (19:57)
[2019-05-15] MEDS: LEVOTHYROXINE SODIUM 0.1 MG TABLET PO SCH (05:34)
[2019-05-15] MEDS: PANTOPRAZOLE SODIUM 40 MG TABLET.DR PO SCH ×2 (05:34→16:56)
[2019-05-15] MEDS: LEVOTHYROXINE SODIUM 0.025 MG TABLET PO SCH (05:34)
[2019-05-15] MEDS: IMIPENEM/CILASTATIN SODIUM 500 MG in NORMAL SALINE 100 ML IV SCH ×4 (05:34→23:05)
[2019-05-15] MEDS: HEPARIN SOD (PORCINE) 5,000 UNIT/ML 1 ML VIAL SUBCUT SCH ×3 (05:35→21:18)
[2019-05-15 05:44] LABS: ANION GAP 11 (5-19); BLOOD UREA NITROGEN 14 mg/dL (7-20); CALCIUM 8.9 mg/dL (8.4-10.2); CARBON DIOXIDE 17 mmol/L (22-30); CHLORIDE 112 mmol/L (98-107); GLUCOSE 93 mg/dL (75-110); POTASSIUM 4.6 mmol/L (3.6-5.0)
[2019-05-15] MEDS ORDERED: MAGNESIUM SULFATE/D5W 1 GM/100 ML RTUPB IV ONE (08:30)
--- NOTE | 2019-05-15 09:48 | PDOC PROGRESS REPORT ---
Subjective Progress Note for:: 05/15/19 Subjective:: KYRA REYNOLDS is a 63 year old female with a past medical history of diabetes, severe GERD and colorectal cancer status post hemicolectomy with ostomy March 2019 on chemo radiation under the care of Dr. Amezcua. She complains of uncontrolled uncontrolled acid reflux, poor appetite and severe skin irritation about the site of her ostomy. In the emergency department she is found to have acute renal failure, metabolic acidosis, hypomagnesemia and urinary tract infection. She is placed on empiric antibiotics and referred to the hospitalist for admission. 05/12/2019. No acute events overnight. Patient currently resting in bed no apparent distress. Patient still having problem with leakage around the ostomy site otherwise no complaints. Patient was able to walk with assistance of walker and primary nurse with no problems, patient alert oriented x3 no apparent distress. P.o. tolerant. 05/13/2019. No acute events overnight. Patient currently resting in bed no apparent distress. Patient still having problem with leakage around the ostomy site otherwise no complaints. 05/14/2019. No acute events overnight. Ostomy leak improving, abdominal erythema has resolved, denies any fever, chills, nausea, vomiting, diarrhea, constipation or any urinary symptoms. Patient stated that she is supposed to have her reanastomosis tomorrow and has scheduled appointment with Dr. Corbett, I contacted Dr. Hendrix from surgery who is stating that patient has history of noncompliance and she is not ready to be reanastomosed yet , he recommends for patient to be transferred to rehab where she gets proper ostomy care and hopefully in the future for reanastomosis of her colectomy. 05/15/2019. No acute events overnight. Patient still having some leakage of a bdominal irritation from her ostomy site otherwise denies any fever, chills, nausea, vomiting, diarrhea, constipation or any urinary symptoms. Patient notified about my conversation with Dr. Camp from surgery that she is not ready for reanastomosis and it is better that she can go to a skilled nurse facility where where she can get ostomy care. Patient has agreed to be transitioned to SNF but does not want to go back to [facility]. senior production planner on board. Reason For Visit: UTI,SEPSIS ARF Physical Exam Vital Signs: Temp Pulse Resp BP Pulse Ox 98.1 F 77 20 117/88 H 99 05/15/19 08:00 05/15/19 08:00 05/15/19 08:00 05/15/19 08:00 05/15/19 08:00 Intake & Output 05/14/19 05/15/19 05/16/19 06:59 06:59 06:59 Intake Total 1525 730 Output Total 130 Balance 1395 730 Weight 71.2 kg 71.2 kg General appearance: PRESENT: no acute distress, well-developed, well-nourished Head exam: PRESENT: atraumatic, normocephalic Respiratory exam: PRESENT: clear to auscultation vickie. ABSENT: rales, rhonchi, wheezes Cardiovascular exam: PRESENT: RRR. ABSENT: diastolic murmur, rubs, systolic murmur Pulses: PRESENT: normal dorsalis pedis pul GI/Abdominal exam: PRESENT: normal bowel sounds, soft, other - Ostomy patent. [place] like feculent material. Mild erythema on the lateral side of the abdomen, mild leakage.. ABSENT: distended, guarding, mass, organolmegaly, rebound, tenderness Rectal exam: PRESENT: deferred Neurological exam: PRESENT: alert, awake, oriented to person, oriented to place, oriented to time, oriented to situation, CN II-XII grossly intact. ABSENT: motor sensory deficit Results Laboratory Results: 05/13/19 05:59 05/15/19 05:00 05/15/19 05:00 Sodium 140.4 Potassium 4.6 Chloride 112 H Carbon Dioxide 17 L Anion Gap 11 BUN 14 Creatinine 0.86 Est GFR ( Amer) > 60 Glucose 93 Calcium 8.9 Magnesium 1.4 L 05/10/19 20:53 Clean Catch Midstream Urine Culture - Final Klebsiella(Enterobac)Aerogenes Assessment and Plan - Diagnosis (1) Cellulitis of colostomy Is this a current diagnosis for this admission?: Yes Plan: Moderate improvement. Significant improvement of abdominal wall erythema, mild erythema around the ostomy site. Patient presented with diffuse erythema over lower abdomen and inguinal region, no apparent leakage or collection, this is likely cellulitis/patient induced or skin irritation from ostomy leakage of GI contents. Continue empiric IV antibiotics. Continue ostomy care. Surgery consulted. Recommendations noted. (2) Acute kidney injury Is this a current diagnosis for this admission?: Yes Plan: Resolved. Euvolemic. Electrolytes WNL. Likely prerenal azotemia due to underlying sepsis. Continue cautious IV hydration guided by volume status and vitals. Avoid nephrotoxic meds. BMP tomorrow. (3) Urinary tract infection Qualifiers: Urinary tract infection type: site unspecified Hematuria presence: without hematuria Qualified Code(s): N39.0 - Urinary tract infection, site not specified Is this a current diagnosis for this admission?: Yes Plan: Due to Klebsiella sensitive to quinolones. Received a complete course of IV antibiotics. (4) Increased anion gap metabolic acidosis Is this a current diagnosis for this admission?: Yes Plan: Resolved. Anion gap WNL. Lactic acid WNL. Multifactorial, acute renal failure, starvation, diabetes. (5) Hypothyroidism Qualifiers: Hypothyroidism type: unspecified Qualified Code(s): E03.9 - Hypothyroidism, unspecified Is this a current diagnosis for this admission?: Yes Plan: Restart home meds. Outpatient PCP follow-up. (6) Hypomagnesemia Is this a current diagnosis for this admission?: Yes Plan: Likely due to GI losses and low p.o. intake. Continue daily supplementation. Magnesium level tomorrow. Replace as needed. (7) Hyperlipidemia Qualifiers: Hyperlipidemia type: unspecified Qualified Code(s): E78.5 - Hyperlipidemia, unspecified Is this a current diagnosis for this admission?: Yes Plan: Restart home meds. Outpatient PCP follow-up. (8) Generalized anxiety disorder Is this a current diagnosis for this admission?: Yes Plan: Takes BuSpar at home. Restart home meds. (9) Gastroesophageal reflux disease Qualifiers: Esophagitis presence: without esophagitis Qualified Code(s): K21.9 - Gastro-esophageal reflux disease without esophagitis Is this a current diagnosis for this admission?: Yes Plan: Chronic severe GERD. Will start on PPIs and sucralfate. Outpatient PCP and gastroenterology follow-up. (10) Depression Qualifiers: Depression Type: major depressive disorder Major depression recurrence: single episode Active/Remission status: remission status unspecified Qualified Code(s): F32.9 - Major depressive disorder, single episode, unspecified Is this a current diagnosis for this admission?: Yes Plan: Denies any suicidal or homicidal ideation. Takes SSRI at home. Resume home meds. Outpatient PCP follow-up. (11) Sepsis Qualifiers: Sepsis type: sepsis due to unspecified organism Sepsis acute organ dysfunction status: with acute organ dysfunction Severe sepsis acute organ dysfunction type: acute renal failure Acute renal failure type: unspecified Severe sepsis shock status: without septic shock Qualified Code(s): A41.9 - Sepsis, unspecified organism; R65.20 - Severe sepsis without septic shock; N17.9 - Acute kidney failure, unspecified Is this a current diagnosis for this admission?: Yes Plan: Resolved. Likely due to underlying UTI. Urine culture positive for Klebsiella. Cultures no growth. Received 6 days of empiric IV imipenem.
[2019-05-15] MEDS: BUSPIRONE HCL 10 MG TABLET PO SCH ×3 (10:09→17:34)
[2019-05-15] MEDS: SERTRALINE HCL 50 MG TABLET PO SCH (10:10)
[2019-05-15] MEDS: RAMIPRIL 5 MG CAPSULE PO SCH (10:11)
[2019-05-15] MEDS: MAGNESIUM OXIDE 400 MG TABLET PO SCH ×2 (10:11→17:33)
[2019-05-15] MEDS: OXYBUTYNIN CHLORIDE 5 MG TABLET PO SCH ×3 (10:11→17:34)
[2019-05-15] MEDS: SUCRALFATE 1 GM TABLET PO SCH ×4 (10:11→21:18)
[2019-05-15] MEDS: ASPIRIN 81 MG TABLET, ENT COATED PO SCH (10:11)
[2019-05-15] MEDS: ATENOLOL 50 MG TABLET PO SCH (10:12)
[2019-05-15] MEDS: HYDROXYZINE PAMOATE 25 MG CAPSULE PO PRN (23:05)
[2019-05-15] MEDS: ACETAMINOPHEN 325 MG TABLET PO PRN (23:05)
[2019-05-16] MEDS: ACETAMINOPHEN 325 MG TABLET PO PRN ×2 (04:43→16:54)
[2019-05-16] MEDS: HEPARIN SOD (PORCINE) 5,000 UNIT/ML 1 ML VIAL SUBCUT SCH ×2 (05:04→14:00)
[2019-05-16] MEDS: LEVOTHYROXINE SODIUM 0.1 MG TABLET PO SCH (05:05)
[2019-05-16] MEDS: IMIPENEM/CILASTATIN SODIUM 500 MG in NORMAL SALINE 100 ML IV SCH ×3 (05:05→17:09)
[2019-05-16] MEDS: LEVOTHYROXINE SODIUM 0.025 MG TABLET PO SCH (05:05)
[2019-05-16] MEDS: PANTOPRAZOLE SODIUM 40 MG TABLET.DR PO SCH ×2 (05:05→16:51)
[2019-05-16] MEDS: MAG HYDROX/AL HYDROX/SIMETH SUSP 30 ML UDCUP PO PRN (07:07)
[2019-05-16] MEDS: ASPIRIN 81 MG TABLET, ENT COATED PO SCH (10:36)
[2019-05-16] MEDS: BUSPIRONE HCL 10 MG TABLET PO SCH ×3 (10:36→18:07)
[2019-05-16] MEDS: SERTRALINE HCL 50 MG TABLET PO SCH (10:36)
[2019-05-16] MEDS: MAGNESIUM OXIDE 400 MG TABLET PO SCH ×2 (10:36→17:07)
[2019-05-16] MEDS: SUCRALFATE 1 GM TABLET PO SCH ×3 (10:37→16:54)
[2019-05-16] MEDS: RAMIPRIL 5 MG CAPSULE PO SCH (10:37)
[2019-05-16] MEDS: OXYBUTYNIN CHLORIDE 5 MG TABLET PO SCH ×3 (10:38→18:07)
[2019-05-16] MEDS: ATENOLOL 50 MG TABLET PO SCH (10:39)
[2019-05-16 12:39] LABS: ANION GAP 11 (5-19); BLOOD UREA NITROGEN 13 mg/dL (7-20); CALCIUM 9.2 mg/dL (8.4-10.2); CARBON DIOXIDE 18 mmol/L (22-30); CHLORIDE 110 mmol/L (98-107); GLUCOSE 97 mg/dL (75-110); POTASSIUM 4.5 mmol/L (3.6-5.0)
[2019-05-16] MEDS ORDERED: MORPHINE SULFATE 10 MG/ML INJ IV ONE (13:00)
--- NOTE | 2019-05-16 14:40 | PDOC TRANSFER SUMMARY ---
Impression - Admit/DC Date/PCP Admission Date/Primary Care Provider: 05/11/19 00:10 LOBO STERN MD Discharge Date: 05/16/19 - Discharge Diagnosis (1) Cellulitis of colostomy Is this a current diagnosis for this admission?: Yes (2) Acute kidney injury Is this a current diagnosis for this admission?: Yes (3) Urinary tract infection Is this a current diagnosis for this admission?: Yes (4) Increased anion gap metabolic acidosis Is this a current diagnosis for this admission?: Yes (5) Hypothyroidism Is this a current diagnosis for this admission?: Yes (6) Hypomagnesemia Is this a current diagnosis for this admission?: Yes (7) Hyperlipidemia Is this a current diagnosis for this admission?: Yes (8) Generalized anxiety disorder Is this a current diagnosis for this admission?: Yes (9) Gastroesophageal reflux disease Is this a current diagnosis for this admission?: Yes (10) Depression Is this a current diagnosis for this admission?: Yes (11) Sepsis Is this a current diagnosis for this admission?: Yes - Additional Information Resuscitation Status: Full Code Referrals: [facility] [Provider Group] - 05/24/19 10:15 am BOY BLOOM MD [ACTIVE STAFF] - 05/22/19 10:15 am (NOT A SURGICAL APPT. ) Home Medications: Aspirin [Adult Low Dose Aspirin EC] 81 mg PO DAILY #0 05/21/11 Levothyroxine Sodium 125 mcg PO QAM 05/21/11 Oxybutynin Chloride [Ditropan 5 mg Tablet] 5 mg PO TID #0 05/21/11 Ramipril [Altace 5 mg Capsule] 5 mg PO DAILY #0 05/21/11 Pravastatin Sodium [Pravachol] 20 mg PO QHS 03/10/16 Albuterol Sulfate [Ventolin 0.042% Neb 1.25 mg/3 mL Ampul] 1 vial NEB QIDP PRN 09/19/17 Buspirone HCl [Buspar 15 mg Tablet] 15 mg PO TID 09/19/17 Omeprazole 20 mg PO DAILY 09/19/17 Sertraline HCl [Zoloft] 150 mg PO DAILY 12/01/18 Atenolol [Tenormin] 25 mg PO QAM 04/05/19 Hydroxyzine Pamoate [Vistaril 25 mg Capsule] 25 mg PO Q8HP PRN 05/11/19 Magnesium Oxide [Mag-Ox 400 mg Tablet] 800 mg PO BID tablet 05/16/19 Sucralfate [Carafate 1 gm Tablet] 1 gm PO ACHS tablet 05/16/19 History of Present Illiness History of Present Illness: KYRA REYNOLDS is a 63 year old female with a past medical history of diabetes, severe GERD and colorectal cancer status post hemicolectomy with ostomy March 2019 on chemo radiation under the care of Dr. Amezcua. She complains of uncontrolled uncontrolled acid reflux, poor appetite and severe skin irritation about the site of her ostomy. In the emergency department she is found to have acute renal failure, metabolic acidosis, hypomagnesemia and urinary tract infection. She is placed on empiric antibiotics and referred to the hospitalist for admission. Hospital Course Hospital Course: (1) Cellulitis/Skin irritation of colostomy Presented with extensive erythema/skin irritation over her entire anterior abdomen wall and bilateral inguinal folds. Significant improvement of abdominal wall erythema/skin irritation since admission, except for lateral aspect of the abdomen which unfortunately is still irritated due to continuous ostomy leak on that side. Initial impression on admission was abdominal wall cellulitis and she was started on empiric IV imipenem and surgery consulted. Surgery recommendation was placement of ostomy paste around ileostomy prior to placement of appliances and continued ostomy care. Unfortunately patient is not able to take care of ostomy on her own therefore she needs to be transferred to skilled nurse facility where she receives close monitoring of ostomy and continuous ostomy care until she is ready for reanastomosis. Patient was admitted she was supposed to get surgery for reanastomosis of her colectomy however when I contacted our surgical team I was told that patient is not ready for reanastomosis and needs to follow-up at the surgical clinic in 3 to 6 weeks. Their recommendation is close monitoring and continuous ostomy care until she is ready for reanastomosis. Patient does not seem to have any cellulitis of abdominal wall but unfortunately she does have skin irritation on the lateral side from continuous ostomy leakage. If patient develops any signs of cellulitis, or any infection patient is to be sent back to ED for further evaluation. (2) Acute kidney injury Resolved. Euvolemic. Electrolytes WNL. Likely prerenal azotemia due to underlying sepsis. Was a started on cautious IV hydration guided by volume status and vitals. Avoid nephrotoxic meds. Outpatient PCP and nephrology follow-up. (3) Urinary tract infection Due to Klebsiella sensitive to quinolones and carbapenems. Received a complete course of IV antibiotics. (4) Increased anion gap metabolic acidosis Resolved. Anion gap WNL. Lactic acid WNL. Multifactorial, acute renal failure, starvation, diabetes. (5) Hypothyroidism Restart home meds. Outpatient PCP follow-up. (6) Hypomagnesemia Replete. Likely due to GI losses and low p.o. intake. Continue daily supplementation. Monitor magnesium level. PCP follow-up. (7) Hyperlipidemia Restarted on home meds. Outpatient PCP follow-up. (8) Generalized anxiety disorder Takes BuSpar at home. Continue BuSpar as outpatient. (9) Gastroesophageal reflux disease Chronic severe GERD. Was a started on PPIs and sucralfate with good result. Continue PPIs and sucralfate. Outpatient PCP and gastroenterology follow-up. (10) Depression Denies any suicidal or homicidal ideation. Takes SSRI at home. Restarted on home meds. Outpatient PCP and psychiatry follow-up. (11) Sepsis Resolved. Likely due to underlying UTI. Urine culture positive for Klebsiella. Cultures no growth. Received 6 days of empiric IV imipenem. Physical Exam Vital Signs: Temp Pulse Resp BP Pulse Ox 97.7 F 59 L 19 135/69 H 100 05/16/19 11:30 05/16/19 11:30 05/16/19 11:30 05/16/19 11:30 05/16/19 11:30 Intake & Output 05/15/19 05/16/19 05/17/19 06:59 06:59 06:59 Intake Total 730 2517 120 Output Total 800 250 Balance 730 1717 -130 Weight 71.2 kg 70.5 kg General appearance: PRESENT: no acute distress, well-developed, well-nourished Head exam: PRESENT: atraumatic, normocephalic Neck exam: ABSENT: carotid bruit, JVD, lymphadenopathy, thyromegaly Respiratory exam: PRESENT: clear to auscultation vickie. ABSENT: rales, rhonchi, wheezes Cardiovascular exam: PRESENT: RRR. ABSENT: diastolic murmur, rubs, systolic murmur GI/Abdominal exam: PRESENT: normal bowel sounds, soft, other - Ostomy is patent, skin erythema and irritation the lateral aspect of the abdomen from ostomy leakage. No sign of infection.. ABSENT: distended, guarding, mass, organolmegaly, rebound, tenderness Neurological exam: PRESENT: alert, awake, oriented to person, oriented to place, oriented to time, oriented to situation, CN II-XII grossly intact. ABSENT: motor sensory deficit Skin exam: PRESENT: dry, intact, warm. ABSENT: cyanosis, rash Results Laboratory Results: WBC 7.0 10^3/uL (4.0-10.5) 05/13/19 05:59 RBC 3.50 10^6/uL (3.72-5.28) L 05/13/19 05:59 Hgb 10.5 g/dL (12.0-15.5) L 05/13/19 05:59 Hct 31.8 % (36.0-47.0) L 05/13/19 05:59 MCV 91 fl (80-97) 05/13/19 05:59 MCH 30.0 pg (27.0-33.4) 05/13/19 05:59 MCHC 33.0 g/dL (32.0-36.0) 05/13/19 05:59 RDW 16.2 % (11.5-14.0) H 05/13/19 05:59 Plt Count 399 10^3/uL (150-450) 05/13/19 05:59 Lymph % (Auto) Not Reportable 05/12/19 04:55 [place] % (Auto) Not Reportable 05/12/19 04:55 Eos % (Auto) Not Reportable 05/12/19 04:55 Baso % (Auto) Not Reportable 05/12/19 04:55 Absolute Neuts (auto) Not Reportable 05/12/19 04:55 Absolute Lymphs (auto) Not Reportable 05/12/19 04:55 Absolute Monos (auto) Not Reportable 05/12/19 04:55 Absolute Eos (auto) Not Reportable 05/12/19 04:55 Absolute Basos (auto) Not Reportable 05/12/19 04:55 Total Counted 100 05/12/19 04:55 Seg Neutrophils % Not Reportable 05/12/19 04:55 Seg Neuts % (Manual) 86 % (42-78) H 05/12/19 04:55 Band Neutrophils % 3 % (3-5) 05/12/19 04:55 Lymphocytes % (Manual) 6 % (13-45) L 05/12/19 04:55 Monocytes % (Manual) 4 % (3-13) 05/12/19 04:55 Eosinophils % (Manual) 1 % (0-6) 05/12/19 04:55 Basophils % (Manual) 0 % (0-2) 05/12/19 04:55 Metamyelocytes % 1 % (0-1) 05/10/19 16:24 Abs Neuts (Manual) 7.6 10^3/uL (1.7-8.2) 05/12/19 04:55 Abs Lymphs (Manual) 0.5 10^3/uL (0.5-4.7) 05/12/19 04:55 Abs Monocytes (Manual) 0.3 10^3/uL (0.1-1.4) 05/12/19 04:55 Absolute Eos (Manual) 0.1 10^3/uL (0.0-0.6) 05/12/19 04:55 Abs Basophils (Manual) 0.0 10^3/uL (0.0-0.2) 05/12/19 04:55 Toxic Granulation SLIGHT 05/11/19 05:11 Clumped Platelets PRESENT 05/10/19 16:24 Platelet Comment ADEQUATE 05/12/19 04:55 Poikilocytosis SLIGHT 05/11/19 05:11 Anisocytosis 2+ 05/12/19 04:55 Tear Drop Cells SLIGHT 05/11/19 05:11 Ovalocytes SLIGHT 05/11/19 05:11 Sodium 138.6 mmol/L (137-145) 05/16/19 11:47 Potassium 4.5 mmol/L (3.6-5.0) 05/16/19 11:47 Chloride 110 mmol/L (98-107) H 05/16/19 11:47 Carbon Dioxide 18 mmol/L (22-30) L 05/16/19 11:47 Anion Gap 11 (5-19) 05/16/19 11:47 BUN 13 mg/dL (7-20) 05/16/19 11:47 Creatinine 0.80 mg/dL (0.52-1.25) 05/16/19 11:47 Est GFR ( Amer) > 60 (>60) 05/16/19 11:47 Est GFR (MDRD) Non-Af > 60 (>60) 05/16/19 11:47 Glucose 97 mg/dL (75-110) 05/16/19 11:47 POC Glucose 98 mg/dL (70-110) 05/15/19 16:00 Lactic Acid 1.1 mmol/L (0.7-2.1) 05/10/19 22:30 Calcium 9.2 mg/dL (8.4-10.2) 05/16/19 11:47 Phosphorus 5.5 mg/dL (2.5-4.5) H 05/10/19 16:24 Magnesium 1.9 mg/dL (1.6-2.3) 05/16/19 11:47 Total Bilirubin 0.2 mg/dL (0.2-1.3) 05/12/19 04:55 Direct Bilirubin 0.0 mg/dL (0.0-0.4) 05/12/19 04:55 Neonat Total Bilirubin Not Reportable 05/12/19 04:55 Neonat Direct Bilirubin Not Reportable 05/12/19 04:55 Neonat Indirect Bili Not Reportable 05/12/19 04:55 AST 33 U/L (14-36) 05/12/19 04:55 ALT 21 U/L (<35) 05/12/19 04:55 Alkaline Phosphatase 268 U/L (38-126) H 05/12/19 04:55 Total Protein 5.7 g/dL (6.3-8.2) L 05/12/19 04:55 Albumin 2.7 g/dL (3.5-5.0) L 05/12/19 04:55 Urine Color YELLOW 05/10/19 20:53 Urine Appearance TURBID 05/10/19 20:53 Urine pH 5.0 (5.0-9.0) 05/10/19 20:53 Ur Specific [place] 1.013 05/10/19 20:53 Urine Protein 100 mg/dL (NEGATIVE) H 05/10/19 20:53 Urine Glucose (UA) NEGATIVE mg/dL (NEGATIVE) 05/10/19 20:53 Urine Ketones NEGATIVE mg/dL (NEGATIVE) 05/10/19 20:53 Urine Blood MODERATE (NEGATIVE) H 05/10/19 20:53 Urine Nitrite NEGATIVE (NEGATIVE) 05/10/19 20:53 Urine Bilirubin NEGATIVE (NEGATIVE) 05/10/19 20:53 Urine Urobilinogen NEGATIVE mg/dL (<2.0) 05/10/19 20:53 Ur Leukocyte Esterase LARGE (NEGATIVE) H 05/10/19 20:53 Urine WBC (Auto) >182 /HPF 05/10/19 20:53 Urine RBC (Auto) 45 /HPF 05/10/19 20:53 Urine Bacteria (Auto) 3+ /HPF 05/10/19 20:53 Urine WBC Clumps MANY /HPF 05/10/19 20:53 Squamous Epi Cells Auto 19 /HPF 05/10/19 20:53 Urine Mucus (Auto) MOD /LPF 05/10/19 20:53 Urine Ascorbic Acid NEGATIVE (NEGATIVE) 05/10/19 20:53 Stroke Is this a Stroke Patient?: No Acute Heart Failure - Is this a Heart Failure Patient?: No
[2019-05-16 16:32] VITALS: BP 115/71
[2019-05-16] MEDS: DIPHENOXYLATE HCL/ATROP SULF 2.5-0.025 MG TABLET PO SCH ×2 (16:51→18:07)
== END 2019-05-16 18:10 | DRG 872 ==
LOC: ER 17:04 → EH 05-11 00:10 → 4W 05-11 17:45 → 4S 05-12 17:22
PROVIDERS: ADMIT Internal Medicine; ATTEND Internal Medicine
DX: A41.9 Sepsis, unspecified organism (principal); N17.9 Acute kidney failure, unspecified; N39.0 Urinary tract infection, site not specified; E87.2 Acidosis; C18.9 Malignant neoplasm of colon, unspecified; L03.311 Cellulitis of abdominal wall; R65.20 Severe sepsis without septic shock; E83.42 Hypomagnesemia; K21.9 Gastro-esophageal reflux disease without esophagitis; F41.1 Generalized anxiety disorder; B96.1 Klebsiella pneumoniae [K. pneumoniae] as the cause of diseases classified elsewhere; I25.2 Old myocardial infarction; Z93.2 Ileostomy status; Z79.82 Long term (current) use of aspirin; Z79.51 Long term (current) use of inhaled steroids; Z79.899 Other long term (current) drug therapy
CPT/HCPCS: 36415; 80048; 80053; 81001; 82962; 83605; 83735; 84100; 85025; 85027; 87040; 87086; 87088; 87186; 93005; 93010; 96361; 96365; 96375; 99285; J0696; J0743; J1644; J2270; J3475; J3480; J3490; J7030; J7050; S0028

== ENCOUNTER 2019-05-26 16:57 | Inpatient (IN) | payer MEDICAID ==
[~2019-05-26 16:57] MED LIST changes: -ACETAMINOPHEN 325 MG TABLET PO PRN; -CEFOXITIN SODIUM 2 GM in DEXTROSE 5%-WATER 100 ML IV PRN; -IBUPROFEN 800 MG in NORMAL SALINE 250 ML IV PRN; -LIDOCAINE 0.5% INJ-PF (5 MG/ML) 50 ML SDV SUBCUT PRN; -PREGABALIN 50 MG CAPSULE PO PRN; +SODIUM BICARBONATE 8.4% INJ 50 MEQ/50 ML DISP.SYRIN ONE
[2019-05-26] MEDS ORDERED: PANTOPRAZOLE SODIUM 40 MG VIAL IV ONE (17:16)
[2019-05-26] MEDS ORDERED: ONDANSETRON HCL INJ/PF 4 MG/2 ML SDV IV ONE (17:16)
[2019-05-26] MEDS ORDERED: NORMAL SALINE 1000 ML 1,000 ML IV ONE ×2 (17:17→18:20)
--- NOTE | 2019-05-26 17:17 | ER Document Report ---
ED General - General Chief Complaint: Altered Mental Status Stated Complaint: ALTERED MENTAL STATUS Time Seen by Provider: 05/26/19 17:12 Mode of Arrival: Medic Information source: Patient, Transfer Record, [facility] Records Notes: Patient is a 63-year-old female presenting to the emergency department from a local care home chief complaint of 3 days of chest and abdomen pain and altered mental status. Per care home the patient was just noticed to have black discharge in her ostomy bag. At time of presentation patient looks older than stated age, is moderately discomforted because of the pain but does answer basic questions appropriately. Patient denies any change in medications. Mike lacy denies slip or falls. TRAVEL OUTSIDE OF THE [place] IN LAST 30 DAYS: No - HPI Onset: This morning Onset/Duration: Constant Quality of pain: Pressure, Throbbing Severity: Moderate Pain Level: 2 Associated symptoms: Nausea, Vomiting, Slow to respond, Weakness Exacerbated by: Denies Relieved by: Denies Similar symptoms previously: No Recently seen / treated by doctor: No - Related Data Allergies/Adverse Reactions: shellfish derived Allergy (Severe, Verified 04/04/19 02:17) Hives iodine [Iodine] Allergy (Intermediate, Verified 04/04/19 02:17) Rash Sulfa (Sulfonamide Antibiotics) Allergy (Intermediate, Verified 04/04/19 02:17) Hives Iodinated Contrast Media Adverse Reaction (Intermediate, Verified 04/04/19 02:17) Nausea Past Medical History - General Information source: Patient, Friend, Transfer Record, [facility] Records - Social History Smoking Status: Unknown if Ever Smoked Chew tobacco use (# tins/day): No Frequency of alcohol use: None Drug Abuse: None Lives with: Snf Family History: CAD, DM, Hyperlipidemia, Hypertension Patient has suicidal ideation: No Patient has homicidal ideation: No - Past Medical History Cardiac Medical History: Reports: Hx Heart Attack - unsure-saw credit risk specialist 2009 in [place], Hypertension Denies: Hx Atrial Fibrillation, Hx Congestive Heart Failure, Hx Coronary Artery Disease, Hx Hypercholesterolemia, Hx Peripheral Vascular Disease, Hx Pulmonary Embolism, Hx Heart Murmur Pulmonary Medical History: Reports: Hx Asthma, Hx Bronchitis, Hx COPD, Hx Pneumonia - 2014 Denies: Hx Respiratory Failure, Hx Sleep Apnea, Hx Tuberculosis Neurological Medical History: Denies: Hx Cerebrovascular Accident, Hx Seizures, Hx Parkinson's Disease Endocrine Medical History: Reports: Hx Hyperthyroidism - liquid radiation. D enies: Hx Hypothyroidism Malignancy Medical History: Reports: Hx Colorectal Cancer. Denies: Hx Leukemia, Hx Lung Cancer GI Medical History: Reports: Hx Gastroesophageal Reflux Disease. Denies: Hx Crohn's Disease, Hx Hepatitis, Hx Hiatal Hernia, Hx Irritable Bowel, Hx Liver Failure, Hx Pancreatitis, Hx Ulcer Musculoskeletal Medical History: Reports Hx Arthritis, Denies Hx Fibromyalgia, Denies Hx Multiple Sclerosis, Denies Hx Muscular Dystrophy, Denies Hx Systemic Lupus Erythematosus Psychiatric Medical History: Reports: Hx Depression Denies: Hx Bipolar Disorder, Hx Dementia, Hx Post Traumatic Stress Disorder, Hx Schizophrenia Traumatic Medical History: Denies: Hx Fractures Infectious Medical History: Denies: Hx Hepatitis, Hx HIV Past Surgical History: Reports: Hx Abdominal Surgery - COLOSTOMY, Hx Tubal Ligation, Other - 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 Denies: Hx Appendectomy, Hx Bowel Surgery, Hx Section, Hx Cholecystectomy, Hx Colostomy, Hx Coronary Artery Bypass Graft, Hx Gastric Bypass Surgery, Hx Herniorrhaphy, Hx Hysterectomy, Hx Mastectomy, Hx Open Heart Surgery, Hx Pacemaker, Hx Tonsillectomy - Immunizations Hx Diphtheria, Pertussis, Tetanus Vaccination: Yes - not sure Review of Systems - Review of Systems Constitutional: See HPI EENT: No symptoms reported Cardiovascular: See HPI, Chest pain Respiratory: Short of breath Gastrointestinal: See HPI, Abdominal pain, Diarrhea, Nausea, Vomiting, Poor appetite, Poor fluid intake, Blood in vomit, Black stools Genitourinary: No symptoms reported Musculoskeletal: No symptoms reported Skin: No symptoms reported Neurological/Psychological: No symptoms reported -: Yes All other systems reviewed and negative Physical Exam - Vital signs Vitals: Resp 16 05/26/19 17:27 - Notes Notes: PHYSICAL EXAMINATION: GENERAL: Patient is a 63-year-old female presenting to the emergency department chief complaint of generalized weakness and black fluid to her colostomy bag. Patient appears older than stated age, is pallorous, has markedly dry mucous membranes with dried blood in the oral pharynx. HEAD: Atraumatic, normocephalic. EYES: Pupils equal round and reactive to light, extraocular movements intact, sclera anicteric, conjunctiva are pallorous. ENT: nares patent, oropharynx without exudates. Dry mucous membranes. NECK: Normal range of motion, supple without lymphadenopathy, no appreciable JVD LUNGS: Lungs clear to auscultation bilaterally and equal. No wheezes rales or rhonchi. However poor excursion. HEART: Regular rate and rhythm without murmurs ABDOMEN: Soft, diffusely tender, decreased bowel sounds. Positive guarding, no rebound. No masses appreciated. EXTREMITIES: Active full range of motion, no pitting or edema. No cyanosis. 2+ pulses x4 NEUROLOGICAL: No focal neurological deficits. Moves all extremities spontaneously and on command. SKIN: Warm, Dry, pallorous decreased skin turgor Course - Re-evaluation Re-evalutation: 05/26/19 17:20 At time of presentation patient is brought to hospital room access to port in her chest is obtained. EKG was obtained portable chest x-ray/KUB will be obtained. Laboratory studies will be obtained. Patient's hypotensive at this time and will receive a liter normal saline IV bolus patient will receive Protonix per GI bleed protocol. Patient will also receive Zofran 4 mg IV patient has been typed and screened for potential transfusion. 05/27/19 01:13 While in the emergency department the patient was maintained on a court recording monitor. Patient did receive medications for management of the GI bleed Protonix per protocol. Patient received medications per protocol for hyperkalemia. Patient did receive 2 L of IV normal saline for management of hypotension. Because of the patient's hypothermia bear hugger blanket was placed as well as the use of fluid warmer. After the patient had been here some time we were given notification from care home that the patient has a DO NOT RESUSCITATE order. Friends of the patient who are her point of contact through the care home did present to the emergency department and we did discuss the patient's condition. At this point in time I do not feel the patient is stable enough for transfer to any facility to address the GI bleed. I have consulted with the hospitalist for admission for comfort care measures and stabilization. 05/27/19 01:16 Clinical impression #1 GI bleed #2 hypothermia #3 hypotension #4 leukocytosis #5 acidosis #6 acute on chronic renal failure #7 urinary tract infection #8 hyperkalemia 05/27/19 01:16 - Vital Signs Vital signs: Temp Pulse Resp BP Pulse Ox 93.9 F L 21 H 82/48 L 100 05/26/19 18:54 05/26/19 23:46 05/26/19 23:46 05/26/19 23:46 - Laboratory Result Diagrams: 05/26/19 17:10 05/26/19 23:25 Laboratory results interpreted by me: 05/26/19 05/26/19 05/26/19 17:10 17:10 17:10 WBC 16.6 H RDW 16.4 H Plt Count 502 H Seg Neuts % (Manual) 91 H Lymphocytes % (Manual) 3 L Abs Neuts (Manual) 15.1 H PT 18.1 H VBG pH VBG HCO3 Sodium 129.2 L Potassium 8.1 H* Chloride 91 L Carbon Dioxide 10 L* Anion Gap 28 H BUN 136 H Creatinine 12.73 H Est GFR ( Amer) 4 L Est GFR (MDRD) Non-Af 3 L Glucose 123 H Calcium 10.9 H Magnesium Direct Bilirubin 0.7 H Alkaline Phosphatase 257 H NT-Pro-B Natriuret Pep Total Protein 8.5 H Urine Protein Urine Ketones Urine Blood Ur Leukocyte Esterase 05/26/19 05/26/19 05/26/19 17:10 17:10 17:10 WBC RDW Plt Count Seg Neuts % (Manual) Lymphocytes % (Manual) Abs Neuts (Manual) PT VBG pH 7.16 L* VBG HCO3 12.4 L Sodium Potassium Chloride Carbon Dioxide Anion Gap BUN Creatinine Est GFR ( Amer) Est GFR (MDRD) Non-Af Glucose Calcium Magnesium Direct Bilirubin Alkaline Phosphatase NT-Pro-B Natriuret Pep 2600 H Total Protein Urine Protein 100 H Urine Ketones TRACE H Urine Blood MODERATE H Ur Leukocyte Esterase MODERATE H 05/26/19 17:10 WBC RDW Plt Count Seg Neuts % (Manual) Lymphocytes % (Manual) Abs Neuts (Manual) PT VBG pH VBG HCO3 Sodium Potassium Chloride Carbon Dioxide Anion Gap BUN Creatinine Est GFR ( Amer) Est GFR (MDRD) Non-Af Glucose Calcium Magnesium 4.4 H* Direct Bilirubin Alkaline Phosphatase NT-Pro-B Natriuret Pep Total Protein Urine Protein Urine Ketones Urine Blood Ur Leukocyte Esterase - EKG Interpretation by Me EKG shows normal: Sinus rhythm Rate: Normal Rhythm: NSR Additional EKG results interpreted by me: 05/26/19 17:20 EKG is interpreted by me demonstrates sinus rhythm 50 bpm there is signs of LVH there is minimal elevation in lead II and aVF there is hyperacute T waves this is all new compared to prior EKG of May 10, 2019. Critical Care Note - Critical Care Note Total time excluding time spent on procedures (mins): 65 Comments: Please allow 65 minutes of critical care time exclusive of separately billable procedures for multiple re-evaluations medical management consultation with friends of the patient and as well as the hospitalist and management of this critically ill patient. Discharge - Discharge Clinical Impression: Acidosis GI bleed Qualifiers: GI bleed type/associated pathology: unspecified gastrointestinal hemorrhage type Qualified Code(s): K92.2 - Gastrointestinal hemorrhage, unspecified Hypotension Qualifiers: Hypotension type: hypotension due to hypovolemia Qualified Code(s): I95.89 - Other hypotension Hypothermia Qualifiers: Encounter type: initial encounter Qualified Code(s): T68.XXXA - Hypothermia, initial encounter Leukocytosis Qualifiers: Leukocytosis type: unspecified Qualified Code(s): D72.829 - Elevated white blood cell count, unspecified Renal failure (ARF), acute on chronic Qualifiers: Acute renal failure type: unspecified Chronic kidney disease stage: unspecified stage Qualified Code(s): N17.9 - Acute kidney failure, unspecified UTI (urinary tract infection) Qualifiers: Urinary tract infection type: site unspecified Hematuria presence: with hematuria Qualified Code(s): N39.0 - Urinary tract infection, site not specified Condition: Poor Disposition: ADMITTED INPATIENT Admitting Provider: Gera (Hospitalist) Unit Admitted: Telemetry
[2019-05-26 17:30] LABS: VENOUS BLOOD BASE EXCESS -15.3 mmol/L; VENOUS BLOOD HCO3 12.4 mmol/L (20-32); VENOUS BLOOD PCO2 35.5 mmHg (35-63)
[2019-05-26 17:32] LABS: VENOUS BLOOD PH 7.16 (7.30-7.42)
[2019-05-26 17:34] LABS: HEMATOCRIT 38.5 % (36.0-47.0); HEMOGLOBIN 13.1 g/dL (12.0-15.5); MEAN CORPUSCULAR HEMOGLOBIN 30.4 pg (27.0-33.4); MEAN CORPUSCULAR HGB CONC 34.1 g/dL (32.0-36.0); MEAN CORPUSCULAR VOLUME 89 fl (80-97); PLATELET COUNT 502 10^3/uL (150-450); RED BLOOD COUNT 4.32 10^6/uL (3.72-5.28); RED CELL DISTRIBUTION WIDTH 16.4 % (11.5-14.0); WHITE BLOOD COUNT 16.6 10^3/uL (4.0-10.5)
[2019-05-26 17:41] LABS: INTERNATIONAL RATION (INR) 1.49; PROTHROMBIN TIME 18.1 SEC (11.4-15.4)
[2019-05-26 17:48] LABS: ALBUMIN 4.8 g/dL (3.5-5.0); ALKALINE PHOSPHATASE 257 U/L (38-126); ASPARTATE AMINO TRANSFERASE 23 U/L (14-36); BILIRUBIN,DIRECT 0.7 mg/dL (0.0-0.4); BILIRUBIN,TOTAL 0.7 mg/dL (0.2-1.3); CALCIUM 10.9 mg/dL (8.4-10.2); CREATINE KINASE 70 U/L (30-135); GLUCOSE 123 mg/dL (75-110); TOTAL PROTEIN 8.5 g/dL (6.3-8.2)
[2019-05-26] MEDS: PANTOPRAZOLE SODIUM 40 MG VIAL IV PRN (17:50)
[2019-05-26 17:53] LABS: CHLORIDE 91 mmol/L (98-107)
[2019-05-26 17:55] LABS: ABSOLUTE LYMPHOCYTES# (MANUAL) 0.5 10^3/uL (0.5-4.7); ANISOCYTOSIS 1+; BASOPHILS % (MANUAL) 0 % (0-2); EOSINOPHILS % (MANUAL) 0 % (0-6); LYMPHOCYTES % (MANUAL) 3 % (13-45); MONOCYTES % (MANUAL) 6 % (3-13); PLATELET CLUMPS PRESENT; PLATELET COMMENT ADEQUATE; SEGMENTED NEUTROPHILS % (MAN) 91 % (42-78); TOTAL CELLS COUNTED 100
[2019-05-26 18:01] LABS: BLOOD UREA NITROGEN 136 mg/dL (7-20)
[2019-05-26 18:03] LABS: ANION GAP 28 (5-19); CARBON DIOXIDE 10 mmol/L (22-30); POTASSIUM 8.1 mmol/L (3.6-5.0)
[2019-05-26 18:04] LABS: TROPONIN I 0.06 ng/mL
[2019-05-26] MEDS ORDERED: DEXTROSE 50%-WATER 25 GM/50 ML DISP.SYRIN IV ONE (18:16)
[2019-05-26] MEDS ORDERED: CALCIUM GLUCONATE 1000 MG/10 ML INJ IV ONE (18:16)
[2019-05-26] MEDS ORDERED: INSULIN REG, HUMAN 100 UNIT/ML 3 ML VIAL (PYX) IV ONE (18:16)
[2019-05-26] MEDS ORDERED: ALBUTEROL SULFATE 0.042% NEB (1.25 MG/3 ML) AMPUL NEB ONE (18:17)
[2019-05-26] MEDS ORDERED: SODIUM BICARBONATE 8.4% INJ 50 MEQ/50 ML DISP.SYRIN IV ONE (18:18)
--- NOTE | 2019-05-26 19:24 | RADIOLOGY REPORT (SQ) ---
EXAM DESCRIPTION: KUB/ABDOMEN (SINGLE VIEW) COMPLETED DATE/TIME: 05/26/2019 7:13 pm REASON FOR STUDY: gi bleed COMPARISON: 03/30/2019 NUMBER OF VIEWS: One view. TECHNIQUE: Supine radiographic image of the abdomen acquired. LIMITATIONS: None. FINDINGS: BOWEL GAS PATTERN: Normal bowel gas pattern. No dilated loops. CALCIFICATIONS: Staghorn calculus in the right kidney. SOFT TISSUES: No gross mass or suggestion of organomegaly. HARDWARE: None in the abdomen. BONES: No acute fracture. No worrisome bone lesions. OTHER: No other significant finding. IMPRESSION: Right staghorn calculus. No acute finding in the abdomen. TECHNICAL DOCUMENTATION: JOB ID: [id number] 2010 [employer]- All Rights Reserved Reading location - IP/workstation name: [email or web address]
--- NOTE | 2019-05-26 19:24 | RADIOLOGY REPORT (SQ) ---
EXAM DESCRIPTION: CHEST SINGLE VIEW COMPLETED DATE/TIME: 05/26/2019 7:13 pm REASON FOR STUDY: sob COMPARISON: 03/24/2019 EXAM PARAMETERS: NUMBER OF VIEWS: One view. TECHNIQUE: Single frontal radiographic view of the chest acquired. RADIATION DOSE: NA LIMITATIONS: None. FINDINGS: LUNGS AND PLEURA: No opacities, masses or pneumothorax. No pleural effusion. MEDIASTINUM AND HILAR STRUCTURES: No masses. Contour normal. HEART AND VASCULAR STRUCTURES: Heart normal in size. Normal vasculature. BONES: No acute findings. HARDWARE: None in the chest. OTHER: No other significant finding. IMPRESSION: NO ACUTE RADIOGRAPHIC FINDING IN THE CHEST. TECHNICAL DOCUMENTATION: JOB ID: [id number] 2010 [employer]- All Rights Reserved Reading location - IP/workstation name: [email or web address]
[2019-05-26 19:33] LABS: APPEARANCE,URINE TURBID; BILIRUBIN,URINE NEGATIVE (NEGATIVE); GLUCOSE, URINE NEGATIVE (NEGATIVE); KETONES,URINE TRACE mg/dL (NEGATIVE); LEUKOCYTE ESTERASE,URINE MODERATE (NEGATIVE); NITRITE,URINE NEGATIVE (NEGATIVE); PROTEIN,URINE 100 mg/dL (NEGATIVE); URINE SPECIFIC GRAVITY 1.019; UROBILINOGEN,URINE NEGATIVE mg/dL (<2.0)
[2019-05-26 19:34] LABS: COLOR,URINE BROWN
[2019-05-26] MEDS ORDERED: CEFTRIAXONE 1 GM/D5W RTU 50 ML IV ONE (19:55)
[2019-05-26] MEDS ORDERED: ACETAMINOPHEN 325 MG TABLET PO PRN (19:58)
[2019-05-26] MEDS ORDERED: ACETAMINOPHEN 650 MG SUPP.RECT PR PRN (19:58)
[2019-05-26] MEDS ORDERED: IPRATROPIUM/ALBUTEROL 0.5-2.5 MG/3 ML AMPUL NEB ONE (19:58)
[2019-05-26] MEDS ORDERED: IPRATROPIUM/ALBUTEROL 0.5-2.5 MG/3 ML AMPUL NEB PRN (19:58)
[2019-05-26] MEDS ORDERED: MAG HYDROX/AL HYDROX/SIMETH SUSP 30 ML UDCUP PO PRN (19:58)
[2019-05-26] MEDS ORDERED: CEFEPIME 1 GM/D5W RTU 1 GM/50 ML RTUPB IV ONE (20:15)
[2019-05-26] MEDS ORDERED: CEFEPIME 1 GM/D5W RTU 1 GM/50 ML RTUPB IV SCH (22:00)
[2019-05-26] MEDS ORDERED: HEPARIN SOD (PORCINE) 5,000 UNIT/ML 1 ML VIAL SUBCUT SCH (22:00)
[2019-05-26] MEDS: MORPHINE SULFATE 10 MG/ML INJ IV PRN (23:21)
[2019-05-27] LABS: CALCIUM 9.5 mg/dL (8.4-10.2); CHLORIDE 99 mmol/L (98-107); GLUCOSE 88 mg/dL (75-110)
[2019-05-27 00:09] LABS: ANION GAP 23 (5-19); BLOOD UREA NITROGEN 128 mg/dL (7-20)
[2019-05-27 00:12] LABS: POTASSIUM 6.2 mmol/L (3.6-5.0)
[2019-05-27 00:13] LABS: CARBON DIOXIDE 10 mmol/L (22-30)
[2019-05-27] MEDS: NORMAL SALINE 1000 ML 1,000 ML IV PRN ×3 (00:53→04:52)
[2019-05-27] MEDS: PANTOPRAZOLE SODIUM 40 MG VIAL IV PRN (03:51)
[2019-05-27] MEDS: MORPHINE SULFATE 10 MG/ML INJ IV PRN (04:11)
[2019-05-27] MEDS ORDERED: VANCOMYCIN HCL 1,000 MG in DEXTROSE 5%-WATER 250 ML IV ONE (04:55)
[2019-05-27] MEDS ORDERED: VANCOMYCIN HCL 0 MG in DEXTROSE 5%-WATER 250 ML IV NR ×2 (05:00→10:15)
--- NOTE | 2019-05-27 05:09 | PDOC H&P ---
History of Present Illness Admission Date/PCP: 05/26/19 20:10 FABIAN RIVERA MD Patient complains of: Altered mental status History of Present Illness: KYRA REYNOLDS is a 63 year old female who is a [facility] with a past medical history of diabetes, GERD, colorectal cancer status post hemicolectomy with ostomy March 2019 with chemoradiation and under the care of Dr. Francisco. She was recently discharged May 16, 2019 following treatme nt of abdominal wall cellulitis from ostomy leakage. She returns with altered mental status disheveled with persistent ostomy leakage, gross pyuria with hypotension, bradycardia found to be in acute renal failure with a creatinine of 12.7, potassium 8.1 with peak T waves and severe metabolic acidosis. She receives empiric antibiotics and referred to the hospitalist for admission. Her CODE STATUS is verified by portable DNR sheet. 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 [facility] Denies: Atrial Fibrillation, Congestive Heart Failure, Coronary Artery Disease, Hyperlipidema, Peripheral Vascular Disease, Pulmonary Embolism, Heart Murmur Pulmonary Medical History: Reports: Asthma, Bronchitis, Chronic Obstructive Pulmonary Disease (COPD), Pneumonia - 2014 Denies: Respiratory Failure, Sleep Apnea, Tuberculosis Neurological Medical History: Denies: Seizures Endocrine Medical History: Reports: Hyperthyroidism - liquid radiation Denies: Hypothyroidism Malignancy Medical History: Reports: Colorectal Cancer Denies: Leukemia, Lung Cancer GI Medical History: Reports: Gastroesophageal Reflux Disease Denies: Crohn's Disease, Hepatitis, Hiatal Hernia Musculoskeltal Medical History: Reports: Arthritis Denies: Fibromyalgia Psychiatric Medical History: Reports: Depression Denies: Bipolar Disorder, Dementia, Post Traumatic Stress Disorder Hematology: Reports: Anemia Denies: Hemophilia, Sickle Cell Disease Infectious Medical History: Denies: HIV Past Surgical History Past Surgical History: Reports: Tubal Ligation, Other - 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 Denies: Amputation, Appendectomy, Section, Cholecystectomy, Colostomy, Coronary Artery Bypass Graft, Gastric Bypass Surgery, Herniorrhaphy, Hysterectomy, Mastectomy, Pacemaker, Tonsillectomy Social History Information Source: Emergency Med Personnel, COUNT [facility]CLUDES [facility] Records Lives with: Usp Smoking Status: Unknown if Ever Smoked Frequency of Alcohol Use: None Hx Recreational Drug Use: No Drugs: None Hx Prescription Drug Abuse: No - Advance Directive Resuscitation Status: Do Not Resuscitate Family History Family History: CAD, DM, Hyperlipidemia, Hypertension Parental Family History Reviewed: No - Unobtainable Children Family History Reviewed: No - Unobtainable Sibling(s) Family History Reviewed.: No - Unobtainable Medication/Allergy Home Medications: Aspirin [Adult Low Dose Aspirin EC] 81 mg PO DAILY #0 05/21/11 Levothyroxine Sodium 125 mcg PO QAM 05/21/11 Oxybutynin Chloride [Ditropan 5 mg Tablet] 5 mg PO TID #0 05/21/11 Ramipril [Altace 5 mg Capsule] 5 mg PO DAILY #0 05/21/11 Pravastatin Sodium [Pravachol] 20 mg PO QHS 03/10/16 Albuterol Sulfate [Ventolin 0.042% Neb 1.25 mg/3 mL Ampul] 1 vial NEB QIDP PRN 09/19/17 Buspirone HCl [Buspar 15 mg Tablet] 15 mg PO TID 09/19/17 Omeprazole 20 mg PO DAILY 09/19/17 Sertraline HCl [Zoloft] 150 mg PO DAILY 12/01/18 Atenolol [Tenormin] 25 mg PO QAM 04/05/19 Hydroxyzine Pamoate [Vistaril 25 mg Capsule] 25 mg PO Q8HP PRN 05/11/19 Magnesium Oxide [Mag-Ox 400 mg Tablet] 800 mg PO BID tablet 05/16/19 Sucralfate [Carafate 1 gm Tablet] 1 gm PO ACHS tablet 05/16/19 Allergies/Adverse Reactions: shellfish derived Allergy (Severe, Verified 04/04/19 02:17) Hives iodine [Iodine] Allergy (Intermediate, Verified 04/04/19 02:17) Rash Sulfa (Sulfonamide Antibiotics) Allergy (Intermediate, Verified 04/04/19 02:17) Hives Iodinated Contrast Media Adverse Reaction (Intermediate, Verified 04/04/19 02:17) Nausea Review of Systems ROS unobtainable: Due to mental status - Confused and unobtainable Physical Exam Vital Signs: Temp Pulse Resp BP Pulse Ox 97.5 F 56 L 16 65/31 L 84 L 05/27/19 03:02 05/27/19 04:28 05/27/19 03:02 05/27/19 04:28 05/27/19 03:02 Intake & Output 05/25/19 05/26/19 05/27/19 11:59 11:59 11:59 Intake Total 4000 Output Total 50 Balance 3950 Weight 78.1 kg General appearance: PRESENT: disheveled, hard of hearing, severe distress, thin - Severe cachexia with temporal wasting, well-developed Head exam: PRESENT: atraumatic, normocephalic Eye exam: PRESENT: conjunctiva pink, EOMI, PERRLA. ABSENT: scleral icterus Ear exam: PRESENT: normal external ear exam Mouth exam: PRESENT: dry mucosa, tongue midline Neck exam: ABSENT: carotid bruit, JVD, lymphadenopathy, thyromegaly Respiratory exam: PRESENT: clear to auscultation vickie, tachypnea. ABSENT: rales, rhonchi, wheezes Cardiovascular exam: PRESENT: RRR. ABSENT: diastolic murmur, rubs, systolic murmur Pulses: PRESENT: other - Cyanosis with diminished pulses x4. ABSENT: normal dorsalis pedis pul, +1 pedal pulses bilateral - Diminished pulses Vascular exam: PRESENT: pallor, other - Cyanosis with weak pulses x4. ABSENT: normal capillary refill GI/Abdominal exam: PRESENT: diminished bowel sounds, hypoactive bowel sounds, soft, tenderness, other - Large right lower quadrant ostomy with leakage. ABSENT: distended, firm, guarding, mass Rectal exam: PRESENT: deferred Extremities exam: PRESENT: full ROM. ABSENT: calf tenderness, clubbing, pedal edema Neurological exam: PRESENT: altered, awake, oriented to person, CN II-XII grossly intact. ABSENT: motor sensory deficit Psychiatric exam: PRESENT: appropriate affect, normal mood. ABSENT: homicidal ideation, suicidal ideation Skin exam: PRESENT: dry, intact, warm, other - Stage II sacral decub. ABSENT: cyanosis, rash Results Laboratory Results: 05/26/19 17:10 05/26/19 23:25 05/26/19 05/26/19 05/26/19 17:10 17:10 17:10 WBC 16.6 H RBC 4.32 Hgb 13.1 Hct 38.5 MCV 89 MCH 30.4 MCHC 34.1 RDW 16.4 H Plt Count 502 H Seg Neutrophils % Not Reportable VBG pH 7.16 L* VBG pCO2 35.5 VBG HCO3 12.4 L VBG Base Excess -15.3 Sodium 129.2 L Potassium 8.1 H* Chloride 91 L Carbon Dioxide 10 L* Anion Gap 28 H BUN 136 H Creatinine 12.73 H Est GFR ( Amer) 4 L Glucose 123 H Lactic Acid Calcium 10.9 H Magnesium Total Bilirubin 0.7 AST 23 Alkaline Phosphatase 257 H Total Protein 8.5 H Albumin 4.8 Urine Color Urine Appearance Urine pH Ur Specific [place] Urine Protein Urine Glucose (UA) Urine Ketones Urine Blood Urine Nitrite Ur Leukocyte Esterase Urine WBC (Auto) Urine RBC (Auto) Blood Type Antibody Screen 05/26/19 05/26/19 05/26/19 17:10 17:10 17:10 WBC RBC Hgb Hct MCV MCH MCHC RDW Plt Count Seg Neutrophils % VBG pH VBG pCO2 VBG HCO3 VBG Base Excess Sodium Potassium Chloride Carbon Dioxide Anion Gap BUN Creatinine Est GFR ( Amer) Glucose Lactic Acid 1.2 Calcium Magnesium 4.4 H* Total Bilirubin AST Alkaline Phosphatase Total Protein Albumin Urine Color BROWN Urine Appearance TURBID Urine pH 5.0 Ur Specific [place] 1.019 Urine Protein 100 H Urine Glucose (UA) NEGATIVE Urine Ketones TRACE H Urine Blood MODERATE H Urine Nitrite NEGATIVE Ur Leukocyte Esterase MODERATE H Urine WBC (Auto) >182 Urine RBC (Auto) 59 Blood Type Antibody Screen 05/26/19 05/26/19 05/26/19 17:45 20:15 23:25 WBC RBC Hgb Hct MCV MCH MCHC RDW Plt Count Seg Neutrophils % VBG pH VBG pCO2 VBG HCO3 VBG Base Excess Sodium Potassium Chloride Carbon Dioxide Anion Gap BUN Creatinine Est GFR ( Amer) Glucose Lactic Acid 2.3 H 1.0 Calcium Magnesium Total Bilirubin AST Alkaline Phosphatase Total Protein Albumin Urine Color Urine Appearance Urine pH Ur Specific [place] Urine Protein Urine Glucose (UA) Urine Ketones Urine Blood Urine Nitrite Ur Leukocyte Esterase Urine WBC (Auto) Urine RBC (Auto) Blood Type B POSITIVE Antibody Screen NEGATIVE 05/26/19 23:25 WBC RBC Hgb Hct MCV MCH MCHC RDW Plt Count Seg Neutrophils % VBG pH VBG pCO2 VBG HCO3 VBG Base Excess Sodium 131.9 L Potassium 6.2 H* D Chloride 99 Carbon Dioxide 10 L* Anion Gap 23 H BUN 128 H Creatinine 11.22 H Est GFR ( Amer) 4 L Glucose 88 Lactic Acid Calcium 9.5 Magnesium Total Bilirubin AST Alkaline Phosphatase Total Protein Albumin Urine Color Urine Appearance Urine pH Ur Specific [place] Urine Protein Urine Glucose (UA) Urine Ketones Urine Blood Urine Nitrite Ur Leukocyte Esterase Urine WBC (Auto) Urine RBC (Auto) Blood Type Antibody Screen 05/26/19 05/26/19 17:10 17:10 Creatine Kinase 70 Troponin I 0.060 NT-Pro-B Natriuret Pep 2600 H Impressions: Chest X-Ray 05/26/19 17:53 IMPRESSION: NO ACUTE RADIOGRAPHIC FINDING IN THE CHEST. KUB X-Ray 05/26/19 17:53 IMPRESSION: Right staghorn calculus. No acute finding in the abdomen. Assessment and Plan - Diagnosis (1) Severe sepsis Is this a current diagnosis for this admission?: Yes Plan: Secondary to UTI with gross pyuria recent urinalysis revealed cefepime susceptible Klebsiella. Not a candidate for pressors given DNR status and terminal comorbidities. IV fluid challenge, empiric antibiotics, follow-up CBC and blood culture (2) Hyperkalemia Is this a current diagnosis for this admission?: Yes Plan: Complicated by peaked T waves, calcium, albuterol, ongoing IV fluid resuscitation. (3) Acidosis Is this a current diagnosis for this admission?: Yes Plan: Secondary to severe sepsis and hypotension. Follow-up lactic acid (4) Renal failure (ARF), acute on chronic Qualifiers: Acute renal failure type: unspecified Chronic kidney disease stage: unspecified stage Qualified Code(s): N17.9 - Acute kidney failure, unspecified; N18.9 - Chronic kidney disease, unspecified Is this a current diagnosis for this admission?: Yes Plan: Secondary to severe sepsis with hypotension. IV fluid challenge, avoid nephrotoxic meds and doses follow-up chemistry - Time Time Spent with patient: 35 or more minutes - Inpatient Certification Medical Necessity: Need Close Monitoring Due to Risk of Patient Decompensation
[2019-05-27] MEDS ORDERED: NORMAL SALINE 1000 ML 2,000 ML IV ONE (05:15)
[2019-05-27 05:24] LABS: MEAN CORPUSCULAR HEMOGLOBIN 29.2 pg (27.0-33.4); MEAN CORPUSCULAR HGB CONC 32.3 g/dL (32.0-36.0); MEAN CORPUSCULAR VOLUME 91 fl (80-97); PLATELET COUNT 333 10^3/uL (150-450); RED BLOOD COUNT 3.09 10^6/uL (3.72-5.28); RED CELL DISTRIBUTION WIDTH 16.3 % (11.5-14.0)
[2019-05-27 05:36] LABS: ANION GAP 14 (5-19); CALCIUM 8.3 mg/dL (8.4-10.2); CARBON DIOXIDE 14 mmol/L (22-30); CHLORIDE 106 mmol/L (98-107)
[2019-05-27 05:47] LABS: BLOOD UREA NITROGEN 120 mg/dL (7-20)
[2019-05-27] MEDS ORDERED: VANCOMYCIN HCL INJ 1000 MG VIAL ONE (05:51)
[2019-05-27 05:57] LABS: ABSOLUTE LYMPHOCYTES# (MANUAL) 0.5 10^3/uL (0.5-4.7); ABSOLUTE MONOCYTES # (MANUAL) 0.4 10^3/uL (0.1-1.4); BAND NEUTROPHILS % (MANUAL) 1 % (3-5); BASOPHILS % (MANUAL) 0 % (0-2); EOSINOPHILS % (MANUAL) 0 % (0-6); LYMPHOCYTES % (MANUAL) 4 % (13-45); MONOCYTES % (MANUAL) 3 % (3-13); SEGMENTED NEUTROPHILS % (MAN) 92 % (42-78); TOTAL CELLS COUNTED 100
[2019-05-27 05:58] LABS: ANISOCYTOSIS 1+; PLATELET COMMENT ADEQUATE; POLYCHROMASIA 1+
[2019-05-27 06:25] LABS: GLUCOSE 63 mg/dL (75-110); POTASSIUM 6.2 mmol/L (3.6-5.0)
[2019-05-27] MEDS ORDERED: DOPAMINE HCL/DEXTROSE 5%-WATER 800 MG/250 ML RTUINJ IV PRN (07:47)
[2019-05-27] MEDS ORDERED: NORMAL SALINE 250 ML IV PRN ×2 (07:50)
[2019-05-27 08:16] LABS: ARTERIAL BLOOD BASE EXCESS -16.4 mmol/L; ARTERIAL BLOOD H2CO3 0.89 mmol/L (1.05-1.35); ARTERIAL BLOOD HCO3 10.7 mmol/L (20-24); ARTERIAL BLOOD O2 SATURATION 94.6 % (94-98); ARTERIAL BLOOD PCO2 29.7 mmHg (35-45); ARTERIAL BLOOD PO2 88.9 mmHg (80-100); ARTERIAL BLOOD TOTAL CO2 11.6 mmol/L (21-25)
[2019-05-27 08:17] LABS: ARTERIAL BLOOD FIO2 ROOM AIR
[2019-05-27 08:18] LABS: ARTERIAL BLOOD PH 7.17 (7.35-7.45)
[2019-05-27] MEDS ORDERED: DEXTROSE 5%-WATER 1000 ML 1,000 ML with SODIUM BICARBONATE 150 MEQ IV PRN ×2 (08:27)
[2019-05-27] MEDS ORDERED: NORMAL SALINE 1000 ML 1,000 ML IV PRN (08:39)
[2019-05-27] MEDS ORDERED: CALCIUM GLUC IN NACL, ISO-OSM 1 GM/50 ML RTUPB IV ONE (08:45)
[2019-05-27] MEDS ORDERED: INSULIN REG, HUMAN 100 UNIT/ML 3 ML VIAL (PYX) IV ONE ×2 (08:45→11:00)
[2019-05-27] MEDS ORDERED: DEXTROSE 50%-WATER 25 GM/50 ML DISP.SYRIN IV ONE ×2 (08:45→11:00)
[2019-05-27] MEDS ORDERED: NOREPINEPHRINE BITARTRATE INJ/PF 4 MG/4 ML SDV IV ONE ×2 (09:02→12:07)
--- NOTE | 2019-05-27 09:08 | PDOC TRANSFER SUMMARY ---
<MIRIANYESSY ODOM - Last Filed: 05/27/19 08:45> General Admission Date/PCP: 05/26/19 20:10 FABIAN RIVERA MD Admission Date: 05/26/19 Accepting Facility: [facility] Accepting Physician: Dr. Lares Resuscitation Status: Full Code - Transfer Diagnosis (1) Acute renal failure Is this a current diagnosis for this admission?: Yes (2) Hyperkalemia Is this a current diagnosis for this admission?: Yes (3) Hypotension Is this a current diagnosis for this admission?: Yes (4) Hypothermia Is this a current diagnosis for this admission?: Yes (5) Leukocytosis Is this a current diagnosis for this admission?: Yes (6) Severe sepsis Is this a current diagnosis for this admission?: Yes (7) Urinary tract infection Is this a current diagnosis for this admission?: Yes (8) COPD (chronic obstructive pulmonary disease) Is this a current diagnosis for this admission?: Yes (9) Hypothyroidism Is this a current diagnosis for this admission?: Yes - Transfer Medications Home Medications: Levothyroxine Sodium 125 mcg PO QAM 05/21/11 Oxybutynin Chloride [Ditropan 5 mg Tablet] 5 mg PO TID #0 05/21/11 Ramipril [Altace 5 mg Capsule] 5 mg PO DAILY #0 05/21/11 Pravastatin Sodium [Pravachol] 20 mg PO QHS 03/10/16 Albuterol Sulfate [Ventolin 0.042% Neb 1.25 mg/3 mL Ampul] 1 vial NEB Q6HP PRN 09/19/17 Buspirone HCl [Buspar 15 mg Tablet] 15 mg PO TID 09/19/17 Omeprazole 20 mg PO DAILY 09/19/17 Sertraline HCl [Zoloft] 150 mg PO DAILY 12/01/18 Atenolol [Tenormin] 25 mg PO QAM 04/05/19 Hydroxyzine Pamoate [Vistaril 25 mg Capsule] 25 mg PO Q8HP PRN 05/11/19 Acetaminophen [Tylenol 325 mg Tablet] 650 mg PO Q4HP PRN 05/27/19 Aspirin [Aspirin 81 mg Chewable Tablet] 81 mg PO DAILY 05/27/19 Lisinopril 20 mg PO DAILY 05/27/19 Transfer Medications: Current Medications Acetaminophen (Tylenol 650 Mg Supp) 650 mg MD Q4HP PRN PRN Reason: FOR PAIN OR TEMP Stop: 06/25/19 19:57 Acetaminophen (Tylenol 325 Mg Tablet) 650 mg PO Q4HP PRN PRN Reason: FOR HEADACHE OR PAIN Stop: 06/25/19 19:57 Al Hydrox/Mg Hydrox/Simethicone (Maalox Plus Susp 30 Udcup) 30 ml PO Q6HP PRN PRN Reason: HEARTBURN Stop: 06/25/19 19:57 Albuterol/Ipratropium (Duoneb 3 Ml Ampul) 3 ml NEB RTQ6HP PRN PRN Reason: SHORTNESS OF BREATH Stop: 06/25/19 19:57 Heparin Sodium (Porcine) (Heparin Inj 5,000 Units/Ml 1 Ml Vial) 5,000 unit SUBCUT Q8 RODERICK Stop: 06/25/19 21:59 Last Admin: 05/27/19 06:06 Dose: Not Given Documented by: Dopamine HCl/Dextrose (Dopamine Rtu 800 Mg-D5w 250 Ml (Adult) Premix) 800 mg in 250 mls @ 4.461 mls/hr IV CONTINUOUS PRN PRN Reason: THIS MED IS NOT "PRN" Stop: 06/26/19 07:46 Sodium Chloride (Nacl 0.9% 250 Ml Iv Soln) 250 mls @ 30 mls/hr IV .DURING TRANSFUSION PRN PRN Reason: THIS MED IS NOT "PRN" Stop: 05/28/19 07:49 Sodium Chloride (Nacl 0.9% 250 Ml Iv Soln) 250 mls @ 0 mls/hr IV CONTINUOUS PRN PRN Reason: AFTER EACH UNIT Stop: 05/28/19 07:49 Cefepime HCl (Maxipime Rtu 1 Gm/D5w 50 Ml Premix Bag) 1 gm in 50 mls @ 100 mls/hr IV QHS RODERICK Stop: 06/03/19 21:59 Sodium Bicarbonate 150 meq/ (Dextrose) 1,000 mls @ 150 mls/hr IV CONTINUOUS PRN PRN Reason: THIS MED IS NOT "PRN" Stop: 06/26/19 08:26 Sodium Chloride (Nacl 0.9% 1000 Ml Iv Soln) 1,000 mls @ 100 mls/hr IV CONTINUOUS PRN PRN Reason: THIS MED IS NOT "PRN" Stop: 06/26/19 08:38 Norepinephrine Bitartrate 4 mg (/ Dextrose) 250 mls @ 0 mls/hr IV CONTINUOUS PRN; Protocol PRN Reason: THIS MED IS NOT "PRN" Stop: 06/26/19 08:39 Morphine Sulfate (Morphine 10 Mg/Ml Inj) 2 mg IV Q3HP PRN PRN Reason: FOR PAIN Stop: 06/02/19 19:49 Last Admin: 05/27/19 04:11 Dose: 2 mg Documented by: - Allergies Allergies/Adverse Reactions: shellfish derived Allergy (Severe, Verified 04/04/19 02:17) Hives iodine [Iodine] Allergy (Intermediate, Verified 04/04/19 02:17) Rash Sulfa (Sulfonamide Antibiotics) Allergy (Intermediate, Verified 04/04/19 02:17) Hives Iodinated Contrast Media Adverse Reaction (Intermediate, Verified 04/04/19 02:17) Nausea - Diet/Activity Discharge Diet: Clear Liquids Hospital Course Hospital Course: Per H&P by Dr. Boss: KYRA REYNOLDS is a 63 year old female who is a long- term detention resident with a past medical history of diabetes, GERD, colorectal cancer status post hemicolectomy with ostomy March 2019 with chemoradiation and under the care of Dr. Francisco. She was recently discharged May 16, 2019 following treatment of abdominal wall cellulitis from ostomy leakage. She returns with altered mental status disheveled with persistent ostomy leakage, gross pyuria with hypotension, bradycardia found to be in acute renal failure with a creatinine of 12.7, potassium 8.1 with peak T waves and severe metabolic acidosis. She receives empiric antibiotics and referred to the hospitalist for admission. Her CODE STATUS is verified by portable DNR sheet. She complains of pain to her backside Course: The patient was admitted to [facility] on continuous cardiac telemetry. She continues to have difficulty regulating temperature and remains on Asha hugger. Since admission last night, she has received 6 L normal saline for fluid resuscitation, calcium gluconate/dextrose/insulin for hyperkalemia correction, and sodium bicarb 100 M EQ's for acidosis. She was empirically placed on IV antibiotics and has received ceftriaxone, cefepime, and vancomycin. Blood and urine cultures are pending. AM lab work shows improvement in leukocytosis (16.6-> 13), hemoglobin has expectedly trended down (13.1-> 9.0), ABG this morning demonstrates persistent acidosis with pH 7.17/PCO2 29.7/PO2 88.9/HCO3 10.7, and follow-up EKG shows resolution of peaked T waves. On exam, the patient does not appear to be fluid overloaded; continues to have dry mucous membranes with clear lung sounds. Therefore, she was ordered additional IV fluids, bicarb drip, and dopamine for renal perfusion. Her mentation has improved this morning to the extent that she is arousable, t gypsy with delayed responses, and oriented to self and place. She adamantly declares that she is a FULL CODE; requesting all medical interventions including ICU admission, intubation, and CPR. Therefore, the patient's case was discussed with marriage and family social worker service who recommended reaching out to tertiary care center in anticipation of need for emergent dialysis not available at our facility. I discussed the case with Dr. Lares, [facility] at [facility], who has graciously agreed to accept this patient. He does caution that there may be a delay in bed availability and therefore recommends upgrade to ICU with norepinephrine and continued generous IV fluids as her clinical status allows. The patient was subsequently discussed with Dr. Loyola, [facility] marriage and family social worker. She is upgraded to the ICU pending her transfer to [facility]. Physical Exam Vital Signs: Temp Pulse Resp BP Pulse Ox 97.7 F 67 16 63/34 L 100 05/27/19 08:10 05/27/19 08:10 05/27/19 08:10 05/27/19 08:10 05/27/19 08:10 Intake & Output 05/26/19 05/27/19 05/28/19 06:59 06:59 06:59 Intake Total 4302 1999 Output Total 62 Balance 4240 1999 Weight 79.3 kg General appearance: PRESENT: disheveled, well-developed, well-nourished, other - chronically ill appearing Head exam: PRESENT: atraumatic, normocephalic Eye exam: PRESENT: conjunctiva pale, EOMI, PERRLA. ABSENT: scleral icterus Mouth exam: PRESENT: dry mucosa, moist, tongue midline Neck exam: ABSENT: carotid bruit, JVD, lymphadenopathy, thyromegaly Respiratory exam: PRESENT: clear to auscultation vickie, decreased breath sounds - bibasilar, symmetrical, unlabored. ABSENT: rales, rhonchi, wheezes Cardiovascular exam: PRESENT: RRR. ABSENT: diastolic murmur, rubs, systolic murmur Pulses: PRESENT: +1 pedal pulses bilateral Vascular exam: PRESENT: pallor - delayed cap refill all extremities GI/Abdominal exam: PRESENT: hypoactive bowel sounds, soft, other - colostomy and ileostomy. ABSENT: distended, guarding, mass, organolmegaly, rebound, tenderness Extremities exam: PRESENT: full ROM. ABSENT: calf tenderness, clubbing, pedal edema Neurological exam: PRESENT: oriented to person, oriented to place, CN II-XII grossly intact, other - Arousable, delayed responses. ABSENT: motor sensory deficit Psychiatric exam: PRESENT: flat affect, normal mood. ABSENT: homicidal ideation, suicidal ideation Skin exam: PRESENT: erythema - Slight erythema surrounding ileostomy in colo stomy sites, intact, mottled - BLE, pallor, warm. ABSENT: cyanosis, rash Results Laboratory Results: 05/27/19 04:49 05/27/19 04:49 05/26/19 05/26/19 05/26/19 17:10 17:10 17:10 WBC 16.6 H RBC 4.32 Hgb 13.1 Hct 38.5 MCV 89 MCH 30.4 MCHC 34.1 RDW 16.4 H Plt Count 502 H Seg Neutrophils % Not Reportable Carbonic Acid HCO3/H2CO3 Ratio ABG pH ABG pCO2 ABG pO2 ABG HCO3 ABG O2 Saturation ABG Base Excess VBG pH 7.16 L* VBG pCO2 35.5 VBG HCO3 12.4 L VBG Base Excess -15.3 FiO2 Sodium 129.2 L Potassium 8.1 H* Chloride 91 L Carbon Dioxide 10 L* Anion Gap 28 H BUN 136 H Creatinine 12.73 H Est GFR ( Amer) 4 L Glucose 123 H Lactic Acid Calcium 10.9 H Magnesium Total Bilirubin 0.7 AST 23 Alkaline Phosphatase 257 H Total Protein 8.5 H Albumin 4.8 Urine Color Urine Appearance Urine pH Ur Specific Sandwich Urine Protein Urine Glucose (UA) Urine Ketones Urine Blood Urine Nitrite Ur Leukocyte Esterase Urine WBC (Auto) Urine RBC (Auto) Blood Type Antibody Screen 05/26/19 05/26/19 05/26/19 17:10 17:10 17:10 WBC RBC Hgb Hct MCV MCH MCHC RDW Plt Count Seg Neutrophils % Carbonic Acid HCO3/H2CO3 Ratio ABG pH ABG pCO2 ABG pO2 ABG HCO3 ABG O2 Saturation ABG Base Excess VBG pH VBG pCO2 VBG HCO3 VBG Base Excess FiO2 Sodium Potassium Chloride Carbon Dioxide Anion Gap BUN Creatinine Est GFR ( Amer) Glucose Lactic Acid 1.2 Calcium Magnesium 4.4 H* Total Bilirubin AST Alkaline Phosphatase Total Protein Albumin Urine Color BROWN Urine Appearance TURBID Urine pH 5.0 Ur Specific Sandwich 1.019 Urine Protein 100 H Urine Glucose (UA) NEGATIVE Urine Ketones TRACE H Urine Blood MODERATE H Urine Nitrite NEGATIVE Ur Leukocyte Esterase MODERATE H Urine WBC (Auto) >182 Urine RBC (Auto) 59 Blood Type Antibody Screen 05/26/19 05/26/19 05/26/19 17:45 20:15 23:25 WBC RBC Hgb Hct MCV MCH MCHC RDW Plt Count Seg Neutrophils % Carbonic Acid HCO3/H2CO3 Ratio ABG pH ABG pCO2 ABG pO2 ABG HCO3 ABG O2 Saturation ABG Base Excess VBG pH VBG pCO2 VBG HCO3 VBG Base Excess FiO2 Sodium Potassium Chloride Carbon Dioxide Anion Gap BUN Creatinine Est GFR ( Amer) Glucose Lactic Acid 2.3 H 1.0 Calcium Magnesium Total Bilirubin AST Alkaline Phosphatase Total Protein Albumin Urine Color Urine Appearance Urine pH Ur Specific Sandwich Urine Protein Urine Glucose (UA) Urine Ketones Urine Blood Urine Nitrite Ur Leukocyte Esterase Urine WBC (Auto) Urine RBC (Auto) Blood Type B POSITIVE Antibody Screen NEGATIVE 05/26/19 05/27/19 05/27/19 23:25 04:49 04:49 WBC 13.0 H RBC 3.09 L Hgb 9.0 L D Hct 28.0 L MCV 91 MCH 29.2 MCHC 32.3 RDW 16.3 H Plt Count 333 Seg Neutrophils % Not Reportable Carbonic Acid HCO3/H2CO3 Ratio ABG pH ABG pCO2 ABG pO2 ABG HCO3 ABG O2 Saturation ABG Base Excess VBG pH VBG pCO2 VBG HCO3 VBG Base Excess FiO2 Sodium 131.9 L 133.7 L Potassium 6.2 H* D 6.2 H* Chloride 99 106 Carbon Dioxide 10 L* 14 L Anion Gap 23 H 14 BUN 128 H 120 H Creatinine 11.22 H 10.35 H Est GFR ( Amer) 4 L 5 L Glucose 88 63 L Lactic Acid Calcium 9.5 8.3 L Magnesium Total Bilirubin AST Alkaline Phosphatase Total Protein Albumin Urine Color Urine Appearance Urine pH Ur Specific Sandwich Urine Protein Urine Glucose (UA) Urine Ketones Urine Blood Urine Nitrite Ur Leukocyte Esterase Urine WBC (Auto) Urine RBC (Auto) Blood Type Antibody Screen 05/27/19 08:05 WBC RBC Hgb Hct MCV MCH MCHC RDW Plt Count Seg Neutrophils % Carbonic Acid 0.89 L HCO3/H2CO3 Ratio 12:1 ABG pH 7.17 L* ABG pCO2 29.7 L ABG pO2 88.9 ABG HCO3 10.7 L ABG O2 Saturation 94.6 ABG Base Excess -16.4 VBG pH VBG pCO2 VBG HCO3 VBG Base Excess FiO2 ROOM AIR Sodium Potassium Chloride Carbon Dioxide Anion Gap BUN Creatinine Est GFR ( Amer) Glucose Lactic Acid Calcium Magnesium Total Bilirubin AST Alkaline Phosphatase Total Protein Albumin Urine Color Urine Appearance Urine pH Ur Specific Sandwich Urine Protein Urine Glucose (UA) Urine Ketones Urine Blood Urine Nitrite Ur Leukocyte Esterase Urine WBC (Auto) Urine RBC (Auto) Blood Type Antibody Screen 05/26/19 05/26/19 17:10 17:10 Creatine Kinase 70 Troponin I 0.060 NT-Pro-B Natriuret Pep 2600 H Impressions: Chest X-Ray 05/26/19 17:53 IMPRESSION: NO ACUTE RADIOGRAPHIC FINDING IN THE CHEST. KUB X-Ray 05/26/19 17:53 IMPRESSION: Right staghorn calculus. No acute finding in the abdomen. Plan Discharge Plan: Patient is upgraded to [facility] ICU pending transfer to [facility]. She has been accepted to the MICU, under care of Dr. Lares, and currently awaits bed availability. Time Spent: Greater than 30 Minutes <REAL LOYOLA - Last Filed: 05/27/19 12:00> General Admission Date/PCP: 05/26/19 20:10 FABIAN RIVERA MD - Transfer Diagnosis (1) Sepsis with acute organ dysfunction and septic shock Is this a current diagnosis for this admission?: Yes (2) Acute renal failure Is this a current diagnosis for this admission?: Yes (3) Acute metabolic encephalopathy Is this a current diagnosis for this admission?: Yes (4) Hyperkalemia, diminished renal excretion Is this a current diagnosis for this admission?: Yes (5) Lactic acidosis Is this a current diagnosis for this admission?: Yes (6) Colorectal carcinoma Is this a current diagnosis for this admission?: Yes - Transfer Medications Transfer Medications: Current Medications Albuterol/Ipratropium (Duoneb 3 Ml Ampul) 3 ml NEB RTQ6HP PRN PRN Reason: SHORTNESS OF BREATH Stop: 06/25/19 19:57 Sodium Chloride (Nacl 0.9% 250 Ml Iv Soln) 250 mls @ 0 mls/hr IV CONTINUOUS PRN PRN Reason: AFTER EACH UNIT Stop: 05/28/19 07:49 Cefepime HCl (Maxipime Rtu 1 Gm/D5w 50 Ml Premix Bag) 1 gm in 50 mls @ 100 mls/hr IV QHS [facility] Stop: 06/03/19 21:59 Sodium Bicarbonate 150 meq/ (Dextrose) 1,000 mls @ 150 mls/hr IV CONTINUOUS PRN PRN Reason: THIS MED IS NOT "PRN" Stop: 06/26/19 08:26 Norepinephrine Bitartrate 4 mg (/ Dextrose) 250 mls @ 0 mls/hr IV CONTINUOUS PRN; Protocol PRN Reason: THIS MED IS NOT "PRN" Stop: 06/26/19 08:39 Last Admin: 05/27/19 09:14 Dose: 12 mcg/min, 45 mls/hr Documented by: Gentamicin Sulfate 250 mg/ (Dextrose) 106.25 mls @ 100 mls/hr IV NOW ONE Stop: 05/27/19 12:33 Vancomycin HCl 750 mg/ (Dextrose) 250 mls @ 166.667 mls/hr IV Q3D@0600 [facility] Stop: 06/06/19 05:59 Vasopressin 100 unit/ Dextrose 255 mls @ 0 mls/hr IV CONTINUOUS PRN PRN Reason: THIS MED IS NOT "PRN" Stop: 06/26/19 10:38 Last Admin: 05/27/19 11:30 Dose: 0.03 unit/min, 4.59 mls/hr Documented by: Hospital Course Hospital Course: I personally discussed this patient with the hospitalist service and brought the patient to the ICU pending transport to [facility]. My concern was that she was in a shock pattern and may need further resuscitation pending transfer. The patient was able to answer her name but was not able to to offer any complaints given her mental status. Did receive 2 mg of morphine at approximately 4:00 this morning. There have been no episodes of hypoxia as far as can be determined. We see my critical care admission note for further details. Physical Exam Vital Signs: Temp Pulse Resp BP Pulse Ox 94.6 F L 93 18 94/56 L 98 05/27/19 10:00 05/27/19 10:00 05/27/19 10:00 05/27/19 10:00 05/27/19 10:00 Intake & Output 05/26/19 05/27/19 05/28/19 06:59 06:59 06:59 Intake Total 4302 2010 Output Total 62 0 Balance 4240 2010 Weight 79.3 kg Results Laboratory Results: 05/27/19 04:49 05/27/19 10:55 05/26/19 05/26/19 05/26/19 17:10 17:10 17:10 WBC 16.6 H RBC 4.32 Hgb 13.1 Hct 38.5 MCV 89 MCH 30.4 MCHC 34.1 RDW 16.4 H Plt Count 502 H Seg Neutrophils % Not Reportable Carbonic Acid HCO3/H2CO3 Ratio ABG pH ABG pCO2 ABG pO2 ABG HCO3 ABG O2 Saturation ABG Base Excess VBG pH 7.16 L* VBG pCO2 35.5 VBG HCO3 12.4 L VBG Base Excess -15.3 FiO2 Sodium 129.2 L Potassium 8.1 H* Chloride 91 L Carbon Dioxide 10 L* Anion Gap 28 H BUN 136 H Creatinine 12.73 H Est GFR ( Amer) 4 L Glucose 123 H Lactic Acid Calcium 10.9 H Phosphorus Magnesium Total Bilirubin 0.7 AST 23 Alkaline Phosphatase 257 H Ammonia Total Protein 8.5 H Albumin 4.8 Urine Color Urine Appearance Urine pH Ur Specific Sandwich Urine Protein Urine Glucose (UA) Urine Ketones Urine Blood Urine Nitrite Ur Leukocyte Esterase Urine WBC (Auto) Urine RBC (Auto) Blood Type Antibody Screen 05/26/19 05/26/19 05/26/19 17:10 17:10 17:10 WBC RBC Hgb Hct MCV MCH MCHC RDW Plt Count Seg Neutrophils % Carbonic Acid HCO3/H2CO3 Ratio ABG pH ABG pCO2 ABG pO2 ABG HCO3 ABG O2 Saturation ABG Base Excess VBG pH VBG pCO2 VBG HCO3 VBG Base Excess FiO2 Sodium Potassium Chloride Carbon Dioxide Anion Gap BUN Creatinine Est GFR ( Amer) Glucose Lactic Acid 1.2 Calcium Phosphorus Magnesium 4.4 H* Total Bilirubin AST Alkaline Phosphatase Ammonia Total Protein Albumin Urine Color BROWN Urine Appearance TURBID Urine pH 5.0 Ur Specific Sandwich 1.019 Urine Protein 100 H Urine Glucose (UA) NEGATIVE Urine Ketones TRACE H Urine Blood MODERATE H Urine Nitrite NEGATIVE Ur Leukocyte Esterase MODERATE H Urine WBC (Auto) >182 Urine RBC (Auto) 59 Blood Type Antibody Screen 05/26/19 05/26/19 05/26/19 17:45 20:15 23:25 WBC RBC Hgb Hct MCV MCH MCHC RDW Plt Count Seg Neutrophils % Carbonic Acid HCO3/H2CO3 Ratio ABG pH ABG pCO2 ABG pO2 ABG HCO3 ABG O2 Saturation ABG Base Excess VBG pH VBG pCO2 VBG HCO3 VBG Base Excess FiO2 Sodium Potassium Chloride Carbon Dioxide Anion Gap BUN Creatinine Est GFR ( Amer) Glucose Lactic Acid 2.3 H 1.0 Calcium Phosphorus Magnesium Total Bilirubin AST Alkaline Phosphatase Ammonia Total Protein Albumin Urine Color Urine Appearance Urine pH Ur Specific Sandwich Urine Protein Urine Glucose (UA) Urine Ketones Urine Blood Urine Nitrite Ur Leukocyte Esterase Urine WBC (Auto) Urine RBC (Auto) Blood Type B POSITIVE Antibody Screen NEGATIVE 05/26/19 05/27/19 05/27/19 23:25 04:49 04:49 WBC 13.0 H RBC 3.09 L Hgb 9.0 L D Hct 28.0 L MCV 91 MCH 29.2 MCHC 32.3 RDW 16.3 H Plt Count 333 Seg Neutrophils % Not Reportable Carbonic Acid HCO3/H2CO3 Ratio ABG pH ABG pCO2 ABG pO2 ABG HCO3 ABG O2 Saturation ABG Base Excess VBG pH VBG pCO2 VBG HCO3 VBG Base Excess FiO2 Sodium 131.9 L 133.7 L Potassium 6.2 H* D 6.2 H* Chloride 99 106 Carbon Dioxide 10 L* 14 L Anion Gap 23 H 14 BUN 128 H 120 H Creatinine 11.22 H 10.35 H Est GFR ( Amer) 4 L 5 L Glucose 88 63 L Lactic Acid Calcium 9.5 8.3 L Phosphorus Magnesium Total Bilirubin AST Alkaline Phosphatase Ammonia Total Protein Albumin Urine Color Urine Appearance Urine pH Ur Specific Sandwich Urine Protein Urine Glucose (UA) Urine Ketones Urine Blood Urine Nitrite Ur Leukocyte Esterase Urine WBC (Auto) Urine RBC (Auto) Blood Type Antibody Screen 05/27/19 05/27/19 05/27/19 08:05 10:05 10:55 WBC RBC Hgb Hct MCV MCH MCHC RDW Plt Count Seg Neutrophils % Carbonic Acid 0.89 L HCO3/H2CO3 Ratio 12:1 ABG pH 7.17 L* ABG pCO2 29.7 L ABG pO2 88.9 ABG HCO3 10.7 L ABG O2 Saturation 94.6 ABG Base Excess -16.4 VBG pH VBG pCO2 VBG HCO3 VBG Base Excess FiO2 ROOM AIR Sodium 134.5 L Potassium 6.2 H* Chloride 109 H Carbon Dioxide 11 L Anion Gap 15 BUN 113 H Creatinine 9.56 H Est GFR ( Amer) 5 L Glucose 95 Lactic Acid Calcium 8.1 L Phosphorus Magnesium Total Bilirubin AST Alkaline Phosphatase Ammonia 13.9 Total Protein Albumin Urine Color Urine Appearance Urine pH Ur Specific Sandwich Urine Protein Urine Glucose (UA) Urine Ketones Urine Blood Urine Nitrite Ur Leukocyte Esterase Urine WBC (Auto) Urine RBC (Auto) Blood Type Antibody Screen 05/27/19 05/27/19 10:55 10:55 WBC RBC Hgb Hct MCV MCH MCHC RDW Plt Count Seg Neutrophils % Carbonic Acid HCO3/H2CO3 Ratio ABG pH ABG pCO2 ABG pO2 ABG HCO3 ABG O2 Saturation ABG Base Excess VBG pH VBG pCO2 VBG HCO3 VBG Base Excess FiO2 Sodium 133.4 L Potassium 5.6 H Chloride 107 Carbon Dioxide 11 L Anion Gap 15 BUN 100 H Creatinine 9.11 H Est GFR ( Amer) 5 L Glucose 146 H Lactic Acid < 0.5 L Calcium 7.5 L Phosphorus 7.1 H Magnesium 2.8 H D Total Bilirubin 0.4 AST 20 Alkaline Phosphatase 137 H Ammonia Total Protein 5.4 L Albumin 2.7 L Urine Color Urine Appearance Urine pH Ur Specific Sandwich Urine Protein Urine Glucose (UA) Urine Ketones Urine Blood Urine Nitrite Ur Leukocyte Esterase Urine WBC (Auto) Urine RBC (Auto) Blood Type Antibody Screen 05/26/19 05/26/19 17:10 17:10 Creatine Kinase 70 Troponin I 0.060 NT-Pro-B Natriuret Pep 2600 H Impressions: Chest X-Ray 05/26/19 17:53 IMPRESSION: NO ACUTE RADIOGRAPHIC FINDING IN THE CHEST. KUB X-Ray 05/26/19 17:53
[2019-05-27] MEDS: DEXTROSE 5%-WATER 250 ML with NOREPINEPHRINE BITARTRATE 4 MG IV PRN ×6 (09:14→13:45)
[2019-05-27] MEDS ORDERED: CEFEPIME 1 GM/D5W RTU 1 GM/50 ML RTUPB IV SCH ×2 (10:00→22:00)
[2019-05-27] MEDS ORDERED: DEXTROSE 5%-WATER 250 ML with VASOPRESSIN 100 UNIT IV PRN ×2 (10:39)
[2019-05-27 10:42] LABS: ANION GAP 15 (5-19)
[2019-05-27 10:45] LABS: BLOOD UREA NITROGEN 113 mg/dL (7-20); CALCIUM 8.1 mg/dL (8.4-10.2); CARBON DIOXIDE 11 mmol/L (22-30); CHLORIDE 109 mmol/L (98-107); GLUCOSE 95 mg/dL (75-110)
[2019-05-27 10:47] LABS: POTASSIUM 6.2 mmol/L (3.6-5.0)
[2019-05-27] MEDS ORDERED: DEXTROSE 5%-WATER 1000 ML 1,000 ML with SODIUM BICARBONATE 150 MEQ IV ONE ×2 (11:00)
[2019-05-27] MEDS ORDERED: ALBUMIN HUMAN 500 ML IV ONE (11:00)
[2019-05-27] MEDS ORDERED: VASOPRESSIN INJ 20 UNIT/1 ML VIAL ONE (11:13)
[2019-05-27] MEDS ORDERED: DEXTROSE 5% IV ONE (11:30)
[2019-05-27] MEDS ORDERED: GENTAMICIN SULFATE IV ONE (11:30)
[2019-05-27] MEDS ORDERED: WATER IV ONE (11:30)
[2019-05-27 11:32] LABS: ALBUMIN 2.7 g/dL (3.5-5.0); ALKALINE PHOSPHATASE 137 U/L (38-126); ANION GAP 15 (5-19); ASPARTATE AMINO TRANSFERASE 20 U/L (14-36); BILIRUBIN,DIRECT 0.4 mg/dL (0.0-0.4); BILIRUBIN,TOTAL 0.4 mg/dL (0.2-1.3); BLOOD UREA NITROGEN 100 mg/dL (7-20); CALCIUM 7.5 mg/dL (8.4-10.2); CARBON DIOXIDE 11 mmol/L (22-30); CHLORIDE 107 mmol/L (98-107); GLUCOSE 146 mg/dL (75-110); PHOSPHORUS 7.1 mg/dL (2.5-4.5); POTASSIUM 5.6 mmol/L (3.6-5.0)
[2019-05-27 11:37] LABS: TOTAL PROTEIN 5.4 g/dL (6.3-8.2)
--- NOTE | 2019-05-27 11:57 | CRITICAL CARE ADMISSION REPORT ---
HPI Date:: 05/27/19 Time:: 09:30 Reason for ICU Reason:: Hypotension with acute renal failure and hyperkalemia HPI: KYRA REYNOLDS is a 63 year old female from a long-term senior living resident with a history of colorectal cancer s/p Low anterior resection with ileostomy (no Ileoconduit). Has diabetes, GERD, Has also had chemoradiation under the care of Dr. Francisco. Recently discharged May 16, 2019 for treatment of abdominal wall cellulitis and persistent ostomy leakage. She presented with altered mental status with persistent ostomy leakage, gross pyuria with hypotension, bradycardia. She was found to be in acute renal failure with a creatinine of 12.7, potassium 8.1 with peak T waves and severe metabolic acidosis. She received empiric antibiotics and was referred to the hospitalist for admission when it was ascertained that she was a DNR/DNI and transitioning to comfort care. Critical care team was notified and she was felt to not be a candidate given her comfort care status. Her CODE STATUS was verified by portable DNR sheet. She was admitted to the hospitalist service and received approximately 6 L of sterile sodium chloride. With a slight improvement in her blood pressure she stated that she wanted everything done. Her creatinine improved slightly to 10 but she became increasingly hypotensive requiring dopamine on the floor. Because her blood pressures were when she was in renal failure the hospitalist requested that she be transferred to a facility that could perform CVVH. She was accepted to [facility] and however her blood press ures required Levophed and she was transferred to the ICU. She was to be maintained here until transfer however her blood pressures were labile and I was asked to intervene. The patient's mental status was very lethargic and unable to get a distinct and sustained history from her. I did receive information from the hospitalist service and review the EMR. She was noted to have dark tarry ileostomy output. Reviewed her surgical history and the patient had a total colectomy with a ileostomy placement in March 2019. This was not a ureteral diversion procedure. There was original discussion that this was an ileal conduit however that is not the case. Notably, there are gram-negative's in her urine and she was given a stat dose of gentamicin. She is hypothermic and meets criteria for sepsis with shock. She has persistent leakage of her ileostomy with erythema of her skin. Examination is not consistent with necrotizing disease however antibiotics were broadened to cover the potential for this. She has a subcutaneous Mediport in the right side and this is been accessed for vasopressor therapy. An arterial catheter was placed in the ICU presentation. - Diagnosis/Plan (1) Sepsis with acute organ dysfunction and septic shock Qualifiers: Sepsis type: sepsis due to unspecified organism Severe sepsis acute organ dysfunction type: acute renal failure Acute renal failure type: with acute renal cortical necrosis Qualified Code(s): A41.9 - Sepsis, unspecified organism; R65.21 - Severe sepsis with septic shock; N17.1 - Acute kidney failure with acute cortical necrosis Is this a current diagnosis for this admission?: Yes (2) Acute renal failure Qualifiers: Acute renal failure type: with acute renal cortical necrosis Qualified Code(s): N17.1 - Acute kidney failure with acute cortical necrosis Is this a current diagnosis for this admission?: Yes (3) Acute metabolic encephalopathy Is this a current diagnosis for this admission?: Yes (4) Hyperkalemia, diminished renal excretion Is this a current diagnosis for this admission?: Yes (5) Lactic acidosis Is this a current diagnosis for this admission?: Yes (6) Colorectal carcinoma Is this a current diagnosis for this admission?: Yes - . Plan Summary: Patient has obvious sepsis with organ dysfunction present. She also has encephalopathy related to the metabolic effects of sepsis. Examination of her abdomen shows erythema but there is no distinct findings suspicious for necrotizing fasciitis. That being said we may be in the early development in phase of this and have ordered broad-spectrum antibiotics including and concentrated dose of IV gentamicin. He has gram-negative growing in her urine and I am suspicious given time we will have positive blood cultures. At this point, this appears to be stage IV metastatic colorectal cancer however I do not have consultation from oncology to confirm this. The assumption is based on a PET scan done recently which showed regional lymph node uptake. Patient originally was DNR/DNI with comfort care but had rescinded this this morning prior to her transfer to the ICU. Her current encephalopathic state would not allow for a discussion about her care. No family available or present to discuss as well. Her hyperkalemia is persistent as well as her acidosis. Her creatinine has had some improvement on repeat examination. In most situations we may be able to maintain her here without the need for renal replacement therapy. However despite therapy, her hyperkalemia and low pH persists. I am concerned that we are reaching a critical situation which will involve the need for CRRT. Armando rogers this hospital does not provide for this and she will require transfer. Keen judicious evaluation of the abdomen will need to be continued and I have ordered a stat CT of the abdomen and pelvis which will notably need to be done without contrast. The hospitalist service had already discussed the case with Dr. MELENDEZ [facility] He has excepted the patient and we have updated him on the patient's status. The CT scan findings were not available at the time of our discussion. 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 [facility] Denies: Atrial Fibrillation, Congestive Heart Failure, Coronary Artery Disease, Hyperlipidema, Peripheral Vascular Disease, Pulmonary Embolism, Heart Murmur Pulmonary Medical History: Reports: Asthma, Bronchitis, Chronic Obstructive Pulmonary Disease (COPD), Pneumonia - 2014 Denies: Respiratory Failure, Sleep Apnea, Tuberculosis Neurological Medical History: Denies: Seizures Endocrine Medical History: Reports: Hyperthyroidism - liquid radiation Denies: Hypothyroidism Malignancy Medical History: Reports: Colorectal Cancer Denies: Leukemia, Lung Cancer GI Medical History: Reports: Gastroesophageal Reflux Disease Denies: Crohn's Disease, Hepatitis, Hiatal Hernia Musculoskeltal Medical History: Reports: Arthritis Denies: Fibromyalgia Psychiatric Medical History: Reports: Depression Denies: Bipolar Disorder, Dementia, Post Traumatic Stress Disorder Hematology: Reports: Anemia Denies: Hemophilia, Sickle Cell Disease Infectious Medical History: Denies: HIV Past Surgical History Past Surgical History: Reports: Ileostomy - With Low anterior resection and total [id number], Tubal Ligation, Other - Tumor removal of the roat which was benign Denies: Amputation, Appendectomy, Section, Cholecystectomy, Colostom y, Coronary Artery Bypass Graft, Gastric Bypass Surgery, Herniorrhaphy, Hysterectomy, Mastectomy, Pacemaker, Tonsillectomy Social/Family History - Social History Lives with: Intermediate Smoking Status: Unknown if Ever Smoked Frequency of Alcohol Use: None Hx Recreational Drug Use: No Drugs: None Hx Prescription Drug Abuse: No - Medication/Allergies Home Medications: Levothyroxine Sodium 125 mcg PO QAM 05/21/11 Oxybutynin Chloride [Ditropan 5 mg Tablet] 5 mg PO TID #0 05/21/11 Ramipril [Altace 5 mg Capsule] 5 mg PO DAILY #0 05/21/11 Pravastatin Sodium [Pravachol] 20 mg PO QHS 03/10/16 Albuterol Sulfate [Ventolin 0.042% Neb 1.25 mg/3 mL Ampul] 1 vial NEB Q6HP PRN 09/19/17 Buspirone HCl [Buspar 15 mg Tablet] 15 mg PO TID 09/19/17 Omeprazole 20 mg PO DAILY 09/19/17 Sertraline HCl [Zoloft] 150 mg PO DAILY 12/01/18 Atenolol [Tenormin] 25 mg PO QAM 04/05/19 Hydroxyzine Pamoate [Vistaril 25 mg Capsule] 25 mg PO Q8HP PRN 05/11/19 Magnesium Oxide [Mag-Ox 400 mg Tablet] 800 mg PO BID tablet 05/16/19 Sucralfate [Carafate 1 gm Tablet] 1 gm PO ACHS tablet 05/16/19 Acetaminophen [Tylenol 325 mg Tablet] 650 mg PO Q4HP PRN 05/27/19 Aspirin [Aspirin 81 mg Chewable Tablet] 81 mg PO DAILY 05/27/19 Lisinopril 20 mg PO DAILY 05/27/19 Allergies/Adverse Reactions: shellfish derived Allergy (Severe, Verified 04/04/19 02:17) Hives iodine [Iodine] Allergy (Intermediate, Verified 04/04/19 02:17) Rash Sulfa (Sulfonamide Antibiotics) Allergy (Intermediate, Verified 04/04/19 02:17) Hives Iodinated Contrast Media Adverse Reaction (Intermediate, Verified 04/04/19 02:17) Nausea Review of Systems ROS unobtainable: Due to mental status, Other - Did receive information from the hospitalist service and records Physical Exam Vital Signs: Temp Pulse Resp BP Pulse Ox 94.6 F L 93 18 94/56 L 98 05/27/19 10:00 05/27/19 10:00 05/27/19 10:00 05/27/19 10:00 05/27/19 10:00 Intake & Output 05/26/19 05/27/19 05/28/19 06:59 06:59 06:59 Intake Total 4302 1999 Output Total 62 0 Balance 4240 1999 Weight 79.3 kg Weight/Height Weight 79.3 kg Height 5 ft 4 in General appearance: PRESENT: disheveled, obese Exam: Older appearing non-toxic but critically ill hearing 63-year-old female. She is in moderate pain and distress when moved and during examination of her ileostomy site. Mentation is lethargic with ability to arouse with stimulus. Head exam: PRESENT: atraumatic, normocephalic Eye exam: PRESENT: conjunctiva pink, PERRLA. ABSENT: conjunctival injection, conjunctiva pale, nystagmus, scleral icterus Mouth exam: PRESENT: dry mucosa Teeth exam: PRESENT: edentulous Neck exam: ABSENT: carotid bruit, JVD, lymphadenopathy Respiratory exam: PRESENT: clear to auscultation vickie. ABSENT: accessory muscle use, rales, rhonchi, wheezes Cardiovascular exam: PRESENT: RRR, +S1, +S2 Pulses: ABSENT: normal dorsalis pedis pul Vascular exam: ABSENT: normal capillary refill, pallor GI/Abdominal exam: PRESENT: diminished bowel sounds, tenderness, other - Ileosto my region is erythematous there is superficial skin tenderness and erythema. Subcutaneous tissues do not feel boggy or fluctuant.. ABSENT: ascites, distended, firm, guarding, rebound Rectal exam: PRESENT: deferred, other - No sacral decubiti, no rectal mass noted Gentrourinary exam: PRESENT: indwelling catheter. ABSENT: erythema, lesions Musculoskeletal exam: ABSENT: deformity, dislocation Neurological exam: PRESENT: altered - GCS: 3-4-6. No focal motor deficits. Psychiatric exam: PRESENT: flat affect Skin exam: PRESENT: dry, erythema - to skin around ileostomy. ABSENT: cyanosis, mottled, pallor, petechiae, urticaria, vesicles Tubes/Lines: PRESENT: Other - Urinary catheter. Subcutaneous port Laboratory/Radiographs Laboratory Results: 05/27/19 04:49 05/27/19 10:05 05/26/19 05/26/19 05/26/19 17:10 17:10 17:10 WBC 16.6 H RBC 4.32 Hgb 13.1 Hct 38.5 MCV 89 MCH 30.4 MCHC 34.1 RDW 16.4 H Plt Count 502 H Seg Neutrophils % Not Reportable Carbonic Acid HCO3/H2CO3 Ratio ABG pH ABG pCO2 ABG pO2 ABG HCO3 ABG O2 Saturation ABG Base Excess VBG pH 7.16 L* VBG pCO2 35.5 VBG HCO3 12.4 L VBG Base Excess -15.3 FiO2 Sodium 129.2 L Potassium 8.1 H* Chloride 91 L Carbon Dioxide 10 L* Anion Gap 28 H BUN 136 H Creatinine 12.73 H Est GFR ( Amer) 4 L Glucose 123 H Lactic Acid Calcium 10.9 H Magnesium Total Bilirubin 0.7 AST 23 Alkaline Phosphatase 257 H Total Protein 8.5 H Albumin 4.8 Urine Color Urine Appearance Urine pH Ur Specific [place] Urine Protein Urine Glucose (UA) Urine Ketones Urine Blood Urine Nitrite Ur Leukocyte Esterase Urine WBC (Auto) Urine RBC (Auto) Blood Type Antibody Screen 05/26/19 05/26/19 05/26/19 17:10 17:10 17:10 WBC RBC Hgb Hct MCV MCH MCHC RDW Plt Count Seg Neutrophils % Carbonic Acid HCO3/H2CO3 Ratio ABG pH ABG pCO2 ABG pO2 ABG HCO3 ABG O2 Saturation ABG Base Excess VBG pH VBG pCO2 VBG HCO3 VBG Base Excess FiO2 Sodium Potassium Chloride Carbon Dioxide Anion Gap BUN Creatinine Est GFR ( Amer) Glucose Lactic Acid 1.2 Calcium Magnesium 4.4 H* Total Bilirubin AST Alkaline Phosphatase Total Protein Albumin Urine Color BROWN Urine Appearance TURBID Urine pH 5.0 Ur Specific [place] 1.019 Urine Protein 100 H Urine Glucose (UA) NEGATIVE Urine Ketones TRACE H Urine Blood MODERATE H Urine Nitrite NEGATIVE Ur Leukocyte Esterase MODERATE H Urine WBC (Auto) >182 Urine RBC (Auto) 59 Blood Type Antibody Screen 05/26/19 05/26/19 05/26/19 17:45 20:15 23:25 WBC RBC Hgb Hct MCV MCH MCHC RDW Plt Count Seg Neutrophils % Carbonic Acid HCO3/H2CO3 Ratio ABG pH ABG pCO2 ABG pO2 ABG HCO3 ABG O2 Saturation ABG Base Excess VBG pH VBG pCO2 VBG HCO3 VBG Base Excess FiO2 Sodium Potassium Chloride Carbon Dioxide Anion Gap BUN Creatinine Est GFR ( Amer) Glucose Lactic Acid 2.3 H 1.0 Calcium Magnesium Total Bilirubin AST Alkaline Phosphatase Total Protein Albumin Urine Color Urine Appearance Urine pH Ur Specific [place] Urine Protein Urine Glucose (UA) Urine Ketones Urine Blood Urine Nitrite Ur Leukocyte Esterase Urine WBC (Auto) Urine RBC (Auto) Blood Type B POSITIVE Antibody Screen NEGATIVE 05/26/19 05/27/19 05/27/19 23:25 04:49 04:49 WBC 13.0 H RBC 3.09 L Hgb 9.0 L D Hct 28.0 L MCV 91 MCH 29.2 MCHC 32.3 RDW 16.3 H Plt Count 333 Seg Neutrophils % Not Reportable Carbonic Acid HCO3/H2CO3 Ratio ABG pH ABG pCO2 ABG pO2 ABG HCO3 ABG O2 Saturation ABG Base Excess VBG pH VBG pCO2 VBG HCO3 VBG Base Excess FiO2 Sodium 131.9 L 133.7 L Potassium 6.2 H* D 6.2 H* Chloride 99 106 Carbon Dioxide 10 L* 14 L Anion Gap 23 H 14 BUN 128 H 120 H Creatinine 11.22 H 10.35 H Est GFR ( Amer) 4 L 5 L Glucose 88 63 L Lactic Acid Calcium 9.5 8.3 L Magnesium Total Bilirubin AST Alkaline Phosphatase Total Protein Albumin Urine Color Urine Appearance Urine pH Ur Specific [place] Urine Protein Urine Glucose (UA) Urine Ketones Urine Blood Urine Nitrite Ur Leukocyte Esterase Urine WBC (Auto) Urine RBC (Auto) Blood Type Antibody Screen 05/27/19 05/27/19 08:05 10:05 WBC RBC Hgb Hct MCV MCH MCHC RDW Plt Count Seg Neutrophils % Carbonic Acid 0.89 L HCO3/H2CO3 Ratio 12:1 ABG pH 7.17 L* ABG pCO2 29.7 L ABG pO2 88.9 ABG HCO3 10.7 L ABG O2 Saturation 94.6 ABG Base Excess -16.4 VBG pH VBG pCO2 VBG HCO3 VBG Base Excess FiO2 ROOM AIR Sodium 134.5 L Potassium 6.2 H* Chloride 109 H Carbon Dioxide 11 L Anion Gap 15 BUN 113 H Creatinine 9.56 H Est GFR ( Amer) 5 L Glucose 95 Lactic Acid Calcium 8.1 L Magnesium Total Bilirubin AST Alkaline Phosphatase Total Protein Albumin Urine Color Urine Appearance Urine pH Ur Specific [place] Urine Protein Urine Glucose (UA) Urine Ketones Urine Blood Urine Nitrite Ur Leukocyte Esterase Urine WBC (Auto) Urine RBC (Auto) Blood Type Antibody Screen 05/26/19 05/26/19 17:10 17:10 Creatine Kinase 70 Troponin I 0.060 NT-Pro-B Natriuret Pep 2600 H Impressions: Chest X-Ray 05/26/19 17:53 IMPRESSION: NO ACUTE RADIOGRAPHIC FINDING IN THE CHEST. KUB X-Ray 05/26/19 17:53 IMPRESSION: Right staghorn calculus. No acute finding in the abdomen. All labs, radiographs, diagnostic studies and EKGs were personally reviewed: Yes In addition, reports of radiographic and diagnostic studies were read: Yes Critical Time Critical Time (minutes): 90 -: The care of a critically ill patient is dynamic. This note represents a static moment in the admission process. Orders and treatments may be given simultaneously and urgently, and time is not premium service representative of the treatment process. This patient requires Critical Care secondary to life threatening organ or limb dysfunction. Without Critical Care services, the patient is at risk for increased mortality and morbidity.
--- NOTE | 2019-05-27 12:21 | RADIOLOGY REPORT (SQ) ---
EXAM DESCRIPTION: U/S RETROPERITON (RENAL/AORTA) COMPLETED DATE/TIME: 05/27/2019 11:16 am REASON FOR STUDY: renal failure COMPARISON: CT abdomen and pelvis 04/04/2019 TECHNIQUE: Dynamic and static grayscale images acquired of the kidneys and bladder and recorded on P ACS. Additional selected color Doppler and spectral images recorded. LIMITATIONS: None. FINDINGS: RIGHT KIDNEY: Normal size. Persistent hydronephrosis with the appearance of shadowing ech ogenic foci within the collecting system. Largest exophytic cyst emanates from the inferior pole. B ackground parenchymal echogenicity appears grossly normal. LEFT KIDNEY: Normal size. Normal echogenicity. No solid or suspicious masses. No hydronephrosis. No calcifications. BLADDER: Decompressed. OTHER FINDINGS: No other significant finding. IMPRESSION: Given differences in modalities, essentially stable appearance of the right kidney demon strating marked hydronephrosis in the setting of obstructive urolithiasis. TECHNICAL DOCUMENTATION: JOB ID: [id number] 2010 [employer]- All Rights Reserved Reading location - IP/workstation name: [email or web address]
[2019-05-27 12:48] VITALS: BP 89/54
--- NOTE | 2019-05-27 13:10 | RADIOLOGY REPORT (SQ) ---
EXAM DESCRIPTION: CT ABD/PELVIS NO ORAL OR IV COMPLETED DATE/TIME: 05/27/2019 12:40 pm REASON FOR STUDY: Fasciitis, sepsis COMPARISON: 05/27/2019 and 04/04/2019 TECHNIQUE: CT scan of the abdomen and pelvis performed without intravenous or oral contrast. Images reviewed with lung, soft tissue, and bone windows. Reconstructed coronal and sagittal MPR images revi ewed. All images stored on PACS. All CT scanners at this facility use dose modulation, iterative reconstruction, and/or weight based d osing when appropriate to reduce radiation dose to as low as reasonably achievable (ALARA). [facility]: Dose Right [facility]: CareDose [facility]: Dose Right [facility]: Teradose 4D [facility]: Smart Ace Metrix RADIATION DOSE: CT Rad equipment meets quality standard of care and radiation dose reduction techniq ues were employed. CTDIvol: 17.0 mGy. DLP: 867 mGy-cm.mGy. LIMITATIONS: None. FINDINGS: LOWER CHEST: No acute pulmonary findings. Re- demonstration of a large hiatal hernia. NON-CONTRASTED LIVER, SPLEEN, ADRENALS: Evaluation limited by lack of IV contrast. No identified sign ificant masses. PANCREAS: No masses. No peripancreatic inflammatory changes. GALLBLADDER: Gallstones. No inflammatory changes to suggest cholecystitis. RIGHT KIDNEY AND URETER: No suspicious masses. Assessment limited by lack of IV contrast. Grossly st able attenuation. Chronic hydronephrosis on the basis of a staghorn calculus. LEFT KIDNEY AND URETER: No suspicious masses. Assessment limited by lack of IV contrast. Punctate n onobstructing nephroliths are seen within the collecting system. No hydronephrosis or hydroureter. AORTA AND RETROPERITONEUM: No aneurysm. No retroperitoneal masses or adenopathy. BOWEL AND PERITONEAL CAVITY: Right lower quadrant ileostomy. No focal inflammatory changes. APPENDIX: Normal. PELVIS, BLADDER, AND ABDOMINAL WALL:The bladder is decompressed with a Mejia catheter. No pelvic mas ses or lymphadenopathy. BONES: No significant findings. OTHER: No other significant finding. IMPRESSION: 1. Chronic hydronephrosis on the basis of a right ureteropelvic junction staghorn calcu contreras. 2. Right lower quadrant ileostomy. 3. Large hiatal hernia. COMMENT: Quality ID # [id number]: Final reports with documentation of one or more dose reduction techniques (e.g., Automated exposure control, adjustment of the mA and/or kV according to patient size, use of iterative reconstruction technique) TECHNICAL DOCUMENTATION: JOB ID: [id number] 2010 [employer], Part of [employer]- All Rights Reserved Reading location - IP/workstation name: [email or web address]
[2019-05-27 13:13] LABS: URINE AMPHETAMINES SCREEN NEGATIVE; URINE BARBITURATES SCREEN NEGATIVE; URINE BENZODIAZEPINES SCREEN NEGATIVE; URINE COCAINE SCREEN NEGATIVE; URINE MARIJUANA (THC) SCREEN NEGATIVE; URINE METHADONE SCREEN NEGATIVE; URINE PHENCYCLIDINE SCREEN NEGATIVE
[2019-05-27 13:19] LABS: URINE CREATININE 127.2 mg/dL (15-278); URINE PROTEIN 104.7 mg/dL (<12)
--- NOTE | 2019-05-28 00:31 | EKG REPORT ---
SEVERITY:- ABNORMAL ECG - SINUS RHYTHM ATRIAL PREMATURE COMPLEX NONSPECIFIC IVCD WITH LAD LEFT VENTRICULAR HYPERTROPHY INFERIOR INFARCT, AGE INDETERMINATE : Confirmed by: Fanta Hancock 28-May-2019 00:31:13
--- NOTE | 2019-05-28 00:31 | EKG REPORT ---
SEVERITY:- ABNORMAL ECG - SINUS RHYTHM LEFT ANTERIOR FASCICULAR BLOCK LOW VOLTAGE IN FRONTAL LEADS : Confirmed by: Fanta Hancock 28-May-2019 00:30:23
[2019-05-30] MEDS ORDERED: VANCOMYCIN HCL 750 MG in DEXTROSE 5%-WATER 250 ML IV SCH (06:00)
== END 2019-05-27 13:25 | disposition short-term general hospital (02) | DRG 871 ==
LOC: ER 16:57 → EH 20:10 → 3S 23:56 → ICU 05-27 09:10
PROVIDERS: ADMIT Internal Medicine; ATTEND Internal Medicine
DX: A41.9 Sepsis, unspecified organism (principal); R65.21 Severe sepsis with septic shock; N17.9 Acute kidney failure, unspecified; K92.2 Gastrointestinal hemorrhage, unspecified; N39.0 Urinary tract infection, site not specified; E87.2 Acidosis; E87.5 Hyperkalemia; J44.9 Chronic obstructive pulmonary disease, unspecified; E05.90 Thyrotoxicosis, unspecified without thyrotoxic crisis or storm; K21.9 Gastro-esophageal reflux disease without esophagitis; M19.90 Unspecified osteoarthritis, unspecified site; N18.9 Chronic kidney disease, unspecified; I12.9 Hypertensive chronic kidney disease with stage 1 through stage 4 chronic kidney disease, or unspecified chronic kidney disease; E11.22 Type 2 diabetes mellitus with diabetic chronic kidney disease; E11.65 Type 2 diabetes mellitus with hyperglycemia; R68.0 Hypothermia, not associated with low environmental temperature; Z66 Do not resuscitate; I25.2 Old myocardial infarction; Z93.3 Colostomy status; Z85.038 Personal history of other malignant neoplasm of large intestine; Z98.84 Bariatric surgery status; Z79.82 Long term (current) use of aspirin; Z79.51 Long term (current) use of inhaled steroids; Z79.899 Other long term (current) drug therapy
CPT/HCPCS: 36415; 71045; 74018; 74176; 76770; 80053; 80307; 81001; 82140; 82271; 82550; 82570; 82803; 82962; 83605; 83735; 83880; 84100; 84133; 84156; 84300; 84484; 85025; 85610; 86850; 86900; 86901; 86920; 87040; 87070; 87086; 87088; 87186; 93005; 93010; 94640; 96361; 96374; 96375; 99291; 99292; C9113; J0610; J0692; J1265; J1580; J1815; J2270; J2405; J3370; J3490; J7030; J7060; J7620; P9041

== ENCOUNTER 2019-06-18 17:08 | Inpatient (IN) | payer MEDICAID ==
--- NOTE | 2019-06-18 17:40 | ER Document Report ---
ED General - General Information source: Patient TRAVEL OUTSIDE OF THE [place] IN LAST 30 DAYS: No - HPI Onset: Just prior to arrival Onset/Duration: Persistent Quality of pain: Other - weakness Severity: Mild Pain Level: 0 Associated symptoms: Shortness of breath, Weakness Exacerbated by: Movement, Walking, Deep breathing Relieved by: Remaining still Similar symptoms previously: Yes Recently seen / treated by doctor: Yes - Patient was just released from [facility] b/o COPD ;there for 2 weeks <POORNIMA RUSSELL JR - Last Filed: 06/18/19 19:41> <BERNADETTE BRYANT - Last Filed: 06/18/19 21:26> - General Chief Complaint: Shortness Of Breath Stated Complaint: BREATHING PROBLEMS Time Seen by Provider: 06/18/19 17:34 Primary Care Provider: FABIAN RIVERA MD [Primary Care Provider] - Follow up as needed Notes: 63-year-old female arrives by EMS with chief complaint of having weakness and dark stools per her colostomy bag. This is been going on for 1 week. The last time she was admitted here and [facility] her roommate and her mother was called in order to establish DNR status. Patient wants to be a DNR but has no paperwork at this time. Advised we will try to arrange for this. Patient also reports her symptoms of shortness of breath and severe weakness and paleness occurred around 7 days ago. She reports she did receive blood while at [facility] when she was admitted there on 25 May and was discharged on 08 June. Also patient has been noted to have UTI sepsis ARF hyperkalemia and in March diagnosed with rectal cancer. Patient was made DNR at 1830 at patient request. Patient continued to have lower pressure despite 500 bolus of saline per port. Patient has a history of COPD tobacco abuse depression anxiety disorder GI bleed colostomy rectal cancer. She denies taking any blood pressure medicines today. (POORNIMA RUSSELL JR) - Related Data Allergies/Adverse Reactions: shellfish derived Allergy (Severe, Verified 04/04/19 02:17) Hives iodine [Iodine] Allergy (Intermediate, Verified 04/04/19 02:17) Rash Sulfa (Sulfonamide Antibiotics) Allergy (Intermediate, Verified 04/04/19 02:17) Hives Iodinated Contrast Media Adverse Reaction (Intermediate, Verified 04/04/19 02:17) Nausea Past Medical History - General Information source: Patient - Social History Smoking Status: Former Smoker - Former smoker 1/2 ppd but stopped many years ago Cigarette use (# per day): No Chew tobacco use (# tins/day): No Smoking Education Provided: No Frequency of alcohol use: None Drug Abuse: None Family History: CAD, DM, Hyperlipidemia, Hypertension - Past Medical History Cardiac Medical History: Reports: Hx Heart Attack - unsure-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 De nies: Hx Hypothyroidism Malignancy Medical History: Reports: Hx Colorectal Cancer. Denies: Hx Leukemia, Hx Lung Cancer GI Medical History: Reports: Hx Gastroesophageal Reflux Disease. Denies: Hx Crohn's Disease, Hx Hepatitis, Hx Hiatal Hernia, Hx Irritable Bowel, Hx Liver Failure, Hx Pancreatitis, Hx Ulcer Musculoskeletal Medical History: Reports Hx Arthritis, Denies Hx Fibromyalgia, Denies Hx Multiple Sclerosis, Denies Hx Muscular Dystrophy, Denies Hx Systemic Lupus Erythematosus Psychiatric Medical History: Reports: Hx Depression Denies: Hx Bipolar Disorder, Hx Dementia, Hx Post Traumatic Stress Disorder, Hx Schizophrenia Traumatic Medical History: Denies: Hx Fractures Infectious Medical History: Denies: Hx Hepatitis, Hx HIV Past Surgical History: Reports: Hx Abdominal Surgery - COLOSTOMY, Hx Ileostomy - With Low anterior resection and total [id number], Hx Tubal Ligation, Other - 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 Denies: Hx Appendectomy, Hx Bowel Surgery, Hx Section, Hx Cholecystectomy, Hx Colostomy, Hx Coronary Artery Bypass Graft, Hx Gastric Bypass Surgery, Hx Herniorrhaphy, Hx Hysterectomy, Hx Mastectomy, Hx Open Heart Surgery, Hx Pacemaker, Hx Tonsillectomy - Immunizations Hx Diphtheria, Pertussis, Tetanus Vaccination: Yes - not sure <POORNIMA RUSSELL JR - Last Filed: 06/18/19 19:41> Review of Systems - Review of Systems Constitutional: See HPI, Malaise, Weakness, Recent illness EENT: No symptoms reported Cardiovascular: See HPI, Dizziness, Lightheaded Respiratory: See HPI, Short of breath Gastrointestinal: See HPI, Abdominal pain, Black stools Genitourinary: No symptoms reported Female Genitourinary: No symptoms reported Musculoskeletal: No symptoms reported Skin: See HPI, Other - Pale skin and conjunctivae Hematologic/Lymphatic: No symptoms reported Neurological/Psychological: See HPI, Weakness <YVONNEPOORNIMA Keen - Last Filed: 06/18/19 19:41> Physical Exam - Vital signs Interpretation: Hypotensive - HEENT Head: Normocephalic Eyes: Normal Conjunctiva: Normal Cornea: Normal Extraocular movements intact: Yes Eyelashes: Normal Pupils: PERRL Pharynx: Normal Neck: Normal - Respiratory Respiratory status: No respiratory distress Chest status: Nontender Breath sounds: Normal Chest palpation: Normal - Cardiovascular Rhythm: Regular Heart sounds: Normal auscultation Murmur: No Friction rub: No Ashley's crunch: No - Abdominal Inspection: Other - Colostomy bag Distension: No distension Bowel sounds: Hypoactive Tenderness: Nontender Organomegaly: No organomegaly - Genitourinary External exam: Normal - Back Back: Normal - Extremities General upper extremity: Normal inspection General lower extremity: Normal inspection - Neurological Neuro grossly intact: Yes Cognition: Normal Orientation: AAOx4 Clyde Coma Scale Eye Opening: Spontaneous Clyde Coma Scale Verbal: Oriented Clyde Coma Scale Motor: Obeys Commands Clyde Coma Scale Total: 15 Speech: Normal Cranial nerves: Normal Cerebellar coordination: Normal Motor strength normal: LUE, RUE, LLE, RLE - Psychological Associated symptoms: Flat affect - Skin Skin Temperature: Cool Skin Moisture: Dry Skin Color: Pale <YVONNEPOORNIMA Keen - Last Filed: 06/18/19 19:41> - Vital signs Vitals: Temp Pulse Resp BP Pulse Ox 94.3 F L 85 14 60/43 L 92 06/18/19 17:28 06/18/19 17:28 06/18/19 17:28 06/18/19 17:28 06/18/19 17:28 Course - Laboratory Result Diagrams: 06/18/19 18:10 06/18/19 18:10 - Diagnostic Test Radiology reviewed: Reports reviewed - Right staghorn calculus but otherwise radiology reads KUB portable chest as within normal limits <POORNIMA RUSSELL JR - Last Filed: 06/18/19 19:41> - Laboratory Result Diagrams: 06/18/19 19:30 06/18/19 19:30 - Diagnostic Test Radiology reviewed: Image reviewed, Reports reviewed - EKG Interpretation by Me EKG shows normal: Sinus rhythm, [place], Intervals, QRS Complexes Rate: Normal Rhythm: NSR <BERNADETTE BRYANT - Last Filed: 06/18/19 21:26> - Re-evaluation Re-evalutation: 06/18/19 21:24 The patient is chronically ill due to colorectal cancer. She has acute renal failure with hyperkalemia, a GI bleed, and she is hypotensive in the ER. Patient is DNR and she does not want any interventions. The patient patient was treated with fluids, calcium gluconate, sodium bicarb, dextrose/insulin and kayexalate in the ER. Patient admitted to a medical bed. (BERNADETTE BRYANT) - Vital Signs Vital signs: Temp Pulse Resp BP Pulse Ox 97.7 F 85 17 88/68 L 99 06/18/19 19:20 06/18/19 17:28 06/18/19 20:46 06/18/19 20:46 06/18/19 20:46 - Laboratory Laboratory results interpreted by me: 06/18/19 06/18/19 06/18/19 19:30 19:30 19:30 RBC 2.75 L Hgb 8.5 L Hct 25.4 L RDW 19.1 H Lymph % (Auto) 7.7 L Seg Neutrophils % 78.6 H Sodium 135.3 L Potassium 6.7 H* Chloride 110 H Carbon Dioxide 11 L BUN 110 H Creatinine 8.84 H Est GFR ( Amer) 5 L Est GFR (MDRD) Non-Af 4 L Glucose 73 L Calcium 7.4 L CK-MB (CK-2) NT-Pro-B Natriuret Pep Total Protein 6.1 L Albumin 3.3 L Crossmatch See Detail 06/18/19 19:30 RBC Hgb Hct RDW Lymph % (Auto) Seg Neutrophils % Sodium Potassium Chloride Carbon Dioxide BUN Creatinine Est GFR ( Amer) Est GFR (MDRD) Non-Af Glucose Calcium CK-MB (CK-2) 8.47 H NT-Pro-B Natriuret Pep 2050 H Total Protein Albumin Crossmatch - EKG Interpretation by Me Additional EKG results interpreted by me: 06/18/19 21:26 q waves in inferior leads (BERNADETTE BRYANT) Critical Care Note - Critical Care Note Total time excluding time spent on procedures (mins): 90 <POORNIMA RUSSELL JR - Last Filed: 06/18/19 19:41> - Critical Care Note Comments: turned over to Nanci at 1941 (POORNIMA RUSSELL JR) Discharge <POORNIMA RUSSELL JR - Last Filed: 06/18/19 19:41> - Discharge Admitting Provider: Roger (Hospitalist) <MANNYBERNADETTE John - Last Filed: 06/18/19 21:26> - Discharge Clinical Impression: Colorectal cancer Hypotension Qualifiers: Hypotension type: other hypotension type Qualified Code(s): I95.89 - Other hypotension Acute kidney failure Qualifiers: Acute renal failure type: unspecified Qualified Code(s): N17.9 - Acute kidney failure, unspecified Anemia Qualifiers: Anemia type: unspecified type Qualified Code(s): D64.9 - Anemia, unspecified Condition: Poor Disposition: ADMITTED INPATIENT Referrals: FABIAN RIVERA MD [Primary Care Provider] - Follow up as needed
[2019-06-18] MEDS ORDERED: NORMAL SALINE 1000 ML 1,000 ML IV ONE ×2 (17:42→23:01)
--- NOTE | 2019-06-18 18:35 | RADIOLOGY REPORT (SQ) ---
EXAM DESCRIPTION: ACUTE ABDOMEN SERIES IMAGES COMPLETED DATE/TIME: 06/18/2019 6:16 pm REASON FOR STUDY: sob weak COMPARISON: CT abdomen pelvis 05/27/2019 KUB 05/26/2019, 03/30/2019 AP chest 05/26/2019 NUMBER OF VIEWS: Three views. TECHNIQUE: Frontal chest, supine abdomen and upright abdomen radiographic images acquired. LIMITATIONS: None. FINDINGS: CHEST: Lungs clear of infiltrates. No pleural effusion or pneumothorax. Stable mild card iomegaly. Unchanged right jugular central venous catheter. FREE AIR: None. No abnormal gas collections. BOWEL GAS PATTERN: Nonobstructive pattern. No dilated loops or air fluid levels. CALCIFICATIONS: Right-sided staghorn calculus in the renal pelvis, unchanged. Unchanged right lower poles dystrophic cortical calcifications HARDWARE: None in the abdomen. SOFT TISSUES: No gross mass or suggestion of organomegaly. BONES: No acute fracture. No worrisome bone lesions. OTHER: No other significant finding. IMPRESSION: NO RADIOGRAPHIC EVIDENCE FOR ACUTE ABDOMINAL DISEASE. UNCHANGED RIGHT STAGHORN CALCULUS. TECHNICAL DOCUMENTATION: JOB ID: [id number] [employer]- All Rights Reserved Reading location - IP/workstation name: [email or web address]
[2019-06-18 18:46] LABS: INTERNATIONAL RATION (INR) 1.16; PROTHROMBIN TIME 14.9 SEC (11.4-15.4)
[2019-06-18 18:47] LABS: PARTIAL THROMBOPLASTIN TIME 29.7 SEC (23.5-35.8)
[2019-06-18] MEDS ORDERED: NORMAL SALINE 250 ML IV PRN (19:11)
[2019-06-18] MEDS: RINGERS SOLUTION,LACTATED 1,000 ML IV PRN ×2 (19:12→20:21)
[2019-06-18 19:55] LABS: ABSOLUTE BASOPHILS # (AUTO) 0.1 10^3/uL (0.0-0.2); ABSOLUTE EOSINOPHILS # (AUTO) 0.1 10^3/uL (0.0-0.6); ABSOLUTE LYMPHOCYTES (AUTO) 0.6 10^3/uL (0.5-4.7); ABSOLUTE MONOCYTES (AUTO) 0.9 10^3/uL (0.1-1.4); ABSOLUTE NEUT (AUTO) 5.9 10^3/uL (1.7-8.2); BASOPHILS % (AUTO) 0.9 % (0-2); EOSINOPHILS % (AUTO) 0.8 % (0-6); HEMATOCRIT 25.4 % (36.0-47.0); HEMOGLOBIN 8.5 g/dL (12.0-15.5); LYMPHOCYTES % (AUTO) 7.7 % (13-45); MEAN CORPUSCULAR HEMOGLOBIN 30.9 pg (27.0-33.4); MEAN CORPUSCULAR HGB CONC 33.4 g/dL (32.0-36.0); MEAN CORPUSCULAR VOLUME 92 fl (80-97); PLATELET COUNT 370 10^3/uL (150-450); RED BLOOD COUNT 2.75 10^6/uL (3.72-5.28); RED CELL DISTRIBUTION WIDTH 19.1 % (11.5-14.0); SEGMENTED NEUTROPHILS % (AUTO) 78.6 % (42-78); TOTAL CELLS COUNTED % (AUTO) 100 %; WHITE BLOOD COUNT 7.5 10^3/uL (4.0-10.5)
[2019-06-18 20:29] LABS: ALBUMIN 3.3 g/dL (3.5-5.0); ALKALINE PHOSPHATASE 83 U/L (38-126); ANION GAP 14 (5-19); ASPARTATE AMINO TRANSFERASE 16 U/L (14-36); BILIRUBIN,TOTAL 0.2 mg/dL (0.2-1.3); BLOOD UREA NITROGEN 110 mg/dL (7-20); CALCIUM 7.4 mg/dL (8.4-10.2); CARBON DIOXIDE 11 mmol/L (22-30); CHLORIDE 110 mmol/L (98-107); GLUCOSE 73 mg/dL (75-110); TOTAL PROTEIN 6.1 g/dL (6.3-8.2)
[2019-06-18 20:41] LABS: CREATINE KINASE MB 8.47 ng/mL (<4.55)
--- NOTE | 2019-06-18 20:42 | RADIOLOGY REPORT (SQ) ---
EXAM DESCRIPTION: CT abdomen and pelvis without contrast CLINICAL HISTORY: 63 years Female, abdominal pain COMPARISON: CT abdomen pelvis 05/27/2019 TECHNIQUE: Axial images of the abdomen and pelvis were performed without the use of intravenous contrast, with sagittal and coronal reformatted images. This exam was performed according to our departmental dose-optimization program which includes use of Automated Exposure Control, adjustment of the mA and/or kV according to patient size and/or use of iterative reconstruction technique. FINDINGS: There is a partial staghorn calculus in the right kidney, with severe hydronephrosis involving the mid and lower right kidney. There is severe associated cortical atrophy. These findings were also present on the prior scan. There are small stones in the left kidney, but there is no hydronephrosis on the left side. No evidence of bowel obstruction. There is a small gallstone. There are postoperative changes in the pelvis. There is a right lower quadrant ileostomy. There is no significant radiographic abnormality of the liver, spleen, pancreas or adrenal glands. No free air or free fluid. IMPRESSION: No acute finding. Other findings as described.
[2019-06-18 20:54] LABS: POTASSIUM 6.7 mmol/L (3.6-5.0); TROPONIN I 0.076 ng/mL
[2019-06-18] MEDS ORDERED: DEXTROSE 50%-WATER 25 GM/50 ML DISP.SYRIN IV ONE (21:10)
[2019-06-18] MEDS ORDERED: INSULIN REG, HUMAN 100 UNIT/ML 3 ML VIAL (PYX) IV ONE (21:10)
[2019-06-18] MEDS ORDERED: CALCIUM GLUCONATE 1000 MG/10 ML INJ IV ONE (21:10)
[2019-06-18] MEDS ORDERED: SODIUM BICARBONATE 8.4% INJ 50 MEQ/50 ML DISP.SYRIN IV ONE (21:10)
[2019-06-18 21:31] LABS: APPEARANCE,URINE CLOUDY; BILIRUBIN,URINE NEGATIVE (NEGATIVE); COLOR,URINE YELLOW; GLUCOSE, URINE NEGATIVE (NEGATIVE); KETONES,URINE NEGATIVE (NEGATIVE); LEUKOCYTE ESTERASE,URINE LARGE (NEGATIVE); NITRITE,URINE NEGATIVE (NEGATIVE); PROTEIN,URINE 100 mg/dL (NEGATIVE); URINE SPECIFIC GRAVITY 1.017; UROBILINOGEN,URINE NEGATIVE mg/dL (<2.0)
[2019-06-18] MEDS ORDERED: MAG HYDROX/AL HYDROX/SIMETH SUSP 30 ML UDCUP PO PRN (22:10)
[2019-06-18] MEDS ORDERED: LEVALBUTEROL HCL NEB 0.63 MG/3 ML AMPUL NEB PRN (22:10)
[2019-06-18] MEDS ORDERED: LORAZEPAM INJ 2 MG/1 ML VIAL IV PRN (22:16)
[2019-06-18] MEDS ORDERED: SODIUM POLYSTYRENE SULFONATE 15 GM/60 ML PO ONE (22:30)
[2019-06-18] MEDS: DEXTROSE 5%-NORMAL SALINE 1,000 ML IV PRN ×2 (22:30→22:35)
[2019-06-18] MEDS: ONDANSETRON HCL INJ/PF 4 MG/2 ML SDV IV PRN (22:40)
[2019-06-18] MEDS ORDERED: CEFTRIAXONE 1 GM/D5W RTU 1 G/50 ML RTUPB IV ONE (23:21)
[2019-06-18] MEDS: DOPAMINE HCL/DEXTROSE 5%-WATER 800 MG/250 ML RTUINJ IV PRN (23:35)
[2019-06-18] MEDS: PROMETHAZINE HCL INJ 25 MG/1 ML VIAL IV PRN (23:54)
[2019-06-19] MEDS ORDERED: DOPAMINE HCL/DEXTROSE 5%-WATER 800 MG/250 ML RTUINJ IV ONE (00:14)
[2019-06-19] MEDS: DEXTROSE 5%-NORMAL SALINE 1,000 ML IV PRN ×5 (01:06→17:20)
[2019-06-19] MEDS: SODIUM POLYSTYRENE SULFONATE 15 GM/60 ML PO SCH ×3 (06:31→16:25)
[2019-06-19] MEDS: PANTOPRAZOLE SODIUM 40 MG TABLET.DR PO SCH ×2 (06:31→16:25)
--- NOTE | 2019-06-19 06:49 | PDOC H&P ---
History of Present Illness Admission Date/PCP: 06/18/2019 21:43 FABIAN RIVERA MD Patient complains of: Generalized weakness History of Present Illness: KYRA REYNOLDS is a 63 year old female who presented to the emergency department with a one-week history of generalized weakness. She admits gradually worsening generalized weakness over the last week since she was discharged from a [facility]. Her weakness has become moderate to severe and has been accompanied by dark stools in her ileostomy bag. Her weakness is made worse by any activities or exertion. She has chronic lower GI bleeding and chronic renal failure. She expresses the wish to be DNR/DNI and does not want any exceptional measures undertaken, she would like to just receive some IV fluids because she feels she is dehydrated and has experienced the same symptoms in the past. She also admits chronic hypotension and does not wish to be treated with vasopressors. She denies other associated or accompanying signs and symptoms. She has not identified any additional aggravating or ameliorating factors for her generalized weakness. In the emergency room she was found to have acute on chronic renal failure with a potassium of 6.7 and was noted to be intermittently hypotensive. She was subsequently admitted for further evaluation and treatment within the parameters that she has outlined for her care. Past Medical History Cardiac Medical History: Reports: Myocardial Infarction - 2010, Hypertension Denies: Atrial Fibrillation, Congestive Heart Failure, Coronary Artery Disease, Hyperlipidema, Peripheral Vascular Disease, Pulmonary Embolism, Heart Murmur Pulmonary Medical History: Reports: Asthma, Bronchitis, Chronic Obstructive Pu lmonary Disease (COPD), Pneumonia - 2014 Denies: Respiratory Failure, Sleep Apnea, Tuberculosis EENT Medical History: Denies: Cataracts, Ears - Hearing aids Neurological Medical History: Denies: Hemorrhagic CVA, Ischemic CVA, Seizures Endocrine Medical History: Reports: Hyperthyroidism - Treated with radioactive iodine, Hypothyroidism - Post ablation Denies: Diabetes Mellitus Type 1, Diabetes Mellitus Type 2 Renal/ Medical History: Reports: Other - Episodes of acute renal failure Denies: Chronic Kidney Disease, Nephrolithiasis Malignancy Medical History: Reports: Colorectal Cancer GI Medical History: Reports: Gastroesophageal Reflux Disease, Other - Chronic lower GI bleeding Denies: Cirrhosis, Crohn's Disease, Hepatitis, Hiatal Hernia, Peptic Ulcer Disease, Ulcerative Colitis Musculoskeltal Medical History: Reports: Arthritis Denies: Fibromyalgia Skin Medical History: Denies: Eczema, Psoriasis Psychiatric Medical History: Reports: Depression Denies: Alcohol Dependency, Post Traumatic Stress Disorder, Substance Abuse, Tobacco Dependency Traumatic Medical History: Reports: None Hematology: Reports: Anemia - Chronic due to chronic blood loss, Bleeding Tendencies Infectious Medical History: Reports: None Past Surgical History Past Surgical History: Reports: Ileostomy - With Low anterior resection and total [id number], Tubal Ligation, Other - 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 Social History Information Source: Patient Lives with: Alone Smoking Status: Former Smoker - Former smoker 1/2 ppd but stopped many years ago Electronic Cigarette use?: No Frequency of Alcohol Use: None Hx Recreational Drug Use: No Drugs: None Hx Prescription Drug Abuse: No - Advance Directive Resuscitation Status: Do Not Resuscitate Surrogate healthcare decision maker:: Carola Vanessa Family History Family History: CAD, DM, Hyperlipidemia, Hypertension Parental Family History Reviewed: Yes Children Family History Reviewed: No Sibling(s) Family History Reviewed.: Yes Medication/Allergy Home Medications: Levothyroxine Sodium 125 mcg PO QAM 05/21/11 Oxybutynin Chloride [Ditropan 5 mg Tablet] 5 mg PO TID #0 05/21/11 Ramipril [Altace 5 mg Capsule] 5 mg PO DAILY #0 05/21/11 Pravastatin Sodium [Pravachol] 20 mg PO QHS 03/10/16 Albuterol Sulfate [Ventolin 0.042% Neb 1.25 mg/3 mL Ampul] 1 vial NEB Q6HP PRN 09/19/17 Buspirone HCl [Buspar 15 mg Tablet] 15 mg PO TID 09/19/17 Omeprazole 20 mg PO DAILY 09/19/17 Sertraline HCl [Zoloft] 150 mg PO DAILY 12/01/18 Atenolol [Tenormin] 25 mg PO QAM 04/05/19 Hydroxyzine Pamoate [Vistaril 25 mg Capsule] 25 mg PO Q8HP PRN 05/11/19 Magnesium Oxide [Mag-Ox 400 mg Tablet] 800 mg PO BID tablet 05/16/19 Sucralfate [Carafate 1 gm Tablet] 1 gm PO ACHS tablet 05/16/19 Acetaminophen [Tylenol 325 mg Tablet] 650 mg PO Q4HP PRN 05/27/19 Aspirin [Aspirin 81 mg Chewable Tablet] 81 mg PO DAILY 05/27/19 Lisinopril 20 mg PO DAILY 05/27/19 Allergies/Adverse Reactions: shellfish derived Allergy (Severe, Verified 04/04/19 02:17) Hives iodine [Iodine] Allergy (Intermediate, Verified 04/04/19 02:17) Rash Sulfa (Sulfonamide Antibiotics) Allergy (Intermediate, Verified 04/04/19 02:17) Hives Iodinated Contrast Media Adverse Reaction (Intermediate, Verified 04/04/19 02:17) Nausea Review of Systems Constitutional: PRESENT: as per HPI, weakness. ABSENT: chills, fever(s) Eyes: ABSENT: visual disturbances, other - Eye pain Ears: ABSENT: hearing changes, other - Ear pain Nose, Mouth, and Throat: ABSENT: headache(s), sore throat Cardiovascular: ABSENT: chest pain, palpitations Respiratory: ABSENT: cough, dyspnea Gastrointestinal: ABSENT: abdominal pain, constipation, diarrhea, nausea, vomiting Genitourinary: ABSENT: dysuria, hematuria Musculoskeletal: ABSENT: back pain, joint swelling Integumentary: ABSENT: pruritus, rash Neurological: ABSENT: confusion, convulsions, focal weakness, memory loss, syncope Psychiatric: ABSENT: anxiety, depression Endocrine: ABSENT: cold intolerance, heat intolerance, polydipsia, polyphagia, polyuria Hematologic/Lymphatic: ABSENT: easy bleeding, easy bruising, lymphadenopathy Allergic/Immunologic: ABSENT: seasonal rhinorrhea Physical Exam Vital Signs: Temp Pulse Resp BP Pulse Ox 97.7 F 85 18 106/90 H 97 06/18/19 19:20 06/18/19 17:28 06/18/19 21:18 06/18/19 21:18 06/18/19 21:18 Intake & Output 06/16/19 06/17/19 06/18/19 23:59 23:59 23:59 Intake Total 3000 Balance 3000 Weight 71.668 kg General appearance: PRESENT: no acute distress, cooperative Head exam: PRESENT: atraumatic, normocephalic Eye exam: PRESENT: conjunctiva pink. ABSENT: conjunctival injection, scleral icterus Ear exam: PRESENT: normal external ear exam. ABSENT: bleeding, drainage Mouth exam: PRESENT: dry mucosa, neck supple Neck exam: ABSENT: thyromegaly, tracheal deviation Respiratory exam: PRESENT: clear to auscultation vickie, symmetrical, unlabored Cardiovascular exam: PRESENT: RRR. ABSENT: clicks, gallop, rubs Pulses: PRESENT: normal radial pulses, normal dorsalis pedis pul Vascular exam: PRESENT: normal capillary refill. ABSENT: pallor GI/Abdominal exam: PRESENT: normal bowel sounds, soft, other - Ileostomy noted Rectal exam: PRESENT: deferred Extremities exam: ABSENT: joint swelling, pedal edema Musculoskeletal exam: ABSENT: deformity, dislocation Neurological exam: PRESENT: alert, oriented to person, oriented to place, oriented to time, oriented to situation, CN II-XII grossly intact. ABSENT: motor sensory deficit Psychiatric exam: PRESENT: appropriate affect, normal mood Skin exam: PRESENT: dry, intact, warm. ABSENT: jaundice, rash, urticaria Results Laboratory Results: 06/18/19 19:30 06/18/19 19:30 06/18/19 06/18/19 06/18/19 18:10 18:10 18:10 WBC Cancelled RBC Cancelled Hgb Cancelled Hct Cancelled MCV Cancelled MCH Cancelled MCHC Cancelled RDW Cancelled Plt Count Cancelled Seg Neutrophils % Cancelled Sodium Cancelled Potassium Cancelled Chloride Cancelled Carbon Dioxide Cancelled Anion Gap Cancelled BUN Cancelled Creatinine Cancelled Est GFR ( Amer) Cancelled Est GFR (Non-Af Amer) Cancelled Glucose Cancelled Lactic Acid Calcium Cancelled Total Bilirubin Cancelled AST Cancelled Alkaline Phosphatase Cancelled Total Protein Cancelled Albumin Cancelled TSH Cancelled Urine Color Urine Appearance Urine pH Ur Specific [place] Urine Protein Urine Glucose (UA) Urine Ketones Urine Blood Urine Nitrite Ur Leukocyte Esterase Urine WBC (Auto) Urine RBC (Auto) Blood Type Antibody Screen 06/18/19 06/18/19 06/18/19 19:30 19:30 19:30 WBC 7.5 RBC 2.75 L Hgb 8.5 L Hct 25.4 L MCV 92 MCH 30.9 MCHC 33.4 RDW 19.1 H Plt Count 370 Seg Neutrophils % 78.6 H Sodium Potassium Chloride Carbon Dioxide Anion Gap BUN Creatinine Est GFR ( Amer) Est GFR (Non-Af Amer) Glucose Lactic Acid 0.8 Calcium Total Bilirubin AST Alkaline Phosphatase Total Protein Albumin TSH Urine Color Urine Appearance Urine pH Ur Specific [place] Urine Protein Urine Glucose (UA) Urine Ketones Urine Blood Urine Nitrite Ur Leukocyte Esterase Urine WBC (Auto) Urine RBC (Auto) Blood Type B POSITIVE Antibody Screen NEGATIVE 06/18/19 06/18/19 06/18/19 19:30 19:30 19:40 WBC RBC Hgb Hct MCV MCH MCHC RDW Plt Count Seg Neutrophils % Sodium 135.3 L Potassium 6.7 H* Chloride 110 H Carbon Dioxide 11 L Anion Gap 14 BUN 110 H Creatinine 8.84 H Est GFR ( Amer) 5 L Est GFR (Non-Af Amer) Glucose 73 L Lactic Acid Calcium 7.4 L Total Bilirubin 0.2 AST 16 Alkaline Phosphatase 83 Total Protein 6.1 L Albumin 3.3 L TSH 0.85 Urine Color YELLOW Urine Appearance CLOUDY Urine pH 5.0 Ur Specific [place] 1.017 Urine Protein 100 H Urine Glucose (UA) NEGATIVE Urine Ketones NEGATIVE Urine Blood MODERATE H Urine Nitrite NEGATIVE Ur Leukocyte Esterase LARGE H Urine WBC (Auto) 33 Urine RBC (Auto) 30 Blood Type Antibody Screen 06/18/19 06/18/19 18:10 19:30 CK-MB (CK-2) Cancelled 8.47 H Troponin I Cancelled 0.076 NT-Pro-B Natriuret Pep Cancelled 2050 H Impressions: Acute Abdomen Series 06/18/19 17:41 IMPRESSION: NO RADIOGRAPHIC EVIDENCE FOR ACUTE ABDOMINAL DISEASE. UNCHANGED RIGHT STAGHORN CALCULUS. Abdomen/Pelvis CT 06/18/19 19:36 IMPRESSION: No acute finding. Other findings as described. Assessment and Plan - Diagnosis (1) Acute kidney injury Is this a current diagnosis for this admission?: Yes (2) Hyperkalemia, diminished renal excretion Is this a current diagnosis for this admission?: Yes (3) Increased anion gap metabolic acidosis Is this a current diagnosis for this admission?: Yes (4) Chronic lower gastrointestinal bleeding Is this a current diagnosis for this admission?: Yes (5) Anemia due to blood loss, chronic Is this a current diagnosis for this admission?: Yes (6) Chronic hypotension Is this a current diagnosis for this admission?: Yes (7) Gastroesophageal reflux disease Qualifiers: Esophagitis presence: with esophagitis Qualified Code(s): K21.0 - Gastro- esophageal reflux disease with esophagitis Is this a current diagnosis for this admission?: Yes (8) Hypothyroidism Qualifiers: Hypothyroidism type: postablative Qualified Code(s): E89.0 - Postprocedural hypothyroidism Is this a current diagnosis for this admission?: Yes - Plan Summary Summary: Patient will be admitted to the medical floor on telemetry bed. Her hyperkalemia be treated with Kayexalate and IV fluids. Her acute renal failure treated with IV fluids. She will receive Ativan 1 mg IV every 4 hours as needed anxiety or restlessness. Patient wishes to be DNR/DNI and does not wish to have any life prolonging interventions. She would like to receive only IV fluids and avoid blood transfusion if possible. CBCs metabolic profiles and magnesium levels will be obtained as needed. Patient will be placed on a regular diet at her request. client services manager will be consulted to evaluate the patient's needs and assist her in possible hospice care or palliative care. - Time Time Spent with patient: 15-24 minutes Medications reviewed and adjusted accordingly: Yes Anticipated discharge: Hospice - Inpatient Certification Based on my medical assessment, after consideration of the patient's comorbidities, presenting symptoms, or acuity I expect that the services needed warrant INPATIENT care.: Yes I certify that my determination is in accordance with my understanding of Medicare's requirements for reasonable and necessary INPATIENT services [42 CFR 412.3e].: Yes Medical Necessity: Need For IV Fluids, Need For Continuous Telemetry Monitoring, Risk of Complication if Not Cared For in Hospital
--- NOTE | 2019-06-19 08:03 | EKG REPORT ---
SEVERITY:- ABNORMAL ECG - SINUS RHYTHM PROBABLE INFERIOR INFARCT, OLD : Confirmed by: Ambika Qureshi MD 19-Jun-2019 08:03:20
[2019-06-19 08:11] LABS: HEMATOCRIT 24.8 % (36.0-47.0); HEMOGLOBIN 8.4 g/dL (12.0-15.5); MEAN CORPUSCULAR HEMOGLOBIN 31.2 pg (27.0-33.4); MEAN CORPUSCULAR VOLUME 92 fl (80-97); PLATELET COUNT 364 10^3/uL (150-450); RED CELL DISTRIBUTION WIDTH 19.3 % (11.5-14.0); WHITE BLOOD COUNT 6.9 10^3/uL (4.0-10.5)
[2019-06-19 08:35] LABS: ANION GAP 14 (5-19); BLOOD UREA NITROGEN 91 mg/dL (7-20); CALCIUM 7.1 mg/dL (8.4-10.2); CARBON DIOXIDE 12 mmol/L (22-30); CHLORIDE 116 mmol/L (98-107); GLUCOSE 150 mg/dL (75-110)
[2019-06-19 08:51] LABS: FREE T3 3.42 pg/mL (2.77-5.27)
[2019-06-19 08:55] LABS: POTASSIUM 4.6 mmol/L (3.6-5.0)
[2019-06-19 09:05] LABS: THYROID STIMULATING HORMONE 0.42 uIU/mL (0.47-4.68)
[2019-06-19] MEDS ORDERED: MAGNESIUM SULFATE 4 GM/100 ML RTUPB IV ONE (10:00)
[2019-06-19] MEDS ORDERED: DOCUSATE SODIUM 100 MG CAPSULE PO SCH (10:00)
[2019-06-19 10:47] LABS: VENOUS BLOOD BASE EXCESS -16.2 mmol/L
[2019-06-19 10:53] LABS: VENOUS BLOOD PH 7.17 (7.30-7.42)
[2019-06-19] MEDS ORDERED: DEXTROSE 5%-WATER 1000 ML 1,000 ML with SODIUM BICARBONATE 150 MEQ IV PRN ×4 (10:58→14:09)
[2019-06-19] MEDS: SUCRALFATE 1 GM TABLET PO SCH ×4 (11:02→22:04)
[2019-06-19] MEDS ORDERED: HYDROXYZINE PAMOATE 25 MG CAPSULE PO PRN (14:12)
--- NOTE | 2019-06-19 14:41 | PDOC PROGRESS REPORT ---
Subjective Progress Note for:: 06/19/19 Subjective:: Patient denies any chest pain at this time of interview this morning. Also denies any shortness of breath. Reason For Visit: ACUTE KIDNEY INJURY,ACUTE HYPERKALEMIA,HYPOTENSION Physical Exam Vital Signs: Temp Pulse Resp BP Pulse Ox 97.1 F 63 16 102/57 L 94 06/19/19 14:00 06/19/19 14:00 06/19/19 14:00 06/19/19 14:00 06/19/19 14:00 Intake & Output 06/18/19 06/19/19 06/20/19 06:59 06:59 06:59 Intake Total 7049 1000 Output Total 200 300 Balance 6849 700 Weight 73.8 kg General appearance: PRESENT: no acute distress, cooperative Neck exam: ABSENT: JVD Respiratory exam: PRESENT: clear to auscultation vickie, unlabored. ABSENT: tachypnea, wheezes Cardiovascular exam: PRESENT: RRR, +S1, +S2. ABSENT: tachycardia GI/Abdominal exam: PRESENT: soft. ABSENT: rebound, rigid, tenderness Neurological exam: PRESENT: awake, oriented to person, oriented to place, oriented to time, oriented to situation, other - Drowsy but awakens easily. Patient is fully conversational and answers questions appropriately. Psychiatric exam: ABSENT: agitated, anxious Results Laboratory Results: 06/19/19 07:18 06/19/19 07:18 06/18/19 06/18/19 06/18/19 18:10 18:10 18:10 WBC Cancelled RBC Cancelled Hgb Cancelled Hct Cancelled MCV Cancelled MCH Cancelled MCHC Cancelled RDW Cancelled Plt Count Cancelled Seg Neutrophils % Cancelled VBG pH VBG pCO2 VBG HCO3 VBG Base Excess Sodium Cancelled Potassium Cancelled Chloride Cancelled Carbon Dioxide Cancelled Anion Gap Cancelled BUN Cancelled Creatinine Cancelled Est GFR ( Amer) Cancelled Est GFR (Non-Af Amer) Cancelled Glucose Cancelled Lactic Acid Calcium Cancelled Magnesium Total Bilirubin Cancelled AST Cancelled Alkaline Phosphatase Cancelled Total Protein Cancelled Albumin Cancelled TSH Cancelled Free T3 pg/mL Urine Color Urine Appearance Urine pH Ur Specific [place] Urine Protein Urine Glucose (UA) Urine Ketones Urine Blood Urine Nitrite Ur Leukocyte Esterase Urine WBC (Auto) Urine RBC (Auto) Blood Type Antibody Screen 06/18/19 06/18/1920 19:30 19:30 19:30 WBC 7.5 RBC 2.75 L Hgb 8.5 L Hct 25.4 L MCV 92 MCH 30.9 MCHC 33.4 RDW 19.1 H Plt Count 370 Seg Neutrophils % 78.6 H VBG pH VBG pCO2 VBG HCO3 VBG Base Excess Sodium Potassium Chloride Carbon Dioxide Anion Gap BUN Creatinine Est GFR ( Amer) Est GFR (Non-Af Amer) Glucose Lactic Acid 0.8 Calcium Magnesium Total Bilirubin AST Alkaline Phosphatase Total Protein Albumin TSH Free T3 pg/mL Urine Color Urine Appearance Urine pH Ur Specific [place] Urine Protein Urine Glucose (UA) Urine Ketones Urine Blood Urine Nitrite Ur Leukocyte Esterase Urine WBC (Auto) Urine RBC (Auto) Blood Type B POSITIVE Antibody Screen NEGATIVE 06/18/19 06/18/19 06/18/19 19:30 19:30 19:40 WBC RBC Hgb Hct MCV MCH MCHC RDW Plt Count Seg Neutrophils % VBG pH VBG pCO2 VBG HCO3 VBG Base Excess Sodium 135.3 L Potassium 6.7 H* Chloride 110 H Carbon Dioxide 11 L Anion Gap 14 BUN 110 H Creatinine 8.84 H Est GFR ( Amer) 5 L Est GFR (Non-Af Amer) Glucose 73 L Lactic Acid Calcium 7.4 L Magnesium Total Bilirubin 0.2 AST 16 Alkaline Phosphatase 83 Total Protein 6.1 L Albumin 3.3 L TSH 0.85 Free T3 pg/mL Urine Color YELLOW Urine Appearance CLOUDY Urine pH 5.0 Ur Specific [place] 1.017 Urine Protein 100 H Urine Glucose (UA) NEGATIVE Urine Ketones NEGATIVE Urine Blood MODERATE H Urine Nitrite NEGATIVE Ur Leukocyte Esterase LARGE H Urine WBC (Auto) 33 Urine RBC (Auto) 30 Blood Type Antibody Screen 06/19/19 06/19/19 06/19/19 07:18 07:18 07:18 WBC 6.9 RBC 2.70 L Hgb 8.4 L Hct 24.8 L MCV 92 MCH 31.2 MCHC 34.0 RDW 19.3 H Plt Count 364 Seg Neutrophils % VBG pH VBG pCO2 VBG HCO3 VBG Base Excess Sodium 141.8 Potassium 4.6 D Chloride 116 H Carbon Dioxide 12 L Anion Gap 14 BUN 91 H Creatinine 5.93 H Est GFR ( Amer) 9 L Est GFR (Non-Af Amer) Glucose 150 H Lactic Acid Calcium 7.1 L Magnesium 0.7 L* Total Bilirubin AST Alkaline Phosphatase Total Protein Albumin TSH 0.42 L Free T3 pg/mL 3.42 Urine Color Urine Appearance Urine pH Ur Specific [place] Urine Protein Urine Glucose (UA) Urine Ketones Urine Blood Urine Nitrite Ur Leukocyte Esterase Urine WBC (Auto) Urine RBC (Auto) Blood Type Antibody Screen 06/19/19 10:33 WBC RBC Hgb Hct MCV MCH MCHC RDW Plt Count Seg Neutrophils % VBG pH 7.17 L* VBG pCO2 31.0 L VBG HCO3 11.0 L VBG Base Excess -16.2 Sodium Potassium Chloride Carbon Dioxide Anion Gap BUN Creatinine Est GFR ( Amer) Est GFR (Non-Af Amer) Glucose Lactic Acid Calcium Magnesium Total Bilirubin AST Alkaline Phosphatase Total Protein Albumin TSH Free T3 pg/mL Urine Color Urine Appearance Urine pH Ur Specific [place] Urine Protein Urine Glucose (UA) Urine Ketones Urine Blood Urine Nitrite Ur Leukocyte Esterase Urine WBC (Auto) Urine RBC (Auto) Blood Type Antibody Screen 06/18/19 06/18/19 18:10 19:30 CK-MB (CK-2) Cancelled 8.47 H Troponin I Cancelled 0.076 NT-Pro-B Natriuret Pep Cancelled 2049 H Impressions: Acute Abdomen Series 06/18/19 17:41 IMPRESSION: NO RADIOGRAPHIC EVIDENCE FOR ACUTE ABDOMINAL DISEASE. UNCHANGED RIGHT STAGHORN CALCULUS. Abdomen/Pelvis CT 06/18/19 19:36 IMPRESSION: No acute finding. Other findings as described. Assessment and Plan - Diagnosis (1) Acute renal failure Qualifiers: Acute renal failure type: unspecified Qualified Code(s): N17.9 - Acute kidney failure, unspecified Is this a current diagnosis for this admission?: Yes Plan: Baseline creatinine seems to be around 1. However 8.8 on admission. Improving with IV fluids. Patient indicated no overtly aggressive measures such as central line placement, and DNR/DNI We will maintain on IV fluids and trend BMP. Will place Mejia for critical monitoring of urine output. Nephrology consulted (2) Hypotension Qualifiers: Hypotension type: other hypotension type Qualified Code(s): I95.89 - Other hypotension Is this a current diagnosis for this admission?: Yes Plan: Patient states that her blood pressure is usually soft. Managing peripherally with dopamine drip. Patient expressed earlier that she does not want central line placement as of this morning. Potential etiology of hypotension include hypovolemia and severe metabolic acidosis. (3) Increased anion gap metabolic acidosis Is this a current diagnosis for this admission?: Yes Plan: Likely secondary to HAYDE. Placed on sodium bicarb drip. Will give an amp of sodium bicarb as well. (4) Anemia due to blood loss, chronic Is this a current diagnosis for this admission?: Yes Plan: Patient has chronic bleeding in the ostomy. Hemoglobin of 8.5. No need for transfusion now. She does have history of colorectal cancer status post colectomy. We will monitor her H&H for now. Patient would like to have low blood transfusions at this point as noted by prior provider. Check iron studies. (5) Chronic lower gastrointestinal bleeding Is this a current diagnosis for this admission?: Yes Plan: Plan as above (6) Hyperkalemia, diminished renal excretion Is this a current diagnosis for this admission?: Yes Plan: Kayexalate. Monitor BMP. - Time Time Spent with patient: Less than 15 minutes
[2019-06-19] MEDS ORDERED: SODIUM BICARBONATE 8.4% INJ 50 MEQ/50 ML DISP.SYRIN IV ONE (15:00)
[2019-06-19] MEDS: OXYBUTYNIN CHLORIDE 5 MG TABLET PO SCH ×2 (16:25→22:04)
[2019-06-19] MEDS: DOPAMINE HCL/DEXTROSE 5%-WATER 800 MG/250 ML RTUINJ IV PRN (16:30)
[2019-06-19] MEDS: DIPHENOXYLATE HCL/ATROP SULF 2.5-0.025 MG TABLET PO SCH (17:19)
[2019-06-19 17:38] LABS: ARTERIAL BLOOD BASE EXCESS -9.5 mmol/L; ARTERIAL BLOOD H2CO3 0.92 mmol/L (1.05-1.35); ARTERIAL BLOOD HCO3 15.4 mmol/L (20-24); ARTERIAL BLOOD O2 SATURATION 97.5 % (94-98); ARTERIAL BLOOD PCO2 30.4 mmHg (35-45); ARTERIAL BLOOD PH 7.32 (7.35-7.45); ARTERIAL BLOOD PO2 103.9 mmHg (80-100); ARTERIAL BLOOD TOTAL CO2 16.3 mmol/L (21-25)
[2019-06-19 17:50] LABS: ARTERIAL BLOOD FIO2 1.5
[2019-06-20] MEDS: DEXTROSE 5%-NORMAL SALINE 1,000 ML IV PRN ×2 (00:20→08:00)
[2019-06-20 03:13] LABS: ANION GAP 9 (5-19); CARBON DIOXIDE 20 mmol/L (22-30); CHLORIDE 113 mmol/L (98-107); GLUCOSE 162 mg/dL (75-110); IRON(TIBC) 77.3 ug/dL (37-170)
[2019-06-20 03:25] LABS: CREATINE KINASE MB 4.47 ng/mL (<4.55); TROPONIN I 0.07 ng/mL
[2019-06-20 03:37] LABS: BLOOD UREA NITROGEN 61 mg/dL (7-20); POTASSIUM 3.4 mmol/L (3.6-5.0)
[2019-06-20 03:39] LABS: CALCIUM 6.2 mg/dL (8.4-10.2)
[2019-06-20 04:19] LABS: FOLATE 2.97 ng/mL (>2.76)
[2019-06-20] MEDS: CALCIUM GLUCONATE 1 GM/NS 50 ML RTU IV SCH ×4 (04:21→13:49)
[2019-06-20] MEDS: ONDANSETRON HCL INJ/PF 4 MG/2 ML SDV IV PRN ×3 (04:35→21:35)
[2019-06-20] MEDS: PANTOPRAZOLE SODIUM 40 MG TABLET.DR PO SCH ×2 (06:01→17:30)
[2019-06-20] MEDS: OXYBUTYNIN CHLORIDE 5 MG TABLET PO SCH ×3 (06:01→21:35)
[2019-06-20 06:32] LABS: ABSOLUTE RETICS # 0.038 10^6/uL (0.028-0.122); HEMATOCRIT 21.2 % (36.0-47.0); MEAN CORPUSCULAR HEMOGLOBIN 31.3 pg (27.0-33.4); MEAN CORPUSCULAR VOLUME 90 fl (80-97); PLATELET COUNT 340 10^3/uL (150-450); RED BLOOD COUNT 2.37 10^6/uL (3.72-5.28); RED CELL DISTRIBUTION WIDTH 19.2 % (11.5-14.0); RETICULOCYTE COUNT (AUTO) 1.59 % (0.66-2.85); WHITE BLOOD COUNT 5.5 10^3/uL (4.0-10.5)
[2019-06-20 06:49] LABS: HEMOGLOBIN 7.4 g/dL (12.0-15.5)
[2019-06-20] MEDS: SUCRALFATE 1 GM TABLET PO SCH ×4 (07:58→21:35)
[2019-06-20] MEDS: SODIUM POLYSTYRENE SULFONATE 15 GM/60 ML PO SCH (08:00)
[2019-06-20] MEDS ORDERED: POTASSIUM CHLORIDE 10 MEQ TABLET.ER PO ONE ×2 (09:00→18:00)
[2019-06-20] MEDS ORDERED: DEXTROSE 5%-WATER 1000 ML 1,000 ML with SODIUM BICARBONATE 150 MEQ IV PRN ×2 (09:06)
[2019-06-20] MEDS: SERTRALINE HCL 50 MG TABLET PO SCH (09:30)
[2019-06-20] MEDS: ACETAMINOPHEN 325 MG TABLET PO PRN (09:30)
[2019-06-20] MEDS: MAGNESIUM SULFATE/D5W 1 GM/100 ML RTUPB IV SCH ×3 (09:30→11:50)
[2019-06-20] MEDS: LEVOTHYROXINE SODIUM 0.025 MG TABLET PO SCH (09:31)
[2019-06-20] MEDS: DIPHENOXYLATE HCL/ATROP SULF 2.5-0.025 MG TABLET PO SCH ×3 (09:31→17:29)
[2019-06-20] MEDS: LEVOTHYROXINE SODIUM 0.1 MG TABLET PO SCH (09:31)
[2019-06-20] MEDS: DOPAMINE HCL/DEXTROSE 5%-WATER 800 MG/250 ML RTUINJ IV PRN (10:00)
[2019-06-20] MEDS ORDERED: LEVOTHYROXINE SODIUM 0.1 MG TABLET PO SCH (10:00)
[2019-06-20] MEDS ORDERED: CALCIUM GLUCONATE 1000 MG/10 ML INJ IV ONE (10:30)
[2019-06-20 10:39] LABS: ALBUMIN 2.5 g/dL (3.5-5.0)
--- NOTE | 2019-06-20 10:44 | PDOC PROGRESS REPORT ---
Subjective Progress Note for:: 06/20/19 Subjective:: Patient is feeling better today. She is mild were alert and awake today. She denies any shortness of breath. She does admit to not drinking enough fluids and not eating sufficiently at home. Denies any chest pain though did have some yesterday. Denies any history of CAD. Reason For Visit: ACUTE KIDNEY INJURY,ACUTE HYPERKALEMIA,HYPOTENSION Physical Exam Vital Signs: Temp Pulse Resp BP Pulse Ox 98.3 F 83 16 122/79 100 06/20/19 07:16 06/20/19 09:32 06/20/19 09:32 06/20/19 09:00 06/20/19 09:32 Intake & Output 06/19/19 06/20/19 06/21/19 06:59 06:59 06:59 Intake Total 7049 4263 1235 Output Total 200 2000 Balance 6849 2263 1235 Weight 73.8 kg 78.5 kg General appearance: PRESENT: no acute distress, cooperative Neck exam: ABSENT: JVD Respiratory exam: PRESENT: clear to auscultation vickie, unlabored. ABSENT: tachypnea, wheezes Cardiovascular exam: PRESENT: RRR, +S1, +S2. ABSENT: tachycardia GI/Abdominal exam: PRESENT: soft, other - Ostomy with greenish fluid. ABSENT: rebound, rigid, tenderness Neurological exam: PRESENT: alert, awake, oriented to person, oriented to place, oriented to time, oriented to situation Results Laboratory Results: 06/20/19 06:15 06/20/19 02:40 06/18/19 06/19/19 06/19/19 18:10 10:33 17:30 WBC Cancelled RBC Cancelled Hgb Cancelled Hct Cancelled MCV Cancelled MCH Cancelled MCHC Cancelled RDW Cancelled Plt Count Cancelled Seg Neutrophils % Cancelled Retic Count (auto) Carbonic Acid 0.92 L HCO3/H2CO3 Ratio 16:1 ABG pH 7.32 L ABG pCO2 30.4 L ABG pO2 103.9 H ABG HCO3 15.4 L ABG O2 Saturation 97.5 ABG Base Excess -9.5 VBG pH 7.17 L* VBG pCO2 31.0 L VBG HCO3 11.0 L VBG Base Excess -16.2 FiO2 1.5 Sodium Potassium Chloride Carbon Dioxide Anion Gap BUN Creatinine Est GFR ( Amer) Glucose Calcium Magnesium Iron TIBC % Saturation Ferritin Vitamin B12 Folate 06/20/19 06/20/19 02:40 06:15 WBC 5.5 RBC 2.37 L Hgb 7.4 L Hct 21.2 L MCV 90 MCH 31.3 MCHC 35.0 RDW 19.2 H Plt Count 340 Seg Neutrophils % Retic Count (auto) 1.59 Carbonic Acid HCO3/H2CO3 Ratio ABG pH ABG pCO2 ABG pO2 ABG HCO3 ABG O2 Saturation ABG Base Excess VBG pH VBG pCO2 VBG HCO3 VBG Base Excess FiO2 Sodium 141.9 Potassium 3.4 L D Chloride 113 H Carbon Dioxide 20 L Anion Gap 9 BUN 61 H D Creatinine 2.37 H Est GFR ( Amer) 25 L Glucose 162 H Calcium 6.2 L* Magnesium 1.4 L Iron 77.3 TIBC 263 % Saturation 29 Ferritin 146.00 Vitamin B12 514.0 Folate 2.97 06/18/19 06/18/19 06/20/19 18:10 19:30 02:40 Creatine Kinase 198 H CK-MB (CK-2) Cancelled 8.47 H Troponin I Cancelled 0.076 NT-Pro-B Natriuret Pep Cancelled 2050 H 06/20/19 02:40 Creatine Kinase CK-MB (CK-2) 4.47 Troponin I 0.070 NT-Pro-B Natriuret Pep Impressions: Acute Abdomen Series 06/18/19 17:41 IMPRESSION: NO RADIOGRAPHIC EVIDENCE FOR ACUTE ABDOMINAL DISEASE. UNCHANGED RIGHT STAGHORN CALCULUS. Abdomen/Pelvis CT 06/18/19 19:36 IMPRESSION: No acute finding. Other findings as described. Assessment and Plan - Diagnosis (1) Acute renal failure Qualifiers: Acute renal failure type: unspecified Qualified Code(s): N17.9 - Acute kidney failure, unspecified Is this a current diagnosis for this admission?: Yes Plan: Baseline creatinine seems to be around 1. However 8.8 on admission. Improving with IV fluids. Likely secondary to dehydration. We will maintain on sodium bicarb drip. DC D5 normal saline. Continue to monitor metabolic panel. Patient having good urinary output. Continue to monitor output via Mejia. Nephrology following-recommendations appreciated (2) Hypotension Qualifiers: Hypotension type: other hypotension type Qualified Code(s): I95.89 - Other hypotension Is this a current diagnosis for this admission?: Yes Plan: Likely secondary to renal failure and severe metabolic acidosis. Currently improving and we will try to wean off dopamine drip today. (3) Increased anion gap metabolic acidosis Is this a current diagnosis for this admission?: Yes Plan: Likely secondary to HAYDE. Currently on sodium bicarb drip. Improved significantly with last ABG showing pH of 7.32. (4) Anemia due to blood loss, chronic Is this a current diagnosis for this admission?: Yes Plan: Patient has had history of chronic bleeding in the ostomy. Hemoglobin today is likely secondary to dilution from IV fluids. Will monitor closely. Iron studies within normal limits. B12, folic acid also within normal limits. Anemia likely secondary to chronic blood loss and malignancy. (5) Hyperkalemia, diminished renal excretion Is this a current diagnosis for this admission?: Yes Plan: Resolved. Discontinue Kayexalate. (6) Colorectal cancer Is this a current diagnosis for this admission?: Yes Plan: Diagnosed just a few months ago. Patient states she has undergone 7 weeks of chemo and radiation. Being followed by [facility] oncology. Denies any k nowledge about metastatic disease. - Time Time Spent with patient: 15-24 minutes
--- NOTE | 2019-06-20 10:47 | ADVANCED CARE ---
- Diagnosis (1) Acute renal failure Diagnosis Current: Yes (2) Hypotension Diagnosis Current: Yes (6) Colorectal cancer Diagnosis Current: Yes Attendance: Today patient is more awake, alert and we revisited conversation asked to advance care planning. We discussed CODE STATUS for which I thoroughly explained the meaning and implications. Patient opting now to do full code. She is also willing for all attempts to be made that can improve her medical condition including central line for pressors if needed. Currently does not have any family and lives with a roommate and the parents who she considers her closest acquaintances. Resuscitation Status: Full Code Time Spent: 16 minutes
[2019-06-20] MEDS: PROMETHAZINE HCL INJ 25 MG/1 ML VIAL IV PRN (13:56)
--- NOTE | 2019-06-20 13:59 | PDOC CONSULTATION ---
Consultation Consult Date: 06/20/19 Provider Consulted: Mino CHRISTINA Consult reason:: renal failure History of Present Illness Admission Date/PCP: 06/18/19 22:21 FABIAN RIVERA MD History of Present Illness: KYRA REYNOLDS is a 63 year old female with a past medical history of an ileostomy, hypotension and recent admission in [facility] for similar issues. She came to the ER for generalized weakness. The weakness had started almost right after being discharged from [facility] 1 week ago. She claims that since being discharged she has had to replace her ileostomy bag 3 to 4 times a day. She is also seeing dark stools and what looks like blood. In the ER she was found to have a creatinine of 8.8, bun of 110 and potassium of 6.7. Bicarb was 11 and hemoglobin was 8.5. Bp was 60/43. An abdominal CT was done that showed severe hydronephrosis of the right kidney with a stone and some cortical atrophy. The left kidney did not have hydronephrosis but it did have some small stones. She was started on normal saline, had a cosme catheter placed, given kayexelate. Beyond that she did not initially want anymore done. On 06/18 she was started on lomotil, a bicarb drip and found to have a magnesium of 0.7. She was given IV magnesium at the time and was also started on dopamine for her bp. Today she claims to be doing better. According to her she has never had any underlining kidney disease. She denies difficulty with urination, dysuria, urinary retention or flank pain. She denies any chest pain, SOB beyond baseline. She does have some nausea but no vomiting. Her diarrhea has stopped and she is back to replacing a bag every couple of days. Past Medical History Cardiac Medical History: Reports: Myocardial Infarction - 2009 Denies: Atrial Fibrillation, Coronary Artery Disease, Heart Murmur, Hyperlipidemia, Peripheral Vascular Disease, Pulmonary Embolism Pulmonary Medical History: Reports: Asthma, Bronchitis, Chronic Obstructive Pulmonary Disease (COPD), Pneumonia - 2014 Denies: Respiratory Failure, Sleep Apnea, Tuberculosis EENT Medical History: Denies: Cataracts, Ears - Hearing aids Neurological Medical History: Denies: Hemorrhagic CVA, Ischemic CVA, Seizures Endocrine Medical History: Reports: Hyperthyroidism - Treated with radioactive iodine, Hypothyroidism - Post ablation Denies: Diabetes Mellitus Type 1, Diabetes Mellitus Type 2 Complications of Diabetes: Reports: None Renal/ Medical History: Reports: Other - Episodes of acute renal failure Denies: Nephrolithiasis Malignancy Medical History: Reports: Colorectal Cancer Denies: Leukemia, Lung Cancer GI Medical History: Reports: Gastroesophageal Reflux Disease, Other - Chronic lower GI bleeding Denies: Cirrhosis, Crohn's Disease, Hepatitis, Hiatal Hernia, Peptic Ulcer Disease, Ulcerative Colitis Musculoskeltal Medical History: Reports: Arthritis Denies: Fibromyalgia, Rheumatoid Arthritis, Systemic Lupus Erythematosus Skin Medical History: Denies: Eczema, Psoriasis Psychiatric Medical History: Reports: Depression Denies: Alcohol Dependency, Bipolar Disorder, Dementia, Post Traumatic Stress Disorder, Substance Abuse, Tobacco Dependency Traumatic Medical History: Reports: None Infectious Medical History: Reports: None Denies: HIV Past Surgical History Past Surgical History: Reports: Ileostomy - With Low anterior resection and total [id number], Tubal Ligation, Other - 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 Denies: Appendectomy, Section, Cholecystectomy, Colostomy, Coronary Artery Bypass Graft, Gastric Bypass Surgery, Herniorrhaphy, Hysterectomy, Mas tectomy, Pacemaker, Tonsillectomy Social History Lives with: Alone Smoking Status: Former Smoker - Former smoker 1/2 ppd but stopped many years ago Electronic Cigarette use?: No Frequency of Alcohol Use: None Hx Recreational Drug Use: No Drugs: None Hx Prescription Drug Abuse: No - Advance Directive Resuscitation Status: Full Code Family History Parental Family History Reviewed: Yes Children Family History Reviewed: NA Sibling(s) Family History Reviewed.: Yes Medication/Allergy Home Medications: Levothyroxine Sodium 125 mcg PO DAILY 05/21/11 Oxybutynin Chloride [Ditropan 5 mg Tablet] 5 mg PO TID #0 05/21/11 Ramipril [Altace 5 mg Capsule] 5 mg PO DAILY #0 05/21/11 Pravastatin Sodium [Pravachol] 20 mg PO QHS 03/10/16 Omeprazole 20 mg PO DAILY 09/19/17 Sertraline HCl [Zoloft] 150 mg PO DAILY 12/01/18 Atenolol [Tenormin] 25 mg PO QAM 04/05/19 Hydroxyzine Pamoate [Vistaril 25 mg Capsule] 25 mg PO Q8HP PRN 05/11/19 Alprazolam [Xanax] 1 mg PO TID 06/19/19 Diphenoxylate HCl/Atrop Sulf [Lomotil 2.5 mg Tablet] 2 tab PO TID 06/19/19 Hydroxyzine Pamoate [Vistaril 25 mg Capsule] 25 mg PO Q8HP PRN 06/19/19 Allergies/Adverse Reactions: shellfish derived Allergy (Severe, Verified 04/04/19 02:17) Hives iodine [Iodine] Allergy (Intermediate, Verified 04/04/19 02:17) Rash Sulfa (Sulfonamide Antibiotics) Allergy (Intermediate, Verified 04/04/19 02:17) Hives Iodinated Contrast Media Adverse Reaction (Intermediate, Verified 04/04/19 02:17) Nausea Review of Systems Constitutional: PRESENT: fatigue, weakness. ABSENT: chills, fever(s), headache(s), night sweats Cardiovascular: PRESENT: dyspnea on exertion. ABSENT: chest pain, edema, orthropnea, palpitations Respiratory: PRESENT: dyspnea. ABSENT: cough, hemoptysis, sputum Gastrointestinal: PRESENT: abdominal pain, bloating, diarrhea, nausea. ABSENT: constipation, vomiting Genitourinary: ABSENT: difficulty urinating, dysuria, hematuria, nocturia Musculoskeletal: PRESENT: muscle weakness. ABSENT: back pain Neurological: PRESENT: focal weakness, weakness. ABSENT: confusion, numbness Physical Exam Vital Signs: Temp Pulse Resp BP Pulse Ox 98.3 F 87 16 98/62 L 100 06/20/19 07:16 06/20/19 12:00 06/20/19 09:32 06/20/19 12:00 06/20/19 09:32 Intake & Output 06/19/19 06/20/19 06/21/19 06:59 06:59 06:59 Intake Total 7016 4263 1535 Output Total 200 2000 Balance 8416 2263 1535 Weight 73.8 kg 78.5 kg General appearance: PRESENT: no acute distress, well-developed, well-nourished Mouth exam: PRESENT: dry mucosa, neck supple. ABSENT: moist Neck exam: ABSENT: JVD, tracheal deviation Respiratory exam: PRESENT: clear to auscultation vickie. ABSENT: accessory muscle use, crackles, rales, rhonchi, wheezes Cardiovascular exam: PRESENT: +S1, +S2 GI/Abdominal exam: PRESENT: soft. ABSENT: ascites, distended, guarding, tenderness Extremities exam: ABSENT: tenderness, +1 edema, +2 edema Musculoskeletal exam: PRESENT: normal inspection. ABSENT: tenderness Neurological exam: PRESENT: alert, awake, oriented to person, oriented to place, oriented to time, oriented to situation Psychiatric exam: PRESENT: depressed Skin exam: PRESENT: dry, intact, warm Results Laboratory Results: 06/20/19 06:15 06/20/19 02:40 06/18/19 06/19/19 06/20/19 18:10 17:30 02:40 WBC Cancelled RBC Cancelled Hgb Cancelled Hct Cancelled MCV Cancelled MCH Cancelled MCHC Cancelled RDW Cancelled Plt Count Cancelled Seg Neutrophils % Cancelled Retic Count (auto) Carbonic Acid 0.92 L HCO3/H2CO3 Ratio 16:1 ABG pH 7.32 L ABG pCO2 30.4 L ABG pO2 103.9 H ABG HCO3 15.4 L ABG O2 Saturation 97.5 ABG Base Excess -9.5 FiO2 1.5 Sodium 141.9 Potassium 3.4 L D Chloride 113 H Carbon Dioxide 20 L Anion Gap 9 BUN 61 H D Creatinine 2.37 H Est GFR ( Amer) 25 L Glucose 162 H Calcium 6.2 L* Magnesium 1.4 L Iron 77.3 TIBC 263 % Saturation 29 Ferritin 146.00 Albumin Vitamin B12 514.0 Folate 2.97 06/20/19 06/20/19 06:15 10:07 WBC 5.5 RBC 2.37 L Hgb 7.4 L Hct 21.2 L MCV 90 MCH 31.3 MCHC 35.0 RDW 19.2 H Plt Count 340 Seg Neutrophils % Retic Count (auto) 1.59 Carbonic Acid HCO3/H2CO3 Ratio ABG pH ABG pCO2 ABG pO2 ABG HCO3 ABG O2 Saturation ABG Base Excess FiO2 Sodium Potassium Chloride Carbon Dioxide Anion Gap BUN Creatinine Est GFR ( Amer) Glucose Calcium Magnesium Iron TIBC % Saturation Ferritin Albumin 2.5 L Vitamin B12 Folate 06/18/19 06/18/19 06/20/19 18:10 19:30 02:40 Creatine Kinase 198 H CK-MB (CK-2) Cancelled 8.47 H Troponin I Cancelled 0.076 NT-Pro-B Natriuret Pep Cancelled 2050 H 06/20/19 06/20/19 02:40 10:07 Creatine Kinase 189 H CK-MB (CK-2) 4.47 Troponin I 0.070 NT-Pro-B Natriuret Pep Impressions: Acute Abdomen Series 06/18/19 17:41 IMPRESSION: NO RADIOGRAPHIC EVIDENCE FOR ACUTE ABDOMINAL DISEASE. UNCHANGED RIGHT STAGHORN CALCULUS. Abdomen/Pelvis CT 06/18/19 19:36 IMPRESSION: No acute finding. Other findings as described. Assessment & Plan - Diagnosis (1) Hypokalemia Plan: on PO potassium replacement. Patient decrease is most likely due to dilution from being hydrated and some cellular shift with receiving bicarb. Will reassess later this afternoon. (2) Anemia Qualifiers: Anemia type: unspecified type Qualified Code(s): D64.9 - Anemia, unspecified Plan: per hospitalist (3) Hypotension Qualifiers: Hypotension type: other hypotension type Qualified Code(s): I95.89 - Other hypotension Is this a current diagnosis for this admission?: Yes Plan: most likely due to dehydration, continue normal saline. Will continue to assess as dopamine is decreased. Recommend checking an AM cortisol if that has not been checked. (4) Acidosis Plan: Due HADYE, continue bicarb drip for now. Will reassess bicarb later this afternoon. Will consider switching to PO bicarb. (5) Acute kidney injury Is this a current diagnosis for this admission?: Yes Plan: nonoliguric due to hypotension and dehydration, other factors affecting her kidney function include urinary retention causing hydronephrosis of the right kidney. Continue normal saline, bicarb drip and electrolyte replacement. Keep cosme catheter in place and continue lomotil to prevent diarrhea. Will reduce normal saline to 100mL an hour to prevent to rapid of correction and causing fluid overload. Re-evaluating CT, hydronephrosis looks chronic, will not need a urology follow up. (6) COPD (chronic obstructive pulmonary disease) Qualifiers: COPD type: unspecified COPD Qualified Code(s): J44.9 - Chronic obstructive pulmonary disease, unspecified Plan: per hospitalist services (7) Hypomagnesemia Plan: currently receiving IV mag, likely to keep going down with the increase in fluids. Will recheck later today. (8) Hypocalcemia Plan: calcium only corrects to 7.4, she has received 2 grams of calcium gluconate today. Will look to add PO calcium and get an ionized calcium.
[2019-06-20 15:06] LABS: ANION GAP 8 (5-19); BLOOD UREA NITROGEN 48 mg/dL (7-20); CALCIUM 7.5 mg/dL (8.4-10.2); CARBON DIOXIDE 24 mmol/L (22-30); CHLORIDE 108 mmol/L (98-107); GLUCOSE 163 mg/dL (75-110); POTASSIUM 3.2 mmol/L (3.6-5.0)
[2019-06-20] MEDS ORDERED: POTASSIUM CHLORIDE 10 MEQ TABLET.ER PO SCH ×2 (17:00→22:00)
[2019-06-20] MEDS ORDERED: POTASSIUM CHLORIDE 20 MEQ PACKET PO SCH (18:00)
[2019-06-20] MEDS: NORMAL SALINE 1000 ML 1,000 ML IV PRN (18:11)
[2019-06-20] MEDS: POTASSI CL 20 MEQ/50 ML RIDER 20 MEQ/50 ML RTUPB IV SCH ×2 (18:12→20:19)
[2019-06-20] MEDS ORDERED: POTASSIUM CHLORIDE 20 MEQ PACKET PO ONE (18:15)
[2019-06-20] MEDS: POTASSIUM CHLORIDE 20 MEQ PACKET PO SCH (21:44)
[2019-06-20] MEDS ORDERED: SODIUM BICARBONATE 650 MG TABLET PO SCH (22:00)
[2019-06-21] MEDS: ACETAMINOPHEN 325 MG TABLET PO PRN (02:44)
[2019-06-21] MEDS: NORMAL SALINE 1000 ML 1,000 ML IV PRN (02:50)
[2019-06-21] MEDS: PANTOPRAZOLE SODIUM 40 MG TABLET.DR PO SCH ×2 (05:13→17:27)
[2019-06-21] MEDS: OXYBUTYNIN CHLORIDE 5 MG TABLET PO SCH ×3 (05:13→21:56)
[2019-06-21 05:58] LABS: HEMATOCRIT 23.6 % (36.0-47.0); HEMOGLOBIN 8.1 g/dL (12.0-15.5); MEAN CORPUSCULAR HGB CONC 34.2 g/dL (32.0-36.0); MEAN CORPUSCULAR VOLUME 91 fl (80-97); PLATELET COUNT 345 10^3/uL (150-450); RED BLOOD COUNT 2.61 10^6/uL (3.72-5.28); RED CELL DISTRIBUTION WIDTH 19.3 % (11.5-14.0)
[2019-06-21 06:25] LABS: ANION GAP 5 (5-19); BLOOD UREA NITROGEN 37 mg/dL (7-20); CALCIUM 7.5 mg/dL (8.4-10.2); CARBON DIOXIDE 26 mmol/L (22-30); CHLORIDE 110 mmol/L (98-107); GLUCOSE 94 mg/dL (75-110)
[2019-06-21 06:34] LABS: POTASSIUM 4.2 mmol/L (3.6-5.0)
[2019-06-21] MEDS: SUCRALFATE 1 GM TABLET PO SCH ×4 (07:56→21:56)
[2019-06-21] MEDS: LEVOTHYROXINE SODIUM 0.025 MG TABLET PO SCH (09:41)
[2019-06-21] MEDS: CALCIUM CARBONATE 600 MG TABLET PO SCH (09:41)
[2019-06-21] MEDS: LEVOTHYROXINE SODIUM 0.1 MG TABLET PO SCH (09:41)
[2019-06-21] MEDS: SERTRALINE HCL 50 MG TABLET PO SCH (09:41)
[2019-06-21] MEDS: DIPHENOXYLATE HCL/ATROP SULF 2.5-0.025 MG TABLET PO SCH ×3 (09:41→17:27)
[2019-06-21] MEDS: POTASSIUM CHLORIDE 20 MEQ PACKET PO SCH (09:42)
[2019-06-21] MEDS ORDERED: SODIUM BICARBONATE 650 MG TABLET PO SCH (10:00)
--- NOTE | 2019-06-21 13:13 | PDOC PROGRESS REPORT ---
Subjective Progress Note for:: 06/21/19 Subjective:: Patient is doing well today. She denies any shortness of breath. He has discontinued the dopamine drip this morning. Patient states that she usually has soft blood pressures even prior to all this and her systolic blood pressure is usually borderline. Patient's would like to make some attempt to eat today. Reason For Visit: ACUTE KIDNEY INJURY,ACUTE HYPERKALEMIA,HYPOTENSION Physical Exam Vital Signs: Temp Pulse Resp BP Pulse Ox 98.1 F 98 14 92/69 L 100 06/21/19 07:51 06/21/19 11:00 06/21/19 10:12 06/21/19 11:00 06/21/19 10:12 Intake & Output 06/20/19 06/21/19 06/22/19 06:59 06:59 06:59 Intake Total 4263 4461 41 Output Total 1999 1850 Balance 2263 2611 41 Weight 78.5 kg 74.8 kg General appearance: PRESENT: no acute distress, cooperative Neck exam: ABSENT: JVD Respiratory exam: PRESENT: clear to auscultation vickie, unlabored. ABSENT: tachypnea, wheezes Cardiovascular exam: PRESENT: RRR, +S1, +S2. ABSENT: tachycardia GI/Abdominal exam: PRESENT: normal bowel sounds, soft, other - Ostomy bag present. ABSENT: rebound, rigid, tenderness Neurological exam: PRESENT: alert, awake, oriented to person, oriented to place, oriented to situation Results Laboratory Results: 06/21/19 05:15 06/21/19 05:15 06/20/19 06/21/19 06/21/19 14:22 05:15 05:15 WBC 7.0 RBC 2.61 L Hgb 8.1 L Hct 23.6 L MCV 91 MCH 31.0 MCHC 34.2 RDW 19.3 H Plt Count 345 Sodium 140.2 141.3 Potassium 3.2 L 4.2 D Chloride 108 H 110 H Carbon Dioxide 24 26 Anion Gap 8 5 BUN 48 H 37 H Creatinine 1.58 H 1.21 Est GFR ( Amer) 40 L 54 L Glucose 163 H 94 Calcium 7.5 L 7.5 L Magnesium 2.2 1.6 06/18/19 19:40 Catheterized Urine Urine Culture - Final Yeast, Not Kami Albicans 06/18/19 06/18/19 06/20/19 18:10 19:30 02:40 Creatine Kinase 198 H CK-MB (CK-2) Cancelled 8.47 H Troponin I Cancelled 0.076 NT-Pro-B Natriuret Pep Cancelled 2050 H 06/20/19 06/20/19 02:40 10:07 Creatine Kinase 189 H CK-MB (CK-2) 4.47 Troponin I 0.070 NT-Pro-B Natriuret Pep Impressions: Acute Abdomen Series 06/18/19 17:41 IMPRESSION: NO RADIOGRAPHIC EVIDENCE FOR ACUTE ABDOMINAL DISEASE. UNCHANGED RIGHT STAGHORN CALCULUS. Abdomen/Pelvis CT 06/18/19 19:36 IMPRESSION: No acute finding. Other findings as described. Assessment and Plan - Diagnosis (1) Acute renal failure Qualifiers: Acute renal failure type: unspecified Qualified Code(s): N17.9 - Acute kidney failure, unspecified Is this a current diagnosis for this admission?: Yes Plan: Renal function is now back to baseline. Discontinue IV fluids. Currently on sodium bicarbonate per minute discontinue now that acidemia seems to have resolved renal function is sufficient. Discontinue Mejia and perform voiding trials. Nephrology following-recommendations appreciated (2) Hypotension Qualifiers: Hypotension type: other hypotension type Qualified Code(s): I95.89 - Other hypotension Is this a current diagnosis for this admission?: Yes Plan: Likely secondary to renal failure and severe metabolic acidosis. Currently resolved. Dopamine drip discontinued today. Patient does endorse that she typically has soft blood pressures at baseline with systolic blood pressure often borderline. (3) Increased anion gap metabolic acidosis Is this a current diagnosis for this admission?: Yes Plan: Likely secondary to HAYDE. Seems to have resolved today. (4) Anemia due to blood loss, chronic Is this a current diagnosis for this admission?: Yes Plan: Patient has had history of chronic bleeding in the ostomy. Hemoglobin now stabilizing. Will monitor closely. Iron studies within normal limits. B12, folic acid also within normal limits. Anemia likely secondary to chronic blood loss and malignancy. (5) Hyperkalemia, diminished renal excretion Is this a current diagnosis for this admission?: Yes Plan: Resolved with resolution of HAYDE (6) Colorectal cancer Is this a current diagnosis for this admission?: Yes Plan: Diagnosed just a few months ago. Patient states she has undergone 7 weeks of chemo and radiation. Being followed by [facility] oncology. Denies any knowledge about metastatic disease. Continue outpatient follow-up. (7) Moderate malnutrition Is this a current diagnosis for this admission?: Yes Plan: Likely secondary to patient's underlying malignancy. We will continue to encourage nutrition. Dietary consult. Supplementation. - Time Time Spent with patient: Less than 15 minutes
[2019-06-21 14:48] LABS: C DIFFICILE GDH NEGATIVE (NEGATIVE)
[2019-06-21] MEDS: ONDANSETRON HCL INJ/PF 4 MG/2 ML SDV IV PRN (22:01)
[2019-06-22] MEDS: ONDANSETRON HCL INJ/PF 4 MG/2 ML SDV IV PRN (05:18)
[2019-06-22] MEDS: PANTOPRAZOLE SODIUM 40 MG TABLET.DR PO SCH ×2 (05:21→17:17)
[2019-06-22] MEDS: OXYBUTYNIN CHLORIDE 5 MG TABLET PO SCH ×3 (05:21→21:46)
[2019-06-22 05:45] LABS: HEMATOCRIT 22.1 % (36.0-47.0); MEAN CORPUSCULAR HEMOGLOBIN 30.9 pg (27.0-33.4); MEAN CORPUSCULAR HGB CONC 33.4 g/dL (32.0-36.0); MEAN CORPUSCULAR VOLUME 93 fl (80-97); PLATELET COUNT 294 10^3/uL (150-450); RED BLOOD COUNT 2.39 10^6/uL (3.72-5.28); RED CELL DISTRIBUTION WIDTH 19.8 % (11.5-14.0); WHITE BLOOD COUNT 4.7 10^3/uL (4.0-10.5)
[2019-06-22 05:47] LABS: HEMOGLOBIN 7.4 g/dL (12.0-15.5)
[2019-06-22 05:56] LABS: BLOOD UREA NITROGEN 26 mg/dL (7-20); CALCIUM 8.2 mg/dL (8.4-10.2); GLUCOSE 90 mg/dL (75-110); POTASSIUM 4.1 mmol/L (3.6-5.0)
[2019-06-22 06:02] LABS: ANION GAP 6 (5-19); CARBON DIOXIDE 24 mmol/L (22-30); CHLORIDE 109 mmol/L (98-107)
[2019-06-22] MEDS ORDERED: LOPERAMIDE HCL 2 MG CAPSULE PO PRN (07:21)
[2019-06-22] MEDS: CALCIUM CARBONATE 600 MG TABLET PO SCH (09:22)
[2019-06-22] MEDS: LEVOTHYROXINE SODIUM 0.1 MG TABLET PO SCH (09:23)
[2019-06-22] MEDS: DIPHENOXYLATE HCL/ATROP SULF 2.5-0.025 MG TABLET PO SCH ×3 (09:23→17:18)
[2019-06-22] MEDS: LEVOTHYROXINE SODIUM 0.025 MG TABLET PO SCH (09:23)
[2019-06-22] MEDS: SUCRALFATE 1 GM TABLET PO SCH ×4 (09:24→21:46)
[2019-06-22] MEDS: SERTRALINE HCL 50 MG TABLET PO SCH (09:24)
[2019-06-22] MEDS: BENZOCAINE/MENTHOL SORE THROAT LOZENGE BUCCAL PRN (09:25)
[2019-06-22] MEDS ORDERED: POTASSIUM CHLORIDE 20 MEQ PACKET PO SCH (10:00)
[2019-06-22] MEDS ORDERED: SODIUM BICARBONATE 650 MG TABLET PO SCH (10:00)
--- NOTE | 2019-06-22 11:43 | PDOC PROGRESS REPORT ---
Subjective Progress Note for:: 06/22/19 Subjective:: Patient feels well today. Has not been eating so much but did eat a bit yesterday. Patient does not like the Ensure supplements that were given to her and she has refused to take them. Patient states she will try to hydrate and eat other meals. Patient denies any shortness of breath nausea or vomiting. Ostomy output has improved. C. difficile testing negative. Reason For Visit: ACUTE KIDNEY INJURY,ACUTE HYPERKALEMIA,HYPOTENSION Physical Exam Vital Signs: Temp Pulse Resp BP Pulse Ox 97.7 F 73 16 116/77 92 06/22/19 07:19 06/22/19 07:19 06/22/19 07:19 06/22/19 07:19 06/22/19 07:19 Intake & Output 06/21/19 06/22/19 06/23/19 06:59 06:59 06:59 Intake Total 4461 1139 Output Total 1850 1300 Balance 2611 -161 Weight 74.8 kg 74.8 kg General appearance: PRESENT: no acute distress, cooperative Neck exam: ABSENT: JVD Respiratory exam: PRESENT: clear to auscultation vickie, unlabored. ABSENT: tachypnea, wheezes Cardiovascular exam: PRESENT: RRR, +S1, +S2. ABSENT: tachycardia GI/Abdominal exam: PRESENT: normal bowel sounds, soft. ABSENT: rebound, rigid, tenderness Neurological exam: PRESENT: alert, awake, oriented to person, oriented to place, oriented to time Results Laboratory Results: 06/22/19 05:30 06/22/19 05:30 06/22/19 06/22/19 05:30 05:30 WBC 4.7 RBC 2.39 L Hgb 7.4 L Hct 22.1 L MCV 93 MCH 30.9 MCHC 33.4 RDW 19.8 H Plt Count 294 Sodium 138.5 Potassium 4.1 Chloride 109 H Carbon Dioxide 24 Anion Gap 6 BUN 26 H Creatinine 1.04 Est GFR ( Amer) > 60 Glucose 90 Calcium 8.2 L 06/18/19 19:40 Catheterized Urine Urine Culture - Final Yeast, Not Kami Albicans 06/18/19 06/18/19 06/20/19 18:10 19:30 02:40 Creatine Kinase 198 H CK-MB (CK-2) Cancelled 8.47 H Troponin I Cancelled 0.076 NT-Pro-B Natriuret Pep Cancelled 2049 H 06/20/19 06/20/19 02:40 10:07 Creatine Kinase 189 H CK-MB (CK-2) 4.47 Troponin I 0.070 NT-Pro-B Natriuret Pep Impressions: Acute Abdomen Series 06/18/19 17:41 IMPRESSION: NO RADIOGRAPHIC EVIDENCE FOR ACUTE ABDOMINAL DISEASE. UNCHANGED RIGHT STAGHORN CALCULUS. Abdomen/Pelvis CT 06/18/19 19:36 IMPRESSION: No acute finding. Other findings as described. Assessment and Plan - Diagnosis (1) Acute renal failure Qualifiers: Acute renal failure type: unspecified Qualified Code(s): N17.9 - Acute kidney failure, unspecified Is this a current diagnosis for this admission?: Yes Plan: Renal function is now back to baseline. Discontinue IV fluids. Voiding ad equately on all fluids. Will recheck BMP in the morning encourage p.o. hydration (2) Hypotension Qualifiers: Hypotension type: other hypotension type Qualified Code(s): I95.89 - Other hypotension Is this a current diagnosis for this admission?: Yes Plan: Likely secondary to renal failure and severe metabolic acidosis. Resolved blood pressure currently holding steady. (3) Increased anion gap metabolic acidosis Is this a current diagnosis for this admission?: Yes Plan: Resolved (4) Anemia due to blood loss, chronic Is this a current diagnosis for this admission?: Yes Plan: Patient has had history of chronic bleeding in the ostomy. Hemoglobin now stabilizing. Will monitor closely. Iron studies within normal limits. B12, folic acid also within normal limits. Anemia likely secondary to chronic blood loss and malignancy. Will have to recheck CBC tomorrow. No evidence of bleed currently hemoglobin levels seem to fluctuate. (5) Hyperkalemia, diminished renal excretion Is this a current diagnosis for this admission?: Yes Plan: Resolved with resolution of HAYDE (6) Colorectal cancer Is this a current diagnosis for this admission?: Yes (7) Moderate malnutrition Is this a current diagnosis for this admission?: Yes Plan: Likely secondary to patient's underlying malignancy. We will continue to encourage nutrition. Dietary consult. Patient refusing Ensure supplements. Trial of Megace. - Time Time Spent with patient: 15-24 minutes
[2019-06-22] MEDS ORDERED: MEGESTROL ACETATE SUSP 400 MG/10 ML UDCUP PO ONE (12:30)
[2019-06-23] MEDS: BENZOCAINE/MENTHOL SORE THROAT LOZENGE BUCCAL PRN (00:04)
[2019-06-23 06:09] LABS: HEMATOCRIT 21.6 % (36.0-47.0); MEAN CORPUSCULAR HEMOGLOBIN 30.7 pg (27.0-33.4); MEAN CORPUSCULAR HGB CONC 33.4 g/dL (32.0-36.0); MEAN CORPUSCULAR VOLUME 92 fl (80-97); PLATELET COUNT 241 10^3/uL (150-450); RED BLOOD COUNT 2.35 10^6/uL (3.72-5.28)
[2019-06-23 06:10] LABS: WHITE BLOOD COUNT 2.7 10^3/uL (4.0-10.5)
[2019-06-23 06:11] LABS: HEMOGLOBIN 7.2 g/dL (12.0-15.5)
[2019-06-23 06:31] LABS: BLOOD UREA NITROGEN 18 mg/dL (7-20); CALCIUM 8.1 mg/dL (8.4-10.2); GLUCOSE 82 mg/dL (75-110); POTASSIUM 3.8 mmol/L (3.6-5.0)
[2019-06-23 06:36] LABS: CARBON DIOXIDE 27 mmol/L (22-30); CHLORIDE 107 mmol/L (98-107)
[2019-06-23 06:38] LABS: ANION GAP 3 (5-19)
[2019-06-23] MEDS: PANTOPRAZOLE SODIUM 40 MG TABLET.DR PO SCH ×2 (06:55→17:44)
[2019-06-23] MEDS: OXYBUTYNIN CHLORIDE 5 MG TABLET PO SCH ×2 (06:55→15:06)
[2019-06-23] MEDS ORDERED: NORMAL SALINE 250 ML IV PRN ×2 (07:26)
[2019-06-23] MEDS: SUCRALFATE 1 GM TABLET PO SCH ×3 (08:40→15:07)
[2019-06-23] MEDS ORDERED: MEGESTROL ACETATE SUSP 400 MG/10 ML UDCUP PO SCH (10:00)
--- NOTE | 2019-06-23 10:37 | PDOC DISCHARGE SUMMARY ---
Impression - Admit/DC Date/PCP Admission Date/Primary Care Provider: 06/18/19 22:21 FABIAN RIVERA MD Discharge Date: 06/23/19 - Discharge Diagnosis (1) Acute renal failure Is this a current diagnosis for this admission?: Yes (2) Hypotension Is this a current diagnosis for this admission?: Yes (3) Increased anion gap metabolic acidosis Is this a current diagnosis for this admission?: Yes (4) Anemia due to blood loss, chronic Is this a current diagnosis for this admission?: Yes (5) Hyperkalemia, diminished renal excretion Is this a current diagnosis for this admission?: Yes (6) Colorectal cancer Is this a current diagnosis for this admission?: Yes (7) Moderate malnutrition Is this a current diagnosis for this admission?: Yes - Additional Information Resuscitation Status: Full Code Discharge Diet: Regular Discharge Activity: Activity As Tolerated Referrals: FABIAN RIVERA MD [Primary Care Provider] - (Follow-up within 1 to 2 weeks - put request in Weekend followup book.) Prescriptions: Benzocaine/Menthol [Chloraseptic Sore Throat Lozenge] 1 each BUCCAL Q4HP PRN #20 lozenge PRN Reason: For Sore Throat Loperamide HCl [Imodium 2 mg Capsule] 2 mg PO Q6HP PRN #15 capsule PRN Reason: Diarrhea Megestrol Acetate [Megace [place] 400 mg/10 ml Udcup] 800 mg PO DAILY #60 udc Home Medications: Levothyroxine Sodium 125 mcg PO DAILY 05/21/11 Oxybutynin Chloride [Ditropan 5 mg Tablet] 5 mg PO TID #0 05/21/11 Pravastatin Sodium [Pravachol] 20 mg PO QHS 03/10/16 Omeprazole 20 mg PO DAILY 09/19/17 Sertraline HCl [Zoloft] 150 mg PO DAILY 12/01/18 Atenolol [Tenormin] 25 mg PO QAM 04/05/19 Hydroxyzine Pamoate [Vistaril 25 mg Capsule] 25 mg PO Q8HP PRN 05/11/19 Diphenoxylate HCl/Atrop Sulf [Lomotil 2.5 mg Tablet] 2 tab PO TID 06/19/19 Hydroxyzine Pamoate [Vistaril 25 mg Capsule] 25 mg PO Q8HP PRN 06/19/19 Benzocaine/Menthol [Chloraseptic Sore Throat Lozenge] 1 each BUCCAL Q4HP PRN #20 lozenge 06/23/19 Loperamide HCl [Imodium 2 mg Capsule] 2 mg PO Q6HP PRN #15 capsule 06/23/19 Megestrol Acetate [Megace [place] 400 mg/10 ml Udcup] 800 mg PO DAILY #60 udc 06/23/19 History of Present Illiness History of Present Illness: KYRA REYNOLDS is a 63 year old female who presented to the emergency department with a one-week history of generalized weakness. She admits gradually worsening generalized weakness over the last week since she was discharged from a [facility]. Her weakness has become moderate to severe and has been accompanied by dark stools in her ileostomy bag. Her weakness is made worse by any activities or exertion. She has chronic lower GI bleeding and chronic renal failure. She expresses the wish to be DNR/DNI and does not want any exceptional measures undertaken, she would like to just receiv e some IV fluids because she feels she is dehydrated and has experienced the same symptoms in the past. She also admits chronic hypotension and does not wish to be treated with vasopressors. She denies other associated or accompanying signs and symptoms. She has not identified any additional aggravating or ameliorating factors for her generalized weakness. In the emergency room she was found to have acute on chronic renal failure with a potassium of 6.7 and was noted to be intermittently hypotensive. She was subsequently admitted for further evaluation and treatment within the parameters that she has outlined for her care. Hospital Course Hospital Course: Patient was admitted to the hospital with acute metabolic encephalopathy, hypotension secondary to high anion gap metabolic acidosis caused by severe acute renal failure. Her creatinine upon admission was 8.8 whereas her baseline was around 1. Patient had been very dehydrated which was likely the cause as her p.o. intake had significantly decreased. Patient was given aggressive IV fluid hydration and also placed on sodium bicarb drip. She also required some amps of sodium bicarb pushes as her pH was 7.17. Patient also required dopamine to give her blood pressure elevated which is administered peripherally. Suspected to have been in hypovolemic shock or due to metabolic acidosis. Patient's creatinine later normalized after a few days of aggressive hydration and correction of acidemia. Patient's blood pressure also normalized and patient was able to be weaned off dopamine drip. Fluids were later discontinued and patient has been encouraged on p.o. hydration. Creatinine has held steady and improved despite discontinuation of IV fluids. Patient was also tested for C. difficile for increased ostomy output from diarrhea. C. difficile testing was negative and patient has been placed on Imodium as needed. Patient also has moderate malnutrition secondary to her colorectal cancer and has been placed on appetite stimulant Megace on a trial basis. Patient's ramipril has been held and patient advised not to resume unless her blood pressure starts to run high after talking with her primary care provider. Patient was also given a unit of blood during this admission. She does have a chronic history of some bleeding from her lower GI but has not had any during this hospitalization. Iron studies were also normal including B12 and folic acid. High suspicion the patient's anemia is likely from chronic disease. Patient will be following with her primary care provider for repeat labs within 1 to 2 weeks. Home health is to be resumed on discharge. Patient's appetite seems to have improved. Physical Exam Vital Signs: Temp Pulse Resp BP Pulse Ox 98.1 F 70 17 116/94 H 99 06/23/19 07:30 06/23/19 08:36 06/23/19 07:30 06/23/19 08:36 06/23/19 07:30 Intake & Output 06/22/19 06/23/19 06/24/19 06:59 06:59 06:59 Intake Total 1139 756 Output Total 1300 2325 175 Balance -161 -1569 -175 Weight 74.8 kg 69.7 kg 69.7 kg General appearance: PRESENT: no acute distress, cooperative Neck exam: ABSENT: JVD Respiratory exam: PRESENT: symmetrical, unlabored. ABSENT: accessory muscle u se, retraction, tachypnea GI/Abdominal exam: PRESENT: soft, other - Ostomy with nonbloody greenish fluid and. ABSENT: rebound, rigid, tenderness Neurological exam: PRESENT: alert, awake, oriented to person, oriented to place, oriented to time Results Laboratory Results: WBC 2.7 10^3/uL (4.0-10.5) L D 06/23/19 05:50 RBC 2.35 10^6/uL (3.72-5.28) L 06/23/19 05:50 Hgb 7.2 g/dL (12.0-15.5) L 06/23/19 05:50 Hct 21.6 % (36.0-47.0) L 06/23/19 05:50 MCV 92 fl (80-97) 06/23/19 05:50 MCH 30.7 pg (27.0-33.4) 06/23/19 05:50 MCHC 33.4 g/dL (32.0-36.0) 06/23/19 05:50 RDW 19.0 % (11.5-14.0) H 06/23/19 05:50 Plt Count 241 10^3/uL (150-450) 06/23/19 05:50 Lymph % (Auto) 7.7 % (13-45) L 06/18/19 19:30 [place] % (Auto) 12.0 % (3-13) 06/18/19 19:30 Eos % (Auto) 0.8 % (0-6) 06/18/19 19:30 Baso % (Auto) 0.9 % (0-2) 06/18/19 19:30 Reticulocyte # 0.038 10^6/uL (0.028-0.122) 06/20/19 06:15 Absolute Neuts (auto) 5.9 10^3/uL (1.7-8.2) 06/18/19 19:30 Absolute Lymphs (auto) 0.6 10^3/uL (0.5-4.7) 06/18/19 19:30 Absolute Monos (auto) 0.9 10^3/uL (0.1-1.4) 06/18/19 19:30 Absolute Eos (auto) 0.1 10^3/uL (0.0-0.6) 06/18/19 19:30 Absolute Basos (auto) 0.1 10^3/uL (0.0-0.2) 06/18/19 19:30 Seg Neutrophils % 78.6 % (42-78) H 06/18/19 19:30 Platelet Estimate Cancelled 06/18/19 18:10 Retic Count (auto) 1.59 % (0.66-2.85) 06/20/19 06:15 PT 14.9 SEC (11.4-15.4) 06/18/19 18:10 INR 1.16 06/18/19 18:10 APTT 29.7 SEC (23.5-35.8) 06/18/19 18:10 Carbonic Acid 0.92 mmol/L (1.05-1.35) L 06/19/19 17:30 HCO3/H2CO3 Ratio 16:1 06/19/19 17:30 ABG pH 7.32 (7.35-7.45) L 06/19/19 17:30 ABG pCO2 30.4 mmHg (35-45) L 06/19/19 17:30 ABG pO2 103.9 mmHg (80-100) H 06/19/19 17:30 ABG HCO3 15.4 mmol/L (20-24) L 06/19/19 17:30 ABG Total CO2 16.3 mmol/L (21-25) L 06/19/19 17:30 ABG O2 Saturation 97.5 % (94-98) 06/19/19 17:30 ABG Base Excess -9.5 mmol/L 06/19/19 17:30 VBG pH 7.17 (7.30-7.42) L* 06/19/19 10:33 VBG pCO2 31.0 mmHg (35-63) L 06/19/19 10:33 VBG HCO3 11.0 mmol/L (20-32) L 06/19/19 10:33 VBG Base Excess -16.2 mmol/L 06/19/19 10:33 FiO2 1.5 06/19/19 17:30 Sodium 137.4 mmol/L (137-145) 06/23/19 05:50 Potassium 3.8 mmol/L (3.6-5.0) 06/23/19 05:50 Chloride 107 mmol/L (98-107) 06/23/19 05:50 Carbon Dioxide 27 mmol/L (22-30) 06/23/19 05:50 Anion Gap 3 (5-19) L 06/23/19 05:50 BUN 18 mg/dL (7-20) 06/23/19 05:50 Creatinine 0.91 mg/dL (0.52-1.25) 06/23/19 05:50 Est GFR ( Amer) > 60 (>60) 06/23/19 05:50 Est GFR (Non-Af Amer) Cancelled 06/18/19 18:10 Est GFR (MDRD) Non-Af > 60 (>60) 06/23/19 05:50 Glucose 82 mg/dL (75-110) 06/23/19 05:50 POC Glucose 186 mg/dL (70-110) H 06/19/19 21:23 Lactic Acid 0.8 mmol/L (0.7-2.1) 06/18/19 19:30 Calcium 8.1 mg/dL (8.4-10.2) L 06/23/19 05:50 Magnesium 1.6 mg/dL (1.6-2.3) 06/21/19 05:15 Iron 77.3 ug/dL (37-170) 06/20/19 02:40 TIBC 263 ug/dL (250-450) 06/20/19 02:40 % Saturation 29 % 06/20/19 02:40 Ferritin 146.00 ng/mL (11.1-264.0) 06/20/19 02:40 Total Bilirubin 0.2 mg/dL (0.2-1.3) 06/18/19 19:30 Direct Bilirubin 0.0 mg/dL (0.0-0.4) 06/18/19 19:30 Neonat Total Bilirubin Not Reportable 06/18/19 19:30 Neonat Direct Bilirubin Not Reportable 06/18/19 19:30 Neonat Indirect Bili Not Reportable 06/18/19 19:30 AST 16 U/L (14-36) 06/18/19 19:30 ALT 14 U/L (<35) 06/18/19 19:30 Alkaline Phosphatase 83 U/L (38-126) 06/18/19 19:30 Creatine Kinase 189 U/L (30-135) H 06/20/19 10:07 CK-MB (CK-2) 4.47 ng/mL (<4.55) 06/20/19 02:40 Troponin I 0.070 ng/mL 06/20/19 02:40 NT-Pro-B Natriuret Pep 2050 pg/mL (<125) H 06/18/19 19:30 Total Protein 6.1 g/dL (6.3-8.2) L 06/18/19 19:30 Albumin 2.5 g/dL (3.5-5.0) L 06/20/19 10:07 EGFR Cancelled 06/18/19 18:10 Vitamin B12 514.0 pg/mL (239-931) 06/20/19 02:40 Folate 2.97 ng/mL (>2.76) 06/20/19 02:40 TSH 0.42 uIU/mL (0.47-4.68) L 06/19/19 07:18 Free T3 pg/mL 3.42 pg/mL (2.77-5.27) 06/19/19 07:18 Cortisol AM Sample 16.10 ug/dL (4.46-22.7) 06/21/19 05:15 Urine Color YELLOW 06/18/19 19:40 Urine Appearance CLOUDY 06/18/19 19:40 Urine pH 5.0 (5.0-9.0) 06/18/19 19:40 Ur Specific [place] 1.017 06/18/19 19:40 Urine Protein 100 mg/dL (NEGATIVE) H 06/18/19 19:40 Urine Glucose (UA) NEGATIVE mg/dL (NEGATIVE) 06/18/19 19:40 Urine Ketones NEGATIVE mg/dL (NEGATIVE) 06/18/19 19:40 Urine Blood MODERATE (NEGATIVE) H 06/18/19 19:40 Urine Nitrite NEGATIVE (NEGATIVE) 06/18/19 19:40 Urine Bilirubin NEGATIVE (NEGATIVE) 06/18/19 19:40 Urine Urobilinogen NEGATIVE mg/dL (<2.0) 06/18/19 19:40 Ur Leukocyte Esterase LARGE (NEGATIVE) H 06/18/19 19:40 Urine WBC (Auto) 33 /HPF 06/18/19 19:40 Urine RBC (Auto) 30 /HPF 06/18/19 19:40 Urine Bacteria (Auto) TRACE /HPF 06/18/19 19:40 Squamous Epi Cells Auto <1 /HPF 06/18/19 19:40 Urine Mucus (Auto) RARE /LPF 06/18/19 19:40 Urine Yeast (Budding) PRESENT /HPF 06/18/19 19:40 Urine Ascorbic Acid NEGATIVE (NEGATIVE) 06/18/19 19:40 POC Stool Occult Blood POSITIVE (NEGATIVE) 06/18/19 19:52 Stl C. Difficile GDH Ag NEGATIVE (NEGATIVE) 04/09/20 09:45 Stl C.difficile Tox A&B NEGATIVE (NEGATIVE) 06/21/19 09:45 Slides for Path Review Cancelled 06/18/19 18:10 Blood Type B POSITIVE 06/18/19 19:30 Antibody Screen NEGATIVE 06/18/19 19:30 Crossmatch See Detail 06/23/19 09:35 06/18/19 06/18/19 06/20/19 18:10 19:30 02:40 CK-MB (CK-2) Cancelled 8.47 H 4.47 Troponin I Cancelled 0.076 0.070 NT-Pro-B Natriuret Pep Cancelled 0 H Impressions: Acute Abdomen Series 06/18/19 17:41 IMPRESSION: NO RADIOGRAPHIC EVIDENCE FOR ACUTE ABDOMINAL DISEASE. UNCHANGED RIGHT STAGHORN CALCULUS. Abdomen/Pelvis CT 06/18/19 19:36 IMPRESSION: No acute finding. Other findings as described. Plan Time Spent: Greater than 30 Minutes Stroke Is this a Stroke Patient?: No Acute Heart Failure - Is this a Heart Failure Patient?: No
[2019-06-23] MEDS: DIPHENOXYLATE HCL/ATROP SULF 2.5-0.025 MG TABLET PO SCH ×3 (10:41→17:44)
[2019-06-23] MEDS: LEVOTHYROXINE SODIUM 0.025 MG TABLET PO SCH (10:41)
[2019-06-23] MEDS: SERTRALINE HCL 50 MG TABLET PO SCH (10:41)
[2019-06-23] MEDS: CALCIUM CARBONATE 600 MG TABLET PO SCH (10:41)
[2019-06-23] MEDS: LEVOTHYROXINE SODIUM 0.1 MG TABLET PO SCH (10:41)
[2019-06-23 17:44] LABS: HEMATOCRIT 31.5 % (36.0-47.0); MEAN CORPUSCULAR HEMOGLOBIN 30.7 pg (27.0-33.4); MEAN CORPUSCULAR HGB CONC 33.9 g/dL (32.0-36.0); MEAN CORPUSCULAR VOLUME 91 fl (80-97); PLATELET COUNT 276 10^3/uL (150-450); RED BLOOD COUNT 3.48 10^6/uL (3.72-5.28); RED CELL DISTRIBUTION WIDTH 18.4 % (11.5-14.0); WHITE BLOOD COUNT 4.2 10^3/uL (4.0-10.5)
[2019-06-23 17:45] LABS: HEMOGLOBIN 10.7 g/dL (12.0-15.5)
[2019-06-23 17:49] VITALS: BP 114/75
== END 2019-06-23 18:28 | disposition home or self-care (01) | DRG 682 ==
LOC: ER 17:08 → EH 22:21 → 3W 06-19 05:28
PROVIDERS: ADMIT Emergency Medicine; ATTEND Internal Medicine
PROC: 30233N1 Transfusion of Nonautologous Red Blood Cells into Peripheral Vein, Percutaneous Approach (ICD-10-PCS; principal; 2019-06-23)
DX: N17.9 Acute kidney failure, unspecified (principal); G93.41 Metabolic encephalopathy; R57.1 Hypovolemic shock; K94.11 Enterostomy hemorrhage; E87.2 Acidosis; C19 Malignant neoplasm of rectosigmoid junction; E46 Unspecified protein-calorie malnutrition; E87.5 Hyperkalemia; I95.89 Other hypotension; Z66 Do not resuscitate; N18.9 Chronic kidney disease, unspecified; N20.0 Calculus of kidney; E21.3 Hyperparathyroidism, unspecified; F32.9 Major depressive disorder, single episode, unspecified; J44.9 Chronic obstructive pulmonary disease, unspecified; E86.0 Dehydration; E87.6 Hypokalemia; E83.42 Hypomagnesemia; E83.51 Hypocalcemia; D50.0 Iron deficiency anemia secondary to blood loss (chronic); K21.0 Gastro-esophageal reflux disease with esophagitis; E89.0 Postprocedural hypothyroidism; Y83.6 Removal of other organ (partial) (total) as the cause of abnormal reaction of the patient, or of later complication, without mention of misadventure at the time of the procedure; Z60.2 Problems related to living alone; D63.0 Anemia in neoplastic disease; I25.2 Old myocardial infarction; Z79.899 Other long term (current) drug therapy; Z87.891 Personal history of nicotine dependence; Z88.2 Allergy status to sulfonamides; Z88.8 Allergy status to other drugs, medicaments and biological substances; Z91.041 Radiographic dye allergy status; Z91.013 Allergy to seafood; Z92.21 Personal history of antineoplastic chemotherapy
CPT/HCPCS: 36415; 36430; 74022; 74176; 80048; 80053; 81001; 82040; 82270; 82533; 82550; 82553; 82607; 82728; 82746; 82803; 82962; 83540; 83550; 83605; 83735; 83880; 84443; 84481; 84484; 85025; 85027; 85045; 85610; 85730; 86850; 86900; 86901; 86920; 87040; 87086; 87324; 87449; 93005; 93010; 94799; 96361; 96374; 96375; 99291; 99292; J0610; J0696; J1265; J1642; J1815; J2060; J2405; J2550; J3475; J3480; J3490; J7030; J7042; J7060; J7120; P9016

== ENCOUNTER 2019-08-28 13:47 | Inpatient (IN) | payer MEDICAID ==
--- NOTE | 2019-08-28 16:11 | ER Document Report ---
Entered by DOMI OBRIEN SCRIBE 08/28/19 1601 Acting as scribe for:MAURICIO CRENSHAW MD ED General - General Chief Complaint: Shortness Of Breath Stated Complaint: SHORT OF BREATH Time Seen by Provider: 08/28/19 15:29 Mode of Arrival: Ambulatory Information source: Patient, [facility] Records Notes: This 63 year old female patient presents to the emergency department today with complaints of shortness of breath for the last week and a half. Patient states that if she is sitting still she seems to be fine but if as soon as she stands up to do anything she becomes short of breath. Patient also mentions that she has noticed a pasty bloody substance in her ostomy bag which is unchanged from the last few weeks. Patient states that she has also had nausea and vomiting but only in the morning when it is time to take her medications which is an issue that she has had for quite some time. TRAVEL OUTSIDE OF THE [place] IN LAST 30 DAYS: No - Related Data Allergies/Adverse Reactions: shellfish derived Allergy (Severe, Verified 04/04/19 02:17) Hives iodine [Iodine] Allergy (Intermediate, Verified 04/04/19 02:17) Rash Sulfa (Sulfonamide Antibiotics) Allergy (Intermediate, Verified 04/04/19 02:17) Hives Iodinated Contrast Media Adverse Reaction (Intermediate, Verified 04/04/19 02:17) Nausea Past Medical History - General Information source: Patient, [facility] Records - Social History Smoking Status: Former Smoker Cigarette use (# per day): No Chew tobacco use (# tins/day): No Smoking Education Provided: No Frequency of alcohol use: None Drug Abuse: None Lives with: Family Family History: CAD, DM, Hyperlipidemia, Hypertension - Past Medical History Cardiac Medical History: Reports: Hx Heart Attack - 2010, Hx Hypertension Pulmonary Medical History: Reports: Hx Asthma, Hx Bronchitis, Hx COPD, Hx Pneumonia - 2014 Endocrine Medical History: Reports: Hx Hyperthyroidism - Treated with radioactive iodine, Hx Hypothyroidism - Post ablation, takes thyroid replacement hormone Renal/ Medical History: Reports: Hx Renal Insufficiency Malignancy Medical History: Reports: Hx Colorectal Cancer GI Medical History: Reports: Hx Gastroesophageal Reflux Disease Musculoskeletal Medical History: Reports Hx Arthritis Psychiatric Medical History: Reports: Hx Depression Past Surgical History: Reports: Hx Ileostomy - With Low anterior resection and total [id number], Hx Tubal Ligation, Other - 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 Genitourinary: No symptoms reported Female Genitourinary: Post menopausal Musculoskeletal: No symptoms reported Skin: No symptoms reported Hematologic/Lymphatic: No symptoms reported Neurological/Psychological: Depression, Weakness Physical Exam - Vital signs Vitals: Temp 98.2 F 08/28/19 13:49 - Notes Notes: Physical Exam: General: Alert, appears chronically ill and older than stated age. HEENT: Normocephalic. Atraumatic. PERRL. Extraocular movements intact. [place] pharynx clear. Neck: Supple. Non-tender. Respiratory: No respiratory distress. Clear and equal breath sounds bilaterally. Cardiovascular: Regular rate and rhythm. Abdominal: Dark pasty substance in ostomy bag. No distension. Normal Bowel Sounds. Back: No gross abnormalities. Extremities: Moves all four extremities. Upper extremities: Normal inspection. Normal ROM. Lower extremities: Normal inspection. No edema. Normal ROM. Neurological: Normal cognition. AAOx4. Normal speech. Psychological: Normal affect. Normal Mood. Skin: Warm. Dry. Normal color. Course - Vital Signs Vital signs: Temp Pulse Resp BP Pulse Ox 98.2 F 27 H 118/100 H 89 L 08/28/19 13:49 08/28/19 19:06 08/28/19 19:06 08/28/19 19:05 - Laboratory Result Diagrams: 08/28/19 16:00 08/28/19 16:00 Laboratory results interpreted by me: 08/28/19 08/28/19 08/28/19 16:00 16:00 16:00 RDW 15.5 H Lymph % (Auto) 8.5 L Absolute Neuts (auto) 8.6 H Seg Neutrophils % 83.4 H Sodium 134.6 L Chloride 108 H Carbon Dioxide 11 L BUN 61 H Creatinine 3.47 H Est GFR ( Amer) 16 L Est GFR (MDRD) Non-Af 13 L Alkaline Phosphatase 172 H Creatine Kinase 206 H NT-Pro-B Natriuret Pep 844 H Free T3 pg/mL 08/28/19 16:00 RDW Lymph % (Auto) Absolute Neuts (auto) Seg Neutrophils % Sodium Chloride Carbon Dioxide BUN Creatinine Est GFR ( Amer) Est GFR (MDRD) Non-Af Alkaline Phosphatase Creatine Kinase NT-Pro-B Natriuret Pep Free T3 pg/mL 2.50 L - Diagnostic Test Radiology reviewed: Image reviewed, Reports reviewed - Chest x-ray does not show acute findings. - EKG Interpretation by Me EKG shows normal: Sinus rhythm, [place], Intervals, ST-T Waves. abnormal: QRS Complexes - Old inferior PR Rate: Normal - 77 Rhythm: Arrthymia When compared to previous EKG there are: No significant change - Consults Dr. Duran Time consulted: 19:18 Consulted provider: will come to ER Discharge - Discharge Clinical Impression: Dehydration Hypotension Qualifiers: Hypotension type: hypotension due to hypovolemia Qualified Code(s): I95.89 - Other hypotension Acute renal failure (ARF) Qualifiers: Acute renal failure type: unspecified Qualified Code(s): N17.9 - Acute kidney failure, unspecified Condition: Good Disposition: ADMITTED INPATIENT Admitting Provider: Roger (Hospitalist) Unit Admitted: Medical Floor I personally performed the services described in the documentation, reviewed and edited the documentation which was dictated to the scribe in my presence, and it accurately records my words and actions.
[2019-08-28 16:36] LABS: ABSOLUTE BASOPHILS # (AUTO) 0.1 10^3/uL (0.0-0.2); ABSOLUTE LYMPHOCYTES (AUTO) 0.9 10^3/uL (0.5-4.7); ABSOLUTE MONOCYTES (AUTO) 0.7 10^3/uL (0.1-1.4); ABSOLUTE NEUT (AUTO) 8.6 10^3/uL (1.7-8.2); BASOPHILS % (AUTO) 0.7 % (0-2); EOSINOPHILS % (AUTO) 0.3 % (0-6); HEMATOCRIT 39.6 % (36.0-47.0); HEMOGLOBIN 13.2 g/dL (12.0-15.5); LYMPHOCYTES % (AUTO) 8.5 % (13-45); MEAN CORPUSCULAR HEMOGLOBIN 31.3 pg (27.0-33.4); MEAN CORPUSCULAR HGB CONC 33.5 g/dL (32.0-36.0); MEAN CORPUSCULAR VOLUME 94 fl (80-97); MONOCYTES % (AUTO) 7.1 % (3-13); PLATELET COUNT 385 10^3/uL (150-450); RED BLOOD COUNT 4.23 10^6/uL (3.72-5.28); RED CELL DISTRIBUTION WIDTH 15.5 % (11.5-14.0); SEGMENTED NEUTROPHILS % (AUTO) 83.4 % (42-78); TOTAL CELLS COUNTED % (AUTO) 100 %; WHITE BLOOD COUNT 10.3 10^3/uL (4.0-10.5)
[2019-08-28 17:03] LABS: ALBUMIN 4.7 g/dL (3.5-5.0); ALKALINE PHOSPHATASE 172 U/L (38-126); ASPARTATE AMINO TRANSFERASE 23 U/L (14-36); BILIRUBIN,TOTAL 0.3 mg/dL (0.2-1.3); BLOOD UREA NITROGEN 61 mg/dL (7-20); CALCIUM 10.2 mg/dL (8.4-10.2); CHLORIDE 108 mmol/L (98-107); CREATINE KINASE 206 U/L (30-135); GLUCOSE 87 mg/dL (75-110); POTASSIUM 4.6 mmol/L (3.6-5.0); TOTAL PROTEIN 8.2 g/dL (6.3-8.2)
[2019-08-28 17:13] LABS: TROPONIN I 0.095 ng/mL
[2019-08-28] MEDS ORDERED: NORMAL SALINE 1000 ML 1,000 ML IV ONE ×2 (17:24→19:02)
[2019-08-28 17:26] LABS: ANION GAP 16 (5-19); CARBON DIOXIDE 11 mmol/L (22-30)
--- NOTE | 2019-08-28 17:28 | RADIOLOGY REPORT (SQ) ---
EXAM DESCRIPTION: CHEST SINGLE VIEW IMAGES COMPLETED DATE/TIME: 08/28/2019 5:07 pm REASON FOR STUDY: Short of breath COMPARISON: 05/26/2019 EXAM PARAMETERS: NUMBER OF VIEWS: One view. TECHNIQUE: Single frontal radiographic view of the chest acquired. RADIATION DOSE: NA LIMITATIONS: None. FINDINGS: LUNGS AND PLEURA: No opacities, masses or pneumothorax. No pleural effusion. MEDIASTINUM AND HILAR STRUCTURES: No masses. Contour normal. HEART AND VASCULAR STRUCTURES: Stable appearance. Normal vasculature. BONES: No acute findings. HARDWARE: Right Deezib-E-Tyrd catheter, stable finding. OTHER: Hiatal hernia, stable finding. IMPRESSION: 1. No significant interval change since the prior study dated 05/26/2019. No acute find ing. TECHNICAL DOCUMENTATION: JOB ID: [id number] 2010 [employer]- All Rights Reserved Reading location - IP/workstation name: [email or web address]
[2019-08-28 18:21] LABS: FREE T3 2.5 pg/mL (2.77-5.27); FREE T4 (FREE THYROXINE) 0.96 ng/dL (0.78-2.19)
--- NOTE | 2019-08-28 20:05 | EKG REPORT ---
SEVERITY:- ABNORMAL ECG - SINUS ARRHYTHMIA, RATE 62-89 INFERIOR INFARCT, AGE INDETERMINATE CONSIDER ANTERIOR INFARCT : Confirmed by: Ryan Noguera MD 28-Aug-2019 20:05:20
[2019-08-28] MEDS ORDERED: MAG HYDROX/AL HYDROX/SIMETH SUSP 30 ML UDCUP PO PRN (20:09)
[2019-08-28] MEDS ORDERED: LEVALBUTEROL HCL NEB 0.63 MG/3 ML AMPUL NEB PRN (20:09)
[2019-08-28] MEDS ORDERED: MORPHINE SULFATE 10 MG/ML INJ IV PRN (20:14)
[2019-08-28] MEDS ORDERED: HYDRALAZINE HCL INJ/PF 20 MG/1 ML SDV IV PRN (20:14)
[2019-08-28] MEDS ORDERED: GUAIFENESIN SYRP 200 MG/10 ML UDC PO PRN (20:14)
[2019-08-28] MEDS ORDERED: LORAZEPAM INJ 2 MG/1 ML VIAL IV PRN (20:14)
[2019-08-28] MEDS ORDERED: METOPROLOL TARTRATE PF/INJ 5 MG/5 ML SDV IV PRN (20:14)
[2019-08-28] MEDS: RINGERS SOLUTION,LACTATED 1,000 ML IV PRN (21:16)
[2019-08-28] MEDS: HEPARIN SOD (PORCINE) 5,000 UNIT/ML 1 ML VIAL SUBCUT SCH (21:16)
--- NOTE | 2019-08-28 21:42 | PDOC H&P ---
History of Present Illness Admission Date/PCP: 08/28/2019 19:18 Rubina Castle MD Patient complains of: Lightheadedness History of Present Illness: KYRA REYNOLDS is a 63 year old female who presented to the emergency room with a 10-day history of lightheadedness. She admits a 10-day history of progressively worsening lightheadedness and dizziness upon standing or participating in any activity. Her lightheadedness has been accompanied by progressively worsening dyspnea on exertion and has been associated with morning nausea and vomiting which she relates to taking her morning medications. She denies other associated or accompanying signs and symptoms. She admits numerous prior similar episodes related to her chronic gastrointestinal blood loss and episodes of acute renal failure. She has not identified any additional aggravating or ameliorating factors for her lightheadedness. In the emergency room she was found to have a creatinine of 3.7 and a BUN of 61 and was subsequen tly admitted to the hospital for further evaluation and treatment. Past Medical History Cardiac Medical History: Reports: Coronary Artery Disease, Myocardial Infarction - 2009, Hypertension Denies: Atrial Fibrillation, Congestive Heart Failure, Hyperlipidema, Peripheral Vascular Disease, Pulmonary Embolism, Heart Murmur Pulmonary Medical History: Reports: Asthma, Bronchitis, Chronic Obstructive Pulmonary Disease (COPD), Pneumonia - 2014, Respiratory Failure Denies: Sleep Apnea, Tuberculosis EENT Medical History: Denies: Cataracts, Ears - Hearing aids Neurological Medical History: Denies: Hemorrhagic CVA, Ischemic CVA, Seizures Endocrine Medical History: Reports: Hyperthyroidism - Treated with radioactive iodine, Hypothyroidism - Post ablation, takes thyroid replacement hormone Denies: Diabetes Mellitus Type 1, Diabetes Mellitus Type 2 Renal/ Medical History: Denies: Chronic Kidney Disease, Nephrolithiasis Malignancy Medical History: Reports: Colorectal Cancer GI Medical History: Reports: Gastroesophageal Reflux Disease, Other - Chronic gastrointestinal blood loss of uncertain origin Denies: Cirrhosis, Crohn's Disease, Hepatitis, Hiatal Hernia, Ulcerative Colitis Musculoskeltal Medical History: Reports: Arthritis Denies: Fibromyalgia Skin Medical History: Denies: Eczema, Psoriasis Psychiatric Medical History: Reports: Depression Denies: Alcohol Dependency, Bipolar Disorder, Dementia, Post Traumatic Stress Disorder, Substance Abuse, Tobacco Dependency Traumatic Medical History: Reports: None Hematology: Reports: Anemia - Chronic due to chronic blood loss, Bleeding Tendencies Infectious Medical History: Reports: None Past Surgical History Past Surgical History: Reports: Ileostomy - With Low anterior resection and total [id number], Tubal Ligation, Other - 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 Denies: Amputation, Appendectomy, Section, Cholecystectomy, Colostomy, Coronary Artery Bypass Graft, Gastric Bypass Surgery, Herniorrhaphy, Hysterectomy, Mastectomy, Pacemaker, Tonsillectomy Social History Information Source: Patient Lives with: Family Smoking Status: Former Smoker Electronic Cigarette use?: No Frequency of Alcohol Use: None Hx Recreational Drug Use: No Drugs: None Hx Prescription Drug Abuse: No - Advance Directive Resuscitation Status: Full Code Surrogate healthcare decision maker:: Carola Vanessa Family History Family History: CAD, DM, Hyperlipidemia, Hypertension Parental Family History Reviewed: Yes Children Family History Reviewed: No Sibling(s) Family History Reviewed.: Yes Medication/Allergy Home Medications: Oxybutynin Chloride [Ditropan 5 mg Tablet] 5 mg PO TID #0 05/21/11 Pravastatin Sodium [Pravachol] 20 mg PO QHS 03/10/16 Omeprazole 20 mg PO [id number] 09/19/17 Sertraline HCl [Zoloft] 150 mg PO DAILY 12/01/18 Atenolol [Tenormin] 25 mg PO QAM 04/05/19 Diphenoxylate HCl/Atrop Sulf [Lomotil 2.5 mg Tablet] 2 tab PO TID 06/19/19 Hydroxyzine Pamoate [Vistaril 25 mg Capsule] 25 mg PO Q8HP PRN 06/19/19 Megestrol Acetate [Megace [place] 400 mg/10 ml Udcup] 800 mg PO DAILY #60 udc 06/23/19 Alprazolam 1 mg PO TIDP PRN 08/28/19 Fluticasone/Salmeterol [Advair 250-50 Diskus 14 Dose/Diskus] 1 inh IH Q12 08/28/19 Levothyroxine Sodium [Synthroid 0.15 mg Tablet] 0.15 mg PO Q6AM 08/28/19 Ramipril [Altace 5 mg Capsule] 5 mg PO DAILY 08/28/19 Allergies/Adverse Reactions: shellfish derived Allergy (Severe, Verified 04/04/19 02:17) Hives iodine [Iodine] Allergy (Intermediate, Verified 04/04/19 02:17) Rash Sulfa (Sulfonamide Antibiotics) Allergy (Intermediate, Verified 04/04/19 02:17) Hives Iodinated Contrast Media Adverse Reaction (Intermediate, Verified 04/04/19 02:17) Nausea Review of Systems Constitutional: ABSENT: chills, fever(s) Eyes: ABSENT: visual disturbances, other - Eye pain Ears: ABSENT: other - Ear pain Nose, Mouth, and Throat: ABSENT: headache(s), mouth pain, sore throat Cardiovascular: PRESENT: other - Lightheadedness. ABSENT: chest pain, palpitations Respiratory: ABSENT: cough, dyspnea Gastrointestinal: PRESENT: as per HPI, diarrhea - Chronic per ileostomy, nausea, vomiting. ABSENT: abdominal pain, constipation Genitourinary: PRESENT: other - Decreased urine output. ABSENT: dysuria, hematuria Musculoskeletal: ABSENT: back pain, joint swelling, muscle weakness Integumentary: ABSENT: pruritus, rash Neurological: PRESENT: as per HPI, dizziness. ABSENT: confusion, convulsions, focal weakness, memory loss, syncope Psychiatric: ABSENT: anxiety, depression Endocrine: ABSENT: cold intolerance, heat intolerance, polydipsia, polyphagia, polyuria Hematologic/Lymphatic: ABSENT: easy bleeding, easy bruising Allergic/Immunologic: ABSENT: seasonal rhinorrhea Physical Exam Vital Signs: Temp Pulse Resp BP Pulse Ox 98.2 F 27 H 118/100 H 89 L 08/28/19 13:49 08/28/19 19:06 08/28/19 19:06 08/28/19 19:05 Intake & Output 08/26/19 08/27/19 08/28/19 23:59 23:59 23:59 Intake Total 1000 Balance 1000 Weight 66.678 kg General appearance: PRESENT: no acute distress, cooperative Head exam: PRESENT: atraumatic, normocephalic Eye exam: PRESENT: conjunctiva pink. ABSENT: conjunctival injection, scleral icterus Ear exam: PRESENT: normal external ear exam. ABSENT: bleeding, drainage Mouth exam: PRESENT: dry mucosa, neck supple Neck exam: ABSENT: thyromegaly, tracheal deviation Respiratory exam: PRESENT: clear to auscultation vickie, symmetrical, unlabored Cardiovascular exam: PRESENT: RRR. ABSENT: clicks, gallop, rubs Pulses: PRESENT: normal radial pulses, normal dorsalis pedis pul Vascular exam: PRESENT: normal capillary refill. ABSENT: pallor GI/Abdominal exam: PRESENT: normal bowel sounds, soft, other - Ileostomy is noted. ABSENT: tenderness Rectal exam: PRESENT: deferred Extremities exam: ABSENT: joint swelling, pedal edema Musculoskeletal exam: ABSENT: deformity, dislocation Neurological exam: PRESENT: alert, oriented to person, oriented to place, oriented to time, oriented to situation, CN II-XII grossly intact. ABSENT: motor sensory deficit Psychiatric exam: PRESENT: appropriate affect, normal mood Skin exam: PRESENT: dry, intact, warm. ABSENT: jaundice, rash, urticaria Results Laboratory Results: 08/28/19 16:00 08/28/19 16:00 08/28/19 08/28/19 08/28/19 16:00 16:00 16:00 WBC 10.3 RBC 4.23 Hgb 13.2 Hct 39.6 MCV 94 MCH 31.3 MCHC 33.5 RDW 15.5 H Plt Count 385 Seg Neutrophils % 83.4 H Sodium 134.6 L Potassium 4.6 Chloride 108 H Carbon Dioxide 11 L Anion Gap 16 BUN 61 H Creatinine 3.47 H Est GFR ( Amer) 16 L Glucose 87 Calcium 10.2 Total Bilirubin 0.3 AST 23 Alkaline Phosphatase 172 H Total Protein 8.2 Albumin 4.7 Free T4 Free T3 pg/mL Blood Type B POSITIVE Antibody Screen NEGATIVE 08/28/19 16:00 WBC RBC Hgb Hct MCV MCH MCHC RDW Plt Count Seg Neutrophils % Sodium Potassium Chloride Carbon Dioxide Anion Gap BUN Creatinine Est GFR ( Amer) Glucose Calcium Total Bilirubin AST Alkaline Phosphatase Total Protein Albumin Free T4 0.96 Free T3 pg/mL 2.50 L Blood Type Antibody Screen 08/28/19 08/28/19 16:00 16:00 Creatine Kinase 206 H Troponin I 0.095 NT-Pro-B Natriuret Pep 844 H Impressions: Chest X-Ray 08/28/19 15:42 IMPRESSION: 1. No significant interval change since the prior study dated 05/26/2019. No acute finding. Assessment and Plan - Diagnosis (1) Acute kidney injury Is this a current diagnosis for this admission?: Yes (2) Acidosis Is this a current diagnosis for this admission?: Yes (3) Anemia due to blood loss, chronic Is this a current diagnosis for this admission?: Yes (4) Hypothyroidism Qualifiers: Hypothyroidism type: postablative Qualified Code(s): E89.0 - Postprocedural hypothyroidism Is this a current diagnosis for this admission?: Yes (5) Hyperlipidemia Qualifiers: Hyperlipidemia type: unspecified Qualified Code(s): E78.5 - Hyperlipidemia, unspecified Is this a current diagnosis for this admission?: Yes (6) COPD (chronic obstructive pulmonary disease) Qualifiers: COPD type: unspecified COPD Qualified Code(s): J44.9 - Chronic obstructive pulmonary disease, unspecified Is this a current diagnosis for this admission?: Yes - Plan Summary Summary: Patient will be admitted to the medical floor where she will receive routine supportive and symptomatic cares. She will be given IV fluids and increased volume and her renal functions electrolytes will be monitored closely. Her hemoglobin will be monitored closely and she will be transfused as required if she remains symptomatic after appropriate hydration. Orthostatic vital signs will be monitored. She will use Ativan 1 mg IV every 4 hours as needed for an xiety or restlessness. She will use morphine sulfate 2 to 4 mg IV every 2 hours as needed for pain. CBCs, metabolic profiles, magnesium levels and other laboratory or radiographic evaluations will be obtained as appropriate. Her usual medications will be resumed, as appropriate, when her medication list has been verified and reconciled. She will be treated with a cardiac and prerenal restricted diet. - Time Time Spent with patient: Less than 15 minutes Medications reviewed and adjusted accordingly: Yes Anticipated discharge: Home - Inpatient Certification Based on my medical assessment, after consideration of the patient's comorbidities, presenting symptoms, or acuity I expect that the services needed warrant INPATIENT care.: Yes I certify that my determination is in accordance with my understanding of Medicare's requirements for reasonable and necessary INPATIENT services [42 CFR 412.3e].: Yes Medical Necessity: Need Close Monitoring Due to Risk of Patient Decompensation, Need For IV Fluids, Risk of Complication if Not Cared For in Hospital
[2019-08-28] MEDS: ACETAMINOPHEN 325 MG TABLET PO PRN (22:33)
[2019-08-28] MEDS: LEVALBUTEROL HCL NEB 1.25 MG/3 ML AMPUL NEB SCH (23:48)
[2019-08-29 03:05] LABS: APPEARANCE,URINE TURBID; BILIRUBIN,URINE NEGATIVE (NEGATIVE); COLOR,URINE YELLOW; GLUCOSE, URINE NEGATIVE (NEGATIVE); KETONES,URINE NEGATIVE (NEGATIVE); LEUKOCYTE ESTERASE,URINE LARGE (NEGATIVE); NITRITE,URINE NEGATIVE (NEGATIVE); PROTEIN,URINE 100 mg/dL (NEGATIVE); URINE SPECIFIC GRAVITY 1.014; UROBILINOGEN,URINE NEGATIVE mg/dL (<2.0)
[2019-08-29] MEDS: RINGERS SOLUTION,LACTATED 1,000 ML IV PRN (03:13)
[2019-08-29] MEDS: HEPARIN SOD (PORCINE) 5,000 UNIT/ML 1 ML VIAL SUBCUT SCH ×3 (05:50→21:16)
[2019-08-29] MEDS: PANTOPRAZOLE SODIUM 40 MG TABLET.DR PO SCH (05:51)
[2019-08-29 05:56] LABS: HEMATOCRIT 29.2 % (36.0-47.0); MEAN CORPUSCULAR HGB CONC 33.8 g/dL (32.0-36.0); MEAN CORPUSCULAR VOLUME 95 fl (80-97); PLATELET COUNT 256 10^3/uL (150-450); RED BLOOD COUNT 3.09 10^6/uL (3.72-5.28); RED CELL DISTRIBUTION WIDTH 15.7 % (11.5-14.0); WHITE BLOOD COUNT 6.1 10^3/uL (4.0-10.5)
[2019-08-29 05:58] LABS: HEMOGLOBIN 9.9 g/dL (12.0-15.5)
[2019-08-29] MEDS ORDERED: LEVOTHYROXINE SODIUM 0.15 MG TABLET PO SCH (06:00)
[2019-08-29 06:20] LABS: ANION GAP 10 (5-19); BLOOD UREA NITROGEN 52 mg/dL (7-20); CALCIUM 8.4 mg/dL (8.4-10.2); CARBON DIOXIDE 12 mmol/L (22-30); CHLORIDE 113 mmol/L (98-107); GLUCOSE 129 mg/dL (75-110); POTASSIUM 3.7 mmol/L (3.6-5.0)
[2019-08-29] MEDS: MAGNESIUM SULFATE 1 GM/D5W 100 ML IV SCH ×2 (07:28→08:51)
[2019-08-29] MEDS: LEVALBUTEROL HCL NEB 1.25 MG/3 ML AMPUL NEB SCH ×2 (08:43→15:46)
[2019-08-29] MEDS: BUDESONIDE NEB 0.5 MG/2 ML AMPUL NEB SCH ×2 (08:43→20:12)
[2019-08-29] MEDS ORDERED: NORMAL SALINE 1000 ML 1,000 ML IV ONE (16:30)
--- NOTE | 2019-08-29 16:40 | PDOC PROGRESS REPORT ---
Subjective Progress Note for:: 08/29/19 Subjective:: Patient admits to not eating enough. Reason For Visit: ACUTE KIDNEY INJURY Physical Exam Vital Signs: Temp Pulse Resp BP Pulse Ox 97.6 F 64 16 97/57 L 100 08/29/19 12:00 08/29/19 12:00 08/29/19 12:00 08/29/19 12:00 08/29/19 12:00 Intake & Output 08/28/19 08/29/19 08/30/19 06:59 06:59 06:59 Intake Total 3704 370 Output Total 400 Balance 3304 370 Weight 66.5 kg General appearance: PRESENT: no acute distress, cooperative Neck exam: ABSENT: JVD Respiratory exam: PRESENT: clear to auscultation vickie, unlabored. ABSENT: tachypnea, wheezes Cardiovascular exam: PRESENT: RRR, +S1, +S2. ABSENT: tachycardia GI/Abdominal exam: PRESENT: soft. ABSENT: rebound, rigid, tenderness Neurological exam: PRESENT: alert, awake, oriented to person, oriented to place, oriented to time Results Laboratory Results: 08/29/19 04:50 08/29/19 04:50 08/28/19 08/28/19 08/28/19 16:00 16:00 16:00 WBC 10.3 RBC 4.23 Hgb 13.2 Hct 39.6 MCV 94 MCH 31.3 MCHC 33.5 RDW 15.5 H Plt Count 385 Seg Neutrophils % 83.4 H Sodium 134.6 L Potassium 4.6 Chloride 108 H Carbon Dioxide 11 L Anion Gap 16 BUN 61 H Creatinine 3.47 H Est GFR ( Amer) 16 L Glucose 87 Calcium 10.2 Magnesium Total Bilirubin 0.3 AST 23 Alkaline Phosphatase 172 H Total Protein 8.2 Albumin 4.7 TSH Free T4 Free T3 pg/mL Urine Color Urine Appearance Urine pH Ur Specific [place] Urine Protein Urine Glucose (UA) Urine Ketones Urine Blood Urine Nitrite Ur Leukocyte Esterase Urine WBC (Auto) Urine RBC (Auto) Blood Type B POSITIVE Antibody Screen NEGATIVE 08/28/19 08/29/19 08/29/19 16:00 02:30 04:50 WBC 6.1 RBC 3.09 L Hgb 9.9 L D Hct 29.2 L MCV 95 MCH 32.0 MCHC 33.8 RDW 15.7 H Plt Count 256 Seg Neutrophils % Sodium Potassium Chloride Carbon Dioxide Anion Gap BUN Creatinine Est GFR ( Amer) Glucose Calcium Magnesium Total Bilirubin AST Alkaline Phosphatase Total Protein Albumin TSH Free T4 0.96 Free T3 pg/mL 2.50 L Urine Color YELLOW Urine Appearance TURBID Urine pH 6.0 Ur Specific [place] 1.014 Urine Protein 100 H Urine Glucose (UA) NEGATIVE Urine Ketones NEGATIVE Urine Blood MODERATE H Urine Nitrite NEGATIVE Ur Leukocyte Esterase LARGE H Urine WBC (Auto) >182 Urine RBC (Auto) 39 Blood Type Antibody Screen 08/29/19 08/29/19 04:50 04:50 WBC RBC Hgb Hct MCV MCH MCHC RDW Plt Count Seg Neutrophils % Sodium 135.1 L Potassium 3.7 Chloride 113 H Carbon Dioxide 12 L Anion Gap 10 BUN 52 H Creatinine 2.48 H Est GFR ( Amer) 24 L Glucose 129 H Calcium 8.4 Magnesium 0.9 L* Total Bilirubin AST Alkaline Phosphatase Total Protein Albumin TSH 51.30 H Free T4 Free T3 pg/mL Urine Color Urine Appearance Urine pH Ur Specific [place] Urine Protein Urine Glucose (UA) Urine Ketones Urine Blood Urine Nitrite Ur Leukocyte Esterase Urine WBC (Auto) Urine RBC (Auto) Blood Type Antibody Screen 08/28/19 08/28/19 16:00 16:00 Creatine Kinase 206 H Troponin I 0.095 NT-Pro-B Natriuret Pep 844 H Impressions: Chest X-Ray 08/28/19 15:42 IMPRESSION: 1. No significant interval change since the prior study dated 05/26/2019. No acute finding. Assessment and Plan - Diagnosis (1) Acute kidney injury Is this a current diagnosis for this admission?: Yes Plan: I suspect this is due to prerenal azotemia due severe dehydration just like before. We will continue with aggressive IV fluids administration and closely monitor I's and O's. Repeat BMP to monitor renal function. (2) Metabolic acidosis Is this a current diagnosis for this admission?: Yes Plan: Secondary to renal failure. Anion gap is normal this morning. Continue lactated Ringer's. I will give some sodium bicarb p.o. (3) Hypomagnesemia Is this a current diagnosis for this admission?: Yes Plan: Suspect this may be secondary to GI losses. Replete magnesium aggressively IV 4 g. Repeat magnesium in the morning. (4) Hypothyroidism Qualifiers: Hypothyroidism type: postablative Qualified Code(s): E89.0 - Postprocedural hypothyroidism Is this a current diagnosis for this admission?: Yes Plan: Patient's TSH is 51.3 indicating poor control of her hypothyroidism. I had increased Synthroid few months ago and patient states that she has been compliant with it. I will increase her Synthroid further 0.2 mg. (5) COPD (chronic obstructive pulmonary disease) Qualifiers: COPD type: unspecified COPD Qualified Code(s): J44.9 - Chronic obstructive pulmonary disease, unspecified Is this a current diagnosis for this admission?: Yes Plan: Not acutely exacerbated. Nebs as needed.
[2019-08-29] MEDS: SODIUM BICARBONATE 650 MG TABLET PO SCH (18:44)
[2019-08-29] MEDS: MAGNESIUM SULFATE/D5W 1 GM/100 ML RTUPB IV SCH ×2 (18:44→19:47)
[2019-08-30] MEDS: LEVALBUTEROL HCL NEB 1.25 MG/3 ML AMPUL NEB SCH ×2 (00:05→08:52)
[2019-08-30] MEDS: ACETAMINOPHEN 325 MG TABLET PO PRN ×3 (01:02→09:41)
[2019-08-30] MEDS: RINGERS SOLUTION,LACTATED 1,000 ML IV PRN ×3 (03:31→23:24)
[2019-08-30] MEDS: PANTOPRAZOLE SODIUM 40 MG TABLET.DR PO SCH (05:12)
[2019-08-30] MEDS: LEVOTHYROXINE SODIUM 0.1 MG TABLET PO SCH (05:12)
[2019-08-30] MEDS: HEPARIN SOD (PORCINE) 5,000 UNIT/ML 1 ML VIAL SUBCUT SCH ×3 (05:12→21:00)
[2019-08-30] MEDS: SODIUM BICARBONATE 650 MG TABLET PO SCH ×2 (05:12→17:59)
[2019-08-30 05:45] LABS: HEMATOCRIT 26.7 % (36.0-47.0); MEAN CORPUSCULAR HEMOGLOBIN 31.9 pg (27.0-33.4); MEAN CORPUSCULAR HGB CONC 33.7 g/dL (32.0-36.0); MEAN CORPUSCULAR VOLUME 95 fl (80-97); PLATELET COUNT 253 10^3/uL (150-450); RED BLOOD COUNT 2.82 10^6/uL (3.72-5.28); RED CELL DISTRIBUTION WIDTH 15.5 % (11.5-14.0); WHITE BLOOD COUNT 6.1 10^3/uL (4.0-10.5)
[2019-08-30 05:53] LABS: ANION GAP 7 (5-19); BLOOD UREA NITROGEN 37 mg/dL (7-20); CALCIUM 8.3 mg/dL (8.4-10.2); CARBON DIOXIDE 15 mmol/L (22-30); CHLORIDE 114 mmol/L (98-107); GLUCOSE 108 mg/dL (75-110); POTASSIUM 3.2 mmol/L (3.6-5.0)
[2019-08-30] MEDS ORDERED: LEVOTHYROXINE SODIUM 0.15 MG TABLET PO SCH (06:00)
[2019-08-30] MEDS: BUDESONIDE NEB 0.5 MG/2 ML AMPUL NEB SCH (08:52)
[2019-08-30] MEDS ORDERED: RINGERS SOLUTION,LACTATED 1,000 ML IV ONE (17:20)
--- NOTE | 2019-08-30 17:20 | PDOC PROGRESS REPORT ---
Subjective Progress Note for:: 08/30/19 Subjective:: Patient has no complaints. She is eating and drinking. Reason For Visit: ACUTE KIDNEY INJURY Physical Exam Vital Signs: Temp Pulse Resp BP Pulse Ox 97.9 F 60 16 90/56 L 99 08/30/19 15:34 08/30/19 15:34 08/30/19 15:34 08/30/19 15:34 08/30/19 15:34 Intake & Output 08/29/19 08/30/19 08/31/19 06:59 06:59 06:59 Intake Total 3704 3190 480 Output Total 400 1300 Balance 3304 1890 480 Weight 66.5 kg 74.2 kg General appearance: PRESENT: no acute distress, cooperative Neck exam: ABSENT: JVD Respiratory exam: PRESENT: clear to auscultation vickie, unlabored. ABSENT: tachypnea, wheezes Cardiovascular exam: PRESENT: RRR, +S1, +S2. ABSENT: tachycardia GI/Abdominal exam: PRESENT: soft. ABSENT: rebound, rigid, tenderness Neurological exam: PRESENT: alert, awake, oriented to person, oriented to place, oriented to time Results Laboratory Results: 08/30/19 04:50 08/30/19 04:50 08/30/19 08/30/19 04:50 04:50 WBC 6.1 RBC 2.82 L Hgb 9.0 L Hct 26.7 L MCV 95 MCH 31.9 MCHC 33.7 RDW 15.5 H Plt Count 253 Sodium 135.6 L Potassium 3.2 L Chloride 114 H Carbon Dioxide 15 L Anion Gap 7 BUN 37 H Creatinine 2.07 H Est GFR ( Amer) 29 L Glucose 108 Calcium 8.3 L Magnesium 2.4 H D 08/28/19 08/28/19 16:00 16:00 Creatine Kinase 206 H Troponin I 0.095 NT-Pro-B Natriuret Pep 844 H Impressions: Chest X-Ray 08/28/19 15:42 IMPRESSION: 1. No significant interval change since the prior study dated 05/26/2019. No acute finding. Assessment and Plan - Diagnosis (1) Acute kidney injury Is this a current diagnosis for this admission?: Yes Plan: I suspect this is due to prerenal azotemia due severe dehydration just like before. We will continue with aggressive IV fluids administration and closely monitor I's and O's. Repeat BMP to monitor renal function. 08/30/2019-patient's creatinine seems to have not shown much improvement between yesterday and today. I will give another 1 L normal saline bolus the patient today. Sodium bicarbonate also added. We will continue to monitor urine output closely and continue to monitor renal function via labs. (2) Metabolic acidosis Is this a current diagnosis for this admission?: Yes Plan: Secondary to renal failure. Continue lactated Ringer's. Continue sodium bicarb p.o. (3) Hypomagnesemia Is this a current diagnosis for this admission?: Yes Plan: Suspect this may be secondary to GI losses. Repleted aggressively yesterday and actually hypomagnesemic today. We will continue to monitor Magnesium levels. (4) Hypothyroidism Qualifiers: Hypothyroidism type: postablative Qualified Code(s): E89.0 - Postprocedural hypothyroidism Is this a current diagnosis for this admission?: Yes Plan: Patient's TSH is 51.3 indicating poor control of her hypothyroidism. I had increased Synthroid few months ago and patient states that she has been compliant with it. I increased her Synthroid further 0.2 mg. (5) COPD (chronic obstructive pulmonary disease) Qualifiers: COPD type: unspecified COPD Qualified Code(s): J44.9 - Chronic obstructive pulmonary disease, unspecified Is this a current diagnosis for this admission?: Yes - Time Time Spent with patient: Less than 15 minutes
[2019-08-31] MEDS: PROMETHAZINE HCL INJ 25 MG/1 ML VIAL IV PRN (00:17)
[2019-08-31] MEDS: HEPARIN SOD (PORCINE) 5,000 UNIT/ML 1 ML VIAL SUBCUT SCH ×3 (05:03→22:31)
[2019-08-31] MEDS: LEVOTHYROXINE SODIUM 0.1 MG TABLET PO SCH (05:04)
[2019-08-31] MEDS: PANTOPRAZOLE SODIUM 40 MG TABLET.DR PO SCH (05:04)
[2019-08-31] MEDS: SODIUM BICARBONATE 650 MG TABLET PO SCH ×2 (05:04→17:50)
[2019-08-31 06:07] LABS: HEMATOCRIT 25.6 % (36.0-47.0); HEMOGLOBIN 8.6 g/dL (12.0-15.5); MEAN CORPUSCULAR HEMOGLOBIN 31.9 pg (27.0-33.4); MEAN CORPUSCULAR HGB CONC 33.7 g/dL (32.0-36.0); MEAN CORPUSCULAR VOLUME 95 fl (80-97); PLATELET COUNT 248 10^3/uL (150-450); RED BLOOD COUNT 2.71 10^6/uL (3.72-5.28); RED CELL DISTRIBUTION WIDTH 16.3 % (11.5-14.0); WHITE BLOOD COUNT 5.2 10^3/uL (4.0-10.5)
[2019-08-31 06:26] LABS: BLOOD UREA NITROGEN 25 mg/dL (7-20); CALCIUM 8.4 mg/dL (8.4-10.2); CARBON DIOXIDE 18 mmol/L (22-30); CHLORIDE 115 mmol/L (98-107); GLUCOSE 71 mg/dL (75-110); POTASSIUM 3.4 mmol/L (3.6-5.0)
[2019-08-31 06:44] LABS: ANION GAP 4 (5-19)
[2019-08-31] MEDS ORDERED: MAGNESIUM SULFATE/D5W 1 GM/100 ML RTUPB IV ONE (08:46)
[2019-08-31] MEDS: POTASSI CL 20 MEQ/50 ML RIDER 20 MEQ/50 ML RTUPB IV SCH ×2 (10:55→12:58)
[2019-08-31] MEDS: ACETAMINOPHEN 325 MG TABLET PO PRN (15:21)
[2019-08-31] MEDS ORDERED: RINGERS SOLUTION,LACTATED 1,000 ML IV ONE (16:35)
--- NOTE | 2019-08-31 16:37 | PDOC PROGRESS REPORT ---
Subjective Progress Note for:: 08/31/19 Subjective:: Patient complained today about her ostomy bag leaking and bursting when she walks. Requesting to know if he can give an ostomy bag that is similar to the one she has at home. This is the major source of frustration. Otherwise she feels well in terms of her breathing. Denies any nausea or vomiting and eating adequately. We will address this issue of the ostomy bag. Ambulation encouraged. Reason For Visit: ACUTE KIDNEY INJURY Physical Exam Vital Signs: Temp Pulse Resp BP Pulse Ox 98.2 F 83 16 116/69 91 L 08/31/19 07:21 08/31/19 12:19 08/31/19 12:19 08/31/19 07:21 08/31/19 12:19 Intake & Output 08/30/19 08/31/19 09/01/19 06:59 06:59 06:59 Intake Total 3190 3680 150 Output Total 1300 1251 Balance 1890 2429 150 Weight 74.2 kg 74.5 kg General appearance: PRESENT: no acute distress, cooperative Neck exam: ABSENT: JVD Respiratory exam: PRESENT: unlabored. ABSENT: accessory muscle use, retraction, tachypnea GI/Abdominal exam: PRESENT: soft. ABSENT: rebound, rigid, tenderness Neurological exam: PRESENT: alert, awake, oriented to person, oriented to place, oriented to time Results Laboratory Results: 08/31/19 04:50 08/31/19 04:50 08/31/19 08/31/19 04:50 04:50 WBC 5.2 RBC 2.71 L Hgb 8.6 L Hct 25.6 L MCV 95 MCH 31.9 MCHC 33.7 RDW 16.3 H Plt Count 248 Sodium 136.6 L Potassium 3.4 L Chloride 115 H Carbon Dioxide 18 L Anion Gap 4 L BUN 25 H Creatinine 1.67 H Est GFR ( Amer) 37 L Glucose 71 L Calcium 8.4 Magnesium 1.7 08/28/19 08/28/19 16:00 16:00 Creatine Kinase 206 H Troponin I 0.095 NT-Pro-B Natriuret Pep 844 H Impressions: Chest X-Ray 08/28/19 15:42 IMPRESSION: 1. No significant interval change since the prior study dated 05/26/2019. No acute finding. Assessment and Plan - Diagnosis (1) Acute kidney injury Is this a current diagnosis for this admission?: Yes Plan: I suspect this is due to prerenal azotemia due severe dehydration just like before. We will continue with aggressive IV fluids administration and closely monitor I's and O's. Repeat BMP to monitor renal function. 08/30/2019-patient's creatinine seems to have not shown much improvement between yesterday and today. I will give another 1 L normal saline bolus the patient today. Sodium bicarbonate also added. We will continue to monitor urine output closely and continue to monitor renal function via labs. 08/31/2019-patient's creatinine seems to be improving with IV fluid hydration. I will give another bolus today while running on lactated Ringer's continuous infusion. Acidosis is also improved with bicarbonate supplementation. Check BMP in the morning. (2) Metabolic acidosis Is this a current diagnosis for this admission?: Yes Plan: Secondary to renal failure. Continue lactated Ringer's. Continue sodium bicarb p.o. (3) Hypomagnesemia Is this a current diagnosis for this admission?: Yes Plan: Suspect this may be secondary to GI losses. Resolved.. (4) Hypothyroidism Qualifiers: Hypothyroidism type: postablative Qualified Code(s): E89.0 - Postprocedural hypothyroidism Is this a current diagnosis for this admission?: Yes Plan: Patient's TSH is 51.3 indicating poor control of her hypothyroidism. I had increased Synthroid few months ago and patient states that she has been compliant with it. I increased her Synthroid further 0.2 mg. (5) COPD (chronic obstructive pulmonary disease) Qualifiers: COPD type: unspecified COPD Qualified Code(s): J44.9 - Chronic obstructive pulmonary disease, unspecified Is this a current diagnosis for this admission?: Yes - Time Time Spent with patient: Less than 15 minutes
[2019-09-01] MEDS: RINGERS SOLUTION,LACTATED 1,000 ML IV PRN (00:35)
[2019-09-01] MEDS: HEPARIN SOD (PORCINE) 5,000 UNIT/ML 1 ML VIAL SUBCUT SCH (05:45)
[2019-09-01] MEDS: SODIUM BICARBONATE 650 MG TABLET PO SCH (05:45)
[2019-09-01] MEDS: PANTOPRAZOLE SODIUM 40 MG TABLET.DR PO SCH (05:45)
[2019-09-01] MEDS: LEVOTHYROXINE SODIUM 0.1 MG TABLET PO SCH (05:47)
[2019-09-01] MEDS: ACETAMINOPHEN 325 MG TABLET PO PRN (06:37)
[2019-09-01 08:20] LABS: HEMATOCRIT 29.8 % (36.0-47.0); MEAN CORPUSCULAR HEMOGLOBIN 31.7 pg (27.0-33.4); MEAN CORPUSCULAR HGB CONC 33.4 g/dL (32.0-36.0); MEAN CORPUSCULAR VOLUME 95 fl (80-97); PLATELET COUNT 253 10^3/uL (150-450); RED BLOOD COUNT 3.14 10^6/uL (3.72-5.28); RED CELL DISTRIBUTION WIDTH 16.4 % (11.5-14.0); WHITE BLOOD COUNT 5.9 10^3/uL (4.0-10.5)
[2019-09-01 08:28] VITALS: BP 158/80
[2019-09-01 08:43] LABS: ANION GAP 6 (5-19); BLOOD UREA NITROGEN 16 mg/dL (7-20); CALCIUM 8.9 mg/dL (8.4-10.2); CARBON DIOXIDE 19 mmol/L (22-30); CHLORIDE 114 mmol/L (98-107); GLUCOSE 111 mg/dL (75-110); POTASSIUM 3.4 mmol/L (3.6-5.0)
[2019-09-01] MEDS: PROMETHAZINE HCL INJ 25 MG/1 ML VIAL IV PRN (09:39)
--- NOTE | 2019-09-01 10:06 | PDOC DISCHARGE SUMMARY ---
Impression - Admit/DC Date/PCP Admission Date/Primary Care Provider: 08/28/19 19:28 Discharge Date: 09/01/19 - Discharge Diagnosis (1) Acute kidney injury Is this a current diagnosis for this admission?: Yes (2) Metabolic acidosis Is this a current diagnosis for this admission?: Yes (3) Hypomagnesemia Is this a current diagnosis for this admission?: Yes (4) Hypothyroidism Is this a current diagnosis for this admission?: Yes (5) COPD (chronic obstructive pulmonary disease) Is this a current diagnosis for this admission?: Yes (6) Hypokalemia Is this a current diagnosis for this admission?: Yes - Additional Information Resuscitation Status: Full Code Discharge Diet: As Tolerated Discharge Activity: Activity As Tolerated Referrals: [facility] [Provider Group] BOY CORBETT MD [ACTIVE STAFF] - (APPT NEEDED YAN) Mino CHRISTINA MD [ACTIVE STAFF] - Prescriptions: Potassium Chloride [K-Tab ER] 20 meq PO BID #40 tablet.er Sodium Bicarbonate [Sodium Bicarbonate 650 mg Tablet] 650 mg PO Q12A 15 Days tablet Levothyroxine Sodium [Synthroid 0.1 mg Tablet] 0.2 mg PO Q6AM 30 Days tablet Home Medications: Oxybutynin Chloride [Ditropan 5 mg Tablet] 5 mg PO TID #0 05/21/11 Pravastatin Sodium [Pravachol] 20 mg PO QHS 03/10/16 Atenolol [Tenormin] 25 mg PO QAM 04/05/19 Diphenoxylate HCl/Atrop Sulf [Lomotil 2.5 mg Tablet] 2 tab PO TID 06/19/19 Hydroxyzine Pamoate [Vistaril 25 mg Capsule] 25 mg PO Q8HP PRN 06/19/19 Megestrol Acetate [Megace Tianna 400 mg/10 ml Udcup] 800 mg PO DAILY #60 udc 06/23/19 Aspirin [Ecotrin 81 mg EC Tablet] 81 mg PO DAILY 08/28/19 Diphenhydramine HCl [Benadryl 25 mg Capsule] 25 mg PO TIDP PRN 08/28/19 Fluticasone/Salmeterol [Advair 250-50 Diskus 14 Dose/Diskus] 1 inh IH Q12 08/28/19 Levothyroxine Sodium [Synthroid 0.1 mg Tablet] 0.2 mg PO Q6AM 30 Days tablet 09/01/19 Loperamide HCl [Imodium 2 mg Capsule] 2 mg PO Q6HP PRN #21 cap 09/01/19 Magnesium Oxide [Magnesium] 400 mg PO DAILY #30 tablet 09/01/19 Potassium Chloride [K-Tab ER] 20 meq PO BID #40 tablet.er 09/01/19 Sodium Bicarbonate [Sodium Bicarbonate 650 mg Tablet] 650 mg PO Q12A 15 Days tablet 09/01/19 History of Present Illiness History of Present Illness: According to admitting provider: KYRA REYNOLDS is a 63 year old female who presented to the emergency room with a 10-day history of lightheadedness. She admits a 10-day history of progressively worsening lightheadedness and dizziness upon standing or participating in any activity. Her lightheadedness has been accompanied by progressively worsening dyspnea on exertion and has been associated with morning nausea and vomiting which she relates to taking her morning medications. She denies other associated or accompanying signs and symptoms. She admits numerous prior similar episodes related to her chronic gastrointestinal blood loss and episodes of acute renal failure. She has not identified any additional aggravating or ameliorating factors for her lightheadedness. In the emergency room she was found to have a creatinine of 3.7 and a BUN of 61 and was subsequently admitted to the hospital for further evaluation and treatment. Hospital Course Hospital Course: Patient was admitted with acute kidney injury. She was also noted to be hypotensive. Her creatinine was 3.4 on admission compared to prior baseline of 0.91-1 at the time of her last discharge. She was also hypokalemic and hypo- magnesium with non-anion gap metabolic acidosis and bicarbonate of 12 on BMP. Once again this seems to be secondary to dehydration with prerenal azotemia. Her findings are consistent with dehydrated state which I suspect to be due to excessive ostomy output quite similar to her prior presentation 2 months ago at which time her C. difficile test was negative. Patient was started on aggressive IV fluid hydration and giving sodium bicarbonate to replenish the bicarbonate loss. She was placed on lactated Ringer's. Her blood pressure improved and her renal function has shown continued improvement and is down to 1.28 today. Patient is doing well and would like to go home. Am sending patient home with potassium and magnesium supplements. I have encouraged patient to stay well-hydrated to maintain an even fluid balance. Also discharging patient with a few days of bicarb to help replenish have bicarbonate loss. Patient also being discharged with Imodium as needed for diarrhea/increased ostomy output. Patient has been instructed to have a repeat BMP in 1 to 2 weeks and to follow-up with nephrology and her PCP for further care and monitoring of her renal function. She will also be following up with surgeon Dr. Corbett about her ostomy. Physical Exam Vital Signs: Temp Pulse Resp BP Pulse Ox 98.4 F 94 17 158/80 H 94 09/01/19 08:00 09/01/19 08:00 09/01/19 08:00 09/01/19 08:00 09/01/19 08:00 Intake & Output 08/31/19 09/01/19 09/02/19 06:59 06:59 06:59 Intake Total 3680 2950 Output Total 1251 900 Balance 2429 2050 Weight 74.5 kg 74.5 kg General appearance: PRESENT: no acute distress, cooperative Neck exam: ABSENT: JVD Neurological exam: PRESENT: alert, awake Results Laboratory Results: WBC 5.9 10^3/uL (4.0-10.5) 09/01/19 08:00 RBC 3.14 10^6/uL (3.72-5.28) L 09/01/19 08:00 Hgb 10.0 g/dL (12.0-15.5) L 09/01/19 08:00 Hct 29.8 % (36.0-47.0) L 09/01/19 08:00 MCV 95 fl (80-97) 09/01/19 08:00 MCH 31.7 pg (27.0-33.4) 09/01/19 08:00 MCHC 33.4 g/dL (32.0-36.0) 09/01/19 08:00 RDW 16.4 % (11.5-14.0) H 09/01/19 08:00 Plt Count 253 10^3/uL (150-450) 09/01/19 08:00 Lymph % (Auto) 8.5 % (13-45) L 08/28/19 16:00 [place] % (Auto) 7.1 % (3-13) 08/28/19 16:00 Eos % (Auto) 0.3 % (0-6) 08/28/19 16:00 Baso % (Auto) 0.7 % (0-2) 08/28/19 16:00 Absolute Neuts (auto) 8.6 10^3/uL (1.7-8.2) H 08/28/19 16:00 Absolute Lymphs (auto) 0.9 10^3/uL (0.5-4.7) 08/28/19 16:00 Absolute Monos (auto) 0.7 10^3/uL (0.1-1.4) 08/28/19 16:00 Absolute Eos (auto) 0.0 10^3/uL (0.0-0.6) 08/28/19 16:00 Absolute Basos (auto) 0.1 10^3/uL (0.0-0.2) 08/28/19 16:00 Seg Neutrophils % 83.4 % (42-78) H 08/28/19 16:00 Sodium 138.7 mmol/L (137-145) 09/01/19 08:00 Potassium 3.4 mmol/L (3.6-5.0) L 09/01/19 08:00 Chloride 114 mmol/L (98-107) H 09/01/19 08:00 Carbon Dioxide 19 mmol/L (22-30) L 09/01/19 08:00 Anion Gap 6 (5-19) 09/01/19 08:00 BUN 16 mg/dL (7-20) 09/01/19 08:00 Creatinine 1.28 mg/dL (0.52-1.25) H 09/01/19 08:00 Est GFR ( Amer) 51 (>60) L 09/01/19 08:00 Est GFR (MDRD) Non-Af 42 (>60) L 09/01/19 08:00 Glucose 111 mg/dL (75-110) H 09/01/19 08:00 Calcium 8.9 mg/dL (8.4-10.2) 09/01/19 08:00 Magnesium 1.6 mg/dL (1.6-2.3) 09/01/19 08:00 Total Bilirubin 0.3 mg/dL (0.2-1.3) 08/28/19 16:00 Direct Bilirubin 0.0 mg/dL (0.0-0.4) 08/28/19 16:00 Neonat Total Bilirubin Not Reportable 08/28/19 16:00 Neonat Direct Bilirubin Not Reportable 08/28/19 16:00 Neonat Indirect Bili Not Reportable 08/28/19 16:00 AST 23 U/L (14-36) 08/28/19 16:00 ALT 12 U/L (<35) 08/28/19 16:00 Alkaline Phosphatase 172 U/L (38-126) H 08/28/19 16:00 Creatine Kinase 206 U/L (30-135) H 08/28/19 16:00 Troponin I 0.095 ng/mL 08/28/19 16:00 NT-Pro-B Natriuret Pep 844 pg/mL (<125) H 08/28/19 16:00 Total Protein 8.2 g/dL (6.3-8.2) 08/28/19 16:00 Albumin 4.7 g/dL (3.5-5.0) 08/28/19 16:00 TSH 51.30 uIU/mL (0.47-4.68) H 08/29/19 04:50 Free T4 0.96 ng/dL (0.78-2.19) 08/28/19 16:00 Free T3 pg/mL 2.50 pg/mL (2.77-5.27) L 08/28/19 16:00 Urine Color YELLOW 08/29/19 02:30 Urine Appearance TURBID 08/29/19 02:30 Urine pH 6.0 (5.0-9.0) 08/29/19 02:30 Ur Specific N[place]igh 1.014 08/29/19 02:30 Urine Protein 100 mg/dL (NEGATIVE) H 08/29/19 02:30 Urine Glucose (UA) NEGATIVE mg/dL (NEGATIVE) 08/29/19 02:30 Urine Ketones NEGATIVE mg/dL (NEGATIVE) 08/29/19 02:30 Urine Blood MODERATE (NEGATIVE) H 08/29/19 02:30 Urine Nitrite NEGATIVE (NEGATIVE) 08/29/19 02:30 Urine Bilirubin NEGATIVE (NEGATIVE) 08/29/19 02:30 Urine Urobilinogen NEGATIVE mg/dL (<2.0) 08/29/19 02:30 Ur Leukocyte Esterase LARGE (NEGATIVE) H 08/29/19 02:30 Urine WBC (Auto) >182 /HPF 08/29/19 02:30 Urine RBC (Auto) 39 /HPF 08/29/19 02:30 U Hyaline Cast (Auto) 9 /LPF 08/29/19 02:30 Urine Bacteria (Auto) 2+ /HPF 08/29/19 02:30 Urine WBC Clumps MANY /HPF 08/29/19 02:30 Squamous Epi Cells Auto 19 /HPF 08/29/19 02:30 U Non-Squamous Epis Auto 1 /HPF 08/29/19 02:30 Urine Mucus (Auto) FEW /LPF 08/29/19 02:30 Urine Ascorbic Acid NEGATIVE (NEGATIVE) 08/29/19 02:30 Blood Type B POSITIVE 08/28/19 16:00 Antibody Screen NEGATIVE 08/28/19 16:00 08/28/19 16:00 Troponin I 0.095 NT-Pro-B Natriuret Pep 844 H Impressions: Chest X-Ray 08/28/19 15:42 IMPRESSION: 1. No significant interval change since the prior study dated 05/26/2019. No acute finding. Plan Time Spent: Less than 30 Minutes Stroke Is this a Stroke Patient?: No Acute Heart Failure - Is this a Heart Failure Patient?: No
[2019-09-01] MEDS ORDERED: POTASSIUM CHLORIDE 10 MEQ TABLET.ER PO ONE (10:30)
== END 2019-09-01 11:08 | disposition home or self-care (01) | DRG 683 ==
LOC: ER 13:47 → EH 19:28 → 4N 21:05
PROVIDERS: ADMIT Emergency Medicine; ATTEND Internal Medicine
DX: N17.9 Acute kidney failure, unspecified (principal); E87.2 Acidosis; E86.0 Dehydration; I95.89 Other hypotension; I10 Essential (primary) hypertension; J44.9 Chronic obstructive pulmonary disease, unspecified; D50.0 Iron deficiency anemia secondary to blood loss (chronic); I25.10 Atherosclerotic heart disease of native coronary artery without angina pectoris; E83.42 Hypomagnesemia; E87.6 Hypokalemia; K21.9 Gastro-esophageal reflux disease without esophagitis; E89.0 Postprocedural hypothyroidism; M19.90 Unspecified osteoarthritis, unspecified site; E78.5 Hyperlipidemia, unspecified; F32.9 Major depressive disorder, single episode, unspecified; Z79.890 Hormone replacement therapy; I25.2 Old myocardial infarction; Z93.2 Ileostomy status; Z90.49 Acquired absence of other specified parts of digestive tract; Z85.038 Personal history of other malignant neoplasm of large intestine; Z87.891 Personal history of nicotine dependence; Z82.49 Family history of ischemic heart disease and other diseases of the circulatory system; Z83.3 Family history of diabetes mellitus; Z83.438 Family history of other disorder of lipoprotein metabolism and other lipidemia; Z88.2 Allergy status to sulfonamides; Z88.8 Allergy status to other drugs, medicaments and biological substances; Z91.041 Radiographic dye allergy status; Z91.013 Allergy to seafood; Z79.82 Long term (current) use of aspirin; Z79.899 Other long term (current) drug therapy
CPT/HCPCS: 36415; 71045; 80048; 80053; 81001; 82550; 83735; 83880; 84439; 84443; 84481; 84484; 85025; 85027; 86850; 86900; 86901; 93005; 93010; 94640; 96360; 99285; J1642; J1644; J2550; J3475; J3480; J3490; J7030; J7120

== ENCOUNTER → 2019-09-11 | Outpatient (CLI) | payer MEDICAID ==
--- NOTE | 2019-09-11 16:21 | RADIOLOGY REPORT (SQ) ---
EXAM DESCRIPTION: BARIUM ENEMA IMAGES COMPLETED DATE/TIME: 09/11/2019 11:50 am REASON FOR STUDY: C20 MALIGNANT NEOPLASM OF RECTUM C20 MALIGNANT NEOPLASM OF RECTUM COMPARISON: None. FLUOROSCOPY TIME: 2.4 minutes 14 images saved to PACS. TECHNIQUE: Following retrograde filling of the colon with water-soluble contrast, fluoroscopic spot and overhead imaging of the colon was obtained and saved to PACS. LIMITATIONS: Incomplete distention of the colon as the patient was unable to retain contrast. 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 Right lower quadrant ileostomy ASCENDING COLON: No masses, strictures, or perforations. Blind end at the cecum near ileostomy site. TRANSVERSE COLON: No masses, strictures, or perforations. DESCENDING COLON: No masses, strictures, or perforations. SIGMOID COLON: Mucosal irregularity with scattered diverticuli seen. No definite strictures. No mas ses or perforations. RECTUM: No masses, strictures, or perforations. POST EVAC: Near complete evacuation of contrast. OTHER: No other significant finding. IMPRESSION: IRREGULARITY OF THE SIGMOID COLON WITH SCATTERED DIVERTICULI SEEN. SUBOPTIMAL COLONIC D ISTENSION DUE TO PATIENT INABILITY TO RETAIN CONTRAST, HOWEVER NO DEFINITE STRICTURE IDENTIFIED. COMMENT: NONE Quality ID [id number]: Final reports for procedures using fluoroscopy that document radiation exposure min peter, or exposure time and number of fluorographic images (if radiation exposure indices are not avail able) TECHNICAL DOCUMENTATION: JOB ID: [id number] 2010 [employer]- All Rights Reserved Reading location - IP/workstation name: [email or web address] [email or web address]
== END ==
LOC: RAD 09:37
PROVIDERS: ATTEND Surgery
DX: C20 Malignant neoplasm of rectum (principal)
CPT/HCPCS: 74270

== ENCOUNTER 2019-09-12 19:59 | Emergency (ER) | payer MEDICAID ==
[2019-09-12 21:22] VITALS: BP 118/86
--- NOTE | 2019-09-12 21:23 | ER Document Report ---
ED Medical Screen (RME) - General Chief Complaint: reema Stated Complaint: STOMA PROBLEM Time Seen by Provider: 09/12/19 21:15 Primary Care Provider: BOY BLOOM MD [Primary Care Provider] - Follow up as needed Information source: Patient Notes: HPI; 63-year-old female presents emergency room stating that she ran out of stoma bags for her colostomy. States she used her last one today. She was post receive a delivery from the pharmacy but they did not arrive. States home health came out and did not have any additional colostomy bags and sent to the emergency room. States she has the area wrapped in washcloths and towels. PE: Alert and oriented x3. Moderate distress noted. Lungs: Clear to auscultation without rales, rhonchi, wheezes. Heart: Regular rate and rhythm without murmurs, rubs, gallops. Unable to assess stoma site in triage. I have greeted and performed a rapid initial assessment of this patient. A comprehensive ED assessment and evaluation of the patient, analysis of test results and completion of the medical decision making process will be conducted by additional ED providers. I have specifically instructed the patient or family members with the patient to immediately return to any nursing staff should anything change in the patient's condition or with their chief complaint. TRAVEL OUTSIDE OF THE [place] IN LAST 30 DAYS: No - Related Data Allergies/Adverse Reactions: shellfish derived Allergy (Severe, Verified 04/04/19 02:17) Hives iodine [Iodine] Allergy (Intermediate, Verified 04/04/19 02:17) Rash Sulfa (Sulfonamide Antibiotics) Allergy (Intermediate, Verified 04/04/19 02:17) Hives Iodinated Contrast Media Adverse Reaction (Intermediate, Verified 04/04/19 02:17) Nausea Past Medical History - Social History Chew tobacco use (# tins/day): No Frequency of alcohol use: None Drug Abuse: None - Past Medical History Cardiac Medical History: Reports: Hx Coronary Artery Disease, Hx Heart Attack - 2010, Hx Hypertension Denies: Hx Atrial Fibrillation, Hx Congestive Heart Failure, Hx Hypercholesterolemia, Hx Peripheral Vascular Disease, Hx Pulmonary Embolism, Hx Heart Murmur Pulmonary Medical History: Reports: Hx Asthma, Hx Bronchitis, Hx COPD, Hx Pneumonia - 2015, Hx Respiratory Failure Denies: Hx Sleep Apnea, Hx Tuberculosis Neurological Medical History: Denies: Hx Cerebrovascular Accident, Hx Seizures, Hx Parkinson's Disease Endocrine Medical History: Reports: Hx Hyperthyroidism - Treated with radioactive iodine, Hx Hypothyroidism - Post ablation, takes thyroid replacement hormone. Denies: Hx Diabetes Mellitus Type 1, Hx Diabetes Mellitus Type 2 Renal/ Medical History: Reports: Hx Renal Insufficiency Malignancy Medical History: Reports: Hx Colorectal Cancer. Denies: Hx Leukemia, Hx Lung Cancer GI Medical History: Reports: Hx Gastroesophageal Reflux Disease. Denies: Hx Cirrhosis, Hx Crohn's Disease, Hx Hepatitis, Hx Hiatal Hernia, Hx Irritable Bowel, Hx Liver Failure, Hx Pancreatitis, Hx Ulcer, Hx Ulcerative Colitis Musculoskeltal Medical History: Reports Hx Arthritis, Denies Hx Fibromyalgia, Denies Hx Multiple Sclerosis, Denies Hx Muscular Dystrophy, Denies Hx Systemic Lupus Erythematosus Skin Medical History: Denies Hx Eczema, Denies Hx Psoriasis Psychiatric Medical History: Reports: Hx Depression Denies: Hx Bipolar Disorder, Hx Dementia, Hx Post Traumatic Stress Disorder, Hx Schizophrenia Traumatic Medical History: Denies: Hx Fractures Infectious Medical History: Denies: Hx Hepatitis, Hx HIV Past Surgical History: Reports: Hx Abdominal Surgery - COLOSTOMY, Hx Ileostomy - With Low anterior resection and total [id number], Hx Tubal Ligation, Other - 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 Denies: Hx Appendectomy, Hx Bowel Surgery, Hx Section, Hx Cholecystectomy, Hx Colostomy, Hx Coronary Artery Bypass Graft, Hx Gastric Bypass Surgery, Hx He rniorrhaphy, Hx Hysterectomy, Hx Mastectomy, Hx Open Heart Surgery, Hx Pacemaker, Hx Tonsillectomy - Immunizations Hx Diphtheria, Pertussis, Tetanus Vaccination: Yes - not sure Physical Exam - Vital signs Vitals: Temp 97.7 F 09/12/19 21:14 Course - Vital Signs Vital signs: Temp Pulse Resp BP Pulse Ox 97.7 F 75 17 118/86 H 100 09/12/19 21:21 09/12/19 21:21 09/12/19 21:21 09/12/19 21:21 09/12/19 21:21 Doctor's Discharge - Discharge Referrals: BOY BLOOM MD [Primary Care Provider] - Follow up as needed
== END 2019-09-12 23:34 | disposition left against medical advice (07) ==
LOC: ER 19:59
DX: Z43.3 Encounter for attention to colostomy (principal); I25.10 Atherosclerotic heart disease of native coronary artery without angina pectoris; I10 Essential (primary) hypertension; J44.9 Chronic obstructive pulmonary disease, unspecified; Z90.49 Acquired absence of other specified parts of digestive tract; Z85.048 Personal history of other malignant neoplasm of rectum, rectosigmoid junction, and anus; Z91.013 Allergy to seafood; Z88.2 Allergy status to sulfonamides; Z53.20 Procedure and treatment not carried out because of patient's decision for unspecified reasons
CPT/HCPCS: 99281

== ENCOUNTER → 2019-10-11 | Outpatient (CLI) | payer MEDICAID ==
[~2019-10-11] MED LIST changes: +ACETAMINOPHEN 325 MG TABLET ONE; +ACETAMINOPHEN 325 MG TABLET PO PRN; +BUPIVACAINE HCL 0.25 % INJ/PF (2.5 MG/1 ML) 30 ML VIAL ONE; +CEFOXITIN SODIUM 2 GM in DEXTROSE 5%-WATER 100 ML IV PRN; +IBUPROFEN 800 MG in NORMAL SALINE 250 ML IV PRN; +LACTATED RINGERS 1000 ML IV PRN; +LIDOCAINE 0.5% INJ-PF (5 MG/ML) 50 ML SDV SUBCUT PRN; -SODIUM BICARBONATE 8.4% INJ 50 MEQ/50 ML DISP.SYRIN ONE
[2019-10-11 11:30] LABS: HEMATOCRIT 35.2 % (36.0-47.0); HEMOGLOBIN 11.5 g/dL (12.0-15.5); MEAN CORPUSCULAR HEMOGLOBIN 30.8 pg (27.0-33.4); MEAN CORPUSCULAR HGB CONC 32.6 g/dL (32.0-36.0); MEAN CORPUSCULAR VOLUME 94 fl (80-97); PLATELET COUNT 340 10^3/uL (150-450); RED BLOOD COUNT 3.74 10^6/uL (3.72-5.28); RED CELL DISTRIBUTION WIDTH 14.6 % (11.5-14.0); WHITE BLOOD COUNT 5.5 10^3/uL (4.0-10.5)
[2019-10-11 11:44] LABS: ANION GAP 10 (5-19); BLOOD UREA NITROGEN 29 mg/dL (7-20); CALCIUM 9.6 mg/dL (8.4-10.2); CARBON DIOXIDE 20 mmol/L (22-30); CHLORIDE 110 mmol/L (98-107); GLUCOSE 90 mg/dL (75-110); POTASSIUM 4.5 mmol/L (3.6-5.0)
--- NOTE | 2019-10-11 17:58 | EKG REPORT ---
SEVERITY:- ABNORMAL ECG - SINUS RHYTHM PROBABLE INFERIOR INFARCT, OLD : Confirmed by: Ambika Qureshi MD 11-Oct-2019 17:57:05
[2019-10-16 09:52] VITALS: BP 122/85
== END ==
LOC: OD 10:45 → EDSTATUS 10-16 08:00 → INOR 10-16 09:10 → UNDOADMIN 10-16 09:10 → UNDODISIN 10-16 10:30
PROVIDERS: ATTEND Surgery
DX: Z01.818 Encounter for other preprocedural examination (principal); Z03.818 Encounter for observation for suspected exposure to other biological agents ruled out; Z43.2 Encounter for attention to ileostomy; C20 Malignant neoplasm of rectum; R19.7 Diarrhea, unspecified; J44.9 Chronic obstructive pulmonary disease, unspecified; I11.9 Hypertensive heart disease without heart failure; E78.00 Pure hypercholesterolemia, unspecified; M19.90 Unspecified osteoarthritis, unspecified site; F41.8 Other specified anxiety disorders
CPT/HCPCS: 93005; 36415; 85027; 87635; 80048; 93010; C9803; J0694; J1741; J7050; J7060

== ENCOUNTER 2019-10-23 08:00 | Inpatient (IN) | payer MEDICAID ==
[~2019-10-23 08:00] MED LIST changes: -ACETAMINOPHEN 325 MG TABLET ONE; -BUPIVACAINE HCL 0.25 % INJ/PF (2.5 MG/1 ML) 30 ML VIAL ONE
[2019-10-23] MEDS ORDERED: ACETAMINOPHEN 325 MG TABLET ONE (08:33)
[2019-10-23] MEDS ORDERED: MORPHINE SULFATE 10 MG/ML INJ ONE (09:36)
[2019-10-23] MEDS ORDERED: FENTANYL CITRATE INJ/PF 100 MCG/2 ML AMPUL ONE ×2 (09:36→09:37)
[2019-10-23] MEDS ORDERED: PROPOFOL INJ 200 MG/20 ML VIAL IV ONE (09:36)
[2019-10-23] MEDS ORDERED: MIDAZOLAM 2 MG/2 ML INJ ONE (09:36)
[2019-10-23] MEDS ORDERED: BUPIVACAINE HCL 0.25 % INJ/PF (2.5 MG/1 ML) 30 ML VIAL ONE (09:44)
--- NOTE | 2019-10-23 10:08 | RADIOLOGY REPORT (SQ) ---
EXAM DESCRIPTION: CHEST SINGLE VIEW IMAGES COMPLETED DATE/TIME: 10/23/2019 9:34 am REASON FOR STUDY: PRE OP COMPARISON: 08/28/2019. EXAM PARAMETERS: NUMBER OF VIEWS: One view. TECHNIQUE: Single frontal radiographic view of the chest acquired. RADIATION DOSE: NA LIMITATIONS: None. FINDINGS: LUNGS AND PLEURA: No opacities, masses or pneumothorax. No pleural effusion. MEDIASTINUM AND HILAR STRUCTURES: No masses. Contour normal. HEART AND VASCULAR STRUCTURES: Heart normal in size. Normal vasculature. BONES: No acute findings. HARDWARE: Vascular port. OTHER: Hiatal hernia. No other significant finding. IMPRESSION: NO ACUTE RADIOGRAPHIC FINDING IN THE CHEST. TECHNICAL DOCUMENTATION: JOB ID: [id number] 2010 [employer]- All Rights Reserved Reading location - IP/workstation name: [email or web address]
[2019-10-23] MEDS ORDERED: EPHEDRINE SULFATE INJ 50 MG/1 ML AMPULE ONE (10:58)
[2019-10-23] MEDS ORDERED: MORPHINE SULFATE 10 MG/ML INJ IV PRN (13:04)
[2019-10-23] MEDS ORDERED: MEPERIDINE HCL/PF INJ 25 MG/1 ML DISP.SYRIN IV PRN (13:04)
[2019-10-23] MEDS ORDERED: OXYCODONE-ACETAMINOPHEN 5-325 MG TABLET PO PRN ×2 (13:04)
[2019-10-23] MEDS ORDERED: DIPHENHYDRAMINE HCL 50 MG/ML VIAL IV PRN (13:04)
[2019-10-23] MEDS ORDERED: PROMETHAZINE HCL INJ 25 MG/1 ML VIAL IV PRN ×2 (13:04)
[2019-10-23] MEDS ORDERED: FENTANYL CITRATE INJ/PF 100 MCG/2 ML AMPUL IV PRN ×3 (13:04)
[2019-10-23] MEDS ORDERED: ONDANSETRON HCL INJ/PF 4 MG/2 ML SDV IV PRN (13:04)
[2019-10-23] MEDS ORDERED: ONDANSETRON HCL INJ/PF 4 MG/2 ML SDV ONE ×2 (13:09→15:39)
[2019-10-23] MEDS: FENTANYL CITRATE INJ/PF 100 MCG/2 ML AMPUL ONE ×2 (13:12→13:25)
[2019-10-23] MEDS ORDERED: ROCURONIUM BROMIDE INJ 50 MG/5 ML VIAL IV ONE (15:39)
[2019-10-23] MEDS ORDERED: GLYCOPYRROLATE 1 MG/5 ML VIAL ONE (15:39)
[2019-10-23] MEDS ORDERED: PHENYLEPHRINE HCL INJ/PF 10 MG/1 ML SDV ONE (15:39)
[2019-10-23] MEDS ORDERED: NEOSTIGMINE METHYLSULFATE 10 MG/10 ML VIAL ONE (15:39)
[2019-10-23] MEDS ORDERED: HYDROCODONE/ACETAMINOPHEN 5-325 MG TABLET ONE (16:14)
[2019-10-23] MEDS: HYDROCODONE/ACETAMINOPHEN 10-325 MG TABLET ONE ×2 (16:25→16:54)
[2019-10-23] MEDS: ONDANSETRON HCL INJ/PF 4 MG/2 ML SDV IV PRN (17:15)
[2019-10-23] MEDS: IBUPROFEN 800 MG TABLET PO SCH (18:35)
[2019-10-23] MEDS: CEFOXITIN SODIUM 2 GM in DEXTROSE 5%-WATER 100 ML IV SCH (18:35)
[2019-10-23] MEDS: MORPHINE SULFATE 10 MG/ML INJ IV PRN (20:02)
[2019-10-23] MEDS: FAMOTIDINE 20 MG TABLET PO SCH (21:57)
[2019-10-23] MEDS: HYDROCODONE/ACETAMINOPHEN 10-325 MG TABLET PO PRN (23:06)
[2019-10-24] MEDS: MORPHINE SULFATE 10 MG/ML INJ IV PRN ×3 (01:34→19:00)
[2019-10-24] MEDS: CEFOXITIN SODIUM 2 GM in DEXTROSE 5%-WATER 100 ML IV SCH (01:34)
[2019-10-24] MEDS: NORMAL SALINE 1000 ML 1,000 ML IV PRN (01:36)
[2019-10-24] MEDS: ONDANSETRON HCL INJ/PF 4 MG/2 ML SDV IV PRN ×2 (02:49→10:44)
[2019-10-24] MEDS: HYDROCODONE/ACETAMINOPHEN 10-325 MG TABLET PO PRN (04:42)
[2019-10-24 08:03] LABS: ABSOLUTE LYMPHOCYTES (AUTO) 0.4 10^3/uL (0.5-4.7); ABSOLUTE MONOCYTES (AUTO) 0.4 10^3/uL (0.1-1.4); ABSOLUTE NEUT (AUTO) 6.2 10^3/uL (1.7-8.2); BASOPHILS % (AUTO) 0.4 % (0-2); HEMATOCRIT 34.8 % (36.0-47.0); HEMOGLOBIN 11.5 g/dL (12.0-15.5); LYMPHOCYTES % (AUTO) 5.4 % (13-45); MEAN CORPUSCULAR HEMOGLOBIN 31.3 pg (27.0-33.4); MEAN CORPUSCULAR VOLUME 95 fl (80-97); MONOCYTES % (AUTO) 5.8 % (3-13); PLATELET COUNT 265 10^3/uL (150-450); RED BLOOD COUNT 3.67 10^6/uL (3.72-5.28); RED CELL DISTRIBUTION WIDTH 15.3 % (11.5-14.0); SEGMENTED NEUTROPHILS % (AUTO) 88.4 % (42-78); TOTAL CELLS COUNTED % (AUTO) 100 %; WHITE BLOOD COUNT 7.1 10^3/uL (4.0-10.5)
[2019-10-24 08:20] LABS: ANION GAP 8 (5-19); BLOOD UREA NITROGEN 31 mg/dL (7-20); CALCIUM 8.3 mg/dL (8.4-10.2); CARBON DIOXIDE 18 mmol/L (22-30); CHLORIDE 109 mmol/L (98-107); GLUCOSE 125 mg/dL (75-110); POTASSIUM 4.1 mmol/L (3.6-5.0)
[2019-10-24] MEDS: IBUPROFEN 800 MG TABLET PO SCH (09:00)
[2019-10-24] MEDS: FAMOTIDINE 20 MG TABLET PO SCH ×2 (09:33→22:03)
[2019-10-24] MEDS: ENOXAPARIN SODIUM INJ 40 MG/0.4 ML DISP.SYRIN SUBCUT SCH (09:33)
--- NOTE | 2019-10-24 11:16 | PDOC PROGRESS REPORT ---
Subjective Progress Note for:: 10/24/19 Reason For Visit: C20 MALIGNANT NEOPLASM OF RECTUM Physical Exam Vital Signs: Temp Pulse Resp BP Pulse Ox 98.0 F 87 17 116/68 95 10/24/19 07:44 10/24/19 07:44 10/24/19 07:44 10/24/19 07:44 10/24/19 07:44 Intake & Output 10/23/19 10/24/19 10/25/19 06:59 06:59 06:59 Intake Total 4000 100 Output Total 180 200 Balance 3820 -100 Weight 77.5 kg Results Laboratory Results: 10/24/19 07:36 10/24/19 07:36 10/24/19 10/24/19 07:36 07:36 WBC 7.1 RBC 3.67 L Hgb 11.5 L Hct 34.8 L MCV 95 MCH 31.3 MCHC 33.0 RDW 15.3 H Plt Count 265 Seg Neutrophils % 88.4 H Sodium 135.3 L Potassium 4.1 Chloride 109 H Carbon Dioxide 18 L Anion Gap 8 BUN 31 H Creatinine 1.45 H Est GFR ( Amer) 44 L Glucose 125 H Calcium 8.3 L Impressions: Chest X-Ray 10/23/19 00:00 IMPRESSION: NO ACUTE RADIOGRAPHIC FINDING IN THE CHEST. Assessment & Plan - Diagnosis (1) Ileostomy present Is this a current diagnosis for this admission?: Yes (2) History of rectal cancer Is this a current diagnosis for this admission?: Yes - Time Anticipated Discharge Disposition: Home, Self Care Anticipated Discharge Timeframe: within 24 hours - Plan Summary Plan Summary: 63-year-old female with a history of rectal cancer, status post low anterior resection. She had a diverting ileostomy at the time of her initial procedure. She is several months out from diverting ileostomy placement. Yesterday she underwent flexible sigmoidoscopy and reversal of her ileostomy. Her flexible sigmoidoscopy showed no significant findings. There is a small mucosal irregularity, consistent with inflammatory tissue. Her ileostomy was reversed yesterday. She reports passing flatus this morning. She denies fevers or chills. She does report pain at her surgical site. She did have some nausea earlier this morning. I will continue her on a full liquid diet until her nausea resolves. Ambulate in the hallways. Aggressive pulmonary toilet.
[2019-10-25] MEDS: NORMAL SALINE 1000 ML 1,000 ML IV PRN (04:16)
[2019-10-25] MEDS: MORPHINE SULFATE 10 MG/ML INJ IV PRN ×2 (04:19→09:25)
[2019-10-25 06:22] LABS: ANION GAP 8 (5-19); BLOOD UREA NITROGEN 30 mg/dL (7-20); CARBON DIOXIDE 18 mmol/L (22-30); CHLORIDE 110 mmol/L (98-107); GLUCOSE 94 mg/dL (75-110)
[2019-10-25 06:23] LABS: POTASSIUM 3.7 mmol/L (3.6-5.0)
[2019-10-25] MEDS ORDERED: (PENDING PHARMACY ID) (Albuterol Sulfate 2 PUFF) IH PRN (07:21)
[2019-10-25] MEDS ORDERED: HYDROXYZINE PAMOATE 25 MG CAPSULE PO PRN (07:21)
[2019-10-25] MEDS ORDERED: ALBUTEROL SULFATE HFA (90 MCG/PUFF) 200 PUFF/8.5 GM MDI IH PRN (07:28)
--- NOTE | 2019-10-25 08:29 | PDOC PROGRESS REPORT ---
Subjective Progress Note for:: 10/25/19 Reason For Visit: C20 MALIGNANT NEOPLASM OF RECTUM Physical Exam Vital Signs: Temp Pulse Resp BP Pulse Ox 98.8 F 91 16 111/73 88 L 10/24/19 19:48 10/24/19 19:48 10/24/19 19:48 10/24/19 19:48 10/24/19 19:48 Intake & Output 10/24/19 10/25/19 10/26/19 06:59 06:59 06:59 Intake Total 4000 1500 Output Total 180 200 Balance 3820 1300 Weight 77.5 kg 77.5 kg Results Laboratory Results: 10/24/19 07:36 10/25/19 05:39 10/25/19 05:39 Sodium 135.8 L Potassium 3.7 Chloride 110 H Carbon Dioxide 18 L Anion Gap 8 BUN 30 H Creatinine 1.45 H Est GFR ( Amer) 44 L Glucose 94 Calcium 8.0 L Impressions: Chest X-Ray 10/23/19 00:00 IMPRESSION: NO ACUTE RADIOGRAPHIC FINDING IN THE CHEST. Assessment & Plan - Diagnosis (1) Ileostomy present Is this a current diagnosis for this admission?: Yes (2) History of rectal cancer Is this a current diagnosis for this admission?: Yes - Time Anticipated Discharge Disposition: Home, Self Care Anticipated Discharge Timeframe: within 48 hours - Plan Summary Plan Summary: 63-year-old female status post ileostomy reversal. She is complaining of pain this morning, and refusing to get out of bed. She is unhappy with her full liquid diet, but continues to complain of nausea and abdominal discomfort. She has not had a bowel movement yet. Her abdomen is soft and nondistended. I will obtain abdominal x-rays to evaluate her bowel gas pattern. Home once she can tolerate a diet and has return of bowel function.
[2019-10-25] MEDS: FLUTICASONE/VILANTEROL 200-25 MCG/DOSE IH SCH (09:25)
[2019-10-25] MEDS: LEVOTHYROXINE SODIUM 0.1 MG TABLET PO SCH (09:25)
[2019-10-25] MEDS: ATENOLOL 50 MG TABLET PO SCH (09:25)
[2019-10-25] MEDS: ENOXAPARIN SODIUM INJ 40 MG/0.4 ML DISP.SYRIN SUBCUT SCH (09:26)
[2019-10-25] MEDS: SERTRALINE HCL 50 MG TABLET PO SCH (09:26)
[2019-10-25] MEDS: FAMOTIDINE 20 MG TABLET PO SCH ×2 (09:26→21:28)
[2019-10-25] MEDS: ASPIRIN 81 MG TABLET, ENT COATED PO SCH (09:26)
--- NOTE | 2019-10-25 09:37 | RADIOLOGY REPORT (SQ) ---
EXAM DESCRIPTION: ABDOMEN 2 VIEWS IMAGES COMPLETED DATE/TIME: 10/25/2019 9:11 am REASON FOR STUDY: abdominal pain, s/p ileostomy reversal C20 MALIGNANT NEOPLASM OF RECTUM COMPARISON: 06/18/2019 NUMBER OF VIEWS: Two views. TECHNIQUE: Supine and erect/decubitus radiographic images of the abdomen acquired. LIMITATIONS: None. FINDINGS: There is contrast within nondilated descending and sigmoid colon. Mildly dilated cecum an d transverse colon with transition at level of splenic flexure. Skin brody right lower quadrant. IMPRESSION: Ileus or partial colonic obstruction. TECHNICAL DOCUMENTATION: JOB ID: [id number] 2010 [employer]- All Rights Reserved Reading location - IP/workstation name: [email or web address]
[2019-10-25] MEDS ORDERED: (PENDING PHARMACY ID) (Fluticasone/Salmeterol 1 PUFF) IH SCH (10:00)
[2019-10-25] MEDS ORDERED: (PENDING PHARMACY ID) (Atenolol [Tenormin] 25 MG) PO SCH (10:00)
[2019-10-25] MEDS ORDERED: (PENDING PHARMACY ID) (Sertraline Hcl [Sertraline Hcl] 150 MG) PO SCH (10:00)
[2019-10-25] MEDS: HYDROCODONE/ACETAMINOPHEN 10-325 MG TABLET PO PRN ×2 (11:57→18:41)
[2019-10-25] MEDS: OXYBUTYNIN CHLORIDE 5 MG TABLET PO SCH ×2 (13:08→21:28)
[2019-10-25] MEDS: SIMVASTATIN 10 MG TABLET PO SCH (21:28)
[2019-10-26] MEDS: NORMAL SALINE 1000 ML 1,000 ML IV PRN ×2 (00:38→20:05)
[2019-10-26] MEDS: HYDROCODONE/ACETAMINOPHEN 10-325 MG TABLET PO PRN ×2 (05:00→20:05)
[2019-10-26] MEDS: LEVOTHYROXINE SODIUM 0.1 MG TABLET PO SCH (05:01)
[2019-10-26] MEDS: PANTOPRAZOLE SODIUM 20 MG TABLET.DR PO SCH (05:01)
[2019-10-26] MEDS: OXYBUTYNIN CHLORIDE 5 MG TABLET PO SCH ×3 (05:01→21:58)
[2019-10-26 05:37] LABS: ANION GAP 5 (5-19); BLOOD UREA NITROGEN 27 mg/dL (7-20); CALCIUM 7.8 mg/dL (8.4-10.2); CARBON DIOXIDE 19 mmol/L (22-30); CHLORIDE 113 mmol/L (98-107); GLUCOSE 89 mg/dL (75-110); POTASSIUM 3.6 mmol/L (3.6-5.0)
--- NOTE | 2019-10-26 07:34 | PDOC PROGRESS REPORT ---
Subjective Progress Note for:: 10/26/19 Reason For Visit: C20 MALIGNANT NEOPLASM OF RECTUM Physical Exam Vital Signs: Temp Pulse Resp BP Pulse Ox 99.1 F 65 18 106/70 91 L 10/25/19 23:24 10/25/19 23:24 10/25/19 23:24 10/25/19 23:24 10/25/19 23:24 Intake & Output 10/25/19 10/26/19 10/27/19 06:59 06:59 06:59 Intake Total 1500 1970 Output Total 200 Balance 1300 1970 Weight 77.5 kg 77.5 kg Results Laboratory Results: 10/26/19 05:00 10/26/19 05:00 10/26/19 10/26/19 05:00 05:00 WBC Cancelled RBC Cancelled Hgb Cancelled Hct Cancelled MCV Cancelled MCH Cancelled MCHC Cancelled RDW Cancelled Plt Count Cancelled Seg Neutrophils % Cancelled Sodium 137.3 Potassium 3.6 Chloride 113 H Carbon Dioxide 19 L Anion Gap 5 BUN 27 H Creatinine 1.32 H Est GFR ( Amer) 49 L Glucose 89 Calcium 7.8 L Impressions: Chest X-Ray 10/23/19 00:00 IMPRESSION: NO ACUTE RADIOGRAPHIC FINDING IN THE CHEST. Abdomen X-Ray 10/25/19 00:00 IMPRESSION: Ileus or partial colonic obstruction. Assessment & Plan - Diagnosis (1) Ileostomy present Is this a current diagnosis for this admission?: Yes (2) History of rectal cancer Is this a current diagnosis for this admission?: Yes - Time Anticipated Discharge Disposition: Home, Self Care Anticipated Discharge Timeframe: within 48 hours - Plan Summary Plan Summary: 63-year-old female status post ileostomy reversal. She is refusing lab work this morning. She denies nausea or vomiting this morning. X-rays yesterday show a large amount of air in the colon. She still has not had a bowel movement. Her abdomen is soft and nondistended. Repeat x-rays today. I will advance her diet, and monitor for any changes.
[2019-10-26 07:54] LABS: ABSOLUTE EOSINOPHILS # (AUTO) 0.1 10^3/uL (0.0-0.6); ABSOLUTE LYMPHOCYTES (AUTO) 0.4 10^3/uL (0.5-4.7); ABSOLUTE MONOCYTES (AUTO) 0.3 10^3/uL (0.1-1.4); ABSOLUTE NEUT (AUTO) 2.4 10^3/uL (1.7-8.2); BASOPHILS % (AUTO) 0.5 % (0-2); HEMATOCRIT 24.9 % (36.0-47.0); LYMPHOCYTES % (AUTO) 13.7 % (13-45); MEAN CORPUSCULAR HEMOGLOBIN 31.2 pg (27.0-33.4); MEAN CORPUSCULAR HGB CONC 32.7 g/dL (32.0-36.0); MEAN CORPUSCULAR VOLUME 96 fl (80-97); MONOCYTES % (AUTO) 8.4 % (3-13); PLATELET COUNT 206 10^3/uL (150-450); RED BLOOD COUNT 2.61 10^6/uL (3.72-5.28); RED CELL DISTRIBUTION WIDTH 15.9 % (11.5-14.0); SEGMENTED NEUTROPHILS % (AUTO) 75.4 % (42-78); TOTAL CELLS COUNTED % (AUTO) 100 %; WHITE BLOOD COUNT 3.2 10^3/uL (4.0-10.5)
[2019-10-26 08:03] LABS: HEMOGLOBIN 8.1 g/dL (12.0-15.5)
--- NOTE | 2019-10-26 09:01 | RADIOLOGY REPORT (SQ) ---
EXAM DESCRIPTION: KUB/ABDOMEN (SINGLE VIEW) IMAGES COMPLETED DATE/TIME: 10/26/2019 8:43 am REASON FOR STUDY: abd pain C20 MALIGNANT NEOPLASM OF RECTUM COMPARISON: 10/25/2019 NUMBER OF VIEWS: One view. TECHNIQUE: Supine radiographic image of the abdomen acquired. LIMITATIONS: None. FINDINGS: BOWEL GAS PATTERN: Persistent distention of the majority of the colon. Sigmoid and rectum remain decompressed. CALCIFICATIONS: Staghorn calculus on the right is again noted. SOFT TISSUES: No gross mass or suggestion of organomegaly. HARDWARE: None in the abdomen. BONES: No acute fracture. No worrisome bone lesions. OTHER: No other significant finding. IMPRESSION: No interval change. TECHNICAL DOCUMENTATION: JOB ID: [id number] 2010 [employer]- All Rights Reserved Reading location - IP/workstation name: [email or web address]
[2019-10-26] MEDS: ATENOLOL 50 MG TABLET PO SCH (09:43)
[2019-10-26] MEDS: FAMOTIDINE 20 MG TABLET PO SCH ×2 (09:44→21:58)
[2019-10-26] MEDS: FLUTICASONE/VILANTEROL 200-25 MCG/DOSE IH SCH (09:44)
[2019-10-26] MEDS: SERTRALINE HCL 50 MG TABLET PO SCH (09:44)
[2019-10-26] MEDS: ASPIRIN 81 MG TABLET, ENT COATED PO SCH (09:44)
[2019-10-26] MEDS: ENOXAPARIN SODIUM INJ 40 MG/0.4 ML DISP.SYRIN SUBCUT SCH (09:44)
[2019-10-26] MEDS: SIMVASTATIN 10 MG TABLET PO SCH (21:58)
[2019-10-27] MEDS: PANTOPRAZOLE SODIUM 20 MG TABLET.DR PO SCH (05:08)
[2019-10-27] MEDS: HYDROCODONE/ACETAMINOPHEN 10-325 MG TABLET PO PRN ×3 (05:08→20:24)
[2019-10-27] MEDS: LEVOTHYROXINE SODIUM 0.1 MG TABLET PO SCH (05:09)
[2019-10-27] MEDS: OXYBUTYNIN CHLORIDE 5 MG TABLET PO SCH ×3 (05:09→21:21)
--- NOTE | 2019-10-27 08:17 | PDOC PROGRESS REPORT ---
Subjective Progress Note for:: 10/27/19 Reason For Visit: C20 MALIGNANT NEOPLASM OF RECTUM Physical Exam Vital Signs: Temp Pulse Resp BP Pulse Ox 98.5 F 63 18 96/62 L 98 10/26/19 23:28 10/26/19 23:28 10/26/19 23:28 10/26/19 23:28 10/26/19 23:28 Intake & Output 10/26/19 10/27/19 10/28/19 06:59 06:59 06:59 Intake Total 1970 973 Balance 1970 973 Weight 77.5 kg 78.4 kg Results Laboratory Results: 10/26/19 07:25 10/26/19 05:00 Impressions: Chest X-Ray 10/23/19 00:00 IMPRESSION: NO ACUTE RADIOGRAPHIC FINDING IN THE CHEST. Abdomen X-Ray 10/25/19 00:00 IMPRESSION: Ileus or partial colonic obstruction. KUB X-Ray 10/26/19 00:00 IMPRESSION: No interval change. Assessment & Plan - Diagnosis (1) Ileostomy present Is this a current diagnosis for this admission?: Yes (2) History of rectal cancer Is this a current diagnosis for this admission?: Yes - Time Anticipated Discharge Disposition: Home, Self Care Anticipated Discharge Timeframe: within 48 hours - Plan Summary Plan Summary: 63-year-old female status post ileostomy reversal. She denies nausea or vomiting this morning. She still has not had a bowel movement. The patient reports that she "feels like she needs to have a bowel movement" but it will not come out. She may be experiencing difficulties related to inspissated barium from her BE. I will provide her with a warm tap water enema today, in an effort to wash the majority of the barium from her sigmoid and descending colon. Her abdomen is soft and nondistended. Her right lower quadrant incision is intact, and without sign of infection. Continue regular diet.
[2019-10-27] MEDS: SERTRALINE HCL 50 MG TABLET PO SCH (09:05)
[2019-10-27] MEDS: FAMOTIDINE 20 MG TABLET PO SCH ×2 (09:05→21:21)
[2019-10-27] MEDS: ASPIRIN 81 MG TABLET, ENT COATED PO SCH (09:05)
[2019-10-27] MEDS: ENOXAPARIN SODIUM INJ 40 MG/0.4 ML DISP.SYRIN SUBCUT SCH (09:05)
[2019-10-27] MEDS: FLUTICASONE/VILANTEROL 200-25 MCG/DOSE IH SCH (09:06)
[2019-10-27] MEDS: ATENOLOL 50 MG TABLET PO SCH (09:08)
[2019-10-27] MEDS: ONDANSETRON HCL INJ/PF 4 MG/2 ML SDV IV PRN (10:25)
[2019-10-27] MEDS: NORMAL SALINE 1000 ML 1,000 ML IV PRN (16:11)
[2019-10-27] MEDS: SIMVASTATIN 10 MG TABLET PO SCH (21:21)
[2019-10-28] MEDS: LEVOTHYROXINE SODIUM 0.1 MG TABLET PO SCH (05:07)
[2019-10-28] MEDS: HYDROCODONE/ACETAMINOPHEN 10-325 MG TABLET PO PRN (05:08)
[2019-10-28] MEDS: OXYBUTYNIN CHLORIDE 5 MG TABLET PO SCH (05:08)
[2019-10-28] MEDS: PANTOPRAZOLE SODIUM 20 MG TABLET.DR PO SCH (05:08)
[2019-10-28] MEDS: ATENOLOL 50 MG TABLET PO SCH (09:01)
[2019-10-28] MEDS: SERTRALINE HCL 50 MG TABLET PO SCH (09:01)
[2019-10-28] MEDS: FAMOTIDINE 20 MG TABLET PO SCH (09:01)
[2019-10-28] MEDS: ENOXAPARIN SODIUM INJ 40 MG/0.4 ML DISP.SYRIN SUBCUT SCH (09:02)
[2019-10-28] MEDS: FLUTICASONE/VILANTEROL 200-25 MCG/DOSE IH SCH (09:02)
[2019-10-28] MEDS: ASPIRIN 81 MG TABLET, ENT COATED PO SCH (09:02)
--- NOTE | 2019-10-28 09:14 | PDOC DISCHARGE SUMMARY ---
General - Admit/Disc Date/PCP Admission Date/Primary Care Provider: 10/23/19 08:00 KEVIN MURCIAWORTH, BESSIE-Butch Discharge Date: 10/28/19 - Discharge Diagnosis Final Diagnosis: Rectal cancer, unwanted ileostomy - Assessment Summary: 64-year-old female admitted for reversal of her unwanted ileostomy. She has a history of rectal cancer, previously treated with low anterior resection and diverting ileostomy. The patient was taken to surgery, where her procedure was performed successfully. She was taken to the floor in stable condition. The patient began to tolerate a full liquid diet. She reported some flatus after surgery, however she subsequently developed an ileus. Patient had evidence of inspissated barium in her colon on x-ray, which was felt to be causing her sensation of "constipation". After a warm tap water enema, to remove the barium, she began having flatus and bowel movements. At this time it is felt that she has reached maximal hospital benefit, and is fit for discharge. - Additional Information Resuscitation Status: Full Code Discharge Diet: Regular Discharge Activity: No Lifting Over 10 Pounds, No Lifting/Push/Pulling Referrals: [facility] [Provider Group] - 11/05/19 8:15 am Prescriptions: Hydrocodone/Acetaminophen [[place] 10-325 mg Tablet] 1 tab PO Q4HP PRN #20 tablet PRN Reason: For Pain Home Medications: Oxybutynin Chloride [Ditropan 5 mg Tablet] 5 mg PO Q8 #0 05/21/11 Pravastatin Sodium [Pravachol] 20 mg PO QPM 03/10/16 Atenolol [Tenormin] 25 mg PO DAILY 04/05/19 Aspirin [Ecotrin 81 mg EC Tablet] 81 mg PO DAILY 08/28/19 Diphenhydramine HCl [Benadryl 25 mg Capsule] 25 mg PO BID 08/28/19 Fluticasone/Salmeterol [Advair 250-50 Diskus 14 Dose/Diskus] 1 puff IH Q12 08/28/19 Levothyroxine Sodium [Synthroid 0.1 mg Tablet] 200 mcg PO Q6AM 10/11/19 Omeprazole Magnesium [Prilosec Otc] 20 mg PO Q6AM 10/11/19 Albuterol Sulfate [Proair HFA Inhalation Aerosol 8.5 gm MDI] 2 puff IH Q6HP PRN 10/23/19 Hydroxyzine Pamoate [Vistaril 25 mg Capsule] 25 mg PO TIDP PRN 10/23/19 Sertraline HCl 150 mg PO DAILY 10/23/19 Albuterol Sulfate [Proair HFA Inhalation Aerosol 8.5 gm MDI] 2 puff IH Q6HP PRN hfa.[id number].[id number] 10/28/19 Aspirin [Ecotrin 81 mg EC Tablet] 81 mg PO DAILY tabec 10/28/19 Atenolol [Tenormin 50 mg Tablet] 25 mg PO DAILY tablet 10/28/19 Hydrocodone/Acetaminophen [[place] 10-325 mg Tablet] 1 tab PO Q4HP PRN #20 tablet 10/28/19 History of Present Illiness History of Present Illness: KYRA REYNOLDS is a 64 year old female Physical Exam Vital Signs: Temp Pulse Resp BP Pulse Ox 98.3 F 60 21 H 170/99 H 94 10/28/19 08:00 10/28/19 08:00 10/28/19 08:00 10/28/19 08:00 10/28/19 08:00 Intake & Output 10/27/19 10/28/19 10/29/19 06:59 06:59 06:59 Intake Total 973 1960 Balance 973 1960 Weight 78.4 kg 78.4 kg Results Laboratory Results: WBC 3.2 10^3/uL (4.0-10.5) L 10/26/19 07:25 RBC 2.61 10^6/uL (3.72-5.28) L 10/26/19 07:25 Hgb 8.1 g/dL (12.0-15.5) L D 10/26/19 07:25 Hct 24.9 % (36.0-47.0) L 10/26/19 07:25 MCV 96 fl (80-97) 10/26/19 07:25 MCH 31.2 pg (27.0-33.4) 10/26/19 07:25 MCHC 32.7 g/dL (32.0-36.0) 10/26/19 07:25 RDW 15.9 % (11.5-14.0) H 10/26/19 07:25 Plt Count 206 10^3/uL (150-450) 10/26/19 07:25 Lymph % (Auto) 13.7 % (13-45) 10/26/19 07:25 Love % (Auto) 8.4 % (3-13) 10/26/19 07:25 Eos % (Auto) 2.0 % (0-6) 10/26/19 07:25 Baso % (Auto) 0.5 % (0-2) 10/26/19 07:25 Absolute Neuts (auto) 2.4 10^3/uL (1.7-8.2) 10/26/19 07:25 Absolute Lymphs (auto) 0.4 10^3/uL (0.5-4.7) L 10/26/19 07:25 Absolute Monos (auto) 0.3 10^3/uL (0.1-1.4) 10/26/19 07:25 Absolute Eos (auto) 0.1 10^3/uL (0.0-0.6) 10/26/19 07:25 Absolute Basos (auto) 0.0 10^3/uL (0.0-0.2) 10/26/19 07:25 Seg Neutrophils % 75.4 % (42-78) 10/26/19 07:25 Platelet Estimate Cancelled 10/26/19 05:00 Sodium 137.3 mmol/L (137-145) 10/26/19 05:00 Potassium 3.6 mmol/L (3.6-5.0) 10/26/19 05:00 Chloride 113 mmol/L (98-107) H 10/26/19 05:00 Carbon Dioxide 19 mmol/L (22-30) L 10/26/19 05:00 Anion Gap 5 (5-19) 10/26/19 05:00 BUN 27 mg/dL (7-20) H 10/26/19 05:00 Creatinine 1.32 mg/dL (0.52-1.25) H 10/26/19 05:00 Est GFR ( Amer) 49 (>60) L 10/26/19 05:00 Est GFR (MDRD) Non-Af 40 (>60) L 10/26/19 05:00 Glucose 89 mg/dL (75-110) 10/26/19 05:00 POC Glucose 91 mg/dL (70-110) 10/28/19 07:54 Calcium 7.8 mg/dL (8.4-10.2) L 10/26/19 05:00 Slides for Path Review Cancelled 10/26/19 05:00 Impressions: Chest X-Ray 10/23/19 00:00 IMPRESSION: NO ACUTE RADIOGRAPHIC FINDING IN THE CHEST. Abdomen X-Ray 10/25/19 00:00 IMPRESSION: Ileus or partial colonic obstruction. KUB X-Ray 10/26/19 00:00 IMPRESSION: No interval change.
[2019-10-28 10:47] VITALS: BP 128/90
--- NOTE | 2019-10-30 07:44 | Operative Report ---
Nonrecallable Operative Report DATE OF SURGERY: 10/23/19 PREOPERATIVE DIAGNOSIS: History of rectal cancer, unwanted ileostomy POSTOPERATIVE DIAGNOSIS: Same as above OPERATION: 1. Takedown of right lower quadrant ileostomy, with [id number] stapled enteroenteric anastomosis. 2. Flexible sigmoidoscopy. SURGEON: BOY BLOOM 1ST LIGHT BULB REPLACER: SONIA LUCAS ANESTHESIA: GA TISSUE REMOVED OR ALTERED: 1. Small area of hypertrophic appearing tissue at anastomosis. 2. Ileostomy COMPLICATIONS: None apparent ESTIMATED BLOOD LOSS: Minimal PROCEDURE: Drain/implants: None. Procedure in detail: After informed consent was obtained, the patient was brought to the operating room and laid in the supine position. The legs were "frog legged" and the flexible sigmoidoscopy was undertaken. The scope was inserted into the rectum. The anastomosis was easily identified. The scope was pushed past the anastomosis, to examine the descending colon. The descending colon appeared normal. The scope was withdrawn past the anastomosis. The anastomosis was widely patent. There was no evidence of recurrence of her cancer. There was a small amount of granulation tissue at the anastomosis. This was sampled via cold biopsy forcep. The scope was then removed from the patient, and this portion of the procedure was concluded. Attention was then turned to reversal of the ileostomy. The right lower quadrant ileostomy was closed using 0 silk suture in running, locking, "baseball stitch" fashion. Once this was completed, the abdomen was prepped and draped in a normal sterile fashion. An incision was created around the ileostomy, and dissection was carried down to the fascia. Sharp dissection and electrocautery were used to free the ileostomy from the surrounding soft tissues and fascia. Once this was completed, there were noted to be a large amount of intra- abdominal adhesions. Lysis of intra-abdominal adhesions were undertaken around the ileostomy. Once an adequate amount of length was freed, a [id number] stapled enteroenteric anastomosis was created with the WALDO 75 stapler with blue loads. Next, the resultant defect was also closed using the WALDO stapler. The anastomosis was returned to the abdominal cavity. The anastomosis appeared to lay in good position. Generally, an absorbable bio mesh is placed into the wound to buttress the fascial closure. Unfortunately due to the large amount of adhesions, a significant amount of further surgery would be required in order to fit a mesh into the abdominal cavity. This was felt to be excessively risky in this obese patient. Secondary to this, no bio mesh was used to buttress the fascial closure. The fascia was closed in layers. The posterior layer was closed using #1 Vicryl suture in simple running fashion. The exterior layers were closed using #1 Prolene suture in [id number] fashion. Next a [place] drain was laid within the wound, and the skin was closed over top of the [place] drain. This was done with skin brody. A dressing was placed, and the procedure was then concluded. All sponge, instrument, and needle counts were correct x2. Condition: Stable. Sonia Lucas PA-C was scrubbed and present the entirety of the procedure. She assisted with all portions of the procedure including opening of the abdomen, dissection of the ileostomy. Creation of the anastomosis, closure of the fascia, and closure of the skin.
== END 2019-10-28 13:02 | disposition home or self-care (01) | DRG 330 ==
LOC: INOR 08:00 → 4W 16:32 → 4S 10-26 15:32
PROVIDERS: ADMIT Surgery; ATTEND Surgery
PROC: 0DQB0ZZ Repair Ileum, Open Approach (ICD-10-PCS; principal; 2019-10-23 09:45)
PROC: 0DBN8ZX Excision of Sigmoid Colon, Via Natural or Artificial Opening Endoscopic, Diagnostic (ICD-10-PCS; 2019-10-23 09:45)
DX: Z43.2 Encounter for attention to ileostomy (principal); C20 Malignant neoplasm of rectum; J44.9 Chronic obstructive pulmonary disease, unspecified; I10 Essential (primary) hypertension; E03.9 Hypothyroidism, unspecified; E78.00 Pure hypercholesterolemia, unspecified; F17.210 Nicotine dependence, cigarettes, uncomplicated; Z79.82 Long term (current) use of aspirin; Z79.52 Long term (current) use of systemic steroids; Z88.2 Allergy status to sulfonamides; Z91.013 Allergy to seafood
CPT/HCPCS: 36415; 45331; 71045; 74018; 74019; 800; 80048; 82962; 85025; 88305; C1758; J0694; J1642; J1650; J1741; J2250; J2270; J2370; J2405; J2704; J2710; J3010; J3490; J7030; J7050; J7060

== ENCOUNTER 2019-11-21 10:52 | Inpatient (IN) | payer MEDICAID ==
--- NOTE | 2019-11-21 11:37 | ER Document Report ---
ED Medical Screen (RME) - General Chief Complaint: Post Surgical Pain Stated Complaint: POST SURGICAL PAIN/UNABLE TO EAT Time Seen by Provider: 11/21/19 11:30 Primary Care Provider: KEVIN SYKES FNP-C [Primary Care Provider] - Follow up as needed Mode of Arrival: Ambulatory Information source: Patient Notes: 64-year-old female presented to ED for complaint of lower abdomen pain. She states she had rectal repair surgery on October 22. She states she had cancer they removed part of her bowel and then repaired the rectum. She states she was going to the bathroom having bowel movements about every 30 minutes and then suddenly Tuesday she had a bowel movement and has not had one since then. She states her lower abdomen is starting to really hurt and she is really concerned because she is not having any stools at all. She states she is able to urinate with no problems. She does have a history of colon cancer with bowel resection and repair cerebral palsy depression anxiety high blood pressure in a long time ago fractured wrist. She is a former smoker does not drink or do any illicit drugs. She is here for concerns about not having her bowel movements. We will get blood urine and an acute abdomen. I have greeted and performed a rapid initial assessment of this patient. A comprehensive ED assessment and evaluation of the patient, analysis of test results and completion of medical decision making process will be conducted by an additional ED providers. TRAVEL OUTSIDE OF THE [place] IN LAST 30 DAYS: No - Related Data Allergies/Adverse Reactions: shellfish derived Allergy (Severe, Verified 10/16/19 09:55) Hives iodine [Iodine] Allergy (Intermediate, Verified 10/16/19 09:55) Rash Sulfa (Sulfonamide Antibiotics) Allergy (Intermediate, Verified 10/16/19 09:55) Hives Iodinated Contrast Media Adverse Reaction (Intermediate, Verified 10/16/19 09:55) Nausea Past Medical History - Past Medical History Cardiac Medical History: Reports: Hx Coronary Artery Disease, Hx Heart Attack - 2010, Hx Hypertension Denies: Hx Atrial Fibrillation, Hx Congestive Heart Failure, Hx Hypercholesterolemia, Hx Peripheral Vascular Disease, Hx Pulmonary Embolism, Hx Heart Murmur Pulmonary Medical History: Reports: Hx Asthma, Hx Bronchitis, Hx COPD, Hx Pneumonia - 2015, Hx Respiratory Failure Denies: Hx Sleep Apnea, Hx Tuberculosis Neurological Medical History: Denies: Hx Cerebrovascular Accident, Hx Seizures, Hx Parkinson's Disease Endocrine Medical History: Reports: Hx Hyperthyroidism - Treated with radioactive iodine, Hx Hypothyroidism - Post ablation, takes thyroid replacement hormone. Denies: Hx Diabetes Mellitus Type 1, Hx Diabetes Mellitus Type 2 Renal/ Medical History: Reports: Hx Renal Insufficiency Malignancy Medical History: Reports: Hx Colorectal Cancer. Denies: Hx Leukemia, Hx Lung Cancer GI Medical History: Reports: Hx Gastroesophageal Reflux Disease. Denies: Hx Cirrhosis, Hx Crohn's Disease, Hx Hepatitis, Hx Hiatal Hernia, Hx Irritable Bowel, Hx Liver Failure, Hx Pancreatitis, Hx Ulcer, Hx Ulcerative Colitis Musculoskeltal Medical History: Reports Hx Arthritis, Denies Hx Fibromyalgia, Denies Hx Multiple Sclerosis, Denies Hx Muscular Dystrophy, Denies Hx Systemic Lupus Erythematosus Skin Medical History: Denies Hx Eczema, Denies Hx Psoriasis Psychiatric Medical History: Reports: Hx Depression Denies: Hx Bipolar Disorder, Hx Dementia, Hx Post Traumatic Stress Disorder, Hx Schizophrenia Traumatic Medical History: Denies: Hx Fractures Infectious Medical History: Denies: Hx Hepatitis, Hx HIV Past Surgical History: Reports: Hx Abdominal Surgery - COLOSTOMY, Hx Ileostomy - With Low anterior resection and total [id number], Hx Tubal Ligation, Other - 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 Denies: Hx Appendectomy, Hx Bowel Surgery, Hx Section, Hx Cholecystectomy, Hx Colostomy, Hx Coronary Artery Bypass Graft, Hx Gastric Bypass Surgery, Hx H erniorrhaphy, Hx Hysterectomy, Hx Mastectomy, Hx Open Heart Surgery, Hx Pacemaker, Hx Tonsillectomy - Immunizations Hx Diphtheria, Pertussis, Tetanus Vaccination: Yes - not sure Physical Exam - Vital signs Vitals: Temp Pulse Resp BP Pulse Ox 98.2 F 77 18 117/70 94 11/21/19 10:57 11/21/19 10:57 11/21/19 10:57 11/21/19 10:57 11/21/19 10:57 Course - Vital Signs Vital signs: Temp Pulse Resp BP Pulse Ox 98.2 F 77 18 117/70 94 11/21/19 10:57 11/21/19 10:57 11/21/19 10:57 11/21/19 10:57 11/21/19 10:57 Doctor's Discharge - Discharge Referrals: KEVIN SYKES FNP-C [Primary Care Provider] - Follow up as needed
--- NOTE | 2019-11-21 12:23 | RADIOLOGY REPORT (SQ) ---
EXAM DESCRIPTION: ACUTE ABDOMEN SERIES IMAGES COMPLETED DATE/TIME: 11/21/2019 12:04 pm REASON FOR STUDY: Patient states no bowel movement since Tuesday COMPARISON: AP view of the chest from 10/23/2019 and AP view of the abdomen from 10/26/2019. NUMBER OF VIEWS: Three views. TECHNIQUE: A PA view of the chest and AP supine and upright views of the abdomen were obtained. LIMITATIONS: None. FINDINGS: CHEST: The cardiomediastinal silhouette and pulmonary vasculature are within normal limits . There is re- demonstration of a hiatal hernia. There is no acute consolidation, pleural effusion or pneumothorax. FREE AIR: None. BOWEL GAS PATTERN: Absence of the normal haustral folds in the transverse colon. There are no dilate d loops of bowel. CALCIFICATIONS: Staghorn calculus in the right kidney. HARDWARE: The tip of the right IJ single-lumen port projects within the SVC. There are tubal ligatio n clips in the pelvis. SOFT TISSUES: No abnormality. BONES: Degenerative spondylosis of the lumbar spine. OTHER: No other finding. IMPRESSION: 1. No acute cardiopulmonary process. 2. Absence of the normal haustral folds in the transverse colon. This pattern can be seen in the se tting of a chronic inflammatory colitis. TECHNICAL DOCUMENTATION: JOB ID: [id number] 2010 [employer]- All Rights Reserved Reading location - IP/workstation name: [email or web address]
[2019-11-21] MEDS ORDERED: MORPHINE SULFATE 10 MG/ML INJ IV ONE (17:23)
[2019-11-21] MEDS ORDERED: NORMAL SALINE 1000 ML 1,000 ML IV ONE (17:24)
--- NOTE | 2019-11-21 17:37 | ER Document Report ---
ED GI/ - General Chief Complaint: Lower Abdominal Pain Stated Complaint: POST SURGICAL PAIN/UNABLE TO EAT Time Seen by Provider: 11/21/19 11:30 Mode of Arrival: Ambulatory TRAVEL OUTSIDE OF THE [place] IN LAST 30 DAYS: No - HPI Patient complains to provider of: Abdominal pain Onset: Other - since the surgery Timing/Duration: Intermittent Quality of pain: Sharp Associated symptoms: Constipation, Diarrhea. denies: Blood in stool, Dysuria, Hematuria, Urinary frequency Notes: Patient is a 64-year-old female with a past medical history of colon cancer sta tus post previous resection and ileostomy reversal in October who presents with abdominal pain and constipation. Patient states that she has had abdominal pain since the surgery. She states she has had diarrhea every day since then. She has been taking Imodium for the past 6 days. Today, she has not been able to have any bowel movements. She complains of pain at the left lower quadrant. Patient denies any blood in her stool. She denies any urinary symptoms. She denies any fevers or chills. She states she is very anxious and always has chest pain from that. she is not on chemotherapy. 11/21/19 17:32 11/21/19 17:44 11/21/19 17:46 11/21/19 23:53 - Related Data Allergies/Adverse Reactions: shellfish derived Allergy (Severe, Verified 10/16/19 09:55) Hives iodine [Iodine] Allergy (Intermediate, Verified 10/16/19 09:55) Rash Sulfa (Sulfonamide Antibiotics) Allergy (Intermediate, Verified 10/16/19 09:55) Hives Iodinated Contrast Media Adverse Reaction (Intermediate, Verified 10/16/19 09:55) Nausea Past Medical History - General Information source: Patient - Social History Smoking Status: Former Smoker Chew tobacco use (# tins/day): No Frequency of alcohol use: None Drug Abuse: None Family History: CAD, DM, Hyperlipidemia, Hypertension - Past Medical History Cardiac Medical History: Reports: Hx Coronary Artery Disease, Hx Heart Attack - 2010, Hx Hypertension Denies: Hx Atrial Fibrillation, Hx Congestive Heart Failure, Hx Hypercholesterolemia, Hx Peripheral Vascular Disease, Hx Pulmonary Embolism, Hx Heart Murmur Pulmonary Medical History: Reports: Hx Asthma, Hx Bronchitis, Hx COPD, Hx Pneumonia - 2015, Hx Respiratory Failure Denies: Hx Sleep Apnea, Hx Tuberculosis Neurological Medical History: Denies: Hx Cerebrovascular Accident, Hx Seizures, Hx Parkinson's Disease Endocrine Medical History: Reports: Hx Hyperthyroidism - Treated with radioactive iodine, Hx Hypothyroidism - Post ablation, takes thyroid replacement hormone. Denies: Hx Diabetes Mellitus Type 1, Hx Diabetes Mellitus Type 2 Renal/ Medical History: Reports: Hx Renal Insufficiency Malignancy Medical History: Reports: Hx Colorectal Cancer. Denies: Hx Leukemia, Hx Lung Cancer GI Medical History: Reports: Hx Gastroesophageal Reflux Disease. Denies: Hx Cirrhosis, Hx Crohn's Disease, Hx Hepatitis, Hx Hiatal Hernia, Hx Irritable Bowel, Hx Liver Failure, Hx Pancreatitis, Hx Ulcer, Hx Ulcerative Colitis Musculoskeletal Medical History: Reports Hx Arthritis, Denies Hx Fibromyalgia, Denies Hx Multiple Sclerosis, Denies Hx Muscular Dystrophy, Denies Hx Systemic Lupus Erythematosus Skin Medical History: Denies Hx Eczema, Denies Hx Psoriasis Psychiatric Medical History: Reports: Hx Depression Denies: Hx Bipolar Disorder, Hx Dementia, Hx Post Traumatic Stress Disorder, Hx Schizophrenia Traumatic Medical History: Denies: Hx Fractures Infectious Medical History: Denies: Hx Hepatitis, Hx HIV Past Surgical History: Reports: Hx Abdominal Surgery - COLOSTOMY, Hx Ileostomy - With Low anterior resection and total [id number], Hx Tubal Ligation, Other - 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 Denies: Hx Appendectomy, Hx Bowel Surgery, Hx Section, Hx Cholecystectomy, Hx Colostomy, Hx Coronary Artery Bypass Graft, Hx Gastric Bypass Surgery, Hx Herniorrhaphy, Hx Hysterectomy, Hx Mastectomy, Hx Open Heart Surgery, Hx Pacemaker, Hx Tonsillectomy - Immunizations Hx Diphtheria, Pertussis, Tetanus Vaccination: Yes - not sure Review of Systems - Review of Systems Notes: CONSTITUTIONAL: No fever, fatigue or weight loss. SKIN: No rash. HENT: No congestion, ear pain, or sore throat. EYES: No recent vision problems or eye pain. ENDOCRINE: No polyuria or polydipsia. CARDIOVASCULAR: Chronic chest pain she attributes to anxiety RESPIRATORY: No cough, shortness of breath, congestion, or wheezing. GASTROINTESTINAL: Positive abdominal pain and constipation today. GENITOURINARY: No dysuria. No hematuria. MUSCULOSKELETAL: No joint pain or swelling. NEUROLOGIC: No seizures. No headache, focal weakness or sensory changes. HEMATOLOGIC: No unusual bruising or bleeding. PSYCHIATRIC: No depression or anxiety. Physical Exam - Vital signs Vitals: Temp Pulse Resp BP Pulse Ox 98.2 F 77 18 117/70 94 11/21/19 10:57 11/21/19 10:57 11/21/19 10:57 11/21/19 10:57 11/21/19 10:57 - Notes Notes: VITAL SIGNS: Within normal limits. GENERAL: No acute distress, non-toxic appearance. HEAD: Normal with no signs of head trauma. EYES: EOMI, conjunctiva normal, no discharge. EARS: Hearing grossly intact. NOSE: Normal. NECK: Normal range of motion, no tenderness, supple, no JVD. CHEST: Clear breath sounds bilaterally. No wheezes, rales, or rhonchi. CARDIAC: Regular rate and rhythm. S1 and S2, without murmurs, gallops, or rubs. VASCULAR: No Edema. Peripheral pulses normal and equal in all extremities. ABDOMEN: Abdomen is soft. Surgical scars are well-healing. Tender to palpation in the left lower quadrant. GASTROINTESTINAL: Bowel sounds normal GENITOURINARY: Normal, No tenderness MUSCULOSKELETAL: Good range of motion of all major joints. Extremities without clubbing, cyanosis or edema. NEUROLOGICAL: Alert and oriented x 3. No focal sensory or strength deficits. Speech normal. Follows commands appropriately. PSYCHIATRIC: Normal Affect, judgement and mood. SKIN: Normal appearance with no rashes or lesions. Course - Re-evaluation Re-evalutation: 11/21/19 23:54 Patient states she had relief from morphine. She has significant lab abnormalities including leukocytosis, hypokalemia, hypomagnesemia. Her CT scan shows diffuse colitis. With her leukocytosis, I am concerned that this could be infectious. Patient is afebrile. I discussed with the hospitalist who recommended that we start her on meropenem. Patient was given magnesium and potassium. She was also given fluids. Patient did have a slightly low glucose, so she had oral glucose gel. Will be admitted to the hospitalist for further care. She is very agreeable to this. - Vital Signs Vital signs: Temp Pulse Resp BP Pulse Ox 98.7 F 77 19 134/82 H 93 11/21/19 19:51 11/21/19 10:57 11/21/19 20:01 11/21/19 20:01 11/21/19 20:01 - Laboratory Result Diagrams: 11/21/19 19:30 11/21/19 19:30 Laboratory results interpreted by me: 11/21/19 11/21/19 11/21/19 19:30 19:30 19:30 WBC 23.3 H RBC 2.95 L Hgb 9.0 L Hct 26.8 L RDW 15.2 H Seg Neuts % (Manual) 94 H Lymphocytes % (Manual) 3 L Abs Neuts (Manual) 21.9 H Potassium 2.8 L* Est GFR (MDRD) Non-Af 57 L Glucose 72 L Calcium 7.1 L Magnesium 1.0 L* AST 10 L Total Protein 5.3 L Albumin 2.7 L - EKG Interpretation by Me EKG shows normal: Sinus rhythm Rate: Normal [place]/QRS: Left axis deviation When compared to previous EKG there are: No significant change Additional EKG results interpreted by me: 11/21/19 21:35 Sinus rhythm at a rate of 70. QTc 497. Left axis deviation. Artifact present. No acute ST changes. EKG appears similar to previous. Discharge - Discharge Clinical Impression: Colitis, Hypokalemia, Hypomagnesemia Abdominal pain Qualifiers: Abdominal location: left lower quadrant Qualified Code(s): R10.32 - Left lower quadrant pain Condition: Stable Disposition: ADMITTED INPATIENT Unit Admitted: Medical Floor
[2019-11-21 19:40] LABS: HEMATOCRIT 26.8 % (36.0-47.0); MEAN CORPUSCULAR HEMOGLOBIN 30.5 pg (27.0-33.4); MEAN CORPUSCULAR HGB CONC 33.6 g/dL (32.0-36.0); PLATELET COUNT 341 10^3/uL (150-450); RED BLOOD COUNT 2.95 10^6/uL (3.72-5.28); RED CELL DISTRIBUTION WIDTH 15.2 % (11.5-14.0); WHITE BLOOD COUNT 23.3 10^3/uL (4.0-10.5)
[2019-11-21 19:48] LABS: ALBUMIN 2.7 g/dL (3.5-5.0); ALKALINE PHOSPHATASE 82 U/L (38-126); ANION GAP 11 (5-19); ASPARTATE AMINO TRANSFERASE 10 U/L (14-36); BILIRUBIN,DIRECT 0.4 mg/dL (0.0-0.4); BILIRUBIN,TOTAL 0.4 mg/dL (0.2-1.3); BLOOD UREA NITROGEN 16 mg/dL (7-20); CALCIUM 7.1 mg/dL (8.4-10.2); CARBON DIOXIDE 26 mmol/L (22-30); CHLORIDE 104 mmol/L (98-107); GLUCOSE 72 mg/dL (75-110); TOTAL PROTEIN 5.3 g/dL (6.3-8.2)
[2019-11-21 20:03] LABS: ABSOLUTE LYMPHOCYTES# (MANUAL) 0.7 10^3/uL (0.5-4.7); ABSOLUTE MONOCYTES # (MANUAL) 0.7 10^3/uL (0.1-1.4); BASOPHILS % (MANUAL) 0 % (0-2); EOSINOPHILS % (MANUAL) 0 % (0-6); LYMPHOCYTES % (MANUAL) 3 % (13-45); MONOCYTES % (MANUAL) 3 % (3-13); POTASSIUM 2.8 mmol/L (3.6-5.0); SEGMENTED NEUTROPHILS % (MAN) 94 % (42-78); TOTAL CELLS COUNTED 100
[2019-11-21 20:05] LABS: PLATELET CLUMPS PRESENT; PLATELET COMMENT ADEQUATE; TOXIC GRANULATION 1+; TOXIC VACUOLATION PRESENT
[2019-11-21 20:06] LABS: MEAN CORPUSCULAR VOLUME 91 fl (80-97)
[2019-11-21] MEDS ORDERED: POTASSI CL 20 MEQ/50 ML RIDER 20 MEQ/50 ML RTUPB IV ONE (20:19)
[2019-11-21] MEDS ORDERED: DEXTROSE 40% GEL 15 GM TUBE PO ONE (20:30)
--- NOTE | 2019-11-21 20:53 | EKG REPORT ---
SEVERITY:- ABNORMAL ECG - SINUS RHYTHM LEFT AXIS DEVIATION LOW VOLTAGE IN FRONTAL LEADS BORDERLINE PROLONGED QT INTERVAL : Confirmed by: Jose Isaac MD 21-Nov-2019 20:51:52
--- NOTE | 2019-11-21 21:25 | RADIOLOGY REPORT (SQ) ---
CT ABDOMEN PELVIS WITHOUT IV CONTRAST HISTORY: Left-sided abdominal pain. Recent ileostomy reversal. COMPARISON: 06/18/2019 TECHNIQUE: CT scan of the abdomen and pelvis was performed without IV contrast. This exam was performed according to our departmental dose-optimization program, which includes automated exposure control, adjustment of the mA and/or kV according to patient size and/or use of iterative reconstruction technique. FINDINGS: There is mild scarring at the lung bases but without pleural or pericardial effusions. There is a moderate-sized hiatal hernia. The gallbladder is distended and contains gallstones. The liver, spleen, pancreas, and adrenal glands are unremarkable. There are multiple calcifications in both kidneys including a staghorn calculi in the right renal pelvis along with chronic right-sided hydronephrosis and the lower pole with cortical scarring and calcification. Bilateral tubal ligation clips are seen. There is marked circumferential wall thickening which involves the entirety of the colon with surrounding mesenteric inflammation. No bowel obstruction. There is also small amount of free fluid but no free air is evident. The small bowel is grossly unremarkable. Evidence of prior right lower quadrant ostomy and midline anterior surgical scarring. There are mild degenerative changes of the spine. Chronic compression deformity of T12. There is diffuse body wall anasarca. The aorta is normal in caliber. IMPRESSION: 1. Marked circumferential wall thickening throughout the colon suggestive of acute colitis, which may be infectious or inflammatory in origin. 2. Gallstones without inflammatory changes. 3. 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
[2019-11-21] MEDS ORDERED: MEROPENEM 1 GM VIAL IV ONE (21:49)
[2019-11-21] MEDS ORDERED: LEVALBUTEROL HCL NEB 0.63 MG/3 ML AMPUL NEB PRN (22:44)
[2019-11-21] MEDS ORDERED: MORPHINE SULFATE 10 MG/ML INJ IV PRN (22:51)
[2019-11-21] MEDS ORDERED: LORAZEPAM INJ 2 MG/1 ML VIAL IV PRN (22:51)
[2019-11-21] MEDS ORDERED: ACETAMINOPHEN 650 MG SUPP.RECT PR PRN (22:51)
[2019-11-21] MEDS ORDERED: METOPROLOL TARTRATE PF/INJ 5 MG/5 ML SDV IV PRN (22:51)
[2019-11-21] MEDS ORDERED: HYDRALAZINE HCL INJ/PF 20 MG/1 ML SDV IV PRN (22:51)
[2019-11-21] MEDS ORDERED: MEROPENEM 1 GM VIAL IV PRN (23:00)
[2019-11-21] MEDS: MAGNESIUM SULFATE/D5W 1 GM/100 ML RTUPB IV SCH (23:39)
--- NOTE | 2019-11-21 23:43 | PDOC CONSULTATION ---
Consultation Consult Date: 11/21/19 Provider Consulted: PAM SARMIENTO Consult reason:: Colitis with abdominal pain and diarrhea History of Present Illness Admission Date/PCP: 11/21/19 22:21 ANTWON MAX History of Present Illness: KYRA REYNOLDS is a 64 year old female, s/p low anterior resection for rectal cancer with protecting ileostomy on March 2019; almost 2019 the patient underwent reversal of the ileostomy and since then she has developed a severe diarrhea with multiple bouts of stools per day. This week Tuesday the patient has had only 1 bout of diarrhea and normal stool since then in addition she is developed severe abdominal pain and generalized weakness. CT scan of the abdomen pelvis done today reveals the presence of diffuse colitis and her blood work is significant for a white blood cell count of 23,000 as well as a low potassium of 2.1 and low magnesium 1.0. Past Medical History Cardiac Medical History: Reports: Coronary Artery Disease, Myocardial Infarction - 2009, Hypertension Denies: Atrial Fibrillation, Congestive Heart Failure, Hyperlipidema, Peripheral Vascular Disease, Pulmonary Embolism, Heart Murmur Pulmonary Medical History: Reports: Asthma, Bronchitis, Chronic Obstructive Pulmonary Disease (COPD), Pneumonia - 2014, Respiratory Failure Denies: Sleep Apnea, Tuberculosis EENT Medical History: Denies: Cataracts, Ears - Hearing aids Neurological Medical History: Denies: Hemorrhagic CVA, Ischemic CVA, Seizures Endocrine Medical History: Reports: Hyperthyroidism - Treated with radioactive iodine, Hypothyroidism - Post ablation, takes thyroid replacement hormone Denies: Diabetes Mellitus Type 1, Diabetes Mellitus Type 2, Obesity Renal/ Medical History: Denies: Chronic Kidney Disease, Nephrolithiasis Malignancy Medical History: Reports: Colorectal Cancer Denies: Leukemia, Lung Cancer GI Medical History: Reports: Gastroesophageal Reflux Disease Denies: Cirrhosis, Crohn's Disease, Hepatitis, Hiatal Hernia, Peptic Ulcer Disease, Ulcerative Colitis Musculoskeltal Medical History: Reports: Arthritis Denies: Fibromyalgia Skin Medical History: Denies: Eczema, Psoriasis Psychiatric Medical History: Reports: Depression, Tobacco Dependency Denies: Alcohol Dependency, Bipolar Disorder, Dementia, Post Traumatic Stress Disorder, Substance Abuse Traumatic Medical History: Reports: None Hematology: Reports: Anemia - Chronic due to chronic blood loss, Bleeding Tendencies Denies: Hemophilia, Sickle Cell Disease Infectious Medical History: Reports: None Denies: HIV Past Surgical History Past Surgical History: Reports: Ileostomy - With Low anterior resection and total [id number], Tubal Ligation, Other - 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 Denies: Amputation, Appendectomy, Section, Cholecystectomy, Colostomy, Coronary Artery Bypass Graft, Gastric Bypass Surgery, Herniorrhaphy, Hysterectomy, Mastectomy, Pacemaker, Tonsillectomy Social History Lives with: Family Smoking Status: Former Smoker Electronic Cigarette use?: No Frequency of Alcohol Use: None Hx Recreational Drug Use: No Drugs: None Hx Prescription Drug Abuse: No - Advance Directive Resuscitation Status: Full Code Family History Family History: CAD, DM, Hyperlipidemia, Hypertension Parental Family History Reviewed: No Children Family History Reviewed: No Sibling(s) Family History Reviewed.: No Medication/Allergy Home Medications: Oxybutynin Chloride [Ditropan 5 mg Tablet] 5 mg PO Q8 #0 05/21/11 Pravastatin Sodium [Pravachol] 20 mg PO QPM 03/10/16 Atenolol [Tenormin] 25 mg PO DAILY 04/05/19 Aspirin [Ecotrin 81 mg EC Tablet] 81 mg PO DAILY 08/28/19 Diphenhydramine HCl [Benadryl 25 mg Capsule] 25 mg PO BID 08/28/19 Fluticasone/Salmeterol [Advair 250-50 Diskus 14 Dose/Diskus] 1 puff IH Q12 08/28/19 Levothyroxine Sodium [Synthroid 0.1 mg Tablet] 200 mcg PO Q6AM 10/11/19 Omeprazole Magnesium [Prilosec Otc] 20 mg PO Q6AM 10/11/19 Albuterol Sulfate [Proair HFA Inhalation Aerosol 8.5 gm MDI] 2 puff IH Q6HP PRN 10/23/19 Hydroxyzine Pamoate [Vistaril 25 mg Capsule] 25 mg PO TIDP PRN 10/23/19 Sertraline HCl 150 mg PO DAILY 10/23/19 Albuterol Sulfate [Proair HFA Inhalation Aerosol 8.5 gm MDI] 2 puff IH Q6HP PRN hfa.[id number] 10/28/19 Aspirin [Ecotrin 81 mg EC Tablet] 81 mg PO DAILY tabec 10/28/19 Atenolol [Tenormin 50 mg Tablet] 25 mg PO DAILY tablet 10/28/19 Hydrocodone/Acetaminophen [[place] 10-325 mg Tablet] 1 tab PO Q4HP PRN #20 tablet 10/28/19 Allergies/Adverse Reactions: shellfish derived Allergy (Severe, Verified 10/16/19 09:55) Hives iodine [Iodine] Allergy (Intermediate, Verified 10/16/19 09:55) Rash Sulfa (Sulfonamide Antibiotics) Allergy (Intermediate, Verified 10/16/19 09:55) Hives Iodinated Contrast Media Adverse Reaction (Intermediate, Verified 10/16/19 09:55) Nausea Physical Exam Vital Signs: Temp Pulse Resp BP Pulse Ox 98.7 F 77 19 134/82 H 93 11/21/19 19:51 11/21/19 10:57 11/21/19 20:01 11/21/19 20:01 11/21/19 20:01 Intake & Output 11/20/19 11/21/19 11/22/19 06:59 06:59 06:59 Weight 68 kg General appearance: PRESENT: mild distress, thin Head exam: PRESENT: atraumatic Eye exam: PRESENT: EOMI Mouth exam: PRESENT: dry mucosa, neck supple Teeth exam: PRESENT: poor dentation Respiratory exam: PRESENT: clear to auscultation vickie Cardiovascular exam: PRESENT: RRR GI/Abdominal exam: PRESENT: distended, hypoactive bowel sounds, tenderness - Diffuse tenderness on palpation Rectal exam: PRESENT: deferred Extremities exam: PRESENT: full ROM Musculoskeletal exam: PRESENT: full ROM Neurological exam: PRESENT: alert, awake, oriented to person Psychiatric exam: PRESENT: appropriate affect Skin exam: PRESENT: warm Results Laboratory Results: 11/21/19 19:30 11/21/19 19:30 11/21/19 11/21/19 11/21/19 19:30 19:30 19:30 WBC 23.3 H RBC 2.95 L Hgb 9.0 L Hct 26.8 L MCV 91 D MCH 30.5 MCHC 33.6 RDW 15.2 H Plt Count 341 Seg Neutrophils % Not Reportable Sodium 140.6 Potassium 2.8 L* Chloride 104 Carbon Dioxide 26 Anion Gap 11 BUN 16 Creatinine 0.98 Est GFR ( Amer) > 60 Glucose 72 L Lactic Acid Calcium 7.1 L Magnesium 1.0 L* Total Bilirubin 0.4 AST 10 L Alkaline Phosphatase 82 Total Protein 5.3 L Albumin 2.7 L Lipase 103.3 11/21/19 21:28 WBC RBC Hgb Hct MCV MCH MCHC RDW Plt Count Seg Neutrophils % Sodium Potassium Chloride Carbon Dioxide Anion Gap BUN Creatinine Est GFR ( Amer) Glucose Lactic Acid 0.7 Calcium Magnesium Total Bilirubin AST Alkaline Phosphatase Total Protein Albumin Lipase 11/21/19 19:30 Troponin I < 0.012 Impressions: Acute Abdomen Series 11/21/19 11:38 IMPRESSION: 1. No acute cardiopulmonary process. 2. Absence of the normal haustral folds in the transverse colon. This pattern can be seen in the setting of a chronic inflammatory colitis. Abdomen/Pelvis CT 11/21/19 20:18 IMPRESSION: 1. Marked circumferential wall thickening throughout the colon suggestive of acute colitis, which may be infectious or inflammatory in origin. 2. Gallstones without inflammatory changes. 3. 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 Assessment & Plan - Diagnosis (1) Diversion colitis Is this a current diagnosis for this admission?: Yes - Plan Summary Plan Summary: Assessment: S/p low anterior resection for rectal cancer and protective ileostomy in March 2019 Ileostomy reversal in October 2019 Patient suffering from multiple bouts of diarrhea with a CT scan is significant for diffuse colitis White blood cell count elevated 20,000 The clinical picture fits the diagnosis of diversion colitis In addition, pseudomembranous colitis is a possibility in this patient Plan: IV antibiotics as per the hospitalist (meropenem) And recommended to send the stools for ova and parasites and regular culture as well as the white blood cells N.p.o. IV hydration Electrolyte replacement
[2019-11-21] MEDS: MORPHINE SULFATE 10 MG/ML INJ IV PRN (23:54)
[2019-11-22] MEDS: FAMOTIDINE INJ/PF 20 MG/2 ML SDV IV SCH ×3 (00:04→21:23)
[2019-11-22 00:29] LABS: APPEARANCE,URINE CLOUDY; BILIRUBIN,URINE NEGATIVE (NEGATIVE); COLOR,URINE AMBER; GLUCOSE, URINE NEGATIVE (NEGATIVE); KETONES,URINE TRACE mg/dL (NEGATIVE); LEUKOCYTE ESTERASE,URINE SMALL (NEGATIVE); NITRITE,URINE POSITIVE (NEGATIVE); PROTEIN,URINE 30 mg/dL (NEGATIVE); UROBILINOGEN,URINE NEGATIVE mg/dL (<2.0)
--- NOTE | 2019-11-22 02:26 | PDOC H&P ---
History of Present Illness Admission Date/PCP: 11/21/2019 22:07 BESSIE MAX-Butch Patient complains of: Abdominal pain History of Present Illness: KYRA REYNOLDS is a 64 year old female who presents the emergency room with a 1 day history of abdominal pain. She admits developing abdominal pain in her left lower abdomen on 11/20/2019 which has been a constant colicky aching of m oderate to severe intensity without radiation associated with constipation and accompanied by increased generalized anxiety. She denies other associated or accompanying signs and symptoms. She denies prior similar episodes. She admits a history of colon cancer with a partial colectomy and ileostomy earlier this year, followed by a later reversal of her ileostomy in October of this year all of which was done here by Dr. Corbett. She has not identified any aggravating or ameliorating factors for her abdominal pain. In the emergency room she was found to have a white count of 23,[address] scan of the abdomen showed diffuse colitis without evidence of obstruction. Additionally she was noted to be hypokalemic and hypomagnesemic in the ER. Her electrolytes are in the process of being repleted and she will receive her first dose of meropenem in the emergency room prior to her admission to the hospitalist service for further evaluation and treatment. Past Medical History Cardiac Medical History: Reports: Coronary Artery Disease, Myocardial Infarction - 2010, Hypertension Denies: Atrial Fibrillation, Congestive Heart Failure, Hyperlipidema, Per ipheral Vascular Disease, Pulmonary Embolism, Heart Murmur Pulmonary Medical History: Reports: Asthma, Bronchitis, Chronic Obstructive Pulmonary Disease (COPD), Pneumonia - 2015, Respiratory Failure Denies: Sleep Apnea, Tuberculosis EENT Medical History: Denies: Cataracts, Ears - Hearing aids Neurological Medical History: Denies: Hemorrhagic CVA, Ischemic CVA, Seizures Endocrine Medical History: Reports: Hyperthyroidism - Treated with radioactive iodine, Hypothyroidism - Post ablation, takes thyroid replacement hormone Denies: Diabetes Mellitus Type 1, Diabetes Mellitus Type 2, Obesity Renal/ Medical History: Denies: Chronic Kidney Disease, Nephrolithiasis Malignancy Medical History: Reports: Colorectal Cancer GI Medical History: Reports: Gastroesophageal Reflux Disease Denies: Cirrhosis, Crohn's Disease, Hepatitis, Hiatal Hernia, Peptic Ulcer Disease, Ulcerative Colitis Musculoskeltal Medical History: Reports: Arthritis Denies: Fibromyalgia Skin Medical History: Denies: Eczema, Psoriasis Psychiatric Medical History: Reports: Depression, Tobacco Dependency Denies: Alcohol Dependency, Bipolar Disorder, Dementia, Post Traumatic Stress Disorder, Substance Abuse Traumatic Medical History: Reports: None Hematology: Reports: Anemia - Chronic due to chronic blood loss, Bleeding Tendencies Infectious Medical History: Reports: None Past Surgical History Past Surgical History: Reports: Ileostomy - With Low anterior resection and partial colectomy, Tubal Ligation, Other - 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 Social History Information Source: Patient Lives with: Family Smoking Status: Former Smoker Electronic Cigarette use?: No Frequency of Alcohol Use: None Hx Recreational Drug Use: No Drugs: None Hx Prescription Drug Abuse: No - Advance Directive Resuscitation Status: Full Code Surrogate healthcare decision maker:: Carola Vanessa Family History Family History: CAD, DM, Hyperlipidemia, Hypertension Parental Family History Reviewed: Yes Children Family History Reviewed: No Sibling(s) Family History Reviewed.: Yes Medication/Allergy Home Medications: Oxybutynin Chloride [Ditropan 5 mg Tablet] 5 mg PO Q8 #0 05/21/11 Pravastatin Sodium [Pravachol] 20 mg PO QPM 03/10/16 Atenolol [Tenormin] 25 mg PO DAILY 04/05/19 Aspirin [Ecotrin 81 mg EC Tablet] 81 mg PO DAILY 08/28/19 Diphenhydramine HCl [Benadryl 25 mg Capsule] 25 mg PO BID 08/28/19 Fluticasone/Salmeterol [Advair 250-50 Diskus 14 Dose/Diskus] 1 puff IH Q12 08/28/19 Levothyroxine Sodium [Synthroid 0.1 mg Tablet] 200 mcg PO Q6AM 10/11/19 Omeprazole Magnesium [Prilosec Otc] 20 mg PO Q6AM 10/11/19 Albuterol Sulfate [Proair HFA Inhalation Aerosol 8.5 gm MDI] 2 puff IH Q6HP PRN 10/23/19 Hydroxyzine Pamoate [Vistaril 25 mg Capsule] 25 mg PO TIDP PRN 10/23/19 Sertraline HCl 150 mg PO DAILY 10/23/19 Albuterol Sulfate [Proair HFA Inhalation Aerosol 8.5 gm MDI] 2 puff IH Q6HP PRN hfa.aer.ad 10/28/19 Aspirin [Ecotrin 81 mg EC Tablet] 81 mg PO DAILY tabec 10/28/19 Atenolol [Tenormin 50 mg Tablet] 25 mg PO DAILY tablet 10/28/19 Hydrocodone/Acetaminophen [[place] 10-325 mg Tablet] 1 tab PO Q4HP PRN #20 tablet 10/28/19 Allergies/Adverse Reactions: shellfish derived Allergy (Severe, Verified 10/16/19 09:55) Hives iodine [Iodine] Allergy (Intermediate, Verified 10/16/19 09:55) Rash Sulfa (Sulfonamide Antibiotics) Allergy (Intermediate, Verified 10/16/19 09:55) Hives Iodinated Contrast Media Adverse Reaction (Intermediate, Verified 10/16/19 09:55 ) Nausea Review of Systems Constitutional: ABSENT: chills, fever(s) Eyes: ABSENT: visual disturbances, other - Eye pain Ears: ABSENT: hearing changes, other - Ear pain Nose, Mouth, and Throat: ABSENT: headache(s), sore throat Cardiovascular: PRESENT: chest pain - Chronic due to anxiety. ABSENT: palpitations Respiratory: ABSENT: cough, dyspnea Gastrointestinal: PRESENT: as per HPI, abdominal pain, constipation - X24 hours per HPI, diarrhea - Chronic due to total colectomy with multiple stools per day. ABSENT: bloating, hematemesis, hematochezia, melena, nausea, vomiting Genitourinary: PRESENT: dysuria. ABSENT: hematuria Musculoskeletal: ABSENT: back pain, joint swelling, muscle weakness Integumentary: ABSENT: pruritus, rash Neurological: ABSENT: confusion, convulsions, focal weakness, memory loss, syncope Psychiatric: ABSENT: anxiety, depression Endocrine: ABSENT: cold intolerance, heat intolerance Hematologic/Lymphatic: ABSENT: easy bleeding, easy bruising Allergic/Immunologic: ABSENT: seasonal rhinorrhea Physical Exam Vital Signs: Temp Pulse Resp BP Pulse Ox 98.7 F 77 19 134/82 H 93 11/21/19 19:51 11/21/19 10:57 11/21/19 20:01 11/21/19 20:01 11/21/19 20:01 Intake & Output 11/19/19 11/20/19 11/21/19 23:59 23:59 23:59 Weight 68 kg General appearance: PRESENT: cooperative, other - Moderate distress due to abdominal pain Head exam: PRESENT: atraumatic, normocephalic Eye exam: PRESENT: conjunctiva pink. ABSENT: conjunctival injection, scleral icterus Ear exam: PRESENT: normal external ear exam. ABSENT: bleeding, drainage Mouth exam: PRESENT: dry mucosa, neck supple Neck exam: ABSENT: thyromegaly, tracheal deviation Respiratory exam: PRESENT: clear to auscultation vickie, symmetrical, unlabored Cardiovascular exam: PRESENT: RRR. ABSENT: clicks, gallop, rubs Pulses: PRESENT: normal radial pulses, normal dorsalis pedis pul Vascular exam: PRESENT: normal capillary refill. ABSENT: pallor GI/Abdominal exam: PRESENT: hypoactive bowel sounds, soft, tenderness - Left lower quadrant tenderness palpation Rectal exam: PRESENT: deferred Extremities exam: ABSENT: joint swelling, pedal edema Musculoskeletal exam: ABSENT: deformity, dislocation Neurological exam: PRESENT: alert, oriented to person, oriented to place, oriented to time, oriented to situation, CN II-XII grossly intact. ABSENT: motor sensory deficit Psychiatric exam: PRESENT: anxious, normal mood Skin exam: PRESENT: dry, intact, warm. ABSENT: jaundice, rash, urticaria Results Laboratory Results: 11/21/19 19:30 11/21/19 19:30 11/21/19 11/21/19 11/21/19 19:30 19:30 19:30 WBC 23.3 H RBC 2.95 L Hgb 9.0 L Hct 26.8 L MCV 91 D MCH 30.5 MCHC 33.6 RDW 15.2 H Plt Count 341 Seg Neutrophils % Not Reportable Sodium 140.6 Potassium 2.8 L* Chloride 104 Carbon Dioxide 26 Anion Gap 11 BUN 16 Creatinine 0.98 Est GFR ( Amer) > 60 Glucose 72 L Lactic Acid Calcium 7.1 L Magnesium 1.0 L* Total Bilirubin 0.4 AST 10 L Alkaline Phosphatase 82 Total Protein 5.3 L Albumin 2.7 L Lipase 103.3 11/21/19 21:28 WBC RBC Hgb Hct MCV MCH MCHC RDW Plt Count Seg Neutrophils % Sodium Potassium Chloride Carbon Dioxide Anion Gap BUN Creatinine Est GFR ( Amer) Glucose Lactic Acid 0.7 Calcium Magnesium Total Bilirubin AST Alkaline Phosphatase Total Protein Albumin Lipase 11/21/19 19:30 Troponin I < 0.012 Impressions: Acute Abdomen Series 11/21/19 11:38 IMPRESSION: 1. No acute cardiopulmonary process. 2. Absence of the normal haustral folds in the transverse colon. This pattern can be seen in the setting of a chronic inflammatory colitis. Abdomen/Pelvis CT 11/21/19 20:18 IMPRESSION: 1. Marked circumferential wall thickening throughout the colon suggestive of acute colitis, which may be infectious or inflammatory in origin. 2. Gallstones without inflammatory changes. 3. 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 Assessment and Plan - Diagnosis (1) Acute colitis Is this a current diagnosis for this admission?: Yes (2) Abdominal pain Qualifiers: Abdominal location: left lower quadrant Qualified Code(s): R10.32 - Left lower quadrant pain Is this a current diagnosis for this admission?: Yes (3) Leukocytosis Qualifiers: Leukocytosis type: unspecified Qualified Code(s): D72.829 - Elevated white blood cell count, unspecified Is this a current diagnosis for this admission?: Yes (4) Hypomagnesemia Is this a current diagnosis for this admission?: Yes (5) Hypomagnesemia Is this a current diagnosis for this admission?: Yes (6) Generalized anxiety disorder Is this a current diagnosis for this admission?: Yes (7) Gastroesophageal reflux disease Qualifiers: Esophagitis presence: with esophagitis Qualified Code(s): K21.0 - Gastro- esophageal reflux disease with esophagitis Is this a current diagnosis for this admission?: Yes (8) Hypothyroidism Qualifiers: Hypothyroidism type: postablative Qualified Code(s): E89.0 - Postprocedural hypothyroidism Is this a current diagnosis for this admission?: Yes (9) Hyperlipidemia Qualifiers: Hyperlipidemia type: unspecified Qualified Code(s): E78.5 - Hyperlipidemia, unspecified Is this a current diagnosis for this admission?: Yes (10) COPD (chronic obstructive pulmonary disease) Qualifiers: COPD type: unspecified COPD Qualified Code(s): J44.9 - Chronic obstructive pulmonary disease, unspecified Is this a current diagnosis for this admission?: Yes (11) Coronary artery disease Qualifiers: Coronary Disease-Associated Artery/Lesion type: [place] artery [place] vs. transplanted heart: [place] heart Associated angina: without angina Qualified Code(s): I25.10 - Atherosclerotic heart disease of [place] coronary artery without angina pectoris Is this a current diagnosis for this admission?: Yes (12) History of malignant neoplasm of colon Is this a current diagnosis for this admission?: Yes - Plan Summary Summary: Patient will be admitted to the medical floor where she will receive routine supportive and symptomatic cares. A surgical consultation will be obtained with Dr. Luis who is covering for Dr. Corbett. She will be treated with IV meropenem 1 g every 8 hours initially. Blood cultures and urine cultures will be obtained. Patient will be treated for hypokalemia and hypomagnesemia in the emergency room initially with IV repletion and this will be continued after her hospitalization has been initiated. Patient received morphine sulfate 2 to 4 mg IV every 2 hours as needed for pain. She will receive IV Ativan 1 mg IV every 4 hours as needed for anxiety or restlessness. CBCs, metabolic profiles, thyroid profiles and additional laboratory and/or radiographic evaluations will be obtained as needed. - Time Time Spent with patient: 15-24 minutes Medications reviewed and adjusted accordingly: Yes Anticipated Discharge Disposition: Home with Home Health Anticipated Discharge Timeframe: Undetermined - Inpatient Certification Based on my medical assessment, after consideration of the patient's comorbidities, presenting symptoms, or acuity I expect that the services needed warrant INPATIENT care.: Yes I certify that my determination is in accordance with my understanding of Medicare's requirements for reasonable and necessary INPATIENT services [42 CFR 412.3e].: Yes Medical Necessity: Significant Comorbidiites Make Outpatient Treatment Too Risky, Need Close Monitoring Due to Risk of Patient Decompensation, Need For IV Fluids, Need for Pain Control, Need for IV Antibiotics, Risk of Complication if Not Cared For in Hospital
[2019-11-22] MEDS ORDERED: MAGNESIUM SULFATE/D5W 1 GM/100 ML RTUPB IV ONE (02:28)
[2019-11-22] MEDS: MAGNESIUM SULFATE/D5W 1 GM/100 ML RTUPB IV SCH (02:34)
[2019-11-22] MEDS: POTASSI CL 20 MEQ/D5NS 1L 20 MEQ/1,000 ML RTUINJ IV PRN ×2 (03:48→16:08)
[2019-11-22] MEDS: HEPARIN SOD (PORCINE) 5,000 UNIT/ML 1 ML VIAL SUBCUT SCH ×3 (05:53→21:23)
[2019-11-22] MEDS: METRONIDAZOLE 500 MG/NS RTU 500 MG/100 ML RTUPB IV SCH ×4 (05:54→23:34)
[2019-11-22] MEDS ORDERED: MEROPENEM 1 GM in NORMAL SALINE 50 ML IV SCH (06:00)
[2019-11-22 06:47] LABS: HEMATOCRIT 28.9 % (36.0-47.0); HEMOGLOBIN 9.2 g/dL (12.0-15.5); MEAN CORPUSCULAR HEMOGLOBIN 29.4 pg (27.0-33.4); MEAN CORPUSCULAR VOLUME 92 fl (80-97); PLATELET COUNT 376 10^3/uL (150-450); RED BLOOD COUNT 3.14 10^6/uL (3.72-5.28); RED CELL DISTRIBUTION WIDTH 15.3 % (11.5-14.0); WHITE BLOOD COUNT 21.4 10^3/uL (4.0-10.5)
[2019-11-22 07:02] LABS: ALBUMIN 2.8 g/dL (3.5-5.0); ALKALINE PHOSPHATASE 85 U/L (38-126); ANION GAP 13 (5-19); ASPARTATE AMINO TRANSFERASE 10 U/L (14-36); BILIRUBIN,DIRECT 0.3 mg/dL (0.0-0.4); BILIRUBIN,TOTAL 0.3 mg/dL (0.2-1.3); BLOOD UREA NITROGEN 16 mg/dL (7-20); CALCIUM 7.1 mg/dL (8.4-10.2); CARBON DIOXIDE 24 mmol/L (22-30); CHLORIDE 107 mmol/L (98-107); CHOLESTEROL 113.56 mg/dL (0-200); GLUCOSE 73 mg/dL (75-110); POTASSIUM 3.3 mmol/L (3.6-5.0); TOTAL PROTEIN 5.4 g/dL (6.3-8.2); TRIGLYCERIDES 147 mg/dL (<150)
[2019-11-22 07:12] LABS: DIRECT LDL 47 mg/dL (<100)
[2019-11-22 07:17] LABS: FREE T3 1.94 pg/mL (2.77-5.27)
[2019-11-22 07:32] LABS: THYROID STIMULATING HORMONE 0.21 uIU/mL (0.47-4.68)
[2019-11-22] MEDS: LEVOTHYROXINE SODIUM INJ/PF 0.1 MG SDV IV SCH (09:49)
[2019-11-22] MEDS: MORPHINE SULFATE 10 MG/ML INJ IV PRN ×2 (10:43→17:09)
--- NOTE | 2019-11-22 17:02 | PDOC PROGRESS REPORT ---
Subjective Progress Note for:: 11/22/19 Subjective:: 64-year-old female who is recently status post ileostomy reversal. She presents with abdominal pain. She was found to have colitis. She has been receiving intravenous fluids and antibiotics. Currently she reports mild abdominal pain. She has not had a bowel movement in 2 to 3 days. She reports that she is hungry and would like to eat. She continues to pass flatus. Reason For Visit: ACUTE COLITIS/ILEITIS, LEUKOCYTOSIS, HYPOMAGNESEMI Physical Exam Vital Signs: Temp Pulse Resp BP Pulse Ox 98.1 F 67 14 121/73 97 11/22/19 08:19 11/22/19 09:10 11/22/19 09:10 11/22/19 08:19 11/22/19 09:10 Intake & Output 11/21/19 11/22/19 11/23/19 06:59 06:59 06:59 Intake Total 1350 1250 Balance 1350 1250 Weight 67.3 kg General appearance: PRESENT: no acute distress, cooperative, disheveled Head exam: PRESENT: atraumatic, normocephalic Eye exam: PRESENT: EOMI, PERRLA. ABSENT: scleral icterus Mouth exam: PRESENT: neck supple Teeth exam: PRESENT: poor dentation Neck exam: ABSENT: meningismus, tenderness, thyromegaly, tracheal deviation Respiratory exam: PRESENT: unlabored. ABSENT: tachypnea, wheezes Cardiovascular exam: ABSENT: tachycardia GI/Abdominal exam: PRESENT: soft, tenderness - Mild tenderness in all 4 quadrants.. ABSENT: distended, rebound, rigid Rectal exam: PRESENT: deferred Extremities exam: ABSENT: clubbing Musculoskeletal exam: ABSENT: deformity Neurological exam: PRESENT: alert, awake, oriented to person, oriented to place, oriented to time, oriented to situation, CN II-XII grossly intact Psychiatric exam: ABSENT: agitated, anxious, depressed Focused psych exam: ABSENT: delusional Skin exam: ABSENT: cyanosis, erythema, jaundice Results Laboratory Results: 11/22/19 05:40 11/22/19 05:40 11/21/19 11/21/19 11/21/19 19:30 19:30 19:30 WBC 23.3 H RBC 2.95 L Hgb 9.0 L Hct 26.8 L MCV 91 D MCH 30.5 MCHC 33.6 RDW 15.2 H Plt Count 341 Seg Neutrophils % Not Reportable Sodium 140.6 Potassium 2.8 L* Chloride 104 Carbon Dioxide 26 Anion Gap 11 BUN 16 Creatinine 0.98 Est GFR ( Amer) > 60 Glucose 72 L Lactic Acid Calcium 7.1 L Magnesium 1.0 L* Total Bilirubin 0.4 AST 10 L Alkaline Phosphatase 82 Total Protein 5.3 L Albumin 2.7 L Triglycerides Cholesterol LDL Cholesterol Direct VLDL Cholesterol HDL Cholesterol Lipase 103.3 TSH Free T3 pg/mL Urine Color Urine Appearance Urine pH Ur Specific Horton Urine Protein Urine Glucose (UA) Urine Ketones Urine Blood Urine Nitrite Ur Leukocyte Esterase Urine WBC (Auto) Urine RBC (Auto) 11/21/19 11/21/19 11/22/19 21:28 23:40 05:40 WBC 21.4 H RBC 3.14 L Hgb 9.2 L Hct 28.9 L MCV 92 MCH 29.4 MCHC 32.0 RDW 15.3 H Plt Count 376 Seg Neutrophils % Sodium Potassium Chloride Carbon Dioxide Anion Gap BUN Creatinine Est GFR ( Amer) Glucose Lactic Acid 0.7 Calcium Magnesium Total Bilirubin AST Alkaline Phosphatase Total Protein Albumin Triglycerides Cholesterol LDL Cholesterol Direct VLDL Cholesterol HDL Cholesterol Lipase TSH Free T3 pg/mL Urine Color THOM Urine Appearance CLOUDY Urine pH 6.0 Ur Specific Horton 1.020 Urine Protein 30 H Urine Glucose (UA) NEGATIVE Urine Ketones TRACE H Urine Blood NEGATIVE Urine Nitrite POSITIVE H Ur Leukocyte Esterase SMALL H Urine WBC (Auto) 69 Urine RBC (Auto) 4 11/22/19 11/22/19 05:40 05:40 WBC RBC Hgb Hct MCV MCH MCHC RDW Plt Count Seg Neutrophils % Sodium 143.7 Potassium 3.3 L Chloride 107 Carbon Dioxide 24 Anion Gap 13 BUN 16 Creatinine 0.99 Est GFR ( Amer) > 60 Glucose 73 L Lactic Acid Calcium 7.1 L Magnesium 1.7 Total Bilirubin 0.3 AST 10 L Alkaline Phosphatase 85 Total Protein 5.4 L Albumin 2.8 L Triglycerides 147 Cholesterol 113.56 LDL Cholesterol Direct 47 VLDL Cholesterol 29.0 HDL Cholesterol 31 L Lipase TSH 0.21 L Free T3 pg/mL 1.94 L Urine Color Urine Appearance Urine pH Ur Specific Horton Urine Protein Urine Glucose (UA) Urine Ketones Urine Blood Urine Nitrite Ur Leukocyte Esterase Urine WBC (Auto) Urine RBC (Auto) 11/21/19 19:30 Troponin I < 0.012 Impressions: Acute Abdomen Series 11/21/19 11:38 IMPRESSION: 1. No acute cardiopulmonary process. 2. Absence of the normal haustral folds in the transverse colon. This pattern can be seen in the setting of a chronic inflammatory colitis. Abdomen/Pelvis CT 11/21/19 20:18 IMPRESSION: 1. Marked circumferential wall thickening throughout the colon suggestive of acute colitis, which may be infectious or inflammatory in origin. 2. Gallstones without inflammatory changes. 3. 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 Assessment & Plan - Diagnosis (1) Acute colitis Is this a current diagnosis for this admission?: Yes - Time Anticipated Discharge Disposition: Home, Self Care Anticipated Discharge Timeframe: unknown - Plan Summary Plan Summary: 64-year-old female with colitis. The etiology is likely infectious. Continue with IV antibiotics (including Flagyl to cover C. difficile). She reports continuing to pass flatus. She denies any nausea today. I will allow her to have clear liquids and popsicles. Out of bed, ambulate in hallways. Aggressive pulmonary toilet. No surgical intervention is planned at this time. Surgery will continue to follow closely with you.
--- NOTE | 2019-11-22 17:50 | PDOC PROGRESS REPORT ---
Subjective Progress Note for:: 11/22/19 Subjective:: Patient was admitted with abdominal pain she has a prior history of colon cancer with partial colectomy and ileostomy she has been seen by surgery recommendations noted she is currently on meropenem as well as Flagyl. She is growing surgical intervention is planned at this time as colitis is felt to be infectious Reason For Visit: ACUTE COLITIS/ILEITIS, LEUKOCYTOSIS, HYPOMAGNESEMI Physical Exam Vital Signs: Temp Pulse Resp BP Pulse Ox 98.1 F 67 14 121/73 97 11/22/19 08:19 11/22/19 09:10 11/22/19 09:10 11/22/19 08:19 11/22/19 09:10 Intake & Output 11/21/19 11/22/19 11/23/19 06:59 06:59 06:59 Intake Total 1350 1250 Balance 1350 1250 Weight 67.3 kg General appearance: PRESENT: no acute distress Head exam: PRESENT: atraumatic, normocephalic Eye exam: PRESENT: conjunctiva pink, EOMI, PERRLA. ABSENT: scleral icterus Mouth exam: PRESENT: dry mucosa, tongue midline Neck exam: ABSENT: carotid bruit, JVD, lymphadenopathy, thyromegaly Respiratory exam: PRESENT: clear to auscultation vickie, unlabored. ABSENT: rales, rhonchi, wheezes Cardiovascular exam: PRESENT: RRR, +S1, +S2. ABSENT: diastolic murmur, rubs, systolic murmur Pulses: PRESENT: normal dorsalis pedis pul Vascular exam: PRESENT: normal capillary refill GI/Abdominal exam: PRESENT: normal bowel sounds, tenderness - Especially in the left lower quadrant. ABSENT: distended, guarding, mass, organolmegaly, rebound Rectal exam: PRESENT: deferred Extremities exam: PRESENT: full ROM. ABSENT: calf tenderness, clubbing, pedal edema Neurological exam: PRESENT: alert, awake, oriented to person, oriented to place, oriented to time, oriented to situation, CN II-XII grossly intact. ABSENT: motor sensory deficit Psychiatric exam: PRESENT: appropriate affect, normal mood. ABSENT: homicidal ideation, suicidal ideation Skin exam: PRESENT: dry, intact, warm. ABSENT: cyanosis, rash Results Laboratory Results: 11/22/19 05:40 11/22/19 05:40 09/12/0111/21/19 11/21/19 19:30 19:30 19:30 WBC 23.3 H RBC 2.95 L Hgb 9.0 L Hct 26.8 L MCV 91 D MCH 30.5 MCHC 33.6 RDW 15.2 H Plt Count 341 Seg Neutrophils % Not Reportable Sodium 140.6 Potassium 2.8 L* Chloride 104 Carbon Dioxide 26 Anion Gap 11 BUN 16 Creatinine 0.98 Est GFR ( Amer) > 60 Glucose 72 L Lactic Acid Calcium 7.1 L Magnesium 1.0 L* Total Bilirubin 0.4 AST 10 L Alkaline Phosphatase 82 Total Protein 5.3 L Albumin 2.7 L Triglycerides Cholesterol LDL Cholesterol Direct VLDL Cholesterol HDL Cholesterol Lipase 103.3 TSH Free T3 pg/mL Urine Color Urine Appearance Urine pH Ur Specific Ecru Urine Protein Urine Glucose (UA) Urine Ketones Urine Blood Urine Nitrite Ur Leukocyte Esterase Urine WBC (Auto) Urine RBC (Auto) 11/21/19 11/21/19 11/22/19 21:28 23:40 05:40 WBC 21.4 H RBC 3.14 L Hgb 9.2 L Hct 28.9 L MCV 92 MCH 29.4 MCHC 32.0 RDW 15.3 H Plt Count 376 Seg Neutrophils % Sodium Potassium Chloride Carbon Dioxide Anion Gap BUN Creatinine Est GFR ( Amer) Glucose Lactic Acid 0.7 Calcium Magnesium Total Bilirubin AST Alkaline Phosphatase Total Protein Albumin Triglycerides Cholesterol LDL Cholesterol Direct VLDL Cholesterol HDL Cholesterol Lipase TSH Free T3 pg/mL Urine Color THOM Urine Appearance CLOUDY Urine pH 6.0 Ur Specific Ecru 1.020 Urine Protein 30 H Urine Glucose (UA) NEGATIVE Urine Ketones TRACE H Urine Blood NEGATIVE Urine Nitrite POSITIVE H Ur Leukocyte Esterase SMALL H Urine WBC (Auto) 69 Urine RBC (Auto) 4 11/22/19 11/22/19 05:40 05:40 WBC RBC Hgb Hct MCV MCH MCHC RDW Plt Count Seg Neutrophils % Sodium 143.7 Potassium 3.3 L Chloride 107 Carbon Dioxide 24 Anion Gap 13 BUN 16 Creatinine 0.99 Est GFR ( Amer) > 60 Glucose 73 L Lactic Acid Calcium 7.1 L Magnesium 1.7 Total Bilirubin 0.3 AST 10 L Alkaline Phosphatase 85 Total Protein 5.4 L Albumin 2.8 L Triglycerides 147 Cholesterol 113.56 LDL Cholesterol Direct 47 VLDL Cholesterol 29.0 HDL Cholesterol 31 L Lipase TSH 0.21 L Free T3 pg/mL 1.94 L Urine Color Urine Appearance Urine pH Ur Specific Ecru Urine Protein Urine Glucose (UA) Urine Ketones Urine Blood Urine Nitrite Ur Leukocyte Esterase Urine WBC (Auto) Urine RBC (Auto) 11/21/19 19:30 Troponin I < 0.012 Impressions: Acute Abdomen Series 11/21/19 11:38 IMPRESSION: 1. No acute cardiopulmonary process. 2. Absence of the normal haustral folds in the transverse colon. This pattern can be seen in the setting of a chronic inflammatory colitis. Abdomen/Pelvis CT 11/21/19 20:18 IMPRESSION: 1. Marked circumferential wall thickening throughout the colon suggestive of acute colitis, which may be infectious or inflammatory in origin. 2. Gallstones without inflammatory changes. 3. 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 Assessment and Plan - Diagnosis (1) Acute colitis Is this a current diagnosis for this admission?: Yes (3) SIRS (systemic inflammatory response syndrome) Is this a current diagnosis for this admission?: Yes Plan: With leukocytosis, and acute infection. Patient was not febrile and she was not tachycardic on initial presentation (4) Abdominal pain Qualifiers: Abdominal location: left lower quadrant Qualified Code(s): R10.32 - Left lower quadrant pain Is this a current diagnosis for this admission?: Yes (5) History of malignant neoplasm of colon Is this a current diagnosis for this admission?: Yes (6) Hypomagnesemia Is this a current diagnosis for this admission?: Yes Plan: Has been replaced - Plan Summary Summary: Patient will be admitted to the medical floor where she will receive routine supportive and symptomatic cares. A surgical consultation will be obtained with Dr. Luis who is covering for Dr. Corbett. She will be treated with IV meropenem 1 g every 8 hours initially. Blood cultures and urine cultures will be obtained. Patient will be treated for hypokalemia and hypomagnesemia in the emergency room initially with IV repletion and this will be continued after her hospitalization has been initiated. Patient received morphine sulfate 2 to 4 mg IV every 2 hours as needed for pain. She will receive IV Ativan 1 mg IV every 4 hours as needed for anxiety or restlessness. CBCs, metabolic profiles, thyroid profiles and additional laboratory and/or radiographic evaluations will be obtained as needed. - Time Time Spent with patient: 15-24 minutes Anticipated Discharge Disposition: Home, Self Care Anticipated Discharge Timeframe: within 72 hours
[2019-11-22] MEDS ORDERED: DOCUSATE SODIUM 100 MG CAPSULE PO SCH (18:00)
[2019-11-22] MEDS: ONDANSETRON HCL INJ/PF 4 MG/2 ML SDV IV PRN (21:23)
[2019-11-22] MEDS: MEROPENEM 1 GM in NORMAL SALINE 50 ML IV SCH (22:03)
[2019-11-23] MEDS: MORPHINE SULFATE 10 MG/ML INJ IV PRN ×4 (00:19→21:49)
[2019-11-23] MEDS: POTASSI CL 20 MEQ/D5NS 1L 20 MEQ/1,000 ML RTUINJ IV PRN ×3 (01:19→21:43)
[2019-11-23] MEDS: METRONIDAZOLE 500 MG/NS RTU 500 MG/100 ML RTUPB IV SCH ×4 (05:53→23:41)
[2019-11-23] MEDS: HEPARIN SOD (PORCINE) 5,000 UNIT/ML 1 ML VIAL SUBCUT SCH ×3 (05:54→21:42)
[2019-11-23] MEDS: MEROPENEM 1 GM in NORMAL SALINE 50 ML IV SCH ×3 (06:45→21:42)
--- NOTE | 2019-11-23 07:34 | PDOC PROGRESS REPORT ---
Subjective Progress Note for:: 11/23/19 Subjective:: 64-year-old female who is recently status post ileostomy reversal. She presents with abdominal pain. She was found to have colitis. She has been receiving intravenous fluids and antibiotics. She continues to report mild abdominal pain. She had several loose BM's last night after taking stool softeners. She reports one episode of vomiting last night. Reason For Visit: ACUTE COLITIS/ILEITIS, LEUKOCYTOSIS, HYPOMAGNESEMI Physical Exam Vital Signs: Temp Pulse Resp BP Pulse Ox 98.3 F 90 20 140/83 H 95 11/22/19 23:40 11/22/19 23:40 11/22/19 23:40 11/22/19 23:40 11/22/19 23:40 Intake & Output 11/22/19 11/23/19 11/24/19 06:59 06:59 06:59 Intake Total 1350 3546 Output Total 200 Balance 1350 3346 Weight 67.3 kg 71.8 kg Exam: General appearance: PRESENT: no acute distress, cooperative, disheveled Head exam: PRESENT: atraumatic, normocephalic Eye exam: PRESENT: EOMI, PERRLA. ABSENT: scleral icterus Mouth exam: PRESENT: neck supple Teeth exam: PRESENT: poor dentation Neck exam: ABSENT: meningismus, tenderness, thyromegaly, tracheal deviation Respiratory exam: PRESENT: unlabored. ABSENT: tachypnea, wheezes Cardiovascular exam: ABSENT: tachycardia GI/Abdominal exam: PRESENT: soft, tenderness - Mild tenderness in all 4 quadrants.. ABSENT: distended, rebound, rigid Rectal exam: PRESENT: deferred Extremities exam: ABSENT: clubbing Musculoskeletal exam: ABSENT: deformity Neurological exam: PRESENT: alert, awake, oriented to person, oriented to place, oriented to time, oriented to situation, CN II-XII grossly intact Psychiatric exam: ABSENT: agitated, anxious, depressed Focused psych exam: ABSENT: delusional Skin exam: ABSENT: cyanosis, erythema, jaundice Results Laboratory Results: 11/22/19 05:40 11/22/19 05:40 11/22/19 11/22/19 05:40 05:40 WBC 21.4 H RBC 3.14 L Hgb 9.2 L Hct 28.9 L MCV 92 MCH 29.4 MCHC 32.0 RDW 15.3 H Plt Count 376 TSH 0.21 L Free T3 pg/mL 1.94 L 11/21/19 19:30 Troponin I < 0.012 Impressions: Acute Abdomen Series 11/21/19 11:38 IMPRESSION: 1. No acute cardiopulmonary process. 2. Absence of the normal haustral folds in the transverse colon. This pattern can be seen in the setting of a chronic inflammatory colitis. Abdomen/Pelvis CT 11/21/19 20:18 IMPRESSION: 1. Marked circumferential wall thickening throughout the colon suggestive of acute colitis, which may be infectious or inflammatory in origin. 2. Gallstones without inflammatory changes. 3. 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 Assessment & Plan - Diagnosis (1) Acute colitis Is this a current diagnosis for this admission?: Yes - Time Anticipated Discharge Disposition: Home, Self Care Anticipated Discharge Timeframe: unknown - Plan Summary Plan Summary: 64-year-old female with colitis. The etiology is likely infectious. Continue with IV antibiotics (including Flagyl to cover C. difficile). She reports passing flatus and having BM's. She reports one episode of nausea last night. Cont clear liquids and popsicles. Out of bed, ambulate in hallways. Aggressive pulmonary toilet. No surgical intervention is planned at this time. Test stool for c. diff. Add fiber supplement to thicken stools. Surgery will continue to follow with you.
[2019-11-23] MEDS: PSYLLIUM SEED-SF 5.85 GM PACKET PO SCH ×2 (10:00→17:49)
[2019-11-23] MEDS: LEVOTHYROXINE SODIUM INJ/PF 0.1 MG SDV IV SCH (10:01)
[2019-11-23] MEDS: ONDANSETRON HCL INJ/PF 4 MG/2 ML SDV IV PRN (10:01)
[2019-11-23] MEDS: FAMOTIDINE INJ/PF 20 MG/2 ML SDV IV SCH ×2 (10:01→21:41)
[2019-11-23 10:16] LABS: C DIFFICILE GDH POSITIVE (NEGATIVE)
--- NOTE | 2019-11-23 11:52 | PDOC PROGRESS REPORT ---
Subjective Progress Note for:: 11/23/19 Subjective:: Patient was admitted with abdominal pain she has a prior history of colon cancer with partial colectomy and ileostomy she has been seen by surgery recommendations noted she is currently on meropenem as well as Flagyl. She is growing surgical intervention is planned at this time as colitis is felt to be infectious Reason For Visit: ACUTE COLITIS/ILEITIS, LEUKOCYTOSIS, HYPOMAGNESEMI Physical Exam Vital Signs: Temp Pulse Resp BP Pulse Ox 98.0 F 78 20 144/80 H 100 11/23/19 11:04 11/23/19 11:04 11/23/19 11:04 11/23/19 11:04 11/23/19 11:04 Intake & Output 11/22/19 11/23/19 11/24/19 06:59 06:59 06:59 Intake Total 1350 3546 1000 Output Total 200 Balance 1350 3346 1000 Weight 67.3 kg 71.8 kg General appearance: PRESENT: no acute distress, well-developed, well-nourished Head exam: PRESENT: atraumatic, normocephalic Eye exam: PRESENT: conjunctiva pink, EOMI, PERRLA. ABSENT: scleral icterus Ear exam: PRESENT: normal external ear exam Mouth exam: PRESENT: moist, tongue midline Neck exam: ABSENT: carotid bruit, JVD, lymphadenopathy, thyromegaly Respiratory exam: PRESENT: clear to auscultation vickei. ABSENT: rales, rhonchi, wheezes Cardiovascular exam: PRESENT: RRR. ABSENT: diastolic murmur, rubs, systolic murmur Pulses: PRESENT: normal dorsalis pedis pul Vascular exam: PRESENT: normal capillary refill GI/Abdominal exam: PRESENT: distended, normal bowel sounds, tenderness. ABSENT: guarding, mass, organolmegaly, rebound Rectal exam: PRESENT: deferred Extremities exam: PRESENT: full ROM. ABSENT: calf tenderness, clubbing, pedal edema Neurological exam: PRESENT: alert, awake, oriented to person, oriented to place, oriented to time, oriented to situation, CN II-XII grossly intact. ABSENT: motor sensory deficit Psychiatric exam: PRESENT: appropriate affect, normal mood. ABSENT: homicidal ideation, suicidal ideation Skin exam: PRESENT: dry, intact, warm. ABSENT: cyanosis, rash Results Laboratory Results: 11/22/19 05:40 11/22/19 05:40 11/23/19 08:25 Stl C.difficile Tox PCR POSITIVE 11/21/19 21:51 Blood Blood Culture (PCR) - Final Enterococcus Species 11/21/19 19:30 Troponin I < 0.012 Impressions: Acute Abdomen Series 11/21/19 11:38 IMPRESSION: 1. No acute cardiopulmonary process. 2. Absence of the normal haustral folds in the transverse colon. This pattern can be seen in the setting of a chronic inflammatory colitis. Abdomen/Pelvis CT 11/21/19 20:18 IMPRESSION: 1. Marked circumferential wall thickening throughout the colon suggestive of acute colitis, which may be infectious or inflammatory in origin. 2. Gallstones without inflammatory changes. 3. 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 Assessment and Plan - Diagnosis (1) Acute colitis Is this a current diagnosis for this admission?: Yes (3) SIRS (systemic inflammatory response syndrome) Is this a current diagnosis for this admission?: Yes (4) Abdominal pain Qualifiers: Abdominal location: left lower quadrant Qualified Code(s): R10.32 - Left lower quadrant pain Is this a current diagnosis for this admission?: Yes (5) History of malignant neoplasm of colon Is this a current diagnosis for this admission?: Yes (6) Hypomagnesemia Is this a current diagnosis for this admission?: Yes (7) Clostridioides difficile infection Is this a current diagnosis for this admission?: Yes - Plan Summary Summary: Patient's TSH noted to be 0.2 with a free T3 of 1.9 T4 level has been obtained she is on Synthroid 0.05 mg IV daily at this point. Patient seems to be hyper thyroid may be iatrogenic. I will decrease her Synthroid dose and will definitely recheck to ensure that this is a accurate reading. Patient also has a complicated urinary tract infection secondary to Klebsiella. She has bacteremia secondary to enterococcus. The gram-positive cocci in chains is likely enterococcus. She is on meropenem as well as Flagyl IV and added vancomycin p.o. as she is now positive for C. difficile - Time Time Spent with patient: 15-24 minutes Anticipated Discharge Disposition: Home with Home Health Anticipated Discharge Timeframe: within 72 hours
[2019-11-23 13:10] LABS: HEMATOCRIT 26.7 % (36.0-47.0); HEMOGLOBIN 8.7 g/dL (12.0-15.5); MEAN CORPUSCULAR HGB CONC 32.7 g/dL (32.0-36.0); MEAN CORPUSCULAR VOLUME 92 fl (80-97); PLATELET COUNT 359 10^3/uL (150-450); RED BLOOD COUNT 2.91 10^6/uL (3.72-5.28); RED CELL DISTRIBUTION WIDTH 15.4 % (11.5-14.0); WHITE BLOOD COUNT 17.4 10^3/uL (4.0-10.5)
[2019-11-23 13:22] LABS: ANION GAP 8 (5-19); BLOOD UREA NITROGEN 11 mg/dL (7-20); CARBON DIOXIDE 21 mmol/L (22-30); CHLORIDE 113 mmol/L (98-107); GLUCOSE 101 mg/dL (75-110); POTASSIUM 3.2 mmol/L (3.6-5.0)
[2019-11-23 13:40] LABS: ABSOLUTE LYMPHOCYTES# (MANUAL) 0.5 10^3/uL (0.5-4.7); ANISOCYTOSIS SLIGHT; BASOPHILS % (MANUAL) 0 % (0-2); EOSINOPHILS % (MANUAL) 1 % (0-6); LYMPHOCYTES % (MANUAL) 3 % (13-45); MONOCYTES % (MANUAL) 0 % (3-13); PLATELET COMMENT ADEQUATE; SEGMENTED NEUTROPHILS % (MAN) 96 % (42-78); TOTAL CELLS COUNTED 100
[2019-11-23 13:41] LABS: PLATELET CLUMPS PRESENT; PLATELET LARGE PRESENT; RBC MORPHOLOGY COMMENT NORMO-CYTIC/CHROMIC
[2019-11-23] MEDS: VANCOMYCIN HCL INJ 500 MG VIAL PO SCH ×3 (14:24→23:40)
[2019-11-23] MEDS: POTASSI CL 20 MEQ/50 ML RIDER 20 MEQ/50 ML RTUPB IV SCH ×2 (15:49→17:48)
[2019-11-24] MEDS: HEPARIN SOD (PORCINE) 5,000 UNIT/ML 1 ML VIAL SUBCUT SCH ×3 (06:50→21:33)
[2019-11-24] MEDS: MORPHINE SULFATE 10 MG/ML INJ IV PRN ×4 (06:50→18:30)
[2019-11-24] MEDS: METRONIDAZOLE 500 MG/NS RTU 500 MG/100 ML RTUPB IV SCH ×4 (06:52→23:46)
[2019-11-24] MEDS: VANCOMYCIN HCL INJ 500 MG VIAL PO SCH ×4 (06:53→23:46)
[2019-11-24] MEDS: POTASSI CL 20 MEQ/D5NS 1L 20 MEQ/1,000 ML RTUINJ IV PRN ×2 (06:54→17:16)
[2019-11-24 07:24] LABS: ANION GAP 6 (5-19); BLOOD UREA NITROGEN 7 mg/dL (7-20); CARBON DIOXIDE 19 mmol/L (22-30); CHLORIDE 118 mmol/L (98-107); GLUCOSE 84 mg/dL (75-110); POTASSIUM 3.6 mmol/L (3.6-5.0)
[2019-11-24 07:41] LABS: CALCIUM 6.6 mg/dL (8.4-10.2)
[2019-11-24 07:43] LABS: HEMATOCRIT 30.7 % (36.0-47.0); HEMOGLOBIN 9.9 g/dL (12.0-15.5); MEAN CORPUSCULAR HEMOGLOBIN 29.6 pg (27.0-33.4); MEAN CORPUSCULAR HGB CONC 32.3 g/dL (32.0-36.0); MEAN CORPUSCULAR VOLUME 92 fl (80-97); PLATELET COUNT 402 10^3/uL (150-450); RED BLOOD COUNT 3.34 10^6/uL (3.72-5.28); RED CELL DISTRIBUTION WIDTH 15.7 % (11.5-14.0); WHITE BLOOD COUNT 13.9 10^3/uL (4.0-10.5)
[2019-11-24] MEDS ORDERED: CALCIUM GLUC IN NACL, ISO-OSM 1 GM/50 ML RTUPB IV ONE ×2 (07:46→09:15)
[2019-11-24] MEDS: MEROPENEM 1 GM in NORMAL SALINE 50 ML IV SCH (07:49)
[2019-11-24 08:22] LABS: ABSOLUTE LYMPHOCYTES# (MANUAL) 1.1 10^3/uL (0.5-4.7); ABSOLUTE MONOCYTES # (MANUAL) 0.8 10^3/uL (0.1-1.4); BAND NEUTROPHILS % (MANUAL) 2 % (3-5); BASOPHILS % (MANUAL) 0 % (0-2); EOSINOPHILS % (MANUAL) 1 % (0-6); LYMPHOCYTES % (MANUAL) 8 % (13-45); MONOCYTES % (MANUAL) 6 % (3-13); SEGMENTED NEUTROPHILS % (MAN) 83 % (42-78); TOTAL CELLS COUNTED 100
[2019-11-24 08:23] LABS: ANISOCYTOSIS SLIGHT; OVALOCYTES SLIGHT; TEAR DROP CELLS SLIGHT
[2019-11-24 08:24] LABS: PLATELET COMMENT ADEQUATE
[2019-11-24] MEDS: PSYLLIUM SEED-SF 5.85 GM PACKET PO SCH ×2 (09:49→17:11)
[2019-11-24] MEDS: FAMOTIDINE INJ/PF 20 MG/2 ML SDV IV SCH ×2 (09:50→21:33)
--- NOTE | 2019-11-24 09:52 | PDOC PROGRESS REPORT ---
Subjective Progress Note for:: 11/24/19 Subjective:: no Complaints Reason For Visit: ACUTE COLITIS/ILEITIS, LEUKOCYTOSIS, HYPOMAGNESEMI Physical Exam Vital Signs: Temp Pulse Resp BP Pulse Ox 98.0 F 89 16 122/85 96 11/24/19 07:57 11/24/19 07:48 11/24/19 07:48 11/24/19 07:48 11/24/19 07:48 Intake & Output 11/23/19 11/24/19 11/25/19 06:59 06:59 06:59 Intake Total 3646 4675 100 Output Total 200 Balance 3446 4675 100 Weight 71.8 kg 71.8 kg General appearance: PRESENT: no acute distress GI/Abdominal exam: PRESENT: soft Results Laboratory Results: 11/24/19 07:30 11/24/19 06:30 11/23/19 11/23/19 11/23/19 08:25 12:38 12:38 WBC 17.4 H RBC 2.91 L Hgb 8.7 L Hct 26.7 L MCV 92 MCH 30.0 MCHC 32.7 RDW 15.4 H Plt Count 359 Seg Neutrophils % Not Reportable Sodium 142.1 Potassium 3.2 L Chloride 113 H Carbon Dioxide 21 L Anion Gap 8 BUN 11 Creatinine 0.86 Est GFR ( Amer) > 60 Glucose 101 Calcium 7.0 L* Stl C.difficile Tox PCR POSITIVE 11/24/19 11/24/19 11/24/19 06:30 06:30 07:30 WBC Cancelled 13.9 H RBC Cancelled 3.34 L Hgb Cancelled 9.9 L Hct Cancelled 30.7 L MCV Cancelled 92 MCH Cancelled 29.6 MCHC Cancelled 32.3 RDW Cancelled 15.7 H Plt Count Cancelled 402 Seg Neutrophils % Cancelled Not Reportable Sodium 143.4 Potassium 3.6 Chloride 118 H Carbon Dioxide 19 L Anion Gap 6 BUN 7 Creatinine 0.77 Est GFR ( Amer) > 60 Glucose 84 Calcium 6.6 L* Stl C.difficile Tox PCR 11/21/19 21:28 Blood Blood Culture - Final E.faecium Vre 11/21/19 21:51 Blood Blood Culture (PCR) - Final Enterococcus Species 11/21/19 21:51 Blood Blood Culture - Final E.faecium Vre 11/21/19 23:40 Clean Catch Midstream Urine Culture - Final Klebsiella Oxytoca Proteus Mirabilis 11/21/19 19:30 Troponin I < 0.012 Impressions: Acute Abdomen Series 11/21/19 11:38 IMPRESSION: 1. No acute cardiopulmonary process. 2. Absence of the normal haustral folds in the transverse colon. This pattern can be seen in the setting of a chronic inflammatory colitis. Abdomen/Pelvis CT 11/21/19 20:18 IMPRESSION: 1. Marked circumferential wall thickening throughout the colon suggestive of acute colitis, which may be infectious or inflammatory in origin. 2. Gallstones without inflammatory changes. 3. 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 Assessment & Plan - Diagnosis (1) Clostridioides difficile infection Is this a current diagnosis for this admission?: Yes - Time Anticipated Discharge Disposition: Home, Self Care Anticipated Discharge Timeframe: When the infection is cleared - Plan Summary Plan Summary: Assessment: C. difficile colitis Patient treated with IV Flagyl and oral vancomycin Patient still presented with diarrhea Abdomen soft Plan: Continue current antibiotic treatment I am recommending to add yogurt 1 cup by mouth twice a day to improve the bacterial choco of the colon We will follow daily as needed
[2019-11-24] MEDS: LEVOTHYROXINE SODIUM INJ/PF 0.1 MG SDV IV SCH (10:22)
--- NOTE | 2019-11-24 12:50 | PDOC PROGRESS REPORT ---
Subjective Progress Note for:: 11/24/19 Subjective:: Patient was admitted with abdominal pain she has a prior history of colon cancer with partial colectomy and ileostomy she has been seen by surgery recommendations noted she is currently on meropenem as well as Flagyl. Antibiotics will be adjusted today Patient feels okay this morning. She still complaining of abdominal pain. She is complaining of diarrhea. Reason For Visit: ACUTE COLITIS/ILEITIS, LEUKOCYTOSIS, HYPOMAGNESEMI Physical Exam Vital Signs: Temp Pulse Resp BP Pulse Ox 98.0 F 70 12 123/70 95 11/24/19 11:52 11/24/19 11:52 11/24/19 11:52 11/24/19 11:52 11/24/19 11:52 Intake & Output 11/23/19 11/24/19 11/25/19 06:59 06:59 06:59 Intake Total 3646 4675 205 Output Total 200 Balance 3446 4675 205 Weight 71.8 kg 71.8 kg General appearance: PRESENT: no acute distress Head exam: PRESENT: atraumatic, normocephalic Eye exam: PRESENT: conjunctiva pink, EOMI, PERRLA. ABSENT: scleral icterus Mouth exam: PRESENT: moist, tongue midline Neck exam: ABSENT: carotid bruit, JVD, lymphadenopathy, thyromegaly Respiratory exam: PRESENT: clear to auscultation vickie. ABSENT: rales, rhonchi, wheezes Cardiovascular exam: PRESENT: RRR, +S1, +S2. ABSENT: diastolic murmur, rubs, systolic murmur Pulses: PRESENT: normal dorsalis pedis pul Vascular exam: PRESENT: normal capillary refill GI/Abdominal exam: PRESENT: normal bowel sounds, tenderness - LLQ. ABSENT: distended, guarding, mass, organolmegaly, rebound Rectal exam: PRESENT: deferred Extremities exam: PRESENT: full ROM. ABSENT: calf tenderness, clubbing, pedal edema Neurological exam: PRESENT: alert, awake, oriented to person, oriented to place, oriented to time, oriented to situation, CN II-XII grossly intact. ABSENT: motor sensory deficit Psychiatric exam: PRESENT: appropriate affect, normal mood. ABSENT: homicidal ideation, suicidal ideation Skin exam: PRESENT: dry, intact, warm. ABSENT: cyanosis, rash Results Laboratory Results: 11/24/19 07:30 11/24/19 06:30 11/23/19 11/23/19 11/24/19 12:38 12:38 06:30 WBC 17.4 H Cancelled RBC 2.91 L Cancelled Hgb 8.7 L Cancelled Hct 26.7 L Cancelled MCV 92 Cancelled MCH 30.0 Cancelled MCHC 32.7 Cancelled RDW 15.4 H Cancelled Plt Count 359 Cancelled Seg Neutrophils % Not Reportable Cancelled Sodium 142.1 Potassium 3.2 L Chloride 113 H Carbon Dioxide 21 L Anion Gap 8 BUN 11 Creatinine 0.86 Est GFR ( Amer) > 60 Glucose 101 Calcium 7.0 L* 11/24/19 11/24/19 06:30 07:30 WBC 13.9 H RBC 3.34 L Hgb 9.9 L Hct 30.7 L MCV 92 MCH 29.6 MCHC 32.3 RDW 15.7 H Plt Count 402 Seg Neutrophils % Not Reportable Sodium 143.4 Potassium 3.6 Chloride 118 H Carbon Dioxide 19 L Anion Gap 6 BUN 7 Creatinine 0.77 Est GFR ( Amer) > 60 Glucose 84 Calcium 6.6 L* 11/21/19 21:28 Blood Blood Culture - Final E.faecium Vre 11/21/19 21:51 Blood Blood Culture (PCR) - Final Enterococcus Species 11/21/19 21:51 Blood Blood Culture - Final E.faecium Vre 11/21/19 23:40 Clean Catch Midstream Urine Culture - Final Klebsiella Oxytoca Proteus Mirabilis 11/21/19 19:30 Troponin I < 0.012 Impressions: Acute Abdomen Series 11/21/19 11:38 IMPRESSION: 1. No acute cardiopulmonary process. 2. Absence of the normal haustral folds in the transverse colon. This pattern can be seen in the setting of a chronic inflammatory colitis. Abdomen/Pelvis CT 11/21/19 20:18 IMPRESSION: 1. Marked circumferential wall thickening throughout the colon suggestive of acute colitis, which may be infectious or inflammatory in origin. 2. Gallstones without inflammatory changes. 3. 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 Assessment and Plan - Diagnosis (1) Acute colitis Is this a current diagnosis for this admission?: Yes (2) Hypokalemia Is this a current diagnosis for this admission?: Yes Plan: Replaced (3) SIRS (systemic inflammatory response syndrome) Is this a current diagnosis for this admission?: Yes (4) Abdominal pain Qualifiers: Abdominal location: left lower quadrant Qualified Code(s): R10.32 - Left lower quadrant pain Is this a current diagnosis for this admission?: Yes (5) History of malignant neoplasm of colon Is this a current diagnosis for this admission?: Yes (6) Hypomagnesemia Is this a current diagnosis for this admission?: Yes (7) Clostridioides difficile infection Is this a current diagnosis for this admission?: Yes Plan: Continue with oral vancomycin and add Questran for diarrhea (8) Bacteremia due to vancomycin resistant Enterococcus Is this a current diagnosis for this admission?: Yes Plan: Precise source of VRE bacteremia is unclear although likely from the bowels. She did have his CAT scan done on presentation with findings suggestive of acute colitis which may be infectious or inflammatory in origin. I would suggest the need for a colonoscopy once patient is over this acute episode to rule out any underlying etiology. And apparently has a prior history of malignant neoplasm of the colon (9) Hypocalcemia Is this a current diagnosis for this admission?: Yes Plan: Adjusted calcium level is about 7.8. I did replace her calcium today. - Plan Summary Summary: Patient's TSH noted to be 0.2 with a free T3 of 1.9 T4 level has been obtained she is on Synthroid 0.05 mg IV daily at this point. Patient seems to be hyper thyroid may be iatrogenic. I will decrease her Synthroid dose and will definitely recheck to ensure that this is a accurate reading. Patient also has a complicated urinary tract infection secondary to Klebsiella. She has bacteremia secondary to enterococcus. The gram-positive cocci in chains is likely enterococcus. She is on meropenem as well as Flagyl IV and added vancomycin p.o. as she is now positive for C. difficile 11/23 She is currently being treated for C. difficile colitis, complicated as well as a complicated UTI. Urine culture is yielding Klebsiella as well as Proteus and blood cultures currently rule yielding enterococcus, vancomycin- resistant. Patient is currently on meropenem Flagyl and vancomycin orally. At this point I see no indication for the meropenem and as ceftriaxone will be adequate for the Klebsiella and Proteus he likely is sufficient to place ceftriaxone which is a narrow spectrum. As for the metronidazole I will leave that for now but that probably can be discontinued also at some point. For the VRE bacteremia antibiotic - Time Time Spent with patient: 15-24 minutes Anticipated Discharge Disposition: Home, Self Care Anticipated Discharge Timeframe: within 72 hours
[2019-11-24] MEDS ORDERED: LINEZOLID 600 MG/300 ML RTUPB IV SCH (14:00)
[2019-11-24] MEDS: CEFTRIAXONE 1 GM/D5W RTU 1 GM/50 ML RTUPB IV SCH (14:46)
[2019-11-24] MEDS: LINEZOLID 600 MG/300 ML RTUPB IV SCH ×2 (15:58→23:46)
[2019-11-24] MEDS: ONDANSETRON HCL INJ/PF 4 MG/2 ML SDV IV PRN (17:04)
[2019-11-24] MEDS: CHOLESTYRAMINE 4 GM PACKET PO SCH (17:05)
[2019-11-24] MEDS ORDERED: PROMETHAZINE HCL INJ 25 MG/1 ML VIAL ONE (17:52)
[2019-11-25] MEDS: MORPHINE SULFATE 10 MG/ML INJ IV PRN ×5 (00:17→21:35)
[2019-11-25] MEDS: POTASSI CL 20 MEQ/D5NS 1L 20 MEQ/1,000 ML RTUINJ IV PRN ×3 (02:30→19:02)
[2019-11-25] MEDS: LEVOTHYROXINE SODIUM INJ/PF 0.1 MG SDV IV SCH (06:00)
[2019-11-25] MEDS: METRONIDAZOLE 500 MG/NS RTU 500 MG/100 ML RTUPB IV SCH (06:02)
[2019-11-25] MEDS: VANCOMYCIN HCL INJ 500 MG VIAL PO SCH ×4 (06:02→23:05)
[2019-11-25] MEDS: HEPARIN SOD (PORCINE) 5,000 UNIT/ML 1 ML VIAL SUBCUT SCH ×3 (06:02→21:34)
[2019-11-25 06:35] LABS: HEMATOCRIT 25.5 % (36.0-47.0); HEMOGLOBIN 8.5 g/dL (12.0-15.5); MEAN CORPUSCULAR HEMOGLOBIN 30.5 pg (27.0-33.4); MEAN CORPUSCULAR HGB CONC 33.3 g/dL (32.0-36.0); MEAN CORPUSCULAR VOLUME 92 fl (80-97); PLATELET COUNT 343 10^3/uL (150-450); RED BLOOD COUNT 2.78 10^6/uL (3.72-5.28); RED CELL DISTRIBUTION WIDTH 15.7 % (11.5-14.0); WHITE BLOOD COUNT 8.4 10^3/uL (4.0-10.5)
[2019-11-25 06:59] LABS: ANION GAP 8 (5-19); BLOOD UREA NITROGEN 5 mg/dL (7-20); CALCIUM 7.4 mg/dL (8.4-10.2); CARBON DIOXIDE 19 mmol/L (22-30); CHLORIDE 113 mmol/L (98-107); GLUCOSE 78 mg/dL (75-110); POTASSIUM 3.5 mmol/L (3.6-5.0)
[2019-11-25 07:14] LABS: ABSOLUTE LYMPHOCYTES# (MANUAL) 0.8 10^3/uL (0.5-4.7); ABSOLUTE MONOCYTES # (MANUAL) 1.2 10^3/uL (0.1-1.4); BAND NEUTROPHILS % (MANUAL) 1 % (3-5); BASOPHILS % (MANUAL) 0 % (0-2); EOSINOPHILS % (MANUAL) 0 % (0-6); LYMPHOCYTES % (MANUAL) 9 % (13-45); MONOCYTES % (MANUAL) 14 % (3-13); SEGMENTED NEUTROPHILS % (MAN) 76 % (42-78); TOTAL CELLS COUNTED 100
[2019-11-25 07:15] LABS: ANISOCYTOSIS SLIGHT; PLATELET COMMENT ADEQUATE
[2019-11-25 07:20] LABS: OVALOCYTES SLIGHT; SCHISTOCYTES SLIGHT
[2019-11-25 07:23] LABS: POLYCHROMASIA SLIGHT
[2019-11-25] MEDS: ONDANSETRON HCL INJ/PF 4 MG/2 ML SDV IV PRN ×2 (07:56→13:04)
[2019-11-25] MEDS: CHOLESTYRAMINE 4 GM PACKET PO SCH ×3 (08:02→17:51)
--- NOTE | 2019-11-25 10:16 | PDOC PROGRESS REPORT ---
Subjective Progress Note for:: 11/25/19 Subjective:: feels better, less diarrhea Reason For Visit: ACUTE COLITIS/ILEITIS, LEUKOCYTOSIS, HYPOMAGNESEMI Physical Exam Vital Signs: Temp Pulse Resp BP Pulse Ox 97.8 F 66 16 124/70 100 11/25/19 08:00 11/25/19 08:00 11/25/19 08:00 11/25/19 08:00 11/25/19 08:00 Intake & Output 11/24/19 11/25/19 11/26/19 06:59 06:59 06:59 Intake Total 4675 4200 100 Balance 4675 4200 100 Weight 71.8 kg 72.2 kg General appearance: PRESENT: no acute distress Head exam: PRESENT: normocephalic Eye exam: PRESENT: EOMI Ear exam: PRESENT: normal external ear exam Mouth exam: PRESENT: moist Teeth exam: PRESENT: poor dentation Neck exam: PRESENT: full ROM Respiratory exam: PRESENT: clear to auscultation vickie Cardiovascular exam: PRESENT: RRR Breast: PRESENT: Normal GI/Abdominal exam: PRESENT: soft Extremities exam: PRESENT: full ROM Musculoskeletal exam: PRESENT: full ROM Neurological exam: PRESENT: alert, awake, oriented to person, oriented to place Psychiatric exam: PRESENT: appropriate affect Skin exam: PRESENT: dry Results Laboratory Results: 11/25/19 05:21 11/25/19 05:21 11/25/19 11/25/19 05:21 05:21 WBC 8.4 RBC 2.78 L Hgb 8.5 L Hct 25.5 L MCV 92 MCH 30.5 MCHC 33.3 RDW 15.7 H Plt Count 343 Seg Neutrophils % Not Reportable Sodium 140.1 Potassium 3.5 L Chloride 113 H Carbon Dioxide 19 L Anion Gap 8 BUN 5 L Creatinine 0.84 Est GFR ( Amer) > 60 Glucose 78 Calcium 7.4 L 11/21/19 21:28 Blood Blood Culture - Final E.faecium Vre 11/21/19 21:51 Blood Blood Culture (PCR) - Final Enterococcus Species 11/21/19 21:51 Blood Blood Culture - Final E.faecium Vre 11/21/19 23:40 Clean Catch Midstream Urine Culture - Final Klebsiella Oxytoca Proteus Mirabilis 11/21/19 19:30 Troponin I < 0.012 Impressions: Acute Abdomen Series 11/21/19 11:38 IMPRESSION: 1. No acute cardiopulmonary process. 2. Absence of the normal haustral folds in the transverse colon. This pattern can be seen in the setting of a chronic inflammatory colitis. Abdomen/Pelvis CT 11/21/19 20:18 IMPRESSION: 1. Marked circumferential wall thickening throughout the colon suggestive of acute colitis, which may be infectious or inflammatory in origin. 2. Gallstones without inflammatory changes. 3. 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 Assessment & Plan - Time Anticipated Discharge Disposition: Home, Self Care Anticipated Discharge Timeframe: unk - Plan Summary Plan Summary: pt with c-diff sxs improved wbc normalizing dirrhea improved wants to try soft food.
[2019-11-25] MEDS: PSYLLIUM SEED-SF 5.85 GM PACKET PO SCH ×2 (11:07→17:50)
[2019-11-25] MEDS: CEFTRIAXONE 1 GM/D5W RTU 1 GM/50 ML RTUPB IV SCH (11:07)
[2019-11-25] MEDS: FAMOTIDINE INJ/PF 20 MG/2 ML SDV IV SCH ×2 (11:07→21:34)
[2019-11-25] MEDS: LINEZOLID 600 MG/300 ML RTUPB IV SCH ×2 (11:42→21:35)
--- NOTE | 2019-11-25 12:15 | PDOC PROGRESS REPORT ---
Subjective Progress Note for:: 11/25/19 Subjective:: 64 year old female who presents the emergency room with a 1 day history of abdominal pain. She admits developing abdominal pain in her left lower abdomen on 11/20/2019 which has been a constant colicky aching of moderate to severe intensity without radiation associated with constipation and accompanied by increased generalized anxiety. She denies other associated or accompanying signs and symptoms. She denies prior similar episodes. She admits a history of colon cancer with a partial colectomy and ileostomy earlier this year, followed by a later reversal of her ileostomy in October of this year all of which was done here by Dr. Corbett. She has not identified any aggravating or ameliorating factors for her abdominal pain. In the emergency room she was found to have a white count of 23,[address] scan of the abdomen showed diffuse colitis without evidence of obstruction. Additionally she was noted to be hypokalemic and hypomagnesemic in the ER. Her electrolytes are in the process of being repleted and she will receive her first dose of meropenem in the emergency room prior to her admission to the hospitalist service for further evaluation and treatment. 11/25/2019-patient is receiving IV antibiotic therapy for UTI, p.o. vancomycin for C. difficile. WBC count is normalized to 8400. Afebrile. No complaints from the patient. Comfortably in the bed communicating well. Reason For Visit: ACUTE COLITIS/ILEITIS, LEUKOCYTOSIS, HYPOMAGNESEMI Physical Exam Vital Signs: Temp Pulse Resp BP Pulse Ox 97.9 F 66 16 140/79 H 98 11/25/19 11:50 11/25/19 11:50 11/25/19 11:50 11/25/19 11:50 11/25/19 11:50 Intake & Output 11/24/19 11/25/19 11/26/19 06:59 06:59 06:59 Intake Total 4675 4200 1100 Balance 4675 4200 1100 Weight 71.8 kg 72.2 kg General appearance: PRESENT: no acute distress, cooperative Head exam: PRESENT: atraumatic Eye exam: PRESENT: PERRLA Mouth exam: PRESENT: moist, tongue midline Teeth exam: PRESENT: poor dentation Neck exam: ABSENT: carotid bruit, JVD, lymphadenopathy, thyromegaly Respiratory exam: PRESENT: decreased breath sounds Cardiovascular exam: PRESENT: RRR. ABSENT: diastolic murmur, rubs, systolic murmur GI/Abdominal exam: PRESENT: normal bowel sounds, soft. ABSENT: distended, guarding, mass, organolmegaly, rebound, tenderness Rectal exam: PRESENT: deferred Extremities exam: PRESENT: calf tenderness Neurological exam: PRESENT: alert, awake, oriented to person, oriented to place, oriented to time, oriented to situation, CN II-XII grossly intact. ABSENT: motor sensory deficit Psychiatric exam: PRESENT: appropriate affect, normal mood. ABSENT: homicidal ideation, suicidal ideation Results Laboratory Results: 11/25/19 05:21 11/25/19 05:21 11/25/19 11/25/19 05:21 05:21 WBC 8.4 RBC 2.78 L Hgb 8.5 L Hct 25.5 L MCV 92 MCH 30.5 MCHC 33.3 RDW 15.7 H Plt Count 343 Seg Neutrophils % Not Reportable Sodium 140.1 Potassium 3.5 L Chloride 113 H Carbon Dioxide 19 L Anion Gap 8 BUN 5 L Creatinine 0.84 Est GFR ( Amer) > 60 Glucose 78 Calcium 7.4 L 11/21/19 21:28 Blood Blood Culture - Final E.faecium Vre 11/21/19 21:51 Blood Blood Culture (PCR) - Final Enterococcus Species 11/21/19 21:51 Blood Blood Culture - Final E.faecium Vre 11/21/19 19:30 Troponin I < 0.012 Impressions: Acute Abdomen Series 11/21/19 11:38 IMPRESSION: 1. No acute cardiopulmonary process. 2. Absence of the normal haustral folds in the transverse colon. This pattern can be seen in the setting of a chronic inflammatory colitis. Abdomen/Pelvis CT 11/21/19 20:18 IMPRESSION: 1. Marked circumferential wall thickening throughout the colon suggestive of acute colitis, which may be infectious or inflammatory in origin. 2. Gallstones without inflammatory changes. 3. 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 Assessment and Plan - Diagnosis (1) Acute colitis Is this a current diagnosis for this admission?: Yes Plan: Patient denies any abdominal pains this morning. Receiving p.o. vancomycin for C. difficile. Plan is to advance the diet. (2) Clostridioides difficile infection Is this a current diagnosis for this admission?: Yes Plan: Continue with oral vancomycin and add Questran for diarrhea 11/25/2019-patient diarrhea is improving. Receiving oral vancomycin and Questran for C. difficile diarrhea. No abdominal pains today. (3) History of malignant neoplasm of colon Is this a current diagnosis for this admission?: Yes (4) Bacteremia due to vancomycin resistant Enterococcus Is this a current diagnosis for this admission?: Yes Plan: Precise source of VRE bacteremia is unclear although likely from the bowels. She did have his CAT scan done on presentation with findings suggestive of acute colitis which may be infectious or inflammatory in origin. I would suggest the need for a colonoscopy once patient is over this acute episode to rule out any underlying etiology. And apparently has a prior history of malignant neoplasm of the colon 11/25/2019-patient is presently on IV ceftriaxone, Zyvox for vancomycin resistant enterococcus. Afebrile. WBC count within normal limits. Plan is to continue the present management at this time. (5) Hypokalemia Is this a current diagnosis for this admission?: Yes Plan: Replaced 11/25/2019-serum potassium today is 3.5. To continue provide potassium supplementations at this time. (6) Hypocalcemia Is this a current diagnosis for this admission?: Yes Plan: Adjusted calcium level is about 7.8. I did replace her calcium today. 11/25/2019-serum calcium is 7.8 with albumin of 2.8. Corrected serum calcium is within normal limits. - Plan Summary Summary: Patient's TSH noted to be 0.2 with a free T3 of 1.9 T4 level has been obtained she is on Synthroid 0.05 mg IV daily at this point. Patient seems to be hyper thyroid may be iatrogenic. I will decrease her Synthroid dose and will defi crissy recheck to ensure that this is a accurate reading. Patient also has a complicated urinary tract infection secondary to Klebsiella. She has bacteremia secondary to enterococcus. The gram-positive cocci in chains is likely enterococcus. She is on meropenem as well as Flagyl IV and added vanc omycin p.o. as she is now positive for C. difficile 11/23 She is currently being treated for C. difficile colitis, complicated as well as a complicated UTI. Urine culture is yielding Klebsiella as well as Proteus and blood cultures currently rule yielding enterococcus, vancomycin- resistant. Patient is currently on meropenem Flagyl and vancomycin orally. At this point I see no indication for the meropenem and as ceftriaxone will be adequate for the Klebsiella and Proteus he likely is sufficient to place ceftriaxone which is a narrow spectrum. As for the metronidazole I will leave that for now but that probably can be discontinued also at some point. For the VRE bacteremia antibiotic - Time Anticipated Discharge Disposition: Home, Self Care Anticipated Discharge Timeframe: within 72 hours
[2019-11-25] MEDS: PROMETHAZINE HCL INJ 25 MG/1 ML VIAL IV PRN (23:15)
[2019-11-26] MEDS: POTASSI CL 20 MEQ/D5NS 1L 20 MEQ/1,000 ML RTUINJ IV PRN ×4 (02:07→23:05)
[2019-11-26] MEDS: LEVOTHYROXINE SODIUM INJ/PF 0.1 MG SDV IV SCH (05:21)
[2019-11-26] MEDS: HEPARIN SOD (PORCINE) 5,000 UNIT/ML 1 ML VIAL SUBCUT SCH ×3 (05:22→21:12)
[2019-11-26] MEDS: VANCOMYCIN HCL INJ 500 MG VIAL PO SCH ×4 (05:22→23:05)
[2019-11-26] MEDS: CHOLESTYRAMINE 4 GM PACKET PO SCH ×3 (08:02→17:23)
[2019-11-26] MEDS ORDERED: HYDROXYZINE PAMOATE 25 MG CAPSULE PO PRN (09:49)
[2019-11-26] MEDS ORDERED: (PENDING PHARMACY ID) (Albuterol Sulfate 2 PUFF) IH PRN (09:49)
--- NOTE | 2019-11-26 09:56 | PDOC PROGRESS REPORT ---
Subjective Progress Note for:: 11/26/19 Subjective:: 64 year old female who presents the emergency room with a 1 day history of abdominal pain. She admits developing abdominal pain in her left lower abdomen on 11/20/2019 which has been a constant colicky aching of moderate to severe intensity without radiation associated with constipation and accompanied by increased generalized anxiety. She denies other associated or accompanying signs and symptoms. She denies prior similar episodes. She admits a history of colon cancer with a partial colectomy and ileostomy earlier this year, followed by a later reversal of her ileostomy in October of this year all of which was done here by Dr. Corbett. She has not identified any aggravating or ameliorating factors for her abdominal pain. In the emergency room she was found to have a white count of 23,[address] scan of the abdomen showed diffuse colitis without evidence of obstruction. Additionally she was noted to be hypokalemic and hypomagnesemic in the ER. Her electrolytes are in the process of being repleted and she will receive her first dose of meropenem in the emergency room prior to her admission to the hospitalist service for further evaluation and treatment. 11/25/2019-patient is receiving IV antibiotic therapy for UTI, p.o. vancomycin for C. difficile. WBC count is normalized to 8400. Afebrile. No complaints from the patient. Comfortably in the bed communicating well. 11/26/2019-no acute events in the last 24 hours. Afebrile. Complaining of still having the loose stools. Requesting to be back on Zoloft and Xanax is. Receiving p.o. vancomycin for C. difficile diarrhea and also has a VRE in the blood. presently on Zyvox, IV Rocephin. Reason For Visit: ACUTE COLITIS/ILEITIS, LEUKOCYTOSIS, HYPOMAGNESEMI Physical Exam Vital Signs: Temp Pulse Resp BP Pulse Ox 98.0 F 88 19 174/104 H 100 11/26/19 08:26 11/26/19 08:26 11/26/19 08:26 11/26/19 08:26 11/26/19 08:26 Intake & Output 11/25/19 11/26/19 11/27/19 06:59 06:59 06:59 Intake Total 4200 4828 985 Balance 4200 4828 985 Weight 72.2 kg 72.5 kg General appearance: PRESENT: no acute distress, cooperative Head exam: PRESENT: atraumatic Eye exam: PRESENT: PERRLA Ear exam: PRESENT: normal external ear exam Mouth exam: PRESENT: neck supple Teeth exam: PRESENT: poor dentation Neck exam: ABSENT: carotid bruit, JVD, lymphadenopathy, thyromegaly Respiratory exam: PRESENT: decreased breath sounds Cardiovascular exam: PRESENT: RRR. ABSENT: diastolic murmur, rubs, systolic murmur GI/Abdominal exam: PRESENT: normal bowel sounds, soft. ABSENT: distended, guarding, mass, organolmegaly, rebound, tenderness Rectal exam: PRESENT: deferred Extremities exam: PRESENT: full ROM. ABSENT: calf tenderness, clubbing, pedal edema Neurological exam: PRESENT: alert, awake, oriented to person, oriented to place, oriented to time, oriented to situation, CN II-XII grossly intact. ABSENT: motor sensory deficit Psychiatric exam: PRESENT: appropriate affect, normal mood. ABSENT: homicidal ideation, suicidal ideation Results Laboratory Results: 11/25/19 05:21 11/25/19 05:21 11/21/19 19:30 Troponin I < 0.012 Impressions: Acute Abdomen Series 11/21/19 11:38 IMPRESSION: 1. No acute cardiopulmonary process. 2. Absence of the normal haustral folds in the transverse colon. This pattern can be seen in the setting of a chronic inflammatory colitis. Abdomen/Pelvis CT 11/21/19 20:18 IMPRESSION: 1. Marked circumferential wall thickening throughout the colon suggestive of acute colitis, which may be infectious or inflammatory in origin. 2. Gallstones without inflammatory changes. 3. 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 Assessment and Plan - Diagnosis (1) Acute colitis Is this a current diagnosis for this admission?: Yes Plan: Patient denies any abdominal pains this morning. Receiving p.o. vancomycin for C. difficile. Plan is to advance the diet. 11/26/2019-patient is receiving p.o. vancomycin for C. difficile diarrhea. Still complaining of loose stools. On contact isolation. (2) Clostridioides difficile infection Is this a current diagnosis for this admission?: Yes Plan: Continue with oral vancomycin and add Questran for diarrhea 11/25/2019-patient diarrhea is improving. Receiving oral vancomycin and Questran for C. difficile diarrhea. No abdominal pains today. (3) History of malignant neoplasm of colon Is this a current diagnosis for this admission?: Yes (4) Bacteremia due to vancomycin resistant Enterococcus Is this a current diagnosis for this admission?: Yes Plan: Precise source of VRE bacteremia is unclear although likely from the bowels. She did have his CAT scan done on presentation with findings suggestive of acute colitis which may be infectious or inflammatory in origin. I would suggest the need for a colonoscopy once patient is over this acute episode to rule out any underlying etiology. And apparently has a prior history of malignant neoplasm of the colon 11/25/2019-patient is presently on IV ceftriaxone, Zyvox for vancomycin resistant enterococcus. Afebrile. WBC count within normal limits. Plan is to continue the present management at this time. 11/26/2019-blood cultures are positive for VRE on IV ceftriaxone, Zyvox. WBC count is within normal blood pressures are stable at this time. Afebrile. (5) Hypokalemia Is this a current diagnosis for this admission?: Yes Plan: Replaced 11/25/2019-serum potassium today is 3.5. To continue provide potassium supplementations at this time. (6) Hypocalcemia Is this a current diagnosis for this admission?: Yes Plan: Adjusted calcium level is about 7.8. I did replace her calcium today. 11/25/2019-serum calcium is 7.8 with albumin of 2.8. Corrected serum calcium is within normal limits. - Plan Summary Summary: Patient's TSH noted to be 0.2 with a free T3 of 1.9 T4 level has been obtained she is on Synthroid 0.05 mg IV daily at this point. Patient seems to be hyper thyroid may be iatrogenic. I will decrease her Synthroid dose and will definitely recheck to ensure that this is a accurate reading. Patient also has a complicated urinary tract infection secondary to Klebsiella. She has bacteremia secondary to enterococcus. The gram-positive cocci in chains is likely enterococcus. She is on meropenem as well as Flagyl IV and added vancomycin p.o. as she is now positive for C. difficile 11/23 She is currently being treated for C. difficile colitis, complicated as well as a complicated UTI. Urine culture is yielding Klebsiella as well as Proteus and blood cultures currently rule yielding enterococcus, vancomycin- resistant. Patient is currently on meropenem Flagyl and vancomycin orally. At this point I see no indication for the meropenem and as ceftriaxone will be adequate for the Klebsiella and Proteus he likely is sufficient to place ceftriaxone which is a narrow spectrum. As for the metronidazole I will leave that for now but that probably can be discontinued also at some point. For the VRE bacteremia antibiotic - Time Anticipated Discharge Disposition: Home, Self Care Anticipated Discharge Timeframe: within 48 hours
[2019-11-26] MEDS ORDERED: (PENDING PHARMACY ID) (Sertraline Hcl [Sertraline Hcl] 150 MG) PO SCH (10:00)
[2019-11-26] MEDS ORDERED: ALBUTEROL SULFATE HFA (90 MCG/PUFF) 8 GM MDI IH PRN (10:06)
[2019-11-26] MEDS: PSYLLIUM SEED-SF 5.85 GM PACKET PO SCH ×2 (10:33→17:42)
[2019-11-26] MEDS: FAMOTIDINE INJ/PF 20 MG/2 ML SDV IV SCH (10:34)
[2019-11-26] MEDS: CEFTRIAXONE 1 GM/D5W RTU 1 GM/50 ML RTUPB IV SCH (10:34)
[2019-11-26] MEDS: LINEZOLID 600 MG/300 ML RTUPB IV SCH ×2 (11:31→21:11)
[2019-11-26] MEDS: ALPRAZOLAM 0.5 MG TABLET PO PRN (11:35)
[2019-11-26] MEDS: SERTRALINE HCL 50 MG TABLET PO SCH (11:42)
[2019-11-26] MEDS: BUSPIRONE HCL 10 MG TABLET PO SCH (14:42)
[2019-11-26] MEDS: ATENOLOL 50 MG TABLET PO SCH (14:44)
[2019-11-26] MEDS: ASPIRIN 81 MG TABLET, ENT COATED PO SCH (14:44)
[2019-11-26] MEDS: OXYBUTYNIN CHLORIDE 5 MG TABLET PO SCH ×2 (14:45→21:10)
--- NOTE | 2019-11-26 17:32 | PDOC PROGRESS REPORT ---
Subjective Progress Note for:: 11/26/19 Subjective:: 64-year-old female admitted with colitis, found to have C. difficile and bacteremia. She reports feeling better today. She is hungry, and would like to have a regular diet. She continues to have multiple bowel movements, however they are more formed. Her abdominal pain is improving. She denies orthostasis, dizziness, fevers, chills, palpitations, headache, chest pain, shortness of breath. Reason For Visit: ACUTE COLITIS/ILEITIS, LEUKOCYTOSIS, HYPOMAGNESEMI Physical Exam Vital Signs: Temp Pulse Resp BP Pulse Ox 97.1 F 91 18 145/92 H 99 11/26/19 12:01 11/26/19 12:01 11/26/19 12:01 11/26/19 12:01 11/26/19 12:01 Intake & Output 11/25/19 11/26/19 11/27/19 06:59 06:59 06:59 Intake Total 4200 4828 2412 Balance 4200 4828 2412 Weight 72.2 kg 72.5 kg 72.5 kg Exam: General appearance: PRESENT: no acute distress, cooperative, disheveled Head exam: PRESENT: atraumatic, normocephalic Eye exam: PRESENT: EOMI, PERRLA. ABSENT: scleral icterus Mouth exam: PRESENT: neck supple Teeth exam: PRESENT: poor dentation Neck exam: ABSENT: meningismus, tenderness, thyromegaly, tracheal deviation Respiratory exam: PRESENT: unlabored. ABSENT: tachypnea, wheezes Cardiovascular exam: ABSENT: tachycardia GI/Abdominal exam: PRESENT: soft, tenderness - Mild tenderness in all 4 quadrants.. ABSENT: distended, rebound, rigid Rectal exam: PRESENT: deferred Extremities exam: ABSENT: clubbing Musculoskeletal exam: ABSENT: deformity Neurological exam: PRESENT: alert, awake, oriented to person, oriented to place, oriented to time, oriented to situation, CN II-XII grossly intact Psychiatric exam: ABSENT: agitated, anxious, depressed Focused psych exam: ABSENT: delusional Skin exam: ABSENT: cyanosis, erythema, jaundice Results Laboratory Results: 11/25/19 05:21 11/25/19 05:21 11/21/19 19:30 Troponin I < 0.012 Impressions: Acute Abdomen Series 11/21/19 11:38 IMPRESSION: 1. No acute cardiopulmonary process. 2. Absence of the normal haustral folds in the transverse colon. This pattern can be seen in the setting of a chronic inflammatory colitis. Abdomen/Pelvis CT 11/21/19 20:18 IMPRESSION: 1. Marked circumferential wall thickening throughout the colon suggestive of acute colitis, which may be infectious or inflammatory in origin. 2. Gallstones without inflammatory changes. 3. 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 Assessment & Plan - Diagnosis (1) Acute colitis Is this a current diagnosis for this admission?: Yes - Time Anticipated Discharge Disposition: Home, Self Care Anticipated Discharge Timeframe: unknown - Plan Summary Plan Summary: 64-year-old female with colitis. Her C. difficile is positive. Continue with antibiotics. She reports that her symptoms are improving. Advance diet. Out of bed, ambulate in hallways. Aggressive pulmonary toilet. No surgical intervention is planned at this time. Cont. fiber supplement. Surgery will continue to follow with you.
[2019-11-26] MEDS: ATORVASTATIN CALCIUM 10 MG TABLET PO SCH (21:10)
[2019-11-26] MEDS: FAMOTIDINE 20 MG TABLET PO SCH (21:10)
[2019-11-26] MEDS: MORPHINE SULFATE 10 MG/ML INJ IV PRN ×2 (21:26→23:31)
[2019-11-27] MEDS: VANCOMYCIN HCL INJ 500 MG VIAL PO SCH ×3 (05:32→17:21)
[2019-11-27] MEDS: PANTOPRAZOLE SODIUM 20 MG TABLET.DR PO SCH (05:34)
[2019-11-27] MEDS: LEVOTHYROXINE SODIUM INJ/PF 0.1 MG SDV IV SCH (05:34)
[2019-11-27] MEDS: OXYBUTYNIN CHLORIDE 5 MG TABLET PO SCH ×3 (05:34→22:51)
[2019-11-27] MEDS: HEPARIN SOD (PORCINE) 5,000 UNIT/ML 1 ML VIAL SUBCUT SCH ×3 (05:35→22:50)
[2019-11-27] MEDS: POTASSI CL 20 MEQ/D5NS 1L 20 MEQ/1,000 ML RTUINJ IV PRN ×3 (05:35→22:49)
[2019-11-27] MEDS: MORPHINE SULFATE 10 MG/ML INJ IV PRN ×2 (06:04→22:49)
[2019-11-27] MEDS: ALPRAZOLAM 0.5 MG TABLET PO PRN ×2 (06:04→17:20)
[2019-11-27 08:40] LABS: ALBUMIN 1.9 g/dL (3.5-5.0); ALKALINE PHOSPHATASE 47 U/L (38-126); ASPARTATE AMINO TRANSFERASE 13 U/L (14-36); GLUCOSE 101 mg/dL (75-110); HEMATOCRIT 23.5 % (36.0-47.0); MEAN CORPUSCULAR HEMOGLOBIN 30.3 pg (27.0-33.4); MEAN CORPUSCULAR HGB CONC 32.5 g/dL (32.0-36.0); MEAN CORPUSCULAR VOLUME 93 fl (80-97); PLATELET COUNT 350 10^3/uL (150-450); POTASSIUM 3.9 mmol/L (3.6-5.0); RED BLOOD COUNT 2.52 10^6/uL (3.72-5.28); RED CELL DISTRIBUTION WIDTH 16.1 % (11.5-14.0); TOTAL PROTEIN 3.9 g/dL (6.3-8.2); WHITE BLOOD COUNT 6.1 10^3/uL (4.0-10.5)
[2019-11-27 08:45] LABS: CARBON DIOXIDE 20 mmol/L (22-30); CHLORIDE 115 mmol/L (98-107)
[2019-11-27 09:11] LABS: HEMOGLOBIN 7.6 g/dL (12.0-15.5)
[2019-11-27 09:12] LABS: ABSOLUTE LYMPHOCYTES# (MANUAL) 0.9 10^3/uL (0.5-4.7); ABSOLUTE MONOCYTES # (MANUAL) 0.4 10^3/uL (0.1-1.4); BASOPHILS % (MANUAL) 0 % (0-2); EOSINOPHILS % (MANUAL) 3 % (0-6); LYMPHOCYTES % (MANUAL) 15 % (13-45); MONOCYTES % (MANUAL) 6 % (3-13); PLATELET CLUMPS PRESENT; PLATELET COMMENT ADEQUATE; PLATELET LARGE PRESENT; SEGMENTED NEUTROPHILS % (MAN) 76 % (42-78); TOTAL CELLS COUNTED 100
[2019-11-27 09:13] LABS: ANISOCYTOSIS 1+; TOXIC VACUOLATION PRESENT
[2019-11-27 09:16] LABS: BILIRUBIN,TOTAL < 0.1 mg/dL (0.2-1.3); BLOOD UREA NITROGEN < 2 mg/dL (7-20)
[2019-11-27 09:19] LABS: ANION GAP 4 (5-19)
[2019-11-27] MEDS: PSYLLIUM SEED-SF 5.85 GM PACKET PO SCH ×2 (09:29→18:09)
[2019-11-27] MEDS: BUSPIRONE HCL 10 MG TABLET PO SCH (09:32)
[2019-11-27] MEDS: ASPIRIN 81 MG TABLET, ENT COATED PO SCH (09:32)
[2019-11-27] MEDS: SERTRALINE HCL 50 MG TABLET PO SCH (09:32)
[2019-11-27] MEDS: FAMOTIDINE 20 MG TABLET PO SCH ×2 (09:32→22:51)
[2019-11-27] MEDS: CEFTRIAXONE 1 GM/D5W RTU 1 GM/50 ML RTUPB IV SCH (09:33)
[2019-11-27] MEDS: CHOLESTYRAMINE 4 GM PACKET PO SCH ×4 (09:33→15:15)
[2019-11-27] MEDS: ATENOLOL 50 MG TABLET PO SCH (09:39)
[2019-11-27] MEDS ORDERED: MAGNESIUM SULFATE INJ 8 MEQ/2 ML IV SCH (10:00)
[2019-11-27] MEDS: MAGNESIUM SULFATE 1 GM/D5W 100 ML IV SCH ×2 (10:49→11:55)
[2019-11-27 12:44] LABS: HEMATOCRIT 28.8 % (36.0-47.0); HEMOGLOBIN 9.4 g/dL (12.0-15.5); MEAN CORPUSCULAR HEMOGLOBIN 30.1 pg (27.0-33.4); MEAN CORPUSCULAR HGB CONC 32.4 g/dL (32.0-36.0); MEAN CORPUSCULAR VOLUME 93 fl (80-97); PLATELET COUNT 422 10^3/uL (150-450); RED BLOOD COUNT 3.11 10^6/uL (3.72-5.28); RED CELL DISTRIBUTION WIDTH 15.8 % (11.5-14.0); WHITE BLOOD COUNT 7.8 10^3/uL (4.0-10.5)
[2019-11-27] MEDS: LINEZOLID 600 MG/300 ML RTUPB IV SCH (13:06)
[2019-11-27 13:42] LABS: ABSOLUTE LYMPHOCYTES# (MANUAL) 1.6 10^3/uL (0.5-4.7); ABSOLUTE MONOCYTES # (MANUAL) 0.5 10^3/uL (0.1-1.4); BAND NEUTROPHILS % (MANUAL) 2 % (3-5); BASOPHILS % (MANUAL) 0 % (0-2); EOSINOPHILS % (MANUAL) 1 % (0-6); LYMPHOCYTES % (MANUAL) 17 % (13-45); MONOCYTES % (MANUAL) 7 % (3-13); SEGMENTED NEUTROPHILS % (MAN) 69 % (42-78); TOTAL CELLS COUNTED 100
[2019-11-27 13:44] LABS: ANISOCYTOSIS SLIGHT; PLATELET COMMENT ADEQUATE
[2019-11-27 13:45] LABS: BURR CELLS 1+; POIKILOCYTOSIS 1+; TEAR DROP CELLS 1+
[2019-11-27 13:46] LABS: OVALOCYTES 1+
--- NOTE | 2019-11-27 18:45 | PDOC PROGRESS REPORT ---
Subjective Progress Note for:: 11/27/19 Subjective:: Per previous physician: "64 year old female who presents the emergency room with a 1 day history of abdominal pain. She admits developing abdominal pain in her left lower abdomen on 11/20/2019 which has been a constant colicky aching of moderate to severe intensity without radiation associated with constipation and accompanied by increased generalized anxiety. She denies other associated or accompanying signs and symptoms. She denies prior similar episodes. She admits a history of colon cancer with a partial colectomy and ileostomy earlier this year, followed by a later reversal of her ileostomy in October of this year all of which was done here by Dr. Corbett. She has not identified any aggravating or ameliorating factors for her abdominal pain. In the emergency room she was found to have a white count of 23,[address] scan of the abdomen showed diffuse colitis without evidence of obstruction. Additionally she was noted to be hypokalemic and hypomagnesemic in the ER. Her electrolytes are in the process of being repleted and she will receive her first dose of meropenem in the emergency room prior to her admission to the hospitalist service for further evaluation and treatment. 11/25/2019-patient is receiving IV antibiotic therapy for UTI, p.o. vancomycin for C. difficile. WBC count is normalized to 8400. Afebrile. No complaints from the patient. Comfortably in the bed communicating well. 11/26/2019-no acute events in the last 24 hours. Afebrile. Complaining of still having the loose stools. Requesting to be back on Zoloft and Xanax is. Receiving p.o. vancomycin for C. difficile diarrhea and also has a VRE in the blood. presently on Zyvox, IV Rocephin." 11/27/2019 Discussed the case with ID after my initial consult order was placed today. They recommended putting the patient on linezolid however I noted the patient is on Zoloft and BuSpar. These psychiatric medications have been held and will continue to be held until she has completed her linezolid course. She will need to be on linezolid for a total of 14 days from the date of her last negative blood culture. Magnesium very low and this is been repleted today. Corrected calcium is actually 8.3 which is essentially normal. Patient has no new specific complaints other than wanting to walk around the hospital. Reason For Visit: ACUTE COLITIS/ILEITIS, LEUKOCYTOSIS, HYPOMAGNESEMI Physical Exam Vital Signs: Temp Pulse Resp BP Pulse Ox 97.6 F 73 19 122/65 99 11/27/19 15:34 11/27/19 15:34 11/27/19 15:34 11/27/19 15:34 11/27/19 15:34 Intake & Output 11/26/19 11/27/19 11/28/19 06:59 06:59 06:59 Intake Total 4828 5917 1935 Balance 4828 5917 1935 Weight 72.5 kg 71.6 kg General appearance: PRESENT: no acute distress, well-developed, well-nourished Head exam: PRESENT: atraumatic, normocephalic Eye exam: PRESENT: conjunctiva pink. ABSENT: scleral icterus Mouth exam: PRESENT: moist Respiratory exam: PRESENT: clear to auscultation vickie. ABSENT: rales, rhonchi, wheezes Cardiovascular exam: PRESENT: RRR. ABSENT: diastolic murmur, rubs, systolic murmur GI/Abdominal exam: PRESENT: normal bowel sounds, soft. ABSENT: distended, guarding, mass, organolmegaly, rebound, tenderness Neurological exam: PRESENT: alert, awake, oriented to person, oriented to place, oriented to time, oriented to situation Psychiatric exam: PRESENT: appropriate affect, normal mood Skin exam: PRESENT: dry, intact, warm Results Laboratory Results: 11/27/19 12:00 11/27/19 07:50 11/27/19 11/27/19 11/27/19 07:50 07:50 12:00 WBC 6.1 7.8 RBC 2.52 L 3.11 L Hgb 7.6 L 9.4 L Hct 23.5 L 28.8 L MCV 93 93 MCH 30.3 30.1 MCHC 32.5 32.4 RDW 16.1 H 15.8 H Plt Count 350 422 Seg Neutrophils % Not Reportable Not Reportable Sodium 138.7 Potassium 3.9 Chloride 115 H Carbon Dioxide 20 L Anion Gap 4 L BUN < 2 L Creatinine 0.86 Est GFR ( Amer) > 60 Glucose 101 Calcium 7.0 L* Magnesium 1.0 L* Total Bilirubin < 0.1 L AST 13 L Alkaline Phosphatase 47 Total Protein 3.9 L Albumin 1.9 L 11/21/19 19:30 Troponin I < 0.012 Impressions: Acute Abdomen Series 11/21/19 11:38 IMPRESSION: 1. No acute cardiopulmonary process. 2. Absence of the normal haustral folds in the transverse colon. This pattern can be seen in the setting of a chronic inflammatory colitis. Abdomen/Pelvis CT 11/21/19 20:18 IMPRESSION: 1. Marked circumferential wall thickening throughout the colon suggestive of acute colitis, which may be infectious or inflammatory in origin. 2. Gallstones without inflammatory changes. 3. 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 Assessment and Plan - Diagnosis (1) Acute colitis Is this a current diagnosis for this admission?: Yes Plan: Per previous physician: "Patient denies any abdominal pains this morning. Receiving p.o. vancomycin for C. difficile. Plan is to advance the diet. 11/26/2019-patient is receiving p.o. vancomycin for C. difficile diarrhea. Still complaining of loose stools. On contact isolation." 11/27/2019 Continue linezolid and oral vancomycin to complete course ID consulted today, discussed with them in detail Cultures reviewed (2) Bacteremia due to vancomycin resistant Enterococcus Is this a current diagnosis for this admission?: Yes Plan: Per previous physician: "Precise source of VRE bacteremia is unclear although likely from the bowels. She did have his CAT scan done on presentation with findings suggestive of acute colitis which may be infectious or inflammatory in origin. I would suggest the need for a colonoscopy once patient is over this acute episode to rule out any underlying etiology. And apparently has a prior history of malignant neoplasm of the colon 11/25/2019-patient is presently on IV ceftriaxone, Zyvox for vancomycin resistant enterococcus. Afebrile. WBC count within normal limits. Plan is to continue the present management at this time. 11/26/2019-blood cultures are positive for VRE on IV ceftriaxone, Zyvox. WBC count is within normal blood pressures are stable at this time. Afebrile." 11/27/2019 Discussed with ID, consulted today No need for ceftriaxone, DC'd (3) Clostridioides difficile infection Is this a current diagnosis for this admission?: Yes Plan: Per previous physician: "Continue with oral vancomycin and add Questran for diarrhea 11/25/2019-patient diarrhea is improving. Receiving oral vancomycin and Questran for C. difficile diarrhea. No abdominal pains today." 11/27/2019 Discussed with ID, unclear if patient is colonized with toxin producing C. difficile or if she actually has an infection or had an infection given that her actual antigen is negative though the antigen gene is positive and the C. difficile itself was positive. As long as she is having ongoing diarrhea, ID recommends completing course of oral vancomycin (4) History of malignant neoplasm of colon Is this a current diagnosis for this admission?: Yes (5) Hypokalemia Is this a current diagnosis for this admission?: Yes Plan: Repleted (6) COPD (chronic obstructive pulmonary disease) Qualifiers: COPD type: unspecified COPD Qualified Code(s): J44.9 - Chronic obstructive pulmonary disease, unspecified Is this a current diagnosis for this admission?: Yes Plan: Stable (7) Hypomagnesemia Is this a current diagnosis for this admission?: Yes Plan: Repleted, recheck (8) Sepsis Qualifiers: Sepsis type: sepsis due to unspecified organism Sepsis acute organ dysfunction status: with acute organ dysfunction Severe sepsis acute organ dysfunction type: acute renal failure Acute renal failure type: unspecified Severe sepsis shock status: without septic shock Qualified Code(s): A41.9 - Sepsis, unspecified organism; R65.20 - Severe sepsis without septic shock; N17.9 - Acute kidney failure, unspecified Is this a current diagnosis for this admission?: Yes Plan: Multiple organisms as above Antibiotics as above - Plan Summary Summary: Patient's TSH noted to be 0.2 with a free T3 of 1.9 T4 level has been obtained she is on Synthroid 0.05 mg IV daily at this point. Patient seems to be hyper thyroid may be iatrogenic. I will decrease her Synthroid dose and will definitely recheck to ensure that this is a accurate reading. Patient also has a complicated urinary tract infection secondary to Klebsiella. She has bacteremia secondary to enterococcus. The gram-positive cocci in chains is likely enterococcus. She is on meropenem as well as Flagyl IV and added vancomycin p.o. as she is now positive for C. difficile 11/23 She is currently being treated for C. difficile colitis, complicated as well as a complicated UTI. Urine culture is yielding Klebsiella as well as Proteus and blood cultures currently rule yielding enterococcus, vancomycin- resistant. Patient is currently on meropenem Flagyl and vancomycin orally. At this point I see no indication for the meropenem and as ceftriaxone will be adequate for the Klebsiella and Proteus he likely is sufficient to place ce ftriaxone which is a narrow spectrum. As for the metronidazole I will leave that for now but that probably can be discontinued also at some point. For the VRE bacteremia antibiotic - Time Time Spent with patient: 35 or more minutes Medications reviewed and adjusted accordingly: Yes Anticipated Discharge Disposition: Home with Home Health Anticipated Discharge Timeframe: within 48 hours - Inpatient Certification Based on my medical assessment, after consideration of the patient's comorbidities, presenting symptoms, or acuity I expect that the services needed warrant INPATIENT care.: Yes I certify that my determination is in accordance with my understanding of Medicare's requirements for reasonable and necessary INPATIENT services [42 CFR 412.3e].: Yes Medical Necessity: Significant Comorbidiites Make Outpatient Treatment Too Risky, Need Close Monitoring Due to Risk of Patient Decompensation, Need for IV Antibiotics, Risk of Complication if Not Cared For in Hospital, Risk of Diagnos is Which Will Require Inpatient Eval/Care/Monitoring
[2019-11-27] MEDS: METOPROLOL TARTRATE PF/INJ 5 MG/5 ML SDV IV PRN (22:50)
[2019-11-27] MEDS: LINEZOLID 600 MG TABLET PO SCH (22:51)
[2019-11-27] MEDS: ATORVASTATIN CALCIUM 10 MG TABLET PO SCH (22:51)
[2019-11-28] MEDS: VANCOMYCIN HCL INJ 500 MG VIAL PO SCH ×4 (01:09→17:50)
[2019-11-28] MEDS: PROMETHAZINE HCL INJ 25 MG/1 ML VIAL IV PRN ×2 (03:59→22:55)
[2019-11-28] MEDS: MORPHINE SULFATE 10 MG/ML INJ IV PRN ×2 (03:59→22:55)
[2019-11-28] MEDS: HEPARIN SOD (PORCINE) 5,000 UNIT/ML 1 ML VIAL SUBCUT SCH ×3 (05:53→22:41)
[2019-11-28] MEDS: OXYBUTYNIN CHLORIDE 5 MG TABLET PO SCH ×3 (05:54→22:41)
[2019-11-28] MEDS: PANTOPRAZOLE SODIUM 20 MG TABLET.DR PO SCH (05:54)
[2019-11-28] MEDS: CHOLESTYRAMINE 4 GM PACKET PO SCH ×3 (09:03→15:55)
[2019-11-28] MEDS: PSYLLIUM SEED-SF 5.85 GM PACKET PO SCH ×2 (09:11→17:12)
[2019-11-28] MEDS: LINEZOLID 600 MG TABLET PO SCH ×2 (09:14→22:41)
[2019-11-28] MEDS: ATENOLOL 50 MG TABLET PO SCH (09:14)
[2019-11-28] MEDS: ASPIRIN 81 MG TABLET, ENT COATED PO SCH (09:14)
[2019-11-28] MEDS: FAMOTIDINE 20 MG TABLET PO SCH ×2 (09:14→22:41)
--- NOTE | 2019-11-28 10:15 | PDOC PROGRESS REPORT ---
Subjective Progress Note for:: 11/28/19 Subjective:: 64-year-old female admitted with colitis, found to have C. difficile and bacteremia. She reports feeling better today. She is tolerating a regular diet. She continues to have multiple bowel movements, however they are more formed. Her abdominal pain is essentially resolved. She denies orthostasis, dizziness, fevers, chills, palpitations, headache, chest pain, shortness of breath. Reason For Visit: ACUTE COLITIS/ILEITIS, LEUKOCYTOSIS, HYPOMAGNESEMI Physical Exam Vital Signs: Temp Pulse Resp BP Pulse Ox 98.1 F 86 18 156/105 H 100 11/28/19 08:38 11/28/19 08:03 11/28/19 08:03 11/28/19 08:03 11/28/19 08:03 Intake & Output 11/27/19 11/28/19 11/29/19 06:59 06:59 06:59 Intake Total 5917 3245 250 Balance 5917 3245 250 Weight 71.6 kg 71.6 kg Exam: General appearance: PRESENT: no acute distress, cooperative, disheveled Head exam: PRESENT: atraumatic, normocephalic Eye exam: PRESENT: EOMI, PERRLA. ABSENT: scleral icterus Mouth exam: PRESENT: neck supple Teeth exam: PRESENT: poor dentation Neck exam: ABSENT: meningismus, tenderness, thyromegaly, tracheal deviation Respiratory exam: PRESENT: unlabored. ABSENT: tachypnea, wheezes Cardiovascular exam: ABSENT: tachycardia GI/Abdominal exam: PRESENT: soft. ABSENT: distended, rebound, rigid, tenderness Rectal exam: PRESENT: deferred Extremities exam: ABSENT: clubbing Musculoskeletal exam: ABSENT: deformity Neurological exam: PRESENT: alert, awake, oriented to person, oriented to place, oriented to time, oriented to situation, CN II-XII grossly intact Psychiatric exam: ABSENT: agitated, anxious, depressed Focused psych exam: ABSENT: delusional Skin exam: ABSENT: cyanosis, erythema, jaundice Results Laboratory Results: 11/27/19 12:00 11/27/19 07:50 11/27/19 12:00 WBC 7.8 RBC 3.11 L Hgb 9.4 L Hct 28.8 L MCV 93 MCH 30.1 MCHC 32.4 RDW 15.8 H Plt Count 422 Seg Neutrophils % Not Reportable 11/21/19 19:30 Troponin I < 0.012 Impressions: Acute Abdomen Series 11/21/19 11:38 IMPRESSION: 1. No acute cardiopulmonary process. 2. Absence of the normal haustral folds in the transverse colon. This pattern can be seen in the setting of a chronic inflammatory colitis. Abdomen/Pelvis CT 11/21/19 20:18 IMPRESSION: 1. Marked circumferential wall thickening throughout the colon suggestive of acute colitis, which may be infectious or inflammatory in origin. 2. Gallstones without inflammatory changes. 3. 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 Assessment & Plan - Diagnosis (1) Acute colitis Is this a current diagnosis for this admission?: Yes - Time Anticipated Discharge Disposition: unknown Anticipated Discharge Timeframe: unknown - Plan Summary Plan Summary: 64-year-old female with colitis. Her C. difficile is positive. Continue with antibiotics. She reports that her symptoms are improving. Tolerating regular diet. Out of bed, ambulate in hallways. Aggressive pulmonary toilet. No surgical intervention is planned at this time. Continue fiber supplement. Surgery will sign off. Please renotify with any questions or concerns.
[2019-11-28 11:37] LABS: CALCIUM 7.6 mg/dL (8.4-10.2); CARBON DIOXIDE 21 mmol/L (22-30); CHLORIDE 114 mmol/L (98-107); GLUCOSE 95 mg/dL (75-110); POTASSIUM 4.2 mmol/L (3.6-5.0)
[2019-11-28 11:42] LABS: BLOOD UREA NITROGEN < 2 mg/dL (7-20)
[2019-11-28 11:56] LABS: ANION GAP 4 (5-19)
[2019-11-28] MEDS: METOPROLOL TARTRATE PF/INJ 5 MG/5 ML SDV IV PRN (13:01)
[2019-11-28] MEDS: ALPRAZOLAM 0.5 MG TABLET PO PRN (13:01)
[2019-11-28] MEDS ORDERED: MAGNESIUM SULFATE INJ 8 MEQ/2 ML IV ONE (16:39)
--- NOTE | 2019-11-28 16:40 | PDOC PROGRESS REPORT ---
Subjective Subjective:: Per previous physician: "64 year old female who presents the emergency room with a 1 day history of abdominal pain. She admits developing abdominal pain in her left lower abdomen on 11/20/2019 which has been a constant colicky aching of moderate to severe intensity without radiation associated with constipation and accompanied by increased generalized anxiety. She denies other associated or accompanying signs and symptoms. She denies prior similar episodes. She admits a history of colon cancer with a partial colectomy and ileostomy earlier this year, followed by a later reversal of her ileostomy in October of this year all of which was done here by Dr. Corbett. She has not identified any aggravating or ameliorating factors for her abdominal pain. In the emergency room she was found to have a white count of 23,[address] scan of the abdomen showed diffuse colitis without evidence of obstruction. Additionally she was noted to be hypokalemic and hypomagnesemic in the ER. Her electrolytes are in the process of being repleted and she will receive her first dose of meropenem in the emergency room prior to her admission to the hospitalist service for further evaluation and treatment. 11/25/2019-patient is receiving IV antibiotic therapy for UTI, p.o. vancomycin for C. difficile. WBC count is normalized to 8400. Afebrile. No complaints from the patient. Comfortably in the bed communicating well. 11/26/2019-no acute events in the last 24 hours. Afebrile. Complaining of still having the loose stools. Requesting to be back on Zoloft and Xanax is. Receiving p.o. vancomycin for C. difficile diarrhea and also has a VRE in the blood. presently on Zyvox, IV Rocephin." 11/27/2019 Discussed the case with ID after my initial consult order was placed today. They recommended putting the patient on linezolid however I noted the patient is on Zoloft and BuSpar. These psychiatric medications have been held and will continue to be held until she has completed her linezolid course. She will need to be on linezolid for a total of 14 days from the date of her last negative blood culture. Magnesium very low and this is been repleted today. Corrected calcium is actually 8.3 which is essentially normal. Patient has no new specific complaints other than wanting to walk around the hospital. 11/28/2019 Blood pressure elevated and given that patient is eating and drinking appropriately we will stop IV fluids. Added nifedipine daily. Calcium and magnesium higher than yesterday. Continue repleting magnesium. Hemoglobin higher. Patient has no new complaints and states her stools are becoming more formed. Possible can be discharged home tomorrow. I discussed with the patient she will need to stop her psychiatric meds while she is on linezolid but she can restart these as soon as her antibiotic course is finished. Reason For Visit: ACUTE COLITIS/ILEITIS, LEUKOCYTOSIS, HYPOMAGNESEMI Physical Exam Vital Signs: Temp Pulse Resp BP Pulse Ox 97.9 F 84 18 170/110 H 100 11/28/19 11:28 11/28/19 11:28 11/28/19 11:28 11/28/19 12:58 11/28/19 11:28 Intake & Output 11/27/19 11/28/19 11/29/19 06:59 06:59 06:59 Intake Total 5917 3245 1255 Balance 5917 3245 1255 Weight 71.6 kg 71.6 kg Exam: General appearance: PRESENT: no acute distress, well-developed, well-nourished, states her stools are becoming more formed Head exam: PRESENT: atraumatic, normocephalic Eye exam: PRESENT: conjunctiva pink. ABSENT: scleral icterus Mouth exam: PRESENT: moist Respiratory exam: PRESENT: clear to auscultation vickie. ABSENT: rales, rhonchi, wheezes Cardiovascular exam: PRESENT: RRR. ABSENT: diastolic murmur, rubs, systolic murmur GI/Abdominal exam: PRESENT: normal bowel sounds, soft. ABSENT: distended, guarding, mass, organolmegaly, rebound, tenderness Neurological exam: PRESENT: alert, awake, oriented to person, oriented to place, oriented to time, oriented to situation Psychiatric exam: PRESENT: appropriate affect, normal mood Skin exam: PRESENT: dry, intact, warm Results Laboratory Results: 11/27/19 12:00 11/28/19 11:06 11/28/19 11:06 Sodium 138.9 Potassium 4.2 Chloride 114 H Carbon Dioxide 21 L Anion Gap 4 L BUN < 2 L Creatinine 0.83 Est GFR ( Amer) > 60 Glucose 95 Calcium 7.6 L Magnesium 1.4 L 11/21/19 19:30 Troponin I < 0.012 Impressions: Acute Abdomen Series 11/21/19 11:38 IMPRESSION: 1. No acute cardiopulmonary process. 2. Absence of the normal haustral folds in the transverse colon. This pattern can be seen in the setting of a chronic inflammatory colitis. Abdomen/Pelvis CT 11/21/19 20:18 IMPRESSION: 1. Marked circumferential wall thickening throughout the colon suggestive of acute colitis, which may be infectious or inflammatory in origin. 2. Gallstones without inflammatory changes. 3. 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 Assessment and Plan - Diagnosis (1) Acute colitis Is this a current diagnosis for this admission?: Yes Plan: Per previous physician: "Patient denies any abdominal pains this morning. Receiving p.o. vancomycin for C. difficile. Plan is to advance the diet. 11/26/2019-patient is receiving p.o. vancomycin for C. difficile diarrhea. Still complaining of loose stools. On contact isolation." 11/27/2019 Continue linezolid and oral vancomycin to complete course ID consulted today, discussed with them in detail Cultures reviewed 11/28/2019 Oral vancomycin and oral linezolid for a total of 14 days (2) Bacteremia due to vancomycin resistant Enterococcus Is this a current diagnosis for this admission?: Yes Plan: Per previous physician: "Precise source of VRE bacteremia is unclear although likely from the bowels. She did have his CAT scan done on presentation with findings suggestive of acute colitis which may be infectious or inflammatory in origin. I would suggest the need for a colonoscopy once patient is over this acute episode to rule out any underlying etiology. And apparently has a prior history of malignant neoplasm of the colon 11/25/2019-patient is presently on IV ceftriaxone, Zyvox for vancomycin resistant enterococcus. Afebrile. WBC count within normal limits. Plan is to continue the present management at this time. 11/26/2019-blood cultures are positive for VRE on IV ceftriaxone, Zyvox. WBC count is within normal blood pressures are stable at this time. Afebrile." 11/27/2019 Discussed with ID, consulted today No need for ceftriaxone, DC'd (3) Clostridioides difficile infection Is this a current diagnosis for this admission?: Yes Plan: Per previous physician: "Continue with oral vancomycin and add Questran for diarrhea 11/25/2019-patient diarrhea is improving. Receiving oral vancomycin and Questran for C. difficile diarrhea. No abdominal pains today." 11/27/2019 Discussed with ID, unclear if patient is colonized with toxin producing C. difficile or if she actually has an infection or had an infection given that her actual antigen is negative though the antigen gene is positive and the C. difficile itself was positive. As long as she is having ongoing diarrhea, ID recommends completing course of oral vancomycin (4) History of malignant neoplasm of colon Is this a current diagnosis for this admission?: Yes (5) Hypokalemia Is this a current diagnosis for this admission?: Yes (6) COPD (chronic obstructive pulmonary disease) Qualifiers: COPD type: unspecified COPD Qualified Code(s): J44.9 - Chronic obstructive pulmonary disease, unspecified Is this a current diagnosis for this admission?: Yes (7) Hypomagnesemia Is this a current diagnosis for this admission?: Yes Plan: Down to 1.0, replete and recheck Still low, continue repleting (8) Sepsis Qualifiers: Sepsis type: sepsis due to unspecified organism Sepsis acute organ dysfunction status: with acute organ dysfunction Severe sepsis acute organ dysfunction type: acute renal failure Acute renal failure type: unspecified Severe sepsis shock status: without septic shock Qualified Code(s): A41.9 - Sepsis, unspecified organism; R65.20 - Severe sepsis without septic shock; N17.9 - Acute kidney failure, unspecified Is this a current diagnosis for this admission?: Yes - Plan Summary Summary: Patient's TSH noted to be 0.2 with a free T3 of 1.9 T4 level has been obtained she is on Synthroid 0.05 mg IV daily at this point. Patient seems to be hyper thyroid may be iatrogenic. I will decrease her Synthroid dose and will definitely recheck to ensure that this is a accurate reading. Patient also has a complicated urinary tract infection secondary to Klebsiella. She has bacteremia secondary to enterococcus. The gram-positive cocci in chains is likely enterococcus. She is on meropenem as well as Flagyl IV and added vancomycin p.o. as she is now positive for C. difficile 11/23 She is currently being treated for C. difficile colitis, complicated as well as a complicated UTI. Urine culture is yielding Klebsiella as well as Proteus and blood cultures currently rule yielding enterococcus, vancomycin- resistant. Patient is currently on meropenem Flagyl and vancomycin orally. At this point I see no indication for the meropenem and as ceftriaxone will be adequate for the Klebsiella and Proteus he likely is sufficient to place ce ftriaxone which is a narrow spectrum. As for the metronidazole I will leave that for now but that probably can be discontinued also at some point. For the VRE bacteremia antibiotic - Time Time Spent with patient: 15-24 minutes Medications reviewed and adjusted accordingly: Yes Anticipated Discharge Disposition: Home with Home Health Anticipated Discharge Timeframe: within 48 hours - Inpatient Certification Based on my medical assessment, after consideration of the patient's comorbidities, presenting symptoms, or acuity I expect that the services needed warrant INPATIENT care.: Yes I certify that my determination is in accordance with my understanding of Medicare's requirements for reasonable and necessary INPATIENT services [42 CFR 412.3e].: Yes Medical Necessity: Significant Comorbidiites Make Outpatient Treatment Too Risky, Need Close Monitoring Due to Risk of Patient Decompensation, Need for IV Antibiotics, Risk of Complication if Not Cared For in Hospital, Risk of Diagnosis Which Will Require Inpatient Eval/Care/Monitoring
[2019-11-28] MEDS ORDERED: MAGNESIUM SULFATE/D5W 1 GM/100 ML RTUPB IV ONE (17:00)
[2019-11-28] MEDS: NIFEDIPINE 30 MG TAB.ER.24 PO SCH (17:49)
[2019-11-28] MEDS: ATORVASTATIN CALCIUM 10 MG TABLET PO SCH (22:41)
[2019-11-29] MEDS: VANCOMYCIN HCL INJ 500 MG VIAL PO SCH ×4 (00:26→18:41)
[2019-11-29] MEDS: HEPARIN SOD (PORCINE) 5,000 UNIT/ML 1 ML VIAL SUBCUT SCH ×3 (05:21→21:59)
[2019-11-29] MEDS: OXYBUTYNIN CHLORIDE 5 MG TABLET PO SCH ×3 (05:22→21:59)
[2019-11-29] MEDS: PANTOPRAZOLE SODIUM 20 MG TABLET.DR PO SCH (05:22)
[2019-11-29] MEDS: MORPHINE SULFATE 10 MG/ML INJ IV PRN (05:22)
[2019-11-29 06:53] LABS: ANION GAP 5 (5-19); BLOOD UREA NITROGEN 3 mg/dL (7-20); CARBON DIOXIDE 24 mmol/L (22-30); CHLORIDE 109 mmol/L (98-107); GLUCOSE 102 mg/dL (75-110); POTASSIUM 3.8 mmol/L (3.6-5.0)
[2019-11-29] MEDS: CHOLESTYRAMINE 4 GM PACKET PO SCH ×3 (08:52→16:20)
[2019-11-29] MEDS: LINEZOLID 600 MG TABLET PO SCH ×2 (08:59→21:59)
[2019-11-29] MEDS: PSYLLIUM SEED-SF 5.85 GM PACKET PO SCH ×2 (08:59→18:04)
[2019-11-29] MEDS: ATENOLOL 50 MG TABLET PO SCH (08:59)
[2019-11-29] MEDS: NIFEDIPINE 30 MG TAB.ER.24 PO SCH (08:59)
[2019-11-29] MEDS: FAMOTIDINE 20 MG TABLET PO SCH ×2 (08:59→21:59)
[2019-11-29] MEDS: ASPIRIN 81 MG TABLET, ENT COATED PO SCH (08:59)
[2019-11-29 09:51] LABS: ANION GAP 7 (5-19); CALCIUM 8.2 mg/dL (8.4-10.2); CARBON DIOXIDE 24 mmol/L (22-30); CHLORIDE 109 mmol/L (98-107); GLUCOSE 99 mg/dL (75-110); POTASSIUM 3.9 mmol/L (3.6-5.0)
[2019-11-29 10:01] LABS: BLOOD UREA NITROGEN < 2 mg/dL (7-20)
[2019-11-29] MEDS: ONDANSETRON HCL INJ/PF 4 MG/2 ML SDV IV PRN (12:16)
[2019-11-29] MEDS: ACETAMINOPHEN 325 MG TABLET PO PRN (12:18)
[2019-11-29] MEDS: ALPRAZOLAM 0.5 MG TABLET PO PRN (14:36)
--- NOTE | 2019-11-29 16:08 | PDOC PROGRESS REPORT ---
Subjective Subjective:: Per previous physician: "64 year old female who presents the emergency room with a 1 day history of abdominal pain. She admits developing abdominal pain in her left lower abdomen on 11/20/2019 which has been a constant colicky aching of moderate to severe intensity without radiation associated with constipation and accompanied by increased generalized anxiety. She denies other associated or accompanying signs and symptoms. She denies prior similar episodes. She admits a history of colon cancer with a partial colectomy and ileostomy earlier this year, followed by a later reversal of her ileostomy in October of this year all of which was done here by Dr. Corbett. She has not identified any aggravating or ameliorating factors for her abdominal pain. In the emergency room she was found to have a white count of 23,[address] scan of the abdomen showed diffuse colitis without evidence of obstruction. Additionally she was noted to be hypokalemic and hypomagnesemic in the ER. Her electrolytes are in the process of being repleted and she will receive her first dose of meropenem in the emergency room prior to her admission to the hospitalist service for further evaluation and treatment. 11/25/2019-patient is receiving IV antibiotic therapy for UTI, p.o. vancomycin for C. difficile. WBC count is normalized to 8400. Afebrile. No complaints from the patient. Comfortably in the bed communicating well. 11/26/2019-no acute events in the last 24 hours. Afebrile. Complaining of still having the loose stools. Requesting to be back on Zoloft and Xanax is. Receiving p.o. vancomycin for C. difficile diarrhea and also has a VRE in the blood. presently on Zyvox, IV Rocephin." 11/27/2019 Discussed the case with ID after my initial consult order was placed today. They recommended putting the patient on linezolid however I noted the patient is on Zoloft and BuSpar. These psychiatric medications have been held and will continue to be held until she has completed her linezolid course. She will need to be on linezolid for a total of 14 days from the date of her last negative blood culture. Magnesium very low and this is been repleted today. Corrected calcium is actually 8.3 which is essentially normal. Patient has no new specific complaints other than wanting to walk around the hospital. 11/28/2019 Blood pressure elevated and given that patient is eating and drinking appropriately we will stop IV fluids. Added nifedipine daily. Calcium and magnesium higher than yesterday. Continue repleting magnesium. Hemoglobin higher. Patient has no new complaints and states her stools are becoming more formed. Possible can be discharged home tomorrow. I discussed with the patient she will need to stop her psychiatric meds while she is on linezolid but she can restart these as soon as her antibiotic course is finished. 11/29/2019 Blood cultures have not been drawn since they are initially drawn on admission and these are necessity to determine if her blood is in fact cleared the infect ion. I am concerned that she may have seeded her Mediport and this would need to be removed if this is the case. We will keep her until blood cultures are negative for approximately 48 hours and then she will be discharged home at that point to finish out the rest of her antibiotic course which we will start on 11/28 for a total of 14 days. Patient has no new complaints today and states her diarrhea is starting to become more formed and less frequent. She also specifically tells me that she feels safe at home and that she is not being abused or harmed in any way. Per my discussion with staff, she has made statements about complicated and sometimes unsafe sounding home life in the past on prior admissions but then she quickly changes her story when people suggest addressing the issue. We will need to monitor her closely and it may be beneficial for a social psychologist to visit her home after discharge. Reason For Visit: ACUTE COLITIS/ILEITIS, LEUKOCYTOSIS, HYPOMAGNESEMI Physical Exam Vital Signs: Temp Pulse Resp BP Pulse Ox 98.3 F 76 18 140/88 H 97 11/29/19 12:00 11/29/19 12:00 11/29/19 12:00 11/29/19 12:00 11/29/19 12:00 Intake & Output 11/28/19 11/29/19 11/30/19 06:59 06:59 06:59 Intake Total 3242059 240 Balance 3242059 240 Weight 71.6 kg 82.1 kg 81.3 kg Exam: General appearance: PRESENT: no acute distress, well-developed, well-nourished, states she is having less diarrhea today Head exam: PRESENT: atraumatic, normocephalic Eye exam: PRESENT: conjunctiva pink. ABSENT: scleral icterus Mouth exam: PRESENT: moist Respiratory exam: PRESENT: clear to auscultation vickie. ABSENT: rales, rhonchi, wheezes Cardiovascular exam: PRESENT: RRR. ABSENT: diastolic murmur, rubs, systolic murmur GI/Abdominal exam: PRESENT: normal bowel sounds, soft. ABSENT: distended, guarding, mass, organolmegaly, rebound, tenderness Neurological exam: PRESENT: alert, awake, oriented to person, oriented to place, oriented to time, oriented to situation Psychiatric exam: PRESENT: appropriate affect, normal mood Skin exam: PRESENT: dry, intact, warm Results Laboratory Results: 11/27/19 12:00 11/29/19 09:05 11/29/19 11/29/19 05:45 09:05 Sodium 138.4 140.0 Potassium 3.8 3.9 Chloride 109 H 109 H Carbon Dioxide 24 24 Anion Gap 5 7 BUN 3 L < 2 L Creatinine 0.97 0.94 Est GFR ( Amer) > 60 > 60 Glucose 102 99 Calcium 8.0 L 8.2 L Magnesium 1.6 11/21/19 19:30 Troponin I < 0.012 Impressions: Acute Abdomen Series 11/21/19 11:38 IMPRESSION: 1. No acute cardiopulmonary process. 2. Absence of the normal haustral folds in the transverse colon. This pattern can be seen in the setting of a chronic inflammatory colitis. Abdomen/Pelvis CT 11/21/19 20:18 IMPRESSION: 1. Marked circumferential wall thickening throughout the colon suggestive of acute colitis, which may be infectious or inflammatory in origin. 2. Gallstones without inflammatory changes. 3. 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 Assessment and Plan - Diagnosis (1) Acute colitis Is this a current diagnosis for this admission?: Yes Plan: Per previous physician: "Patient denies any abdominal pains this morning. Receiving p.o. vancomycin for C. difficile. Plan is to advance the diet. 11/26/2019-patient is receiving p.o. vancomycin for C. difficile diarrhea. Still complaining of loose stools. On contact isolation." 11/27/2019 Continue linezolid and oral vancomycin to complete course ID consulted today, discussed with them in detail Cultures reviewed 11/28/2019 Oral vancomycin and oral linezolid for a total of 14 days (2) Bacteremia due to vancomycin resistant Enterococcus Is this a current diagnosis for this admission?: Yes Plan: Per previous physician: "Precise source of VRE bacteremia is unclear although likely from the bowels. She did have his CAT scan done on presentation with findings suggestive of acute colitis which may be infectious or inflammatory in origin. I would suggest the need for a colonoscopy once patient is over this acute episode to rule out any underlying etiology. And apparently has a prior history of malignant neoplasm of the colon 11/25/2019-patient is presently on IV ceftriaxone, Zyvox for vancomycin resistant enterococcus. Afebrile. WBC count within normal limits. Plan is to continue the present management at this time. 11/26/2019-blood cultures are positive for VRE on IV ceftriaxone, Zyvox. WBC count is within normal blood pressures are stable at this time. Afebrile." 11/27/2019 Discussed with ID, consulted today No need for ceftriaxone, DC'd 11/29/2019 No blood cultures have been drawn since the initial ones done on admission, redraw blood cultures today and if these are negative at approximately 48 hours patient can be discharged home to complete 14-day antibiotic course, start date will be 11/28 Blood cultures become positive we will need to remove her Mediport and reconsult ID (3) Clostridioides difficile infection Is this a current diagnosis for this admission?: Yes Plan: Per previous physician: "Continue with oral vancomycin and add Questran for diarrhea 11/25/2019-patient diarrhea is improving. Receiving oral vancomycin and Questran for C. difficile diarrhea. No abdominal pains today." 11/27/2019 Discussed with ID, unclear if patient is colonized with toxin producing C. difficile or if she actually has an infection or had an infection given that her actual antigen is negative though the antigen gene is positive and the C. difficile itself was positive. As long as she is having ongoing diarrhea, ID recommends completing course of oral vancomycin (4) History of malignant neoplasm of colon Is this a current diagnosis for this admission?: Yes Plan: Mediport in place (5) Hypokalemia Is this a current diagnosis for this admission?: Yes (6) COPD (chronic obstructive pulmonary disease) Qualifiers: COPD type: unspecified COPD Qualified Code(s): J44.9 - Chronic obstructive pulmonary disease, unspecified Is this a current diagnosis for this admission?: Yes (7) Hypomagnesemia Is this a current diagnosis for this admission?: Yes (8) Sepsis Qualifiers: Sepsis type: sepsis due to unspecified organism Sepsis acute organ dysfunction status: with acute organ dysfunction Severe sepsis acute organ dysfunction type: acute renal failure Acute renal failure type: unspecified Severe sepsis shock status: without septic shock Qualified Code(s): A41.9 - Sepsis, unspecified organism; R65.20 - Severe sepsis without septic shock; N17.9 - Acute kidney failure, unspecified Is this a current diagnosis for this admission?: Yes - Time Time Spent with patient: 15-24 minutes Medications reviewed and adjusted accordingly: Yes Anticipated Discharge Disposition: Home with Home Health Anticipated Discharge Timeframe: within 48 hours - Inpatient Certification Based on my medical assessment, after consideration of the patient's comorbidities, presenting symptoms, or acuity I expect that the services needed warrant INPATIENT care.: Yes I certify that my determination is in accordance with my understanding of Medicare's requirements for reasonable and necessary INPATIENT services [42 CFR 412.3e].: Yes Medical Necessity: Significant Comorbidiites Make Outpatient Treatment Too Risky, Need Close Monitoring Due to Risk of Patient Decompensation, Need for IV Antibiotics, Risk of Complication if Not Cared For in Hospital, Risk of Diagnosis Which Will Require Inpatient Eval/Care/Monitoring
[2019-11-29] MEDS: ATORVASTATIN CALCIUM 10 MG TABLET PO SCH (21:59)
[2019-11-30] MEDS: VANCOMYCIN HCL INJ 500 MG VIAL PO SCH ×3 (00:25→11:32)
[2019-11-30] MEDS: MORPHINE SULFATE 10 MG/ML INJ IV PRN ×2 (03:35→15:13)
[2019-11-30] MEDS: ALPRAZOLAM 0.5 MG TABLET PO PRN ×3 (03:39→22:14)
[2019-11-30] MEDS: HEPARIN SOD (PORCINE) 5,000 UNIT/ML 1 ML VIAL SUBCUT SCH ×3 (05:02→22:00)
[2019-11-30] MEDS: PANTOPRAZOLE SODIUM 20 MG TABLET.DR PO SCH (05:39)
[2019-11-30] MEDS: OXYBUTYNIN CHLORIDE 5 MG TABLET PO SCH ×3 (05:39→22:14)
[2019-11-30 06:51] LABS: ANION GAP 5 (5-19); BLOOD UREA NITROGEN 4 mg/dL (7-20); CALCIUM 8.2 mg/dL (8.4-10.2); CARBON DIOXIDE 26 mmol/L (22-30); CHLORIDE 108 mmol/L (98-107); GLUCOSE 88 mg/dL (75-110); POTASSIUM 3.8 mmol/L (3.6-5.0)
[2019-11-30] MEDS: PSYLLIUM SEED-SF 5.85 GM PACKET PO SCH ×2 (09:42→17:18)
[2019-11-30] MEDS: CHOLESTYRAMINE 4 GM PACKET PO SCH ×4 (09:42→15:13)
[2019-11-30] MEDS: ASPIRIN 81 MG TABLET, ENT COATED PO SCH (09:43)
[2019-11-30] MEDS: FAMOTIDINE 20 MG TABLET PO SCH ×2 (09:43→22:14)
[2019-11-30] MEDS: NIFEDIPINE 30 MG TAB.ER.24 PO SCH (09:43)
[2019-11-30] MEDS: LINEZOLID 600 MG TABLET PO SCH ×2 (09:43→22:14)
[2019-11-30] MEDS: ATENOLOL 50 MG TABLET PO SCH (09:43)
[2019-11-30] MEDS: PROMETHAZINE HCL INJ 25 MG/1 ML VIAL IV PRN (17:32)
--- NOTE | 2019-11-30 17:37 | PDOC PROGRESS REPORT ---
Subjective Subjective:: Per previous physician: "64 year old female who presents the emergency room with a 1 day history of abdominal pain. She admits developing abdominal pain in her left lower abdomen on 11/20/2019 which has been a constant colicky aching of moderate to severe intensity without radiation associated with constipation and accompanied by increased generalized anxiety. She denies other associated or accompanying signs and symptoms. She denies prior similar episodes. She admits a history of colon cancer with a partial colectomy and ileostomy earlier this year, followed by a later reversal of her ileostomy in October of this year all of which was done here by Dr. Corbett. She has not identified any aggravating or ameliorating factors for her abdominal pain. In the emergency room she was found to have a white count of 23,[address] scan of the abdomen showed diffuse colitis without evidence of obstruction. Additionally she was noted to be hypokalemic and hypomagnesemic in the ER. Her electrolytes are in the process of being repleted and she will receive her first dose of meropenem in the emergency room prior to her admission to the hospitalist service for further evaluation and treatment. 11/25/2019-patient is receiving IV antibiotic therapy for UTI, p.o. vancomycin for C. difficile. WBC count is normalized to 8400. Afebrile. No complaints from the patient. Comfortably in the bed communicating well. 11/26/2019-no acute events in the last 24 hours. Afebrile. Complaining of still having the loose stools. Requesting to be back on Zoloft and Xanax is. Receiving p.o. vancomycin for C. difficile diarrhea and also has a VRE in the blood. presently on Zyvox, IV Rocephin." 11/27/2019 Discussed the case with ID after my initial consult order was placed today. They recommended putting the patient on linezolid however I noted the patient is on Zoloft and BuSpar. These psychiatric medications have been held and will continue to be held until she has completed her linezolid course. She will need to be on linezolid for a total of 14 days from the date of her last negative blood culture. Magnesium very low and this is been repleted today. Corrected calcium is actually 8.3 which is essentially normal. Patient has no new specific complaints other than wanting to walk around the hospital. 11/28/2019 Blood pressure elevated and given that patient is eating and drinking appropriately we will stop IV fluids. Added nifedipine daily. Calcium and magnesium higher than yesterday. Continue repleting magnesium. Hemoglobin higher. Patient has no new complaints and states her stools are becoming more formed. Possible can be discharged home tomorrow. I discussed with the patient she will need to stop her psychiatric meds while she is on linezolid but she can restart these as soon as her antibiotic course is finished. 11/29/2019 Blood cultures have not been drawn since they are initially drawn on admission and these are necessity to determine if her blood is in fact cleared the infect ion. I am concerned that she may have seeded her Mediport and this would need to be removed if this is the case. We will keep her until blood cultures are negative for approximately 48 hours and then she will be discharged home at that point to finish out the rest of her antibiotic course which we will start on 11/28 for a total of 14 days. Patient has no new complaints today and states her diarrhea is starting to become more formed and less frequent. She also specifically tells me that she feels safe at home and that she is not being abused or harmed in any way. Per my discussion with staff, she has made statements about complicated and sometimes unsafe sounding home life in the past on prior admissions but then she quickly changes her story when people suggest addressing the issue. We will need to monitor her closely and it may be beneficial for a renal social worker to visit her home after discharge. 11/30/2019 Upon entering the room today, patient was verbally abusive to me and has reportedly been verbally abusive to the nursing staff as well. I asked her to treat all the staff here with the mutual respect that we give her and return. She reportedly had a very heated discussion with her roommate today per nursing notes in which the roommate was very angry that the patient was coming home soon. I again asked patient if she feels safe at home and if she is being abused and she says she does feel safe and she is not being abused and also that she loves her roommate and she has been with them for over 25 years. She became very angry at one point and stated she wanted to go home and that she was a prisoner here. I told her that she can leave AGAINST MEDICAL ADVICE anytime she chooses but I strongly recommend against doing so. I explained that we are looking for an infection in her blood to make sure her port was not affected by her recent bacteremia. She stated she did not care but she also did not want to go home AGAINST MEDICAL ADVICE either. So far her blood cultures are negative and she is continued on antibiotics as outlined previously. Otherwise she has no new complaints. Reason For Visit: ACUTE COLITIS/ILEITIS, LEUKOCYTOSIS, HYPOMAGNESEMI Physical Exam Vital Signs: Temp Pulse Resp BP Pulse Ox 98.1 F 68 16 122/79 98 11/30/19 15:01 11/30/19 15:01 11/30/19 15:01 11/30/19 15:01 11/30/19 15:01 Intake & Output 11/29/19 11/30/19 12/01/19 06:59 06:59 06:59 Intake Total 2059 840 240 Balance 2059 840 240 Weight 82.1 kg 82.3 kg Exam: General appearance: PRESENT: no acute distress, well-developed, well-nourished, states she is is very angry in general today Head exam: PRESENT: atraumatic, normocephalic Eye exam: PRESENT: conjunctiva pink. ABSENT: scleral icterus Mouth exam: PRESENT: moist Respiratory exam: PRESENT: clear to auscultation vickie. ABSENT: rales, rhonchi, wheezes Cardiovascular exam: PRESENT: RRR. ABSENT: diastolic murmur, rubs, systolic murmur GI/Abdominal exam: PRESENT: normal bowel sounds, soft. ABSENT: distended, guarding, mass, organolmegaly, rebound, tenderness Neurological exam: PRESENT: alert, awake, oriented to person, oriented to place, oriented to time, oriented to situation Psychiatric exam: PRESENT: appropriate affect, normal mood Skin exam: PRESENT: dry, intact, warm Results Laboratory Results: 11/27/19 12:00 11/30/19 05:45 11/30/19 05:45 Sodium 139.1 Potassium 3.8 Chloride 108 H Carbon Dioxide 26 Anion Gap 5 BUN 4 L Creatinine 1.06 Est GFR ( Amer) > 60 Glucose 88 Calcium 8.2 L 11/21/19 19:30 Troponin I < 0.012 Impressions: Acute Abdomen Series 11/21/19 11:38 IMPRESSION: 1. No acute cardiopulmonary process. 2. Absence of the normal haustral folds in the transverse colon. This pattern can be seen in the setting of a chronic inflammatory colitis. Abdomen/Pelvis CT 11/21/19 20:18 IMPRESSION: 1. Marked circumferential wall thickening throughout the colon suggestive of acute colitis, which may be infectious or inflammatory in origin. 2. Gallstones without inflammatory changes. 3. 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 Assessment and Plan - Diagnosis (1) Acute colitis Is this a current diagnosis for this admission?: Yes Plan: Per previous physician: "Patient denies any abdominal pains this morning. Receiving p.o. vancomycin for C. difficile. Plan is to advance the diet. 11/26/2019-patient is receiving p.o. vancomycin for C. difficile diarrhea. Still complaining of loose stools. On contact isolation." 11/27/2019 Continue linezolid and oral vancomycin to complete course ID consulted today, discussed with them in detail Cultures reviewed 11/28/2019 Oral vancomycin and oral linezolid for a total of 14 days (2) Bacteremia due to vancomycin resistant Enterococcus Is this a current diagnosis for this admission?: Yes Plan: Per previous physician: "Precise source of VRE bacteremia is unclear although likely from the bowels. She did have his CAT scan done on presentation with findings suggestive of acute colitis which may be infectious or inflammatory in origin. I would suggest the need for a colonoscopy once patient is over this acute episode to rule out any underlying etiology. And apparently has a prior history of malignant neoplasm of the colon 11/25/2019-patient is presently on IV ceftriaxone, Zyvox for vancomycin resistant enterococcus. Afebrile. WBC count within normal limits. Plan is to continue the present management at this time. 11/26/2019-blood cultures are positive for VRE on IV ceftriaxone, Zyvox. WBC count is within normal blood pressures are stable at this time. Afebrile." 11/27/2019 Discussed with ID, consulted today No need for ceftriaxone, DC'd 11/29/2019 No blood cultures have been drawn since the initial ones done on admission, coral hinkle blood cultures today and if these are negative at approximately 48 hours patient can be discharged home to complete 14-day antibiotic course, start date will be 11/28 Blood cultures become positive we will need to remove her Mediport and reconsult ID Blood cultures no growth to date (3) Clostridioides difficile infection Is this a current diagnosis for this admission?: Yes (4) History of malignant neoplasm of colon Is this a current diagnosis for this admission?: Yes (5) Hypokalemia Is this a current diagnosis for this admission?: Yes (6) COPD (chronic obstructive pulmonary disease) Qualifiers: COPD type: unspecified COPD Qualified Code(s): J44.9 - Chronic obstructive pulmonary disease, unspecified Is this a current diagnosis for this admission?: Yes (7) Hypomagnesemia Is this a current diagnosis for this admission?: Yes (8) Sepsis Qualifiers: Sepsis type: sepsis due to unspecified organism Sepsis acute organ dysfunction status: with acute organ dysfunction Severe sepsis acute organ dysfunction type: acute renal failure Acute renal failure type: unspecified Severe sepsis shock status: without septic shock Qualified Code(s): A41.9 - Sepsis, unspecified organism; R65.20 - Severe sepsis without septic shock; N17.9 - Acute kidney failure, unspecified Is this a current diagnosis for this admission?: Yes Plan: Multiple organisms as above Antibiotics as above Resolved - Time Time Spent with patient: 15-24 minutes Medications reviewed and adjusted accordingly: Yes Anticipated Discharge Disposition: Home with Home Health Anticipated Discharge Timeframe: within 24 hours - Inpatient Certification Based on my medical assessment, after consideration of the patient's comorbidities, presenting symptoms, or acuity I expect that the services needed warrant INPATIENT care.: Yes I certify that my determination is in accordance with my understanding of Medicare's requirements for reasonable and necessary INPATIENT services [42 CFR 412.3e].: Yes Medical Necessity: Significant Comorbidiites Make Outpatient Treatment Too Risky, Need Close Monitoring Due to Risk of Patient Decompensation, Need for IV Antibiotics, Risk of Complication if Not Cared For in Hospital, Risk of Diagnosis Which Will Require Inpatient Eval/Care/Monitoring
[2019-11-30] MEDS: ACETAMINOPHEN 325 MG TABLET PO PRN (22:15)
[2019-11-30] MEDS: ATORVASTATIN CALCIUM 10 MG TABLET PO SCH (22:15)
[2019-12-01] MEDS: HEPARIN SOD (PORCINE) 5,000 UNIT/ML 1 ML VIAL SUBCUT SCH ×3 (06:17→21:14)
[2019-12-01] MEDS: OXYBUTYNIN CHLORIDE 5 MG TABLET PO SCH ×3 (06:17→21:12)
[2019-12-01] MEDS: PANTOPRAZOLE SODIUM 20 MG TABLET.DR PO SCH (06:17)
[2019-12-01 07:27] LABS: ANION GAP 6 (5-19); BLOOD UREA NITROGEN 6 mg/dL (7-20); CALCIUM 8.7 mg/dL (8.4-10.2); CARBON DIOXIDE 26 mmol/L (22-30); CHLORIDE 106 mmol/L (98-107); GLUCOSE 82 mg/dL (75-110)
[2019-12-01] MEDS: CHOLESTYRAMINE 4 GM PACKET PO SCH ×3 (09:02→16:12)
[2019-12-01] MEDS: ACETAMINOPHEN 325 MG TABLET PO PRN ×3 (09:02→20:50)
[2019-12-01] MEDS: MORPHINE SULFATE 10 MG/ML INJ IV PRN (10:06)
[2019-12-01] MEDS: FAMOTIDINE 20 MG TABLET PO SCH ×2 (10:08→21:12)
[2019-12-01] MEDS: ASPIRIN 81 MG TABLET, ENT COATED PO SCH (10:08)
[2019-12-01] MEDS: LINEZOLID 600 MG TABLET PO SCH ×2 (10:09→21:12)
[2019-12-01] MEDS: NIFEDIPINE 30 MG TAB.ER.24 PO SCH (10:09)
[2019-12-01] MEDS: ATENOLOL 50 MG TABLET PO SCH (10:09)
[2019-12-01] MEDS: PSYLLIUM SEED-SF 5.85 GM PACKET PO SCH ×2 (10:15→17:57)
--- NOTE | 2019-12-01 14:33 | PDOC DISCHARGE SUMMARY ---
Impression - Admit/DC Date/PCP Admission Date/Primary Care Provider: 11/21/19 22:21 ANTWON MAX Discharge Date: 12/01/19 - Discharge Diagnosis (1) Acute colitis Is this a current diagnosis for this admission?: Yes (2) Bacteremia due to vancomycin resistant Enterococcus Is this a current diagnosis for this admission?: Yes (3) Clostridioides difficile infection Is this a current diagnosis for this admission?: Yes (4) History of malignant neoplasm of colon Is this a current diagnosis for this admission?: Yes (5) Hypokalemia Is this a current diagnosis for this admission?: Yes (6) COPD (chronic obstructive pulmonary disease) Is this a current diagnosis for this admission?: Yes (7) Hypomagnesemia Is this a current diagnosis for this admission?: Yes (8) Sepsis Is this a current diagnosis for this admission?: Yes - Additional Information Resuscitation Status: Full Code Discharge Diet: As Tolerated, Regular Discharge Activity: Activity As Tolerated, Balance Activity w/Rest Referrals: KEVIN SYKES FNP-C [Primary Care Provider] - Follow up as needed Prescriptions: Psyllium Seed [Metamucil-Sf Powder 5.85 gm Packet] 1 packet PO BID #60 packet Nifedipine [Procardia XL 30 mg Tablet] 30 mg PO DAILY #30 tab.er.24 Cholestyramine [Questran 4 gm Packet] 4 gm PO AC #90 packet Vancomycin HCl [Vancocin HCl] 125 mg PO Q6 #48 capsule Linezolid [Zyvox] 600 mg PO Q12 12 Days #24 tablet Home Medications: Oxybutynin Chloride [Ditropan 5 mg Tablet] 5 mg PO Q8 #0 05/21/11 Pravastatin Sodium [Pravachol] 20 mg PO QHS 03/10/16 Aspirin [Ecotrin 81 mg EC Tablet] 81 mg PO DAILY 08/28/19 Levothyroxine Sodium [Synthroid 0.1 mg Tablet] 200 mcg PO Q6AM 10/11/19 Omeprazole Magnesium [Prilosec Otc] 20 mg PO Q6AM 10/11/19 Hydroxyzine Pamoate [Vistaril 25 mg Capsule] 25 mg PO Q8HP PRN 10/23/19 Albuterol Sulfate [Proair HFA Inhalation Aerosol 8.5 gm MDI] 2 puff IH Q6HP PRN hfa.aer.[id number] 10/28/19 Atenolol [Tenormin 50 mg Tablet] 25 mg PO DAILY tablet 10/28/19 Alprazolam [Xanax] 1 mg PO Q8HP PRN 11/22/19 Buspirone HCl [Buspar 10 mg Tablet] 22.5 mg PO DAILY #0 11/29/19 Cholestyramine [Questran 4 gm Packet] 4 gm PO AC #90 packet 11/29/19 Nifedipine [Procardia XL 30 mg Tablet] 30 mg PO DAILY #30 tab.er.24 11/29/19 Psyllium Seed [Metamucil-Sf Powder 5.85 gm Packet] 1 packet PO BID #60 packet 11/29/19 Sertraline HCl 150 mg PO DAILY #0 11/29/19 Linezolid [Zyvox] 600 mg PO Q12 12 Days #24 tablet 12/01/19 Vancomycin HCl [Vancocin HCl] 125 mg PO Q6 #48 capsule 12/01/19 History of Present Illiness History of Present Illness: Per Admitting Physician: "KYRA REYNOLDS is a 64 year old female who presents the emergency room with a 1 day history of abdominal pain. She admits developing abdominal pain in her left lower abdomen on 11/20/2019 which has been a constant colicky aching of moderate to severe intensity without radiation associated with constipation and accompanied by increased generalized anxiety. She denies other associated or accompanying signs and symptoms. She denies prior similar episodes. She admits a history of colon cancer with a partial colectomy and ileostomy earlier this year, followed by a later reversal of her ileostomy in October of this year all of which was done here by Dr. Corbett. She has not identified any aggravating or ameliorating factors for her abdominal pain. In the emergency room she was found to have a white count of 23,[address] scan of the abdomen showed diffuse colitis without evidence of obstruction. Additionally she was noted to be hypokalemic and hypomagnesemic in the ER. Her electrolytes are in the process of being repleted and she will receive her first dose of meropenem in the emergency room prior to her admission to the hospitalist service for further evaluation and treatment." Hospital Course Hospital Course: Per previous physician: "64 year old female who presents the emergency room with a 1 day history of abdominal pain. She admits developing abdominal pain in her left lower abdomen on 11/20/2019 which has been a constant colicky aching of moderate to severe intensity without radiation associated with constipation and accompanied by increased generalized anxiety. She denies other associated or accompanying signs and symptoms. She denies prior similar episodes. She admits a history of colon cancer with a partial colectomy and ileostomy earlier this year, followed by a later reversal of her ileostomy in October of this year all of which was do ne here by Dr. Corbett. She has not identified any aggravating or ameliorating factors for her abdominal pain. In the emergency room she was found to have a white count of 23,[address] scan of the abdomen showed diffuse colitis without evidence of obstruction. Additionally she was noted to be hypokalemic and hypomagnesemic in the ER. Her electrolytes are in the process of being repleted and she will receive her first dose of meropenem in the emergency room prior to her admission to the hospitalist service for further evaluation and treatment. 11/25/2019-patient is receiving IV antibiotic therapy for UTI, p.o. vancomycin for C. difficile. WBC count is normalized to 8400. Afebrile. No complaints from the patient. Comfortably in the bed communicating well. 11/26/2019-no acute events in the last 24 hours. Afebrile. Complaining of still having the loose stools. Requesting to be back on Zoloft and Xanax is. Receiving p.o. vancomycin for C. difficile diarrhea and also has a VRE in the blood. presently on Zyvox, IV Rocephin." 11/27/2019 Discussed the case with ID after my initial consult order was placed today. They recommended putting the patient on linezolid however I noted the patient is on Zoloft and BuSpar. These psychiatric medications have been held and will continue to be held until she has completed her linezolid course. She will need to be on linezolid for a total of 14 days from the date of her last negative blood culture. Magnesium very low and this is been repleted today. Corrected calcium is actually 8.3 which is essentially normal. Patient has no new specific complaints other than wanting to walk around the hospital. 11/28/2019 Blood pressure elevated and given that patient is eating and drinking appropriately we will stop IV fluids. Added nifedipine daily. Calcium and magnesium higher than yesterday. Continue repleting magnesium. Hemoglobin higher. Patient has no new complaints and states her stools are becoming more formed. Possible can be discharged home tomorrow. I discussed with the patient she will need to stop her psychiatric meds while she is on linezolid but she can restart these as soon as her antibiotic course is finished. 11/29/2019 Blood cultures have not been drawn since they are initially drawn on admission and these are necessity to determine if her blood is in fact cleared the infection. I am concerned that she may have seeded her Mediport and this would need to be removed if this is the case. We will keep her until blood cultures are negative for approximately 48 hours and then she will be discharged home at that point to finish out the rest of her antibiotic course which we will start on 11/28 for a total of 14 days. Patient has no new complaints today and states her diarrhea is starting to become more formed and less frequent. She also specifically tells me that she feels safe at home and that she is not being abused or harmed in any way. Per my discussion with staff, she has made statements about complicated and sometimes unsafe sounding home life in the past on prior admissions but then she quickly changes her story when people suggest addressing the issue. We will need to monitor her closely and it may be beneficial for a licensed social worker to visit her home after discharge. 11/30/2019 Upon entering the room today, patient was verbally abusive to me and has reportedly been verbally abusive to the nursing staff as well. I asked her to treat all the staff here with the mutual respect that we give her and return. She reportedly had a very heated discussion with her roommate today per nursing notes in which the roommate was very angry that the patient was coming home soon. I again asked patient if she feels safe at home and if she is being abused and she says she does feel safe and she is not being abused and also that she loves her roommate and she has been with them for over 25 years. She became very angry at one point and stated she wanted to go home and that she was a prisoner here. I told her that she can leave AGAINST MEDICAL ADVICE anytime she chooses but I strongly recommend against doing so. I explained that we are looking for an infection in her blood to make sure her port was not affected by her recent bacteremia. She stated she did not care but she also did not want to go home AGAINST MEDICAL ADVICE either. So far her blood cultures are negative and she is continued on antibiotics as outlined previously. Otherwise she has no new complaints. Discharged on oral linezolid and oral vancomycin. Patient understands she must restart her psychiatric medications after she completes linezolid. These medications will be monitored by her PCP and psychiatrist outpatient. (1) Acute colitis Is this a current diagnosis for this admission?: Yes Plan: Per previous physician: "Patient denies any abdominal pains this morning. Receiving p.o. vancomycin for C. difficile. Plan is to advance the diet. 11/26/2019-patient is receiving p.o. vancomycin for C. difficile diarrhea. Still complaining of loose stools. On contact isolation." 11/27/2019 Continue linezolid and oral vancomycin to complete course ID consulted today, discussed with them in detail Cultures reviewed 11/28/2019 Oral vancomycin and oral linezolid for a total of 14 days from date of negative blood culture, 11/28 (2) Bacteremia due to vancomycin resistant Enterococcus Is this a current diagnosis for this admission?: Yes Plan: Per previous physician: "Precise source of VRE bacteremia is unclear although likely from the bowels. She did have his CAT scan done on presentation with findings suggestive of acute colitis which may be infectious or inflammatory in origin. I would suggest the need for a colonoscopy once patient is over this acute episode to rule out any underlying etiology. And apparently has a prior history of malignant neoplasm of the colon 11/25/2019-patient is presently on IV ceftriaxone, Zyvox for vancomycin resistant enterococcus. Afebrile. WBC count within normal limits. Plan is to continue the present management at this time. 11/26/2019-blood cultures are positive for VRE on IV ceftriaxone, Zyvox. WBC count is within normal blood pressures are stable at this time. Afebrile." 11/27/2019 Discussed with ID, consulted today No need for ceftriaxone, DC'd 11/29/2019 Blood cultures redrawn, pending at discharge, microbiology lab will notify hospitalist service and patient if they become positive, patient clinically stable with no signs of active infection 14 days of Zyvox and oral vancomycin will start when repeat blood cultures negative, 11/28 (3) Clostridioides difficile infection Is this a current diagnosis for this admission?: Yes Plan: Per previous physician: "Continue with oral vancomycin and add Questran for diarrhea 11/25/2019-patient diarrhea is improving. Receiving oral vancomycin and Questran for C. difficile diarrhea. No abdominal pains today." 11/27/2019 Discussed with ID, unclear if patient is colonized with toxin producing C. difficile or if she actually has an infection or had an infection given that her actual antigen is negative though the antigen gene is positive and the C. difficile itself was positive. As long as she is having ongoing diarrhea, ID recommends completing course of oral vancomycin (4) History of malignant neoplasm of colon Is this a current diagnosis for this admission?: Yes (5) Hypokalemia Is this a current diagnosis for this admission?: Yes (6) COPD (chronic obstructive pulmonary disease) Qualifiers: COPD type: unspecified COPD Qualified Code(s): J44.9 - Chronic obstructive pulmonary disease, unspecified Is this a current diagnosis for this admission?: Yes (7) Hypomagnesemia Is this a current diagnosis for this admission?: Yes Plan: Down to 1.0, replete and recheck Still low, continue repleting (8) Sepsis Qualifiers: Sepsis type: sepsis due to unspecified organism Sepsis acute organ dysfunction status: with acute organ dysfunction Severe sepsis acute organ dysfunction type: acute renal failure Acute renal failure type: unspecified Severe sepsis shock status: without septic shock Qualified Code(s): A41.9 - Sepsis, unspecified organism; R65.20 - Severe sepsis without septic shock; N17.9 - Acute kidney failure, unspecified Is this a current diagnosis for this admission?: Yes Physical Exam Vital Signs: Temp Pulse Resp BP Pulse Ox 97.9 F 73 16 158/95 H 100 12/01/19 11:17 12/01/19 11:17 12/01/19 11:17 12/01/19 11:17 12/01/19 11:17 Intake & Output 11/30/19 12/01/19 12/02/19 06:59 06:59 06:59 Intake Total 840 1260 60 Balance 840 1260 60 Weight 82.3 kg 79.5 kg Exam: General appearance: PRESENT: no acute distress, well-developed, well-nourished, states she is very glad to be discharged home today Head exam: PRESENT: atraumatic, normocephalic Eye exam: PRESENT: conjunctiva pink. ABSENT: scleral icterus Mouth exam: PRESENT: moist Respiratory exam: PRESENT: clear to auscultation vickie. ABSENT: rales, rhonchi, wheezes Cardiovascular exam: PRESENT: RRR. ABSENT: diastolic murmur, rubs, systolic murmur GI/Abdominal exam: PRESENT: normal bowel sounds, soft. ABSENT: distended, guarding, mass, organolmegaly, rebound, tenderness Neurological exam: PRESENT: alert, awake, oriented to person, oriented to place, oriented to time, oriented to situation Psychiatric exam: PRESENT: appropriate affect, normal mood Skin exam: PRESENT: dry, intact, warm Results Laboratory Results: WBC 7.8 10^3/uL (4.0-10.5) 11/27/19 12:00 RBC 3.11 10^6/uL (3.72-5.28) L 11/27/19 12:00 Hgb 9.4 g/dL (12.0-15.5) L 11/27/19 12:00 Hct 28.8 % (36.0-47.0) L 11/27/19 12:00 MCV 93 fl (80-97) 11/27/19 12:00 MCH 30.1 pg (27.0-33.4) 11/27/19 12:00 MCHC 32.4 g/dL (32.0-36.0) 11/27/19 12:00 RDW 15.8 % (11.5-14.0) H 11/27/19 12:00 Plt Count 422 10^3/uL (150-450) 11/27/19 12:00 Lymph % (Auto) Not Reportable 11/27/19 12:00 [place] % (Auto) Not Reportable 11/27/19 12:00 Eos % (Auto) Not Reportable 11/27/19 12:00 Baso % (Auto) Not Reportable 11/27/19 12:00 Absolute Neuts (auto) Not Reportable 11/27/19 12:00 Absolute Lymphs (auto) Not Reportable 11/27/19 12:00 Absolute Monos (auto) Not Reportable 11/27/19 12:00 Absolute Eos (auto) Not Reportable 11/27/19 12:00 Absolute Basos (auto) Not Reportable 11/27/19 12:00 Total Counted 100 11/27/19 12:00 Seg Neutrophils % Not Reportable 11/27/19 12:00 Seg Neuts % (Manual) 69 % (42-78) 11/27/19 12:00 Band Neutrophils % 2 % (3-5) L 11/27/19 12:00 Lymphocytes % (Manual) 17 % (13-45) 11/27/19 12:00 Atypical Lymphs % 4 % (0) 11/27/19 12:00 Monocytes % (Manual) 7 % (3-13) 11/27/19 12:00 Eosinophils % (Manual) 1 % (0-6) 11/27/19 12:00 Basophils % (Manual) 0 % (0-2) 11/27/19 12:00 Abs Neuts (Manual) 5.5 10^3/uL (1.7-8.2) 11/27/19 12:00 Abs Lymphs (Manual) 1.6 10^3/uL (0.5-4.7) 11/27/19 12:00 Abs Monocytes (Manual) 0.5 10^3/uL (0.1-1.4) 11/27/19 12:00 Absolute Eos (Manual) 0.1 10^3/uL (0.0-0.6) 11/27/19 12:00 Abs Basophils (Manual) 0.0 10^3/uL (0.0-0.2) 11/27/19 12:00 Toxic Granulation 1+ 11/21/19 19:30 Toxic Vacuolation PRESENT 11/27/19 07:50 Platelet Estimate Cancelled 11/24/19 06:30 Clumped Platelets PRESENT 11/27/19 07:50 Large Platelets PRESENT 11/27/19 07:50 Platelet Comment ADEQUATE 11/27/19 12:00 Polychromasia SLIGHT 11/25/19 05:21 Poikilocytosis 1+ 11/27/19 12:00 Anisocytosis SLIGHT 11/27/19 12:00 Macrocytosis SLIGHT 11/21/19 19:30 Tear Drop Cells 1+ 11/27/19 12:00 Ovalocytes 1+ 11/27/19 12:00 Kalee Cells 1+ 11/27/19 12:00 Schistocytes SLIGHT 11/25/19 05:21 RBC Morph Comment NORMO-CYTIC/CHROMIC 11/23/19 12:38 Sodium 138.2 mmol/L (137-145) 12/01/19 06:25 Potassium 4.0 mmol/L (3.6-5.0) 12/01/19 06:25 Chloride 106 mmol/L (98-107) 12/01/19 06:25 Carbon Dioxide 26 mmol/L (22-30) 12/01/19 06:25 Anion Gap 6 (5-19) 12/01/19 06:25 BUN 6 mg/dL (7-20) L 12/01/19 06:25 Creatinine 1.06 mg/dL (0.52-1.25) 12/01/19 06:25 Est GFR ( Amer) > 60 (>60) 12/01/19 06:25 Est GFR (MDRD) Non-Af 52 (>60) L 12/01/19 06:25 Glucose 82 mg/dL (75-110) 12/01/19 06:25 POC Glucose 80 mg/dL (70-110) 11/21/19 23:47 Lactic Acid 0.7 mmol/L (0.7-2.1) 11/21/19 21:28 Calcium 8.7 mg/dL (8.4-10.2) 12/01/19 06:25 Magnesium 1.6 mg/dL (1.6-2.3) 11/29/19 09:05 Total Bilirubin < 0.1 mg/dL (0.2-1.3) L 11/27/19 07:50 Direct Bilirubin 0.0 mg/dL (0.0-0.4) 11/27/19 07:50 Neonat Total Bilirubin Not Reportable 11/27/19 07:50 Neonat Direct Bilirubin Not Reportable 11/27/19 07:50 Neonat Indirect Bili Not Reportable 11/27/19 07:50 AST 13 U/L (14-36) L 11/27/19 07:50 ALT 6 U/L (<35) 11/27/19 07:50 Alkaline Phosphatase 47 U/L (38-126) 11/27/19 07:50 Troponin I < 0.012 ng/mL 11/21/19 19:30 Total Protein 3.9 g/dL (6.3-8.2) L 11/27/19 07:50 Albumin 1.9 g/dL (3.5-5.0) L 11/27/19 07:50 Triglycerides 147 mg/dL (<150) 11/22/19 05:40 Cholesterol 113.56 mg/dL (0-200) 11/22/19 05:40 LDL Cholesterol Direct 47 mg/dL (<100) 11/22/19 05:40 VLDL Cholesterol 29.0 mg/dL (10-31) 11/22/19 05:40 HDL Cholesterol 31 mg/dL (>40) L 11/22/19 05:40 Lipase 103.3 U/L (23-300) 11/21/19 19:30 TSH 0.21 uIU/mL (0.47-4.68) L 11/22/19 05:40 Free T3 pg/mL 1.94 pg/mL (2.77-5.27) L 11/22/19 05:40 Urine Color THOM 11/21/19 23:40 Urine Appearance CLOUDY 11/21/19 23:40 Urine pH 6.0 (5.0-9.0) 11/21/19 23:40 Ur Specific [place] 1.020 11/21/19 23:40 Urine Protein 30 mg/dL (NEGATIVE) H 11/21/19 23:40 Urine Glucose (UA) NEGATIVE mg/dL (NEGATIVE) 11/21/19 23:40 Urine Ketones TRACE mg/dL (NEGATIVE) H 11/21/19 23:40 Urine Blood NEGATIVE (NEGATIVE) 11/21/19 23:40 Urine Nitrite POSITIVE (NEGATIVE) H 11/21/19 23:40 Urine Bilirubin NEGATIVE (NEGATIVE) 11/21/19 23:40 Urine Urobilinogen NEGATIVE mg/dL (<2.0) 11/21/19 23:40 Ur Leukocyte Esterase SMALL (NEGATIVE) H 11/21/19 23:40 Urine WBC (Auto) 69 /HPF 11/21/19 23:40 Urine RBC (Auto) 4 /HPF 11/21/19 23:40 Urine Bacteria (Auto) 3+ /HPF 11/21/19 23:40 Urine WBC Clumps FEW /HPF 11/21/19 23:40 Squamous Epi Cells Auto 25 /HPF 11/21/19 23:40 Urine Mucus (Auto) RARE /LPF 11/21/19 23:40 Urine Ascorbic Acid 20 (NEGATIVE) H 11/21/19 23:40 Stl C. Difficile GDH Ag POSITIVE (NEGATIVE) 11/23/19 08:25 Stl C.difficile Tox A&B NEGATIVE (NEGATIVE) 11/23/19 08:25 Stl C.difficile Tox PCR POSITIVE (NEGATIVE) 11/23/19 08:25 Slides for Path Review Cancelled 11/24/19 06:30 11/21/19 19:30 Troponin I < 0.012 Impressions: Acute Abdomen Series 11/21/19 11:38 IMPRESSION: 1. No acute cardiopulmonary process. 2. Absence of the normal haustral folds in the transverse colon. This pattern can be seen in the setting of a chronic inflammatory colitis. Abdomen/Pelvis CT 11/21/19 20:18 IMPRESSION: 1. Marked circumferential wall thickening throughout the colon suggestive of acute colitis, which may be infectious or inflammatory in origin. 2. Gallstones without inflammatory changes. 3. 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 Plan Plan of Treatment: Follow-up with PCP Follow-up with psychiatry Complete linezolid and oral vancomycin course then restart psychiatric medications Time Spent: Greater than 30 Minutes Stroke Is this a Stroke Patient?: No Acute Heart Failure Is this a Heart Failure Patient?: No
[2019-12-01] MEDS: ALPRAZOLAM 0.5 MG TABLET PO PRN (14:48)
[2019-12-01 18:04] VITALS: BP 170/110
[2019-12-01] MEDS: ATORVASTATIN CALCIUM 10 MG TABLET PO SCH (21:12)
== END 2019-12-01 21:44 | disposition home health service (06) | DRG 371 ==
LOC: ER 10:52 → EH 22:21 → 4S 11-22 00:30
PROVIDERS: ADMIT Emergency Medicine; ATTEND Internal Medicine
DX: A04.72 Enterocolitis due to Clostridium difficile, not specified as recurrent (principal); A41.9 Sepsis, unspecified organism; R65.20 Severe sepsis without septic shock; N17.9 Acute kidney failure, unspecified; C19 Malignant neoplasm of rectosigmoid junction; N39.0 Urinary tract infection, site not specified; Z16.21 Resistance to vancomycin; B96.1 Klebsiella pneumoniae [K. pneumoniae] as the cause of diseases classified elsewhere; B95.2 Enterococcus as the cause of diseases classified elsewhere; E83.42 Hypomagnesemia; E87.6 Hypokalemia; I25.10 Atherosclerotic heart disease of native coronary artery without angina pectoris; I10 Essential (primary) hypertension; K21.9 Gastro-esophageal reflux disease without esophagitis; E89.0 Postprocedural hypothyroidism; E83.51 Hypocalcemia; E05.80 Other thyrotoxicosis without thyrotoxic crisis or storm; J44.9 Chronic obstructive pulmonary disease, unspecified; D72.829 Elevated white blood cell count, unspecified; F41.1 Generalized anxiety disorder; I25.2 Old myocardial infarction; Z88.2 Allergy status to sulfonamides; Z91.041 Radiographic dye allergy status; Z91.013 Allergy to seafood; Z79.82 Long term (current) use of aspirin; Z79.51 Long term (current) use of inhaled steroids; Z79.899 Other long term (current) drug therapy; Z90.49 Acquired absence of other specified parts of digestive tract
CPT/HCPCS: 36415; 74022; 74176; 80048; 80053; 80061; 81001; 82962; 83605; 83690; 83735; 84443; 84481; 84484; 85025; 85027; 87040; 87077; 87086; 87088; 87150; 87186; 87324; 87449; 87493; 93005; 93010; 96361; 96374; 99285; J0610; J0360; J0696; J1642; J1644; J2020; J2185; J2270; J2405; J2550; J3370; J3475; J3480; J3490; J7030; S0028